=== PATIENT | male | born 1935 | race Caucasian/White ===

== ENCOUNTER 2017-05-09 13:45 | Inpatient (IN) | payer MEDICARE ==
[~2017-05-09] VITALS: Ht 177.8 cm; Wt 93.9 kg
[~2017-05-09 13:45] MED LIST: ADV100INH INH; ALLO100T PO; ATEN25TA PO; BENA25CA2 PO; CALC1CAP31 PO; CEFT500T3 PO; CLEO300C2 PO; CLON0.2T PO; COLA100C3 PO; DEMA20TA6 PO; DOXY25SU PO; DYAZ37.5 PO; FURO40TA2 PO; LIPI10TA PO; MICR10CA PO; OMNICEF PO; PRED10TA PO; TYLE325T5 PO; ZITH250T PO
[2017-05-09] MEDS ORDERED: ONDANSETRON 4 MG TAB (S0181) PO PRN (14:30)
[2017-05-09] MEDS ORDERED: ACETAMINOPHEN TAB 650MG DOSE (2X325MG) PO PRN (14:30)
[2017-05-09] MEDS ORDERED: LevoFLOXacin IV 750 MG in APPROPRIATE DILUENT 1 EA IV ONE (15:00)
[2017-05-09] MEDS ORDERED: GASTROGRAFIN SOLUTION 30ML PO ONE (15:30)
[2017-05-09] MEDS ORDERED: GASTROGRAFIN SOLUTION 30ML (Q9963) PO ONE (16:00)
[2017-05-09] MEDS ORDERED: GENTAMICIN 120 MG in D5W 50 ML IV ONE (16:00)
[2017-05-09] MEDS ORDERED: DIPH25CA PO (16:01)
[2017-05-09] MEDS ORDERED: COLA100C3 PO (16:01)
[2017-05-09 16:02] LABS: MEAN CORPUSCULAR HEMOGLOBIN 31.9 pg (27.0-33.0); MEAN CORPUSCULAR HGB CONC 33.8 g/dl (32.0-36.5); MEAN CORPUSCULAR VOLUME 94.4 fl (80.0-96.0); PLATELET COUNT, AUTOMATED 209 k/mm3 (150-450); RED CELL DISTRIBUTION WIDTH 13.2 % (11.5-14.5); WHITE BLOOD COUNT 7.8 K/mm3 (4.0-10.0)
[2017-05-09 16:06] LABS: INR 4.34
[2017-05-09 16:07] VITALS: BP 127/69
[2017-05-09] MEDS ORDERED: COUM6TAB PO (16:16)
[2017-05-09] MEDS ORDERED: VITA1CAP2 PO (16:16)
[2017-05-09] MEDS ORDERED: COUM1TAB19 PO (16:16)
[2017-05-09] MEDS ORDERED: LANT50TA PO (16:16)
[2017-05-09] MEDS ORDERED: LIQULIQ6 PO (16:16)
[2017-05-09 16:27] LABS: ALBUMIN 2.6 GM/DL (3.2-5.2); ALBUMIN/GLOBULIN RATIO 0.7 (1.00-1.93); BILIRUBIN,TOTAL 0.7 MG/DL (0.2-1.0); CALCIUM LEVEL 7.8 MG/DL (8.8-10.2); CREATININE FOR GFR 4.95 MG/DL (0.70-1.30); POTASSIUM SERUM 3.5 MEQ/L (3.5-5.1); TOTAL PROTEIN 6.3 GM/DL (6.4-8.2)
[2017-05-09] MEDS ORDERED: ISOVUE-370 76% 100ML VIAL (Q9967) As Ordered ONE (16:32)
[2017-05-09 17:00] LABS: BANDS 11 % (< 11); BASOPHILS 1 % (0-4)
[2017-05-09] MEDS ORDERED: VANCOMYCIN HCL 1,000 MG, VIAL MATE ADAPTER 1 EACH in D5W 250 ML IV ONE (17:00)
[2017-05-09] MEDS ORDERED: PREVNAR 13 VACCINE SYRINGE (CPT CODE:90670) IM SCH (17:15)
--- NOTE | 2017-05-09 18:01 | REP ---
CT ABDOMEN AND PELVIS WITH AND WITHOUT CONTRAST: TECHNIQUE: Axial noncontrast images through the abdomen followed by contrast-enhanced images through the abdomen and pelvis using 100 mL Isovue 370 intravenous contrast material, with coronal and sagittal reformations. Visualized lung bases demonstrate no infiltrate. The liver demonstrates a couple of tiny subcentimeter cysts superiorly on the right. Spleen, adrenals and pancreas are unremarkable. Multiple enumerable cysts are seen throughout both kidneys compatible with polycystic kidneys. No definite solid renal mass is seen. Extensive bilateral renal artery calcifications are present and there are moderate atherosclerotic calcifications of the abdominal aorta, without aneurysm. No adenopathy is seen. There is no free air. There is moderate scattered free fluid throughout the abdomen and pelvis. There is a peritoneal dialysis catheter entering the lower abdomen to the right of midline with the distal end coiled in the upper left pelvis. No definite bowel wall thickening is seen. No focal abscess collection is seen. No pelvic mass is seen. Urinary bladder is seen and a collapsed urinary bladder, which contains some air. There are degenerative changes of the spine. There is a small hiatal hernia. There is sigmoid diverticulosis. IMPRESSION: Moderate free fluid in the abdomen and pelvis with peritoneal dialysis catheter in place. No abscess is seen. Diffuse distension of the colon without small bowel dilatation. Polycystic kidneys. Small hiatal hernia. Signed by Rob Walden MD 05/09/2017 08:07 P
[2017-05-09] MEDS: LANTHANUM CARBONATE 500 MG CHEW TABLET PO SCH (18:23)
--- NOTE | 2017-05-09 18:29 | REP ---
CHEST, TWO VIEWS: Two views of the chest are performed and compared to prior studies, the most recent of which is 12/07/2014. There is no evidence of acute infiltrate or pulmonary edema. The heart is upper limits of normal in size. There is calcification of the thoracic aorta. The mediastinal silhouette is unchanged. There are mild degenerative changes of the spine. IMPRESSION: No acute pulmonary disease. Signed by Rob Walden MD 05/09/2017 08:07 P
[2017-05-09] MEDS: ADVAIR DISKUS 100/50 INH PWD INH SCH (19:53)
[2017-05-09 19:55] LABS: RBC PERITONEAL DIALYSATE < 10 (<10mm3 cells/uL); TNC PERITONEAL DIALYSATE 6063 cells/uL (0-20)
[2017-05-09 20:01] LABS: BF DIFF IF INDICATED? YES (NO)
[2017-05-09] MEDS: SENOKOT S TAB PO SCH (20:39)
[2017-05-09] MEDS: ATORVASTATIN 10 MG TAB PO SCH (20:39)
[2017-05-09] MEDS: VITAMIN D 1,000 INTERNATIONAL UNITS TABLET PO SCH (20:39)
[2017-05-09] MEDS: POTASSIUM CHLORIDE 10 MEQ SR TABLET PO SCH (20:40)
[2017-05-09 20:50] LABS: CC BF DIFF EXAM UNSPUN
[2017-05-09] MEDS ORDERED: VANCOMYCIN 1000 MG/20 ML VIAL (J3370) IP ONE (22:00)
[2017-05-09 23:59] VITALS: BP 112/65
[2017-05-10] VITALS (7 sets, daily range): BP systolic 116–135; BP diastolic 62–82; PULSE 80–88
--- NOTE | 2017-05-10 00:57 | HPE ---
DATE OF ADMISSION: 05/09/2017 REASON FOR ADMISSION: High-grade fever and generalized weakness with sepsis. HISTORY OF PRESENT ILLNESS: Mr. Leigh is an 81-year-old gentleman with known history of end-stage renal disease secondary to polycystic kidneys, history of obstructive uropathy, hypertension, atrial fibrillation, dyslipidemia, asthma, and peritoneal dialysis. He presented to my office today with not feeling well and fever. He had a temperature of about 103 degrees Fahrenheit and was very weak and lethargic. He is being directly admitted to progressive care unit due to sepsis. The patient has known history of urinary retention and he self-catheterizes himself twice a day at home. I am concerned about possibility of urinary sepsis versus peritonitis related to peritoneal dialysis. He denies any respiratory symptoms. He does have nausea and vomiting for last couple of days. Apparently, he has not been feeling well for 4-5 days at home, but did not call our office. PAST MEDICAL AND SURGICAL HISTORY: Significant for: 1. History of polycystic kidney disease. 2. End-stage renal disease currently on peritoneal dialysis. 3. Hypertension. 4. Chronic atrial fibrillation. 5. Dyslipidemia. 6. History of asthma. 7. History of BPH, status post transurethral resection of prostate (TURP). 8. History of urinary retention requiring self-catheterization. 9. History of gout. MEDICATIONS: His home medications include: - allopurinol 100 mg daily - Lipitor 10 mg daily - calcitriol 0.25 mcg three times a week - Advair Diskus 100/50 twice a day - Coumadin 3 mg daily - Nephro-Lynda one daily - Tylenol as needed ALLERGIES: The patient has no known drug allergies. PERSONAL AND SOCIAL HISTORY: The patient lives with his significant other. He does not smoke or drink. There is no history of drug use. Family history is significant for polycystic kidneys. REVIEW OF SYSTEMS: The patient has been feeling poorly for the last 4-5 days. He did have fever today, but denies any fever prior to today. He has nausea and not feeling well for a few days. He also reports vomiting today. There is no history of cough or hemoptysis. He denies any nosebleed or sore throat. Cardiovascular system is significant for chronic atrial fibrillation. He also has chronic leg edema, but denies any dyspnea or chest pain. Respiratory system is significant for asthma. There is no history of hemoptysis or pleuritic type of chest pain. Gastrointestinal (GI) system is significant for nausea and vomiting. There is no rectal bleeding or black colored stool. He denies any abdominal pain. Genitourinary () system is significant for polycystic kidneys and history of urinary retention requiring self-catheterization at home. Musculoskeletal system is significant for chronic leg edema. There is no history of any significant arthritis. Endocrine system is negative for diabetes or thyroid problems. Hematological system is significant for anemia of chronic kidney disease and chronic anticoagulation. Neurological system is negative for seizures or stroke. Skin is negative for rash or ulcers. PHYSICAL EXAMINATION: Temperature 103 degrees Fahrenheit, heart rate 98 per minute and respiratory rate 24 per minute in my office. Blood pressure about 120/70 mmHg and oxygen saturation 94% on room air. Head is atraumatic. Pupils equal and reactive to light and sclerae are anicteric. Ears, nose and throat are unremarkable. There is no oral thrush or ulcers. Neck is supple and without any thyroid enlargement or abnormal lymph nodes. Neck veins are mildly distended. Heart sounds are irregular in rhythm and without pericardial friction rub. Lungs sound clear to auscultation. Abdomen is soft, distended with peritoneal dialysis solution. There is no significant tenderness and bowel sounds are hypoactive. There is no costovertebral angle (CVA) tenderness. Peritoneal dialysis catheter is intact. Extremities have no cyanosis or clubbing. Chronic leg edema is about 2+. He has a fistula in his left arm. Neurologically, he is awake, alert and oriented times three. PROBLEMS: 1. High-grade fever with sepsis. Possible sources are a urinary tract infection leading to sepsis and peritonitis. I am also concerned about possibility of infection in his polycystic kidneys. We will also get a chest x-ray to rule out any possibility of pneumonia. He does not seem to have any respiratory symptoms. CT scan of abdomen and pelvis will be done with and without intravenous (IV) contrast to rule out any possibility of diverticulitis, colitis or pyelonephritis. We will get urine and blood cultures in addition to peritoneal dialysis cell count and culture and sensitivity. The patient will be started on broad-spectrum antibiotics including vancomycin 1 gram intravenously, gentamicin 120 mg one dose intravenously and Levaquin 750 mg one dose intravenously pending cultures. A complete blood count (CBC) with differential will be obtained and urinalysis will also be obtained. Depending upon culture results and urinalysis and peritoneal dialysis cell count, further antibiotics will be ordered. 2. End-stage renal disease. The patient has been on peritoneal dialysis which will be continued while he is in hospital. We will perform five exchanges per day with 2-liter bags. In view of leg edema, we will use 2.5% solution for all exchanges. With first exchange, we will obtain cell count and Gram stain and culture. Depending upon the findings of peritoneal solution, we will consider to give him intraperitoneal antibiotics later on. 3. Chronic atrial fibrillation. The patient has been on Coumadin 3 mg daily. Will check his prothrombin time/international normalized ratio (PT/INR) and adjust the dose of Coumadin as needed. 4. Asthma. We will continue with his chronic nebulizer therapy including Advair and use albuterol nebulizer as needed. 5. Hyperlipidemia. The patient will continue with Lipitor 10 mg daily. I have discussed with the patient and his significant other about his condition and plan of care. He is likely to stay in the hospital for at least two midnights due to complicated medical problems and sepsis. I have answered all their questions.
[2017-05-10 06:06] LABS: CALCIUM LEVEL 7.9 MG/DL (8.8-10.2); CREATININE FOR GFR 4.89 MG/DL (0.70-1.30); GLOMERULAR FILTRATION RATE 12.2 (>35); PHOSPHORUS LEVEL 3.7 MG/DL (2.5-4.9); POTASSIUM SERUM 3.5 MEQ/L (3.5-5.1)
[2017-05-10 06:39] LABS: INR 5.92
[2017-05-10] MEDS ORDERED: POTASSIUM CHLORIDE 10 MEQ SR TABLET PO ONE (07:45)
[2017-05-10] MEDS ORDERED: PHYTONADIONE 5 MG TAB PO ONE (07:45)
[2017-05-10] MEDS: ADVAIR DISKUS 100/50 INH PWD INH SCH ×2 (08:05→20:45)
[2017-05-10] MEDS: SENOKOT S TAB PO SCH ×2 (08:27→21:00)
[2017-05-10] MEDS: LANTHANUM CARBONATE 500 MG CHEW TABLET PO SCH ×3 (08:28→17:46)
[2017-05-10] MEDS: SLF 3 ML SYR IV SCH ×2 (14:00→22:07)
[2017-05-10] MEDS ORDERED: SLF 3 ML SYR IV PRN (14:15)
--- NOTE | 2017-05-10 19:06 | IPN ---
DATE: Mr. Leigh is seen this morning on his bedside. He was admitted yesterday with high-grade fever, weakness and sepsis. His blood cultures have already been reported positive for gram-negative rods. His peritoneal dialysis solution gram stain was also positive for gram-negative rods. His urinalysis showed turbid appearance with too numerous to count white blood cells (WBCs). A urine culture is still pending. In the meantime, the patient is feeling better today and fever has improved. He was given tympanic antibiotic therapy with vancomycin, gentamicin and Levaquin. Temperature 98.3 degrees Fahrenheit, heart rate 85 per minute and respiratory rate 18 per minute. Blood pressure 116/69 mmHg and oxygen saturation 97% on room air. His head is atraumatic. Neck is supple and without JVD or thyroid enlargement. Oral mucosa is moist and healthy. Ears, nose and throat are unremarkable. Pupils equal and reactive to light and sclera is anicteric. Heart sounds are regular and lungs clear to auscultation. Abdomen, soft, distended with peritoneal dialysis solution and nontender. Dialysis catheter is intact. Extremities have no cyanosis or clubbing. Skin has no rash or ulcers. Neurologically he is awake, alert and oriented times three. Sodium is 133 and potassium 3.5. BUN 64 and creatinine 4.89. Calcium 7.9 and phosphorus 3.7. Albumin 2.0. Urinalysis showed too numerous to count WBCs and 3+ bacteria. Peritoneal dialysis solution showed 6063 and total nucleated cells and less than 10 red blood cells. Blood culture is positive for gram-negative rods. PROBLEMS: 1. Sepsis. The patient has gram-negative bacteremia and a possible peritonitis and urinary tract infection (UTI). Final cultures are still pending. Yesterday he was given vancomycin intraperitoneally and intravenously. We will not give him further vancomycin at this point. The patient will be given gentamicin 80 mg intraperitoneally tonight and will also be given Levaquin 500 mg intravenously pending final culture results. We will continue with intraperitoneal gentamicin 40 mg daily for next few days. We will redose Levaquin or switch his antibiotic as indicated by culture and sensitivity results. 2. End-stage renal disease. The patient remains on peritoneal dialysis and will continue with five exchanges per day. 3. UTI with history of neurogenic bladder. The patient remains on twice a day catheterization. 4. Hyponatremia. This is mild and stable. No intervention indicated at this point. 5. Hypokalemia due to poor oral intake. The patient will be given one dose of 40 mEq potassium chloride and electrolytes will be checked again tomorrow morning.
--- NOTE | 2017-05-10 19:26 | IPN ---
DATE: 05/10/2017 The patient has a history of atrial fibrillation and was on Coumadin as an outpatient. His Coumadin has been on hold since admission due to elevated international normalized ratio (INR). Today his INR was reported at 5.92. He has not received Coumadin since day before yesterday. He will be given vitamin K 5 mg one dose by mouth today. His PT and INR will be checked again tomorrow morning. There is no active bleeding and no other intervention is indicated at this point. Protein calorie malnutrition. I have discussed with the patient and advised to continue high-protein intake. He did bring his LiquaCel from home, and he is drinking that. In addition, he will be given a high-protein diet here. PEDRO LUIS
[2017-05-10] MEDS ORDERED: GENTAMICIN SULF INJ 80MG/2ML VIAL (J1580) IP ONE (22:00)
[2017-05-10] MEDS: POTASSIUM CHLORIDE 10 MEQ SR TABLET PO SCH (22:04)
[2017-05-10] MEDS: VITAMIN D 1,000 INTERNATIONAL UNITS TABLET PO SCH (22:05)
[2017-05-10] MEDS: ATORVASTATIN 10 MG TAB PO SCH (22:05)
[2017-05-11 04:45] VITALS: BP 117/73
[2017-05-11 05:35] LABS: MEAN CORPUSCULAR HEMOGLOBIN 32.5 pg (27.0-33.0); MEAN CORPUSCULAR HGB CONC 33.9 g/dl (32.0-36.5); MEAN CORPUSCULAR VOLUME 95.8 fl (80.0-96.0); RED CELL DISTRIBUTION WIDTH 13.2 % (11.5-14.5); WHITE BLOOD COUNT 8.1 K/mm3 (4.0-10.0)
[2017-05-11 05:44] LABS: ALBUMIN 1.9 GM/DL (3.2-5.2); CALCIUM LEVEL 7.5 MG/DL (8.8-10.2); CREATININE FOR GFR 4.43 MG/DL (0.70-1.30); GLOMERULAR FILTRATION RATE 13.6 (>35); PHOSPHORUS LEVEL 2.7 MG/DL (2.5-4.9); POTASSIUM SERUM 3.3 MEQ/L (3.5-5.1)
[2017-05-11] MEDS: SLF 3 ML SYR IV SCH ×3 (06:08→22:01)
[2017-05-11] MEDS: ADVAIR DISKUS 100/50 INH PWD INH SCH ×2 (07:29→20:28)
[2017-05-11 08:00] VITALS: BP 109/69
[2017-05-11] MEDS: SENOKOT S TAB PO SCH ×2 (08:16→21:00)
[2017-05-11] MEDS: LANTHANUM CARBONATE 500 MG CHEW TABLET PO SCH ×3 (08:17→17:30)
[2017-05-11] MEDS ORDERED: LevoFLOXacin IV 500 MG in APPROPRIATE DILUENT 1 EA IV SCH (09:00)
[2017-05-11] MEDS ORDERED: POTASSIUM CHLORIDE 10% LIQ 20 MEQ/15 ML UDC PO ONE (11:00)
[2017-05-11 12:00] VITALS: BP 112/64
--- NOTE | 2017-05-11 12:34 | REP ---
Right lower extremity deep vein duplex ultrasound: The deep veins demonstrate normal compression, normal Doppler color flow and normal Doppler waveforms with respiration augmentation at multiple levels from the popliteal vein to the common femoral vein. 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 Impression: There is no deep vein thrombus in the right lower extremity. Signed by Rob Montesinos MD 05/11/2017 12:26 P
--- NOTE | 2017-05-11 14:34 | IPN ---
DATE: 05/11/2017 SUBJECTIVE: Patient was seen and examined at the bedside today in the morning. He reports that he feels much better. He is afebrile and hemodynamically stable at this time. Patient is tolerating the peritoneal dialysis, and he is getting intravenous (IV) and intraperitoneal antibiotics for bacteremia and sepsis. REVIEW OF SYSTEMS: Patient denies any fevers, chills, rigors, headaches, nausea, vomiting, chest pain, shortness of breath, or pain in abdomen. He reports that his appetite is low. Patient also reports right leg swelling. Rest of the review of systems is negative. OBJECTIVE Vital signs: Temperature is 98.8, degrees Fahrenheit, blood pressure is 109/69, pulse is 83, respiratory rate of 18, saturating 96% on room air. Intake and output: Urine output recorded is 550 mL yesterday, 250 mL so far today. Patient is 390 mL positive so far, according to intake and output. Weight in the bed scale is 93.7 kg. PHYSICAL EXAMINATION: GENERAL: Patient is awake, alert, oriented times three, lying in bed in No apparent distress. HEAD AND NECK: Extraocular muscles intact. Pupils equally round and reactive to light. Mucous membranes are moist. Neck is supple. There is no jugular venous distention (JVD). CARDIOVASCULAR: S1, S2, regular rate. No murmur, rub, or gallop. RESPIRATORY: Chest is clear to auscultation bilaterally. Bilateral equal air entry. No rales or rhonchi. ABDOMEN: Abdomen is soft. Mildly distended, because continuous ambulatory peritoneal dialysis (CAPD) is going on. He has a left lower quadrant PD catheter with no tenderness or drainage from the exit site. No organomegaly. EXTREMITIES: No clubbing or cyanosis. Patient has 2+ pitting edema of the right lower extremity and trace edema of the left lower extremity. CENTRAL NERVOUS SYSTEM: No focal neurological deficit. Power is 5/5 in all extremities. PSYCHIATRIC: Normal mood and affect. LABORATORY REVIEW: CBC showed a WBC 8.1, hemoglobin 11.7, platelets at 192. INR is 2. BMP showed sodium 136, potassium 3.3, chloride 99, bicarbonate 26, BUN 69, creatinine is 4.4, calcium 7.5, phosphorus 2.7. Albumin is 1.9. Microbiology: Peritoneal fluid culture is growing Escherichia (E) coli. Blood culture is growing gram-negative rods. Urine culture is also growing E. coli, and this is sensitive to gentamicin and Levaquin that patient is already on. CURRENT INPATIENT MEDICATIONS: Patient's medications were all reviewed by me. I have changed the IV antibiotic frequency to Levaquin 500 mg IV every 48 hours because of renal failure, and I have ordered another dose of gentamicin 40 mg intraperitoneal to be given tonight. There is no other change in the medications today as compared with yesterday. ASSESSMENT: Mr. Leigh is an 81-year-old male with past medical history of end-stage renal disease, on peritoneal dialysis, admitted at this time because of sepsis secondary to Escherichia (E) coli urinary tract infection (UTI), E. coli bacteremia, and E. coli secondary bacterial peritonitis. PLAN: 1. Sepsis secondary to E. colic UTI,E Coli bacteremia and E Coli peritonitis. Patient is currently on IV Levaquin. I have changed the dose to 500 mg IV every 48 hours because of renal failure. Patient got gentamicin intraperitoneal 80 mg yesterday. I will give him another dose of 40 mg intraperitoneal tonight. Patient is otherwise afebrile and hemodynamically stable at this time. 2. End-stage renal disease, on peritoneal dialysis. Continue current dose of 2.5% of dialysate 2 liters times five exchanges daily. 3. Right-sided leg edema. Continue the 2.5% dialysate exchanged to help with more ultrafiltration. I have also ordered a right leg Doppler to do deep vein thrombosis (DVT) in the right extremity. 4. UTI with E. coli and neurogenic bladder. Patient was doing straight catheterizations at home. He currently has an indwelling Whaley catheter continued at this time. 5. Hypokalemia. I have ordered potassium chloride 20 mEq by mouth daily, and in addition he will get an additional dose of potassium chloride 40 mEq by mouth times one dose. 6. Hyponatremia. It improved with ultrafiltration and peritoneal dialysis. Sodium is improved to 136 now. 7. Atrial fibrillation. Heart rate is controlled at this time. He was given a dose of vitamin K because of supratherapeutic INR. INR is 2 today. I am going to restart the patient on low dose of the Coumadin. MTDD
[2017-05-11 16:00] VITALS: BP 118/71
[2017-05-11] MEDS: WARFARIN SOD 3 MG TAB PO SCH (16:29)
[2017-05-11 20:00] VITALS: BP 114/70
[2017-05-11] MEDS: ATORVASTATIN 10 MG TAB PO SCH (21:11)
[2017-05-11] MEDS: VITAMIN D 1,000 INTERNATIONAL UNITS TABLET PO SCH (21:11)
[2017-05-11] MEDS: POTASSIUM CHLORIDE 10 MEQ SR TABLET PO SCH (21:11)
[2017-05-11] MEDS ORDERED: GENTAMICIN SULF INJ 80MG/2ML VIAL (J1580) IP ONE (22:00)
[2017-05-11 23:53] VITALS: BP 131/71
[2017-05-12 06:00] VITALS: BP 121/62
[2017-05-12] MEDS: SLF 3 ML SYR IV SCH ×3 (06:00→22:00)
[2017-05-12 06:27] LABS: BASO % 0.1 % (0.0-1.0); EOS # 0.1 K/mm3 (0.0-0.50); EOS % 1.3 % (0.0-3.0); LARGE UNSTAINED CELL # 0.2 K/mm3 (0.0-0.4); LARGE UNSTAINED CELL % 2.3 % (0.0-4.0); LYMPH # 0.6 K/mm3 (1.5-4.5); LYMPH % 6.6 % (24.0-44.0); MEAN CORPUSCULAR HEMOGLOBIN 32.6 pg (27.0-33.0); MEAN CORPUSCULAR HGB CONC 34.5 g/dl (32.0-36.5); MEAN CORPUSCULAR VOLUME 94.4 fl (80.0-96.0); MONO # 0.4 K/mm3 (0.0-0.8); MONO % 6.6 % (0.0-5.0); NEUTROPHILS # 5.3 K/mm3 (1.8-7.7); PLATELET COUNT, AUTOMATED 223 k/mm3 (150-450); RED CELL DISTRIBUTION WIDTH 13.1 % (11.5-14.5); WHITE BLOOD COUNT 6.3 K/mm3 (4.0-10.0)
[2017-05-12 06:31] LABS: INR 1.69
[2017-05-12 06:44] LABS: ALBUMIN 1.9 GM/DL (3.2-5.2); CALCIUM LEVEL 7.8 MG/DL (8.8-10.2); CREATININE FOR GFR 4.3 MG/DL (0.70-1.30); GLOMERULAR FILTRATION RATE 14.1 (>35); PHOSPHORUS LEVEL 2.5 MG/DL (2.5-4.9); POTASSIUM SERUM 3.6 MEQ/L (3.5-5.1)
[2017-05-12] MEDS: ADVAIR DISKUS 100/50 INH PWD INH SCH ×2 (07:25→21:55)
[2017-05-12] MEDS: SENOKOT S TAB PO SCH ×3 (08:26→22:12)
[2017-05-12] MEDS: LANTHANUM CARBONATE 500 MG CHEW TABLET PO SCH ×3 (08:28→17:48)
[2017-05-12] MEDS ORDERED: POTASSIUM CHLORIDE 10 MEQ SR TABLET PO ONE (11:00)
[2017-05-12 11:54] LABS: BF DIFF IF INDICATED? YES (NO); PERITONEAL DIALYSATE FL COLOR PALE YELLOW (COLORLESS); RBC PERITONEAL DIALYSATE < 10 (<10mm3 cells/uL); TNC PERITONEAL DIALYSATE 1906 cells/uL (0-20)
[2017-05-12 12:08] LABS: CC BF DIFF EXAM CYTOCENTRIFUGE
[2017-05-12] MEDS: FUROSEMIDE 40 MG/4 ML VIAL (J1940) IV SCH (12:57)
[2017-05-12 14:00] VITALS: BP 105/61
--- NOTE | 2017-05-12 14:07 | IPN ---
DATE: 05/12/2017 SUBJECTIVE: Patient was seen and examined at the bedside today in the morning. He was getting his PD exchange when I saw him. The patient reports that clinically he is getting better. His appetite is improving. He is afebrile and hemodynamically stable at this time. Last 24 hour events are noted. The patient was found to have E. Coli in the blood as well. The patient also got Doppler of the right leg done yesterday which was negative for deep vein thrombosis (DVT). REVIEW OF SYSTEMS: The patient denies any fevers, chills, rigors, headaches, nausea, vomiting, chest pain, shortness of breath, or pain in abdomen. He reports that his appetite is getting better and he reports that the right leg swelling is slightly better than yesterday. The rest of the review of systems is negative. OBJECTIVE Vital Signs: Temperature is 96.4 degrees Fahrenheit, blood pressure is 121/62, pulse is 94, respiratory rate of 17, saturating 98% on room air. Intake and Output: Urine output recorded as 575 mL yesterday and 450 mL so far today since overnight. Bed scale weight is not available today. PHYSICAL EXAMINATION: GENERAL: Patient is awake, alert, oriented times three, lying in bed in no apparent distress. HEAD AND NECK EXAM: Extraocular muscles intact. Pupils equally round and reactive to light. Mucous membranes are moist. Neck is supple. There is no jugular venous distention (JVD). CARDIOVASCULAR: S1, S2, regular rate. No murmur, rub, or gallop. RESPIRATORY: Chest is clear to auscultation bilaterally. Bilateral equal air entry. No rales or rhonchi. ABDOMEN: Abdomen is soft. Mildly distended because of peritoneal exchange. Otherwise no tenderness, no organomegaly. He has left lower quadrant peritoneal dialysis catheter. EXTREMITIES: No clubbing or cyanosis. Patient has 2+ pitting edema of the right lower extremity and trace edema of the left lower extremity. CENTRAL NERVOUS SYSTEM: No focal neurological deficit. Power is 5/5 in all extremities. PSYCHIATRIC: Normal mood and affect. LABORATORY REVIEW: CBC showed a WBC 6.3, hemoglobin 11.8, platelets are 223. INR is 1.69 today. Peritoneal fluid cell count was 1,906 and 91% were neutrophils. BMP showed sodium 136, potassium 3.6, chloride 99, bicarbonate 28, BUN 64, creatinine is 4.3, calcium 7.8, phosphorus 2.5. Albumin is 1.9. Microbiology: Peritoneal fluid is positive for Escherichia (E) coli. Blood culture is positive for E. Coli. Urine culture is positive for E. Coli. CURRENT MEDICATIONS: Patient's medications were all reviewed by me. He is currently on Levaquin 500 mg IV every 48 hours. I have started the patient on Lasix 40 mg IV daily because of edema. The patient will get another dose of gentamicin 40 mg intraperitoneally tonight. I gave the patient another dose of potassium chloride 20 mEq one dose today morning. The patient is on warfarin 3 mg by mouth daily. There is no other change in the medications today as compared with yesterday. ASSESSMENT: Mr. Leigh is an 81-year-old male with past medical history of end-stage renal disease on peritoneal dialysis admitted at this time because of sepsis secondary to Escherichia (E) coli urinary tract infection (UTI), E. coli bacteremia and E. coli secondary bacterial peritonitis. PLAN: 1. Sepsis secondary to E. coli UTI, E. Coli bacteremia and E. Coli peritonitis. Patient is currently hemodynamically stable. He is afebrile. He is currently on Levaquin 500 mg IV every 48 hours. He got one dose yesterday, next dose will be tomorrow. The patient will get intraperitoneal gentamicin tonight. 2. End-stage renal disease on peritoneal dialysis. Patient continues to tolerate the peritoneal dialysis. Continue five exchanges of 2 liters each, all 2.5%, because of slight volume overload. 3. Right-sided leg edema. Patient got a Doppler of the right leg done yesterday which was negative for deep vein thrombosis (DVT). I have started the patient on Lasix 40 mg IV daily because the patient still has some residual kidney function that will help improve edema as well. Continue the 2.5% dialysate with the exchange volumes. in the right extremity. 4. UTI with E. Coli and neurogenic bladder. Patient continues to be on Whaley catheter. When he goes home, he will have to resume straight catheterizations. 5. Hypokalemia. The patient continues to be on potassium chloride 20 mEq by mouth daily. I gave the patient additional dose of 20 mEq of potassium chloride today morning. Potassium is stable at 3.6. 6. Atrial fibrillation. Heart rate is well controlled at this time. Continue warfarin 3 mg by mouth daily. INR is subtherapeutic at this time. However, I would continue the current dose because patient needs vitamin K because of supratherapeutic INR on admission. 7. Protein calorie malnutrition. Continue current dose of LiquaCel 30 mL by mouth twice a day and continue the protein shakes. The patient had the protein supplements at home and he has brought them with him. Continue to encourage oral intake. 8. Discharge planning. The patient should be able to go home probably within the next one to two days. He would need to follow up as outpatient with the dialysis center and he would need at least two weeks of antibiotics on discharge.
[2017-05-12] MEDS: WARFARIN SOD 3 MG TAB PO SCH (17:48)
[2017-05-12 22:00] VITALS: BP 113/67
[2017-05-12] MEDS ORDERED: HEPARIN SOD (PORCINE) 5000 UNITS/ML VIAL PD ONE (22:00)
[2017-05-12] MEDS ORDERED: GENTAMICIN SULF INJ 80MG/2ML VIAL (J1580) IP ONE (22:00)
[2017-05-12] MEDS: POTASSIUM CHLORIDE 10 MEQ SR TABLET PO SCH (22:12)
[2017-05-12] MEDS: ATORVASTATIN 10 MG TAB PO SCH (22:12)
[2017-05-12] MEDS: VITAMIN D 1,000 INTERNATIONAL UNITS TABLET PO SCH (22:12)
[2017-05-13] MEDS: SLF 3 ML SYR IV SCH (05:16)
[2017-05-13 06:00] VITALS: BP 124/77
[2017-05-13 06:07] LABS: BASO % 0.3 % (0.0-1.0); EOS # 0.2 K/mm3 (0.0-0.50); EOS % 2.4 % (0.0-3.0); LARGE UNSTAINED CELL # 0.2 K/mm3 (0.0-0.4); LARGE UNSTAINED CELL % 2.6 % (0.0-4.0); LYMPH # 0.7 K/mm3 (1.5-4.5); LYMPH % 8.8 % (24.0-44.0); MEAN CORPUSCULAR HEMOGLOBIN 32.2 pg (27.0-33.0); MEAN CORPUSCULAR HGB CONC 33.8 g/dl (32.0-36.5); MEAN CORPUSCULAR VOLUME 95.2 fl (80.0-96.0); MONO # 0.5 K/mm3 (0.0-0.8); MONO % 7.2 % (0.0-5.0); NEUTROPHILS # 5.2 K/mm3 (1.8-7.7); NEUTROPHILS % 78.8 % (36.0-66.0); PLATELET COUNT, AUTOMATED 258 k/mm3 (150-450); WHITE BLOOD COUNT 6.5 K/mm3 (4.0-10.0)
[2017-05-13 06:12] LABS: INR 1.9
[2017-05-13 06:41] LABS: ALBUMIN 1.8 GM/DL (3.2-5.2); CALCIUM LEVEL 8.1 MG/DL (8.8-10.2); CREATININE FOR GFR 4.2 MG/DL (0.70-1.30); GLOMERULAR FILTRATION RATE 14.5 (>35); PHOSPHORUS LEVEL 2.1 MG/DL (2.5-4.9); POTASSIUM SERUM 3.6 MEQ/L (3.5-5.1)
[2017-05-13 07:09] LABS: RBC PERITONEAL DIALYSATE < 10 (<10mm3 cells/uL); TNC PERITONEAL DIALYSATE 1036 cells/uL (0-20)
[2017-05-13 07:11] LABS: BF DIFF IF INDICATED? YES (NO); PERITONEAL DIALYSATE FL COLOR COLORLESS (COLORLESS)
[2017-05-13 07:57] LABS: CC BF DIFF EXAM CYTOCENTRIFUGE
[2017-05-13] MEDS: ADVAIR DISKUS 100/50 INH PWD INH SCH (08:02)
[2017-05-13] MEDS: FUROSEMIDE 40 MG/4 ML VIAL (J1940) IV SCH (08:52)
[2017-05-13] MEDS: SENOKOT S TAB PO SCH (08:53)
[2017-05-13] MEDS: LANTHANUM CARBONATE 500 MG CHEW TABLET PO SCH (08:53)
[2017-05-13] MEDS ORDERED: LevoFLOXacin IV 500 MG in APPROPRIATE DILUENT 1 EA IV SCH (09:00)
[2017-05-13] MEDS ORDERED: COUM1TAB19 PO (11:24)
[2017-05-13] MEDS ORDERED: FURO40VL PO ×2 (11:24→11:35)
[2017-05-13] MEDS ORDERED: GENT40VL IP (11:24)
[2017-05-13] MEDS ORDERED: LEVA500T PO (11:24)
[2017-05-13 19:01] LABS: GENTAMICIN LEVEL RANDOM 2.8 MCG/ML
--- NOTE | 2017-05-13 23:40 | DSES ---
DATE OF ADMISSION: 05/09/2017 DATE OF DISCHARGE: 05/13/2017 ADMITTING DIAGNOSIS: High grade fever with sepsis secondary to urinary tract infection (UTI) and peritonitis. DISCHARGE DIAGNOSES: 1. Sepsis secondary to Escherichia (E) coli bacteremia. 2. Escherichia (E) coli secondary bacterial peritonitis. 3. Escherichia (E) coli urinary tract infection. OTHER DIAGNOSES: 1. End-stage renal disease, dependent on peritoneal dialysis. 2. Chronic atrial fibrillation. 3. Supratherapeutic INR. 4. Right-sided leg edema and fluid overload. 5. Protein calorie malnutrition. PROCEDURES PERFORMED DURING THIS ADMISSION: Patient got continuous ambulatory peritoneal dialysis (CAPD) during this hospital stay. HISTORY OF PRESENT ILLNESS: Mr. Leigh is an 81-year-old male with past medical history of end-stage renal disease on peritoneal dialysis, history of polycystic kidney disease, hypertension, chronic atrial fibrillation, history of urinary retention requiring daily self-catheterization. He was seen in the nephrology office on 05/09/2017 with fever of 103 degrees Fahrenheit. He was very weak and lethargic. He was directly admitted to the hospital. His initial sepsis broke up, showed that his urine was full of pus. His peritoneal fluid had more than 6000 nucleated cells. Patient was admitted. Broad-spectrum antibiotics were started and chavez cultured were sent. HOSPITAL COURSE: Patient was admitted on 05/09/2017. After sending the chavez cultures, patient was started on intravenous (IV) Levaquin and intraperitoneal gentamicin. His urine culture, blood culture and peritoneal cultures all grew Escherichia (E) coli, which was sensitive to Levaquin and gentamicin. For bacteremia, patient was given IV Levaquin 500 mg IV every 48 hours. For urinary tract infection, patient got Whaley catheterization. IV Levaquin covered the urinary tract infection (UTI) as well. His urine became clear after a few days. For secondary bacterial peritonitis, in addition to IV Levaquin, patient was given intraperitoneal gentamicin as well. First dose was 80 mg. Subsequent doses were 40 mg intraperitoneally every day. Peritoneal fluid white cell count was trended and it came down from 6000 to 1000 on 05/13/2017. Patient also had supratherapeutic INR on admission, with INR of 5.9. He was given vitamin K. His Coumadin dose was changed to 3 mg by mouth daily. For his end-stage renal disease and peritoneal dialysis, patient continued CAPD, 2 liter exchanges of 2.5%. Because of volume overload, he did five exchanges every day. For right-sided leg edema, in addition to the 2.5% exchanges, I gave the patient Lasix 40 mg IV daily, because he still makes a good amount of urine, and then I switched him to Lasix 40 mg oral daily on discharge as well. Patient also had hypokalemia during this admission. He was given additional potassium in addition to the potassium 20 mEq daily that he receives at home. Patient had protein calorie malnutrition, because he was very weak and tired and he was unable to eat any food. We continued his home dose of LiquaCel and protein shakes. His albumin on discharge was 1.8. Patient was encouraged to continue the high protein diet and protein shakes. On the morning of 05/13/2017, patient was afebrile, hemodynamically stable. He denied any active complaints. PHYSICAL EXAMINATION: GENERAL: Patient is awake, alert, oriented times three, laying in bed. No apparent distress. HEAD AND NECK EXAMINATION: Extraocular muscles intact. Pupils equally round and reactive to light. Mucous membranes are moist. Neck is supple. There is no jugular venous distention (JVD). CARDIOVASCULAR: S1, S2. Regular rate. No murmurs, rubs or gallops. RESPIRATORY: Clear to auscultation bilaterally. Bilateral equal air entry. No rales or rhonchi. ABDOMEN: Soft. Mildly distended because of polycystic kidneys and peritoneal dialysis. There was no tenderness. No organomegaly. EXTREMITIES: No clubbing or cyanosis. Patient has 2+ pitting edema of the right lower extremity. Left extremity has only trace edema. CENTRAL NERVOUS SYSTEM: No focal neurological deficits. Power is 5/5 in all extremities. LABORATORY REVIEW: CBC showed a WBC 6.5, hemoglobin 11.9, platelets 258. BMP showed sodium 136, potassium 3.6, chloride 100, bicarbonate 28, BUN 65, creatinine 4.2, calcium 8.1, phosphorus 2.1. Albumin 1.8. CONDITION ON DISCHARGE: Stable and improving. DISPOSITION: Patient was discharged home. DISCHARGE MEDICATIONS: - Lasix 40 mg by mouth daily - gentamicin 40 mg intraperitoneally daily for a total of 10 days - Levaquin 500 mg by mouth every 48 hours for a total of 10 days - warfarin 3 mg by mouth daily - Lipitor 10 mg at bedtime - Calcitriol 0.25 mcg by mouth Saturday, Saturday, Saturday - vitamin D 1000 units by mouth daily - Colace 100 mg by mouth twice a day as needed for constipation - lanthanum 500 mg by mouth three times a day with meals - LiquaCel 30 mL by mouth Saturday, Saturday and Saturday - potassium chloride 20 mEq by mouth daily - Advair 100/50 one puff twice a day DISCHARGE INSTRUCTIONS: 1. Activity: As tolerated. 2. Diet: Renal diet. 3. Other instructions: Whaley catheter will be removed today. Patient will need to self-catheterize himself daily with straight on technique. Patient was asked to wear gloves and wash hands before and after self-catheterization and before touching his peritoneal dialysis catheter. 4. Patient was also asked to get in touch with nephrology clinic in case he spikes a fever. FOLLOWUP: Patient is supposed to stop at the dialysis center after discharge before going home about instructions how to give intraperitoneal gentamicin every day and patient has follow up with Dr. Soto in the clinic on 05/17/2017. Instructions were given to the patient and he is already aware of his follow up. I spent more than 45 minutes in arranging the discharge of this patient. PEDRO LUIS
== END 2017-05-13 12:30 | disposition home or self-care (01) | DRG 871 ==
LOC: M ICU 14:52 → M PCU 22:49 → M MSPAV 05-11 23:52
PROVIDERS: ADMIT Internal Medicine Nephrology; ATTEND Internal Medicine Nephrology
DX: A41.9 Sepsis, unspecified organism (principal); N18.6 End stage renal disease; K65.9 Peritonitis, unspecified; N39.0 Urinary tract infection, site not specified; E46 Unspecified protein-calorie malnutrition; B96.20 Unspecified Escherichia coli [E. coli] as the cause of diseases classified elsewhere; E87.6 Hypokalemia; J45.909 Unspecified asthma, uncomplicated; M10.9 Gout, unspecified; N31.9 Neuromuscular dysfunction of bladder, unspecified; I48.91 Unspecified atrial fibrillation; E78.5 Hyperlipidemia, unspecified; Z99.2 Dependence on renal dialysis; Z79.01 Long term (current) use of anticoagulants; Z79.899 Other long term (current) drug therapy; Z84.1 Family history of disorders of kidney and ureter

== ENCOUNTER 2017-11-09 16:08 | Observation (INO) | payer MEDICARE ==
[~2017-11-09] VITALS: Ht 177.8 cm; Wt 93.2 kg
[~2017-11-09 16:08] MED LIST changes: -COLA100C3 PO; +COLA100C5 PO; +COUM1TAB19 PO; +COUM6TAB PO; +DIPH25CA PO; +FURO40VL PO; +GENT40VL IP; +LANT50TA PO; +LEVA1TAB2 PO; +LIQULIQ6 PO; +VITA1CAP2 PO
[2017-11-09 17:44] LABS: BASO % 0.5 % (0.0-1.0); EOS # 0.5 10^3/uL (0.0-0.50); EOS % 6.7 % (0.0-3.0); IMMATURE GRANULOCYTE % 0.9 % (0-0); LYMPH # 0.6 10^3/uL (1.5-4.5); MEAN CORPUSCULAR HEMOGLOBIN 31.9 pg (27.0-33.0); MEAN CORPUSCULAR HGB CONC 33.9 g/dl (32.0-36.5); MEAN CORPUSCULAR VOLUME 94.1 fl (80.0-96.0); MONO # 0.8 10^3/uL (0.0-0.8); MONO % 10.9 % (0.0-5.0); NEUTROPHILS # 5.7 10^3/uL (1.8-7.7); PLATELET COUNT, AUTOMATED 229 10^3/uL (150-450); RED CELL DISTRIBUTION WIDTH 13.5 % (11.5-14.5); WHITE BLOOD COUNT 7.7 10^3/uL (4.0-10.0)
[2017-11-09 17:57] LABS: CALCIUM LEVEL 8.8 MG/DL (8.8-10.2); CREATININE FOR GFR 5.24 MG/DL (0.70-1.30); FREE T4 1.21 NG/DL (0.76-1.46); GLOMERULAR FILTRATION RATE 11.2 (>35); MAGNESIUM LEVEL 2.1 MG/DL (1.8-2.4); POTASSIUM SERUM 2.9 MEQ/L (3.5-5.1)
[2017-11-09] MEDS ORDERED: ONDANSETRON 4MG/2ML VIAL (J2405) IV ONE (18:00)
[2017-11-09] MEDS ORDERED: NS 500 ML IV ONE (18:00)
[2017-11-09 18:07] LABS: INR 2.25
[2017-11-09] MEDS ORDERED: KCL 10MEQ IN 100ML SWI (KRUN) 10 MEQ in APPROPRIATE DILUENT 1 EA IV ONE ×2 (18:15)
--- NOTE | 2017-11-09 18:30 | REPUSA ---
CLINICAL HISTORY: Syncope. TECHNIQUE: Multiple axial CT images were obtained through the brain without IV contrast material. COMMENTS: There is normal configuration of sella turcica. There are no intra or extra-axial collections. There is no mass effect or midline shift. There is no evidence of hematoma formation. No hydrocephalus is p resent. The ventricles are symmetrical. No abnormal calcifications are present. There is diffuse age-appropriate cerebellar and cerebral atrophy with proportionally dilated ventricl es and cortical sulci. There are bilateral periventricular and subcortical white matter hypolucencies compatible with mild c hronic microvascular disease. Otherwise, no significant focal abnormalities are seen either in the posterior fossa or supratentoria l compartment. IMPRESSION: 1. Age-appropriate cerebellar and cerebral atrophy. 2. Mild chronic microvascular disease. 3. No evidence of acute intracranial pathology. Thank you for your kind referral of this patient.
[2017-11-09] MEDS ORDERED: WARF-58 PO ×2 (18:42)
[2017-11-09] MEDS ORDERED: FURO40TA2 PO (18:42)
[2017-11-09] MEDS ORDERED: POTA1TAB14 PO (18:42)
[2017-11-09] MEDS ORDERED: POTASSIUM CHLORIDE 10 MEQ SR TABLET PO ONE (18:45)
[2017-11-09] MEDS ORDERED: ONDANSETRON 4MG/2ML VIAL (J2405) IV PRN (19:45)
[2017-11-09] MEDS ORDERED: DOCUSATE SODIUM 100 MG CAP PO PRN (19:45)
[2017-11-09] MEDS ORDERED: ACETAMINOPHEN TAB 650MG DOSE (2X325MG) PO PRN (19:45)
--- NOTE | 2017-11-09 20:29 | HPE ---
DATE OF ADMISSION: 11/09/2017 HISTORY OF PRESENT ILLNESS: The patient is an 81-year-old male with past medical history significant for end-stage renal disease secondary to polycystic kidney on peritoneal dialysis, hypertension, atrial fibrillation, dyslipidemia, asthma, who was brought to the [facility] by ambulance after a syncope episode. The patient around 3:00-3:30 p.m., the patient was in the restroom. The patient had a syncopal episode lasting for less than a minute. After he regained consciousness, the patient felt very nauseated and vomited twice. Denies losing any bowel or bladder control. Denies any tongue biting. The syncopal episode was witnessed by the family member who was also in the restroom at the time. There is no involuntary extremity shaking. The patient denies any fever, chills, abdominal pain, chest pain or shortness of breath. Some significant history includes prior to the event, the patient took two Vicodin on an empty stomach for his carpal tunnel pain. At the baseline, the patient does not use any narcotics. The patient got a prescription a long time ago. Today he felt the carpal tunnel pain was bothering him; therefore, he decided to take two Vicodin. PAST MEDICAL HISTORY: 1. End-stage renal disease on peritoneal dialysis. 2. Polycystic kidney disease. 3. Hypertension. 4. Atrial fibrillation. 5. Hyperlipidemia. 6. Asthma. 7. Benign prostatic hypertrophy (BPH), status post transurethral resection of the prostate (TURP). 8. History of urinary retention requiring self catheterization. 9. Gout. PAST SURGICAL HISTORY: TURP. SOCIAL HISTORY: The patient quit smoking 50 years ago. Drinks beer 2-3 bottles a day. No recreational drug use. HOME MEDICATIONS: - atorvastatin 10 mg by mouth at bedtime - vitamin D3 1000 units by mouth at bedtime - Colace 100 mg by mouth twice a day as needed - Lasix 40 mg by mouth twice a day - potassium 20 mEq by mouth daily - Advair Diskus one puff inhalation twice a day - warfarin 3 mg by mouth five times a week - warfarin 4.5 mg by mouth two times a week - calcitriol 0.25 mcg by mouth three times a week ALLERGIES: No known drug allergies. REVIEW OF SYSTEMS: GENERAL: No fever, no chills. The patient had a syncopal episode today lasting less than a minute. HEENT: No vision change, no auditory change. CARDIOVASCULAR: No chest pain or palpitations. RESPIRATORY: No shortness of breath, no cough. GASTROINTESTINAL (GI): Positive nausea and vomiting. No abdominal pain. No diarrhea. MUSCULOSKELETAL: Today complains of carpal tunnel pain with no acute joint pain or muscle pain. No numbness or tingling. OBJECTIVE: VITAL SIGNS: Temperature is 95.8, pulse is 63, respiratory rate is 18, blood pressure is 113/60 supine, sitting is 111/67, standing is 83/57. Pulse oximetry 99% on room air. GENERAL: No sign of acute distress. Alert and oriented times three. HEENT: Normocephalic, atraumatic. Extraocular motor grossly intact. CARDIOVASCULAR: Irregularly irregular. Positive S1, S2. Rate in the satisfactory range. LUNGS: Clear to auscultation bilaterally. ABDOMEN: Mildly distended, decreased bowel sounds but no tenderness to palpation. EXTREMITIES: No edema, no cyanosis. There is skin darkening of the extremities. LABORATORY DATA: WBC 7.7, hemoglobin 13, hematocrit 38.3, platelet count 229. Sodium is 133, potassium 2.9, chloride 96, carbon dioxide 26, BUN 69, creatinine 5.24, GFR 11.2, fasting glucose 134, calcium 8.8, magnesium 2.1. Free T4 is 1.21. PT is 25.7, INR is 2.25, PTT is 46.3. IMAGING: CT of the head without contrast shows age appropriate cerebellar and cerebral atrophy. Mild chronic microvascular disease. No evidence of acute intracranial pathology. ASSESSMENT AND PLAN: 1. Syncopal episode. Patient is admitted to the progressive care unit (PCU) under observation status. The patient will have monitoring tech on cardiac telemetry. The patient took two Vicodin for is pain prior to the syncopal episode. He has not used any narcotics at the baseline. Suspect this patient's current syncopal episode may be due to the medication use. 2. Orthostatic hypotension. The patient is receiving fluid in the emergency room. We will put the diuretic on hold at this moment. 3. End-stage renal disease on peritoneal dialysis. Nephrology has been contacted. We appreciate Dr. López's assistance with patient's peritoneal dialysis settings. The patient has end-stage renal disease secondary to polycystic kidney disease. 4. Polycystic kidney disease. 5. Hypokalemia. The patient presented with a potassium of 2.9. One potassium (K) round is being ordered, and patient also has additional potassium 40 mEq ordered. Continue to follow potassium levels. 6. Hypertension. Blood pressure is in the satisfactory range. 7. Atrial fibrillation in the satisfactory range, and the patient is on warfarin with therapeutic international normalized ratio (INR). 8. Dyslipidemia on atorvastatin. 9. History of asthma. No exacerbation. 10. Benign prostatic hypertrophy status post transurethral resection of the prostate (TURP). 11. History of urinary tract infection secondary to bacterial peritonitis and urinary tract infection (UTI). Events occurred in May of 2017. Will follow with repeat cultures. 12. History of gout. 13. Deep venous thrombosis (DVT) prophylaxis. Patient on warfarin with therapeutic INR.
[2017-11-09 20:45] VITALS: BP 139/71
[2017-11-09] MEDS ORDERED: FUROSEMIDE 40 MG TAB PO SCH (21:00)
[2017-11-09] MEDS: ATORVASTATIN 10 MG TAB PO SCH (21:32)
[2017-11-09] MEDS: VITAMIN D 1,000 INTERNATIONAL UNITS TABLET PO SCH (21:33)
[2017-11-09] MEDS: WARFARIN SOD 3 MG TAB PO SCH (21:33)
[2017-11-09] MEDS ORDERED: HEPARIN SOD (PORCINE) 5000 UNITS/ML VIAL SC SCH (22:00)
[2017-11-09 23:42] VITALS: BP 110/61
[2017-11-10] MEDS: ADVAIR HFA 45/21MCG INHALER INH SCH ×3 (00:29→19:45)
[2017-11-10 03:45] VITALS: BP 127/68
[2017-11-10 05:53] LABS: MEAN CORPUSCULAR HEMOGLOBIN 32.4 pg (27.0-33.0); MEAN CORPUSCULAR HGB CONC 34.7 g/dl (32.0-36.5); MEAN CORPUSCULAR VOLUME 93.5 fl (80.0-96.0); PLATELET COUNT, AUTOMATED 217 10^3/uL (150-450); RED CELL DISTRIBUTION WIDTH 13.7 % (11.5-14.5); WHITE BLOOD COUNT 6.7 10^3/uL (4.0-10.0)
[2017-11-10 06:10] LABS: INR 2.5
[2017-11-10 06:11] LABS: ALBUMIN 2.6 GM/DL (3.2-5.2); CALCIUM LEVEL 8.3 MG/DL (8.8-10.2); CREATININE FOR GFR 5.18 MG/DL (0.70-1.30); GLOMERULAR FILTRATION RATE 11.4 (>35); MAGNESIUM LEVEL 2.3 MG/DL (1.8-2.4); PHOSPHORUS LEVEL 4.7 MG/DL (2.5-4.9); POTASSIUM SERUM 3.4 MEQ/L (3.5-5.1)
[2017-11-10 08:00] VITALS: BP 118/70
--- NOTE | 2017-11-10 08:03 | ECGEPIP ---
Stationary ECG Study [facility] - ED Test Date: 2017-11-09 Pat Name: ANTONINA YEBOAH Department: Room: - Gender: M Online Content Coordinator: patrick : 1935 Requested By: Royal Macias Order Number: [id number] Reading MD: Royal Jovel Measurements Intervals Stanley Rate: 59 P: LA: 0 QRS: -37 QRSD: 96 T: 10 QT: 447 QTc: 445 Interpretive Statements ATRIAL FIBRILLATION WITH SLOW VENTRICULAR RESPONSE AND PVCs LEFT AXIS DEVIATION VOLTAGE CRITERIA FOR LVH POSSIBLE ANTERIOR MYOCARDIAL INFARCTION, PROBABLY OLD NO PRIORS FOR COMPARISON Electronically Signed On 11-10-2017 8:03:31 EST by Royal Jovel
--- NOTE | 2017-11-10 08:36 | REP ---
REASON: Syncopal episode. COMPARISON: Multiple, the latest 05/09/2017. AP and lateral views were obtained. The technique utilized in obtaining the radiograph has magnified the cardiac silhouette and accentuated the interstitial markings. There is mild cardiomegaly. The lung bean are unchanged from the prior exam showing mild fibrotic changes. No acute patchy parenchymal opacities or pleural effusions have developed. There is no change in the osseous structures. IMPRESSION: Stable appearing chronic changes. Signed by Benjamin Medina DO 11/10/2017 08:56 A
[2017-11-10] MEDS: POTASSIUM CHLORIDE 10 MEQ SR TABLET PO SCH (09:13)
--- NOTE | 2017-11-10 09:59 | IPNPDOC ---
Text Note Date of Service The patient was seen on 11/10/17. NOTE Subjective: Patient is an 81 year old male with a PMHx of A. fib, HTN, DLP, Asthma , ESRD on PD, PCKD, BPH s/p TURP, Urinary retention w/ Self catheterization, Gout who presented to the ER after he collapsed at a restaurant. He lost consciousness for < 1 min. No seizure like activity. Awoke with nausea and vomiting. He noted he had taken 2 Vicodin tablets for his carpal tunnel pain. He had the tablets from another surgery. Patient was seen and examined at the bedside. He currently has no complaints. Is feeling well. Denies chest pain, shortness of breath, palpitations or nausea / vomiting. Objective: Vitals (See below) General: Lying in bed, no acute distress, comfortable, AAOx3 HEENT: NC, AT CVS: RRR, +S1S2 Lungs: Fair air entry b/l, -w/r/r Abdomen: Soft, ND, NT, + PD catheter Extremities: - Edema, - Calf tenderness Assessment and plan: Syncope - likely 2/2 medication induced orthostatic hypotension - Presented to ER after he collapsed in a restaurant after he had taken 2 Vicodin tablets - Physical non-revealing - No leukocytosis, No lactic acidosis - Blood cultures and Peritoneal cultures 11/09: pending - ECHO pending - c/w Telemetry monitoring for 48 hours; r/o infection - c/w IV fluid hydration; Lasix on hold - Will order physical therapy ESRD on PD - likely 2/2 PCKD - Managed by Dr. López Hypokalemia - improving Atrial fibrillation - Not on any rate control - INR of 2.50 - on full anticoagulation with Warfarin DLP - c/w Atorvastatin Asthma - no evidence of exacerbation - Will start Xopinex PRN BPH - s/p TURP Gout DVT prophylaxis - On full anticoagulation with Warfarin VS,Fishbone, I+O VS, Fishbone, I+O Laboratory Tests 11/09/17 17:21 Red Blood Count 4.07 L, Mean Corpuscular Volume 94.1, Mean Corpuscular Hemoglobin 31.9, Mean Corpuscular Hemoglobin Concent 33.9, Red Cell Distribution Width 13.5, Neutrophils (%) (Auto) 73.0 H, Lymphocytes (%) (Auto) 8.0 L, Monocytes (%) (Auto) 10.9 H, Eosinophils (%) (Auto) 6.7 H, Basophils (%) (Auto) 0.5, Neutrophils # (Auto) 5.7, Lymphocytes # (Auto) 0.6 L, Monocytes # ( Auto) 0.8, Eosinophils # (Auto) 0.5, Basophils # (Auto) 0.0, Calcium Level 8.8 11/10/17 04:54 Red Blood Count 3.70 L, Mean Corpuscular Volume 93.5, Mean Corpuscular Hemoglobin 32.4, Mean Corpuscular Hemoglobin Concent 34.7, Red Cell Distribution Width 13.7, Anion Gap 12 Vital Signs Date Time Temp Pulse Resp B/P (MAP) Pulse Ox O2 Delivery O2 Flow Rate FiO2 11/10/17 08:00 97.7 83 18 118/70 (86) 97 Room Air I&O- Last 24 Hours up to 6 AM 11/11/17 06:00 Intake Total 2000 ml Output Total 2250 ml Balance -250 ml FARHAT SHAHID MD Nov 10, 2017 09:59
[2017-11-10] MEDS ORDERED: LEVALBUTEROL HFA 45MCG/ACT 15 GM INHALER INH PRN (10:00)
[2017-11-10 10:57] LABS: RBC BODY FLUID < 2 10^3/uL (<2)
[2017-11-10 10:58] LABS: BF DIFF IF INDICATED? NO (NO); WBC BODY FLUID 1 /uL (0-10)
[2017-11-10 10:59] LABS: PERITONEAL DIALYSATE FL COLOR COLORLESS (COLORLESS)
[2017-11-10 12:00] VITALS: BP 115/66
[2017-11-10] MEDS ORDERED: LevoFLOXacin 250 MG TABLET PO ONE (14:00)
[2017-11-10 16:00] VITALS: BP 120/66
[2017-11-10] MEDS: WARFARIN SOD 3 MG TAB PO SCH (18:08)
[2017-11-10 20:18] VITALS: BP 101/57
[2017-11-10] MEDS: VITAMIN D 1,000 INTERNATIONAL UNITS TABLET PO SCH (20:24)
[2017-11-10] MEDS: ATORVASTATIN 10 MG TAB PO SCH (20:24)
--- NOTE | 2017-11-10 20:27 | CR ---
DATE OF CONSULTATION: 11/10/2017 REQUESTING PHYSICIAN: Dr. Beverley Marquez. CONSULTING PHYSICIAN: Dr. López. REASON FOR CONSULTATION: Management of end-stage renal disease and peritoneal dialysis. CHIEF COMPLAINT: The patient presented to the emergency room yesterday after an episode of syncope and vomiting. HISTORY OF PRESENT ILLNESS: Tato Leigh is an 81-year-old male with past medical history of end-stage renal disease on peritoneal dialysis secondary to polycystic kidney disease, history of hypertension, and urinary retention requiring daily catheterization, multiple other comorbidities as mentioned below. He presented to the hospital yesterday after an episode of syncope. The patient reports that he took two tablets of Vicodin before he had the syncope episode, and before the syncope, he felt like a cold sensation was going through his upper arms and his head, he felt down, and syncope was followed by two episodes of vomiting. When patient presented to the emergency room, he was found to have orthostatic hypotension. The patient was given intravenous (IV) fluid hydration. He also had hypokalemia with a potassium of 2.9. The patient was given IV and oral potassium. He was admitted for further management and observation. Nephrology service was called for further help in the management of end-stage renal disease, peritoneal dialysis, and electrolyte abnormality. The patient was discussed with the on-call emergency room (ER) physician and admitting hospitalist last night. The patient was seen by me today morning. He was sitting in the sofa. He reported that he was feeling much better. He denies any fever, chills or rigors. He denies any cough, shortness of breath, dysuria, or any discoloration of the peritoneal fluid. PAST MEDICAL HISTORY: The patient has a history of end-stage renal disease on peritoneal dialysis, polycystic kidney disease, hypertension, atrial fibrillation, hyperlipidemia, asthma, benign prostatic hypertrophy (BPH) status post transurethral resection of the prostate (TURP), history of chronic urinary retention requiring self catheterization almost twice a day, history of gout, and patient recently had urinary tract infection and bacterial peritonitis in May 2017. PAST SURGICAL HISTORY: Status post TURP, status post placement of peritoneal dialysis catheter. ALLERGIES: No known drug allergies. FAMILY HISTORY: No significant family history of end-stage renal disease requiring hemodialysis. SOCIAL HISTORY: The patient is an ex smoker. He quit more than 50 years ago. He drinks 2-3 beers a day. He denies any recreational drug use. REVIEW OF SYSTEMS: CONSTITUTIONAL: He denies any fever, chills, rigors. He does report an episode of syncope yesterday. EYES: He denies any blurry vision or double vision. ENT: He denies any dysphagia, odynophagia or ear discharge. CARDIOVASCULAR: He denies any chest pain or palpitations. He does report chronic lower extremity edema and he takes Lasix in addition to peritoneal dialysis. RESPIRATORY: He denies any shortness of breath or cough. GENITOURINARY: The patient reports chronic urinary retention requiring a Whaley catheterization. GASTROINTESTINAL (GI): He denies any pain abdomen or constipation, but he does report two episodes of vomiting yesterday after syncope. MUSCULOSKELETAL: He denies any joint aches and pains. ENDOCRINE: The patient has a history of secondary hyperparathyroidism. HEMATOLOGIC/ONCOLOGIC: He denies any easy bleeding or bruising. All other review of systems is negative. PHYSICAL EXAMINATION: GENERAL: The patient is awake, alert, and oriented times three. He was sitting in the sofa today morning. VITAL SIGNS: Temperature is 97.6 degrees Fahrenheit, blood pressure 115/66, pulse 72, respiratory rate 16, saturating 99% on room air. Weight in the bed scale is 90.2 kg. HEAD/NECK: Extraocular muscles intact. Pupils equal, round, and reactive to light. Mucous membranes are moist. Neck is supple. There is no jugular venous distention (JVD). CARDIOVASCULAR: S1, S2. Irregular heart rate. There is 1+ edema of the right leg , trace edema of the left leg. RESPIRATORY: Chest is clear to auscultation bilaterally. Bilateral equal air entry. No rales or rhonchi. ABDOMEN: Soft. Positive bowel sounds. Nontender. The patient has a peritoneal dialysis catheter with no drainage on the exit site. MUSCULOSKELETAL: No clubbing or cyanosis. The patient has edema of the right lower extremity. CENTRAL NERVOUS SYSTEM (BRICK CHIMNEY BUILDER): No focal neurological deficit. Power is 5/5 in all extremities. PSYCHIATRIC: Normal mood and affect. LABORATORY DATA: CBC showed a WBC of 6.7, hemoglobin 12, platelets 277. INR is 2.5. Urinalysis done today showed it was turbid with 3+ leukocyte esterase, too numerous to count WBC, 3+ bacteria. Peritoneal fluid cell count was one. It was clear. BMP today morning showed sodium 135, potassium 3.4, chloride 97, bicarbonate 26, BUN 63, creatinine 5.1, calcium 8.3, phosphorus 4.7, magnesium 2.3, albumin is 2.6. Troponin on admission yesterday was 0.03. MICROBIOLOGY: Blood cultures and urine cultures are pending. Gram's stain of the peritoneal fluid is negative for any organisms and cells. IMAGING: CT scan of the head was done yesterday which showed age-appropriate changes. No acute intracranial pathology. Chest x-ray done yesterday showed stable-appearing chronic changes. CURRENT INPATIENT MEDICATIONS: The patient's medications were all reviewed by me. He was given IV normal saline bolus yesterday. He is on: - Lipitor 10 mg at bedtime - Colace 100 mg twice a day - Lasix is on hold - Xopenex as needed - Zofran as needed - potassium chloride 20 mEq by mouth daily - Advair twice a day - vitamin D 1000 units at bedtime - warfarin 3 mg by mouth daily ASSESSMENT: An 81-year-old male with past medical history of end-stage renal disease on peritoneal dialysis, history of polycystic kidney disease, atrial fibrillation, hypertension, admitted this time because of syncope. PLAN: 1. Syncope: Is most likely secondary to a combination of high-dose Vicodin use, electrolyte abnormality including hypokalemia and hyponatremia. Infection also needs to be ruled out. The patient's urinalysis (UA) is dirty, most likely is chronically colonized, but he recently had urinary tract infection (UTI) and peritonitis six months ago. I am going to empirically cover him with Levaquin until the cultures come back. His symptoms are better now. His Lasix is on hold and I have also decreased his ultrafiltration with peritoneal dialysis. 2. Orthostatic hypotension: The patient had hypotension on arrival. He was given IV fluid hydration. Diuretics have been held. Lactate on admission was negative, and his blood pressure is within the acceptable range. 3. End-stage renal disease on peritoneal dialysis: The patient at home uses a combination of 1.5% and 2.5% peritoneal dialysate. Because of orthostatic hypotension and syncope, I am dialyzing this patient with 1.5% only. 4. Hypokalemia: The patient was severely hypokalemic on arrival with a potassium of 2.9, and he admitted that he has not been taking his potassium supplement because of bad taste. He was given IV and oral potassium and it was emphasized again to him that he needs to take his potassium every day because he is losing potassium in the peritoneal dialysate. Potassium level is improved to 3.4 now. 5. Hyponatremia: Hyponatremia is mild. It was 133 yesterday. Sodium is improved to 135 now. Continue to monitor for now. 6. Atrial fibrillation: The patient's heart rate is controlled. International normalized ratio (INR) is therapeutic. Continue current dose of Coumadin. 7. Chronic urinary retention: The patient has to self catheterize twice a day. He had a urinary tract infection (UTI) six months ago. Urinalysis (UA) is dirty. He is empirically being covered with Levaquin. Urine culture is pending. Thank you for involving us in the care of this patient. We shall be happy to follow the patient along with you tomorrow morning. PEDRO LUIS
[2017-11-10 23:59] VITALS: BP 116/56
[2017-11-11 04:06] LABS: MEAN CORPUSCULAR HGB CONC 34.3 g/dl (32.0-36.5); MEAN CORPUSCULAR VOLUME 93.2 fl (80.0-96.0); PLATELET COUNT, AUTOMATED 201 10^3/uL (150-450); RED CELL DISTRIBUTION WIDTH 13.7 % (11.5-14.5); WHITE BLOOD COUNT 5.8 10^3/uL (4.0-10.0)
[2017-11-11 04:19] LABS: INR 2.88
[2017-11-11 04:22] LABS: ALBUMIN 2.3 GM/DL (3.2-5.2); CALCIUM LEVEL 8.1 MG/DL (8.8-10.2); CREATININE FOR GFR 4.92 MG/DL (0.70-1.30); GLOMERULAR FILTRATION RATE 12.1 (>35); MAGNESIUM LEVEL 2.3 MG/DL (1.8-2.4); PHOSPHORUS LEVEL 3.8 MG/DL (2.5-4.9); POTASSIUM SERUM 3.5 MEQ/L (3.5-5.1)
[2017-11-11 04:45] VITALS: BP 112/58
[2017-11-11 08:00] VITALS: BP 96/56
[2017-11-11] MEDS: ADVAIR HFA 45/21MCG INHALER INH SCH (08:24)
[2017-11-11] MEDS: POTASSIUM CHLORIDE 10 MEQ SR TABLET PO SCH (09:47)
[2017-11-11] MEDS ORDERED: LEVA1TAB PO (10:03)
[2017-11-11] MEDS ORDERED: LevoFLOXacin 250 MG TABLET PO ONE (11:00)
[2017-11-11] MEDS ORDERED: LASI40TA PO (11:17)
--- NOTE | 2017-11-11 14:06 | IPN ---
DATE OF SERVICE: 11/11/2017 SUBJECTIVE: Patient was seen and examined at the bedside today morning. Patient reports that he is feeling better. He is hemodynamically stable. He denies anymore dizziness. He actually walked with physical therapy yesterday. He had no complaints. REVIEW OF SYSTEMS: Patient denies any fevers, chills, rigors, headache, chest pain, shortness of breath, pain in abdomen, constipation, or diarrhea. Rest of review of system is negative. OBJECTIVE: VITAL SIGNS: Temperature is 97.5 degrees Fahrenheit. Blood pressure is 96./56. Pulse is 75, respiratory rate of 17, saturating 97% on room air. INTAKE AND OUTPUT: Patient has been in slightly positive fluid balance for the last 2 days. His weight is up to 93.2 kg. PHYSICAL EXAMINATION: GENERAL: Patient is awake, alert, oriented times, laying in bed, no apparent distress. HEAD AND NECK EXAM: Extraocular muscles intact. Pupils equally round and reactive to light. Mucous membranes are moist. Neck is supple. There is no jugular venous distention (JVD). CARDIOVASCULAR: S1, S2. Regular heart rate. There is a1+ edema on the right leg, trace edema on the left leg. RESPIRATORY: Chest is clear to auscultation bilaterally. Bilateral equal air entry. No rales or rhonchi. ABDOMEN: Is soft, positive bowel sounds, nontender. Peritoneal dialysis catheter in the abdomen with no tenderness at the exit site. MUSCULOSKELETAL: No clubbing or cyanosis. Pulses are 2+. CENTRAL NERVOUS SYSTEM (KEYBOARDING CLERK): No focal neurological deficit. Power is 5/5 in all extremities. PSYCHIATRIC: Normal mood and affect. LABORATORY REVIEW: CBC showed WBC 5.8, hemoglobin 11.8, platelets of 201. BMP showed sodium 135, potassium 3.5, chloride 97, bicarbonate 28, BUN 64, creatinine is 4.9, calcium 8.1, phosphorus 3.8, magnesium 2.3, albumin is 2.3. MICROBIOLOGY: Blood cultures are negative so far. Urine cultures are pending. CURRENT INPATIENT MEDICATIONS: Patient's medications were all reviewed by me. There is no change in the medications today as compared with yesterday. ASSESSMENT: 81-year-old male with past medical history of end-stage renal disease on peritoneal dialysis with history of polycystic kidney disease, atrial fibrillation, hypertension, admitted this time because of syncope. PLAN: 1. Syncope. It was most likely secondary to combination of dehydration, use of Vicodin and hypokalemia. SBP has been ruled out. Patient is stable now. Orthostatic hypotension has improved. 2. End-stage renal disease on peritoneal dialysis. Patient should resume home regimen of a mixture of 1.25 and 2.5% peritoneal dialysis, and patient should start Lasix 40 mg by mouth once a day on discharge from the hospital. 3. Hypokalemia. Potassium level has been improved. Patient was advised to continue taking potassium. 4. Chronic urinary retention. Patient's urinalysis (UA) was dirty. He was given Levaquin 250 mg by mouth for 3 days. Culture is pending. Patient denies any active complaints at this time. DISPOSITION: It is okay to discharge the patient from nephrology standpoint. He would followup with nephrology for peritoneal dialysis (PD) management at the end of this month. [facility]
--- NOTE | 2017-11-11 14:38 | DSES ---
DATE OF ADMISSION: 11/09/2017 DATE OF DISCHARGE: 11/11/2017 ATTENDING PHYSICIAN: Armando Ramos MD PRIMARY CARE PHYSICIAN: Adam Salas MD REFERRING PHYSICIAN: None. CONSULTING PHYSICIAN: Keena Soto MD CONDITION ON DISCHARGE: Stable. FINAL DIAGNOSIS: Syncope secondary to medications, possibly orthostatic hypotension and dehydration. PROCEDURES: None. HISTORY OF PRESENT ILLNESS: Patient is an 81-year-old male with a past medical history of atrial fibrillation (AFib), hypertension, dyslipidemia, asthma, end-stage renal disease, on peritoneal dialysis, polycystic kidney, BPH, status post TURP, urinary retention with self-catheterization, and gout who presented to the emergency room (ER). He collapsed at a restaurant. He had loss consciousness for about less than 1 minute. No seizure-like activity was noted. Awoke with nausea and vomiting. He noted he had taken two Vicodin tablets for his carpal tunnel pain. He had tablets from another surgery. HOSPITAL COURSE: 1. Syncope likely secondary to medications induced orthostatic hypertension and possibly a component of dehydration, possibly electrolytes imbalance, presented to ER after he had collapsed in a restaurant after he had taken two Vicodin tablets earlier that day. Physical is nonrevealing. No leukocytosis. No lactic acidosis. Blood cultures and peritoneal cultures have remained negative. Patient was continued telemetry monitoring for 48 hours. Infection was evaluated for. Patient's urine sample was consistent with possible infection and nephrology had started the patient on Levaquin for 3 days. He has completed 2 days while in the hospital and will be completing 1 additional day outside the hospital. He has been put on intravenous (IV) fluid hydration and his Lasix had been put on hold. He has been cleared by physical therapy. 2. End-stage renal disease on peritoneal dialysis. Likely this is secondary to polycystic kidney disease. Managed by Dr. López. 3. Hypokalemia has been improving and has resolved. 4. Atrial fibrillation. Not on any rate control. International normalized ratio (INR) of 2.50. He is currently on full anticoagulation with warfarin. 5. Dyslipidemia. Continue with atorvastatin. 6. Asthma. No evidence of exacerbation. Continue with Xopenex. 7. Benign prostatic hypertrophy status post status post transurethral resection of the prostate. 8. Gout. 9. Deep venous thrombosis (DVT) prophylaxis. He is on full anticoagulation with warfarin. DISCHARGE MEDICATIONS: Patient will be discharged on the following medication list: - furosemide 40 mg by mouth daily - Levaquin 250 mg by mouth daily Stopped medication include: - furosemide 40 twice a day Continued medication include: - atorvastatin 10 mg by mouth nightly - calcitriol 0.25 mcg by mouth three times a week - vitamin D3 1000 units by mouth nightly - docusate sodium 100 mg by mouth twice a day as needed, constipation - LiquaCel 1 liquid 30 mL by mouth three times a week - potassium chloride 20 mEq by mouth daily - Advair Diskus 100/50 one puff inhaled twice a day - warfarin to be taken as directed DISCHARGE INSTRUCTIONS: Patient has been advised to followup with his primary care provider, Dr. Adam Salas as well as nephrology, Dr. López within the next 7 days. He has been advised to remain compliant with treatment, followup and medications, and return to the emergency room if he experiences any problems. TIME SPENT ON DISCHARGE: Greater than 35 minutes. [facility]
[2017-11-11] MEDS ORDERED: LevoFLOXacin 250 MG TABLET PO SCH (18:00)
== END 2017-11-11 11:16 | disposition home or self-care (01) ==
LOC: M ED 16:08 → EDBD 16:08 → M ED INP 19:33 → M PCU 20:39
PROVIDERS: ADMIT Internal Medicine; ATTEND Internal Medicine
DX: R55 Syncope and collapse (principal); I12.0 Hypertensive chronic kidney disease with stage 5 chronic kidney disease or end stage renal disease; N18.6 End stage renal disease; E87.6 Hypokalemia; Q61.3 Polycystic kidney, unspecified; I48.91 Unspecified atrial fibrillation; E78.5 Hyperlipidemia, unspecified; J45.909 Unspecified asthma, uncomplicated; N40.0 Benign prostatic hyperplasia without lower urinary tract symptoms; R33.8 Other retention of urine; M10.9 Gout, unspecified; Z99.2 Dependence on renal dialysis; Z87.891 Personal history of nicotine dependence; Z79.01 Long term (current) use of anticoagulants; Z79.899 Other long term (current) drug therapy
CPT/HCPCS: 36415; 70450; 71020; 80048; 80069; 81001; 82550; 82553; 83605; 83735; 84439; 84443; 84484; 85025; 85027; 85610; 85730; 87040; 87070; 87088; 87186; 87205; 89050; 93005; 93041; 94640; 94760; 96374; 97161; 99285; G0378; G8978; G8979; G8980; J2405

== ENCOUNTER → 2018-06-26 | Outpatient (REF) | payer MEDICARE ==
[2018-06-26 16:33] LABS: BACTERIA, URINE AUTO 1+ (NEGATIVE); BILIRUBIN, URINE AUTO NEGATIVE (NEGATIVE); BLOOD, URINE BLOOD 1+ (NEGATIVE); COLOR, URINE YELLOW (YELLOW); GLUCOSE, URINE (UA) AUTO NEGATIVE (NEGATIVE); KETONE, URINE AUTO NEGATIVE (NEGATIVE); LEUKOCYTE ESTERASE, URINE AUTO 3+ (NEGATIVE); NITRITE, URINE AUTO NEGATIVE (NEGATIVE); PROTEIN, URINE AUTO NEGATIVE (NEGATIVE); RBC, URINE AUTO 4 /HPF (0-3); SPECIFIC GRAVITY URINE AUTO 1.009 (1.002-1.035); SQUAMOUS EPITHELIAL CELL UR AU 0 /HPF (0-6); UROBILINOGEN, URINE AUTO 0.2 mg/dL (0.0-2.0); WBC, URINE AUTO 17 /HPF (0-3)
[2018-06-27 10:44] LABS: APPEARANCE, URINE HAZY (CLEAR)
== END ==
LOC: M LAB REF 15:46
DX: N18.6 End stage renal disease (principal); R33.9 Retention of urine, unspecified; R30.0 Dysuria
CPT/HCPCS: 81001

== ENCOUNTER → 2018-11-11 | Outpatient (REF) | payer MEDICARE ==
[2018-11-11 15:46] LABS: APPEARANCE, URINE TURBID (CLEAR); BACTERIA, URINE AUTO 3+ (NEGATIVE); BILIRUBIN, URINE AUTO NEGATIVE (NEGATIVE); BLOOD, URINE BLOOD 1+ (NEGATIVE); COLOR, URINE YELLOW (YELLOW); GLUCOSE, URINE (UA) AUTO NEGATIVE (NEGATIVE); KETONE, URINE AUTO NEGATIVE (NEGATIVE); LEUKOCYTE ESTERASE, URINE AUTO 3+ (NEGATIVE); NITRITE, URINE AUTO NEGATIVE (NEGATIVE); PROTEIN, URINE AUTO 2+ mg/dL (NEGATIVE); RBC, URINE AUTO 13 /HPF (0-3); SPECIFIC GRAVITY URINE AUTO 1.011 (1.002-1.035); SQUAMOUS EPITHELIAL CELL UR AU 0 /HPF (0-6); UROBILINOGEN, URINE AUTO 0.2 mg/dL (0.0-2.0); WBC, URINE AUTO TNTC /HPF (0-3)
[2018-11-11 15:49] LABS: BF DIFF IF INDICATED? NO (NO); RBC BODY FLUID < 2 10^3/uL (<2); WBC BODY FLUID 1 /uL (0-10)
[2018-11-12 10:11] LABS: APPEARANCE, BODY FLUID CLEAR
== END ==
LOC: M LAB REF 14:30
DX: R53.1 Weakness (principal)
CPT/HCPCS: 89050

== ENCOUNTER → 2018-11-14 | Outpatient (CLI) | payer MEDICARE ==
[~2018-11-14] MED LIST changes: +GASTROGRAFIN SOLUTION 30ML (Q9963) As Ordered ONE; +ISOVUE-370 76% 100ML VIAL (Q9967) As Ordered ONE; +LASI40TA PO; +LEVA250T13 PO; +POTA1TAB14 PO; +WARF-58 PO
--- NOTE | 2018-11-14 16:52 | REP ---
CT abdomen and pelvis without and with IV contrast: With oral contrast. History: Weakness. End-stage renal disease. Right lower quadrant abdominal swelling, mass, lump. Palpable nontender mass right lower quadrant. Comparison CT study is from May 09, 2017. CT contrast dose: 100 mL of intravenous Isovue [address] findings: Digital preliminary hide sorter radiograph demonstrates marked gaseous distension of the sigmoid colon and moderate gaseous distension of the transverse colon and right colon in the upper abdomen. There is formed stool in the rectum and descending colon. The lung bases are clear on axial CT images. There is a small quantity of pneumoperitoneum visible anterior to the liver in the upper abdomen. The peritoneal dialysis catheter is noted in the left lower quadrant. No other evidence of free intraperitoneal air is seen. There is no significant ascites visible. A small amount of ascites is seen in the central pelvis. Multicystic kidneys are seen consistent with end-stage renal disease and secondary multiple cysts. There were one or two cysts in the liver. No focal liver mass lesion is seen. Spleen and pancreas are unremarkable. No gallbladder abnormality is seen. The rectosigmoid colon is dilated and gas-filled but there is no evidence to suggest torsion or volvulus. No visible mesenteric whorl sign. No abdominal wall defect is seen. No abdominal mass lesion is observed. Urinary bladder is unremarkable. Impression: Peritoneal dialysis catheter in the left lower quadrant. Small quantity of free air in the upper abdomen. Tiny amount of ascites. There is moderate to marked gaseous distension of the sigmoid colon, moderate distension of the transverse colon and right colon. No obstructive lesion is seen. No mass lesion or abscess seen. Electronically Signed by Alan Garcia MD 11/14/2018 05:00 P
== END ==
LOC: M RAD 13:00
PROVIDERS: ATTEND Internal Medicine Nephrology
DX: N18.6 End stage renal disease (principal); R53.1 Weakness
CPT/HCPCS: 74178; Q9963; Q9967

== ENCOUNTER → 2019-01-29 | Outpatient (REF) | payer MEDICARE ==
[~2019-01-29] MED LIST changes: +FOSR500C2 PO; -GASTROGRAFIN SOLUTION 30ML (Q9963) As Ordered ONE; -ISOVUE-370 76% 100ML VIAL (Q9967) As Ordered ONE; -LANT50TA PO; -LASI40TA PO; +LASI40TA9 PO
== END ==
LOC: M LAB REF 09:09
PROVIDERS: ATTEND Surgery
DX: C44.329 Squamous cell carcinoma of skin of other parts of face (principal)

== ENCOUNTER 2019-08-17 11:05 | Inpatient (IN) | payer MEDICARE ==
[~2019-08-17] VITALS: Ht 177.8 cm; Wt 82.8 kg
[2019-08-17] VITALS (9 sets, daily range): BP systolic 104–138; BP diastolic 53–76
[~2019-08-17 11:05] MED LIST changes: -DIPH25CA PO; +DIPH25CA32 PO; +PRED-351 PO; -PRED10TA PO; +VITA-183 PO; -VITA1CAP2 PO
[2019-08-17] MEDS ORDERED: MIDO5TA PO (11:24)
[2019-08-17] MEDS ORDERED: ELIQ2.5T PO (11:24)
[2019-08-17] MEDS ORDERED: OMEP-218 PO (11:24)
[2019-08-17] MEDS ORDERED: LASI40TA9 PO (11:24)
[2019-08-17] MEDS ORDERED: FERR325T18 PO (11:24)
[2019-08-17] MEDS ORDERED: RENATAB5 PO (11:24)
[2019-08-17 11:43] LABS: BASO % 0.5 % (0.0-1.0); EOS # 0.7 10^3/uL (0.0-0.5); EOS % 7.6 % (0.0-3.0); HEMATOCRIT 26.7 % (42.0-52.0); HEMOGLOBIN 9.1 g/dl (13.5-17.5); LYMPH # 0.6 10^3/uL (1.5-5.0); LYMPH % 7.1 % (24.0-44.0); MEAN CORPUSCULAR HEMOGLOBIN 33.8 pg (27.0-33.0); MEAN CORPUSCULAR HGB CONC 34.1 g/dl (32.0-36.5); MEAN CORPUSCULAR VOLUME 99.3 fl (80.0-96.0); MONO # 0.7 10^3/uL (0.0-0.8); MONO % 8.1 % (0.0-5.0); NEUTROPHILS # 6.6 10^3/uL (1.5-8.5); NEUTROPHILS % 75.2 % (36.0-66.0); PLATELET COUNT, AUTOMATED 173 10^3/uL (150-450); RED BLOOD COUNT 2.69 10^6/uL (4.30-6.10); WHITE BLOOD COUNT 8.7 10^3/uL (4.0-10.0)
[2019-08-17] MEDS ORDERED: ONDANSETRON 4MG/2ML VIAL (J2405) IV ONE ×2 (11:45→12:15)
[2019-08-17] MEDS ORDERED: OCTREOTIDE ACETATE 100 MCG/ML VIAL (J2354) IV ONE (11:45)
[2019-08-17] MEDS ORDERED: PANTOPRAZOLE SODIUM 40 MG in D5W 50 ML IV SCH (11:45)
[2019-08-17] MEDS ORDERED: PANTOPRAZOLE 40MG INJ (PROTONIX) (C9113) IV ONE (12:00)
[2019-08-17 12:08] LABS: INR 1.35; PROTHROMBIN TIME 16.4 SECONDS (11.8-14.0)
[2019-08-17 12:09] LABS: PARTIAL THROMBOPLASTIN TIME 36.7 SECONDS (25.0-38.4)
[2019-08-17 12:15] LABS: ALBUMIN 2.2 GM/DL (3.2-5.2); BILIRUBIN,DIRECT 0.2 MG/DL (0.0-0.2); BILIRUBIN,TOTAL 0.5 MG/DL (0.2-1.0); CALCIUM LEVEL 7.9 MG/DL (8.8-10.2); CREATININE FOR GFR 5.72 MG/DL (0.70-1.30); GLOMERULAR FILTRATION RATE 10.1 (>35); TOTAL PROTEIN 4.8 GM/DL (6.4-8.2)
[2019-08-17] MEDS ORDERED: NS 1,000 ML IV ONE (12:30)
[2019-08-17] MEDS ORDERED: POTA20TA6 PO ×2 (12:58→13:01)
--- NOTE | 2019-08-17 13:13 | REP ---
Portable chest, single AP view with the patient semi upright, 12:41 p.m.: Comparison is 11/09/2017. The lung bean are clear. The cardiac size is enlarged, however there has magnification from portable positioning. This is unchanged. The sachi, mediastinum, skeletal structures are unremarkable. Impression: No acute cardiopulmonary findings. Cardiomegaly versus artifact from portable positioning. Electronically Signed by Rob Montesinos MD 08/17/2019 01:04 P
[2019-08-17] MEDS ORDERED: LIDOCAINE 2% INJ 100 MG/5 ML SDV (FOR ANES.) As Ordered ONE (18:01)
[2019-08-17] MEDS ORDERED: PROPOFOL 200 MG/20 ML VIAL As Ordered ONE (18:01)
[2019-08-17] MEDS ORDERED: ROCURONIUM BROMIDE 50 MG/5 ML VIAL As Ordered ONE (18:10)
[2019-08-17] MEDS ORDERED: fentaNYL 100 MCG/2 ML INJECTION (J3010) As Ordered ONE (18:54)
[2019-08-17] MEDS ORDERED: SUGAMMADEX SODIUM 500 MG/5 ML VIAL (BRIDION) As Ordered ONE (19:02)
[2019-08-17] MEDS ORDERED: ePHEDrine SULFATE 25 MG/5 ML(5MG/ML) SYRINGE As Ordered ONE (19:08)
[2019-08-17] MEDS ORDERED: PHENYLephrine HCL 500 MCG/5 ML (100MCG/ML) SYRINGE (J2370) As Ordered ONE (19:08)
[2019-08-17] MEDS ORDERED: ONDANSETRON 4MG/2ML VIAL (J2405) IV PRN (19:45)
[2019-08-17] MEDS ORDERED: LR 1,000 ML IV SCH (19:45)
[2019-08-17] MEDS: D5W/0.9% SODIUM CHLORIDE 1,000 ML IV SCH (20:05)
[2019-08-18] VITALS (9 sets, daily range): BP systolic 101–128; BP diastolic 53–72
[2019-08-18] MEDS ORDERED: DOCUSATE SODIUM 100 MG CAP PO PRN
--- NOTE | 2019-08-18 00:50 | HPEPDOC ---
General Date of Admission Aug 17, 2019 at 14:05 Date of Service: Aug 18, 2019 Primary Care Physician: Von Perez Attending Physician: SREE CULVER MD Chief Complaint The patient is a 83-year-old male admitted with a reason for visit of Gastrointestinal Bleeding. Source: Patient, Family Exam Limitations: No limitations Timing/Duration: 4-6 hours Associated Symptoms: Vomiting History of Present Illness 83 yo man with history of ESRD 2/2 polycystic kidney disease on PD, Afib recently switched from coumadin to eliquis who presents to the ED for an episode of orly unprovoked hematemesis of 500cc of orly blood at home. Mr. Leigh's family witnessed the event and called EMS that brought him into the ED where he was immediately given protonix 80 IV, octreotide 50, zofran 8 IV and was initially hemodynamically stable. While in the ED he had another witnessed episode of hematemesis of ~500cc of blood after which he became acute hypotensive and was given 1 NS with recovery of his blood pressure. In the meantime, GI was consulted and plans were made to scope him once the suite was available. Initial work up was notable for anemia: Hgb 9.1 (last recorded was 12), HCt 26.7, WBC 8.7, platelets 173, Na 134, K 4, Cr 5.72, unremarkable LFTs, lipase 217, INR 1.35, PTT 36.7 and he had a chest xray without opacities, congestion or masses. He was taken for emergent endoscopy after which he arrived in the ICU hemodynamically stable, alert, awake and the surveillance director gave instruction that he could take PO. On pertinent ROS he otherwise denies a recent hacking cough, history of excess alcohol, a history of ulcers or liver disease. Home Medications Scheduled Amino AC/Protein Hydr/Whey Pro (Liquacel Liquid Protein) 1 Liq Liq, 30 ML PO 3XW, (Reported) MON, WED, FRI Apixaban (Eliquis) 2.5 Mg Tablet, 2.5 MG PO BID, (Reported) Atorvastatin Calcium (Lipitor) 10 Mg Tab, 10 MG PO QHS, (Reported) Calcitriol (Calcitriol) 0.25 Mcg Cap, 0.25 MCG PO 3XW, (Reported) MON, WED, FRI Cholecalciferol (Vitamin D3) (Vitamin D3) 1,000 Unit Cap, 1,000 UNIT PO QHS, (Reported) Ferrous Sulfate (Ferrous Sulfate) 325 Mg Tablet, 325 MG PO DAILY, (Reported) Folic Acid/Vit B Complex and C (Ibeth-Lynda Tablet) 0.8 Mg Tablet, 1 TAB PO DAILY, (Reported) Furosemide (Lasix) 40 Mg Tablet, 40 MG PO BID, (Reported) Midodrine HCl (Midodrine HCl) 5 Mg Tablet, 5 MG PO TID, (Reported) Omeprazole (Omeprazole) 20 Mg Capsule.dr, 20 MG PO DAILY, (Reported) Potassium Chloride (Potassium Chloride) 20 Meq Tab.er.prt, 20 MEQ PO DAILY, (Reported) , , SAT, SAT Potassium Chloride (Potassium Chloride) 20 Meq Tab.er.prt, 40 MEQ PO DAILY, (Reported) SAT, SAT, SAT Salmeterol/Fluticasone (Advair 100-50 Diskus) 28 Puff/Inhaler Aerp, 1 PUFF INH BID, (Reported) Scheduled PRN Docusate Sodium (Colace) 100 Mg Cap, 100 MG PO BID PRN for CONSTIPATION, (Reported) Allergies Coded Allergies: No Known Allergies (Verified , 06/07/03) Past Medical History Medical History 1. End-stage renal disease on peritoneal dialysis. 2. Polycystic kidney disease. 3. Hypertension. 4. Atrial fibrillation. 5. Hyperlipidemia. 6. Asthma. 7. Benign prostatic hypertrophy (BPH), status post transurethral resection of the prostate (TURP). 8. History of urinary retention requiring self catheterization. 9. Gout. Surgical History TURP Family History Significant Family History: No pertinent family hx Social History * Smoker: former Smoker Alcohol: occationally Drugs: denies Recent Travel/Sick Contacts: Denies: Recent travel, Recent sick contacts Psychosocial History: No pertinent psych hx A-FIB/CHADSVASC A-FIB History Current/History of A-Fib/PAF?: Yes Current PO Anticoag Therapy: Yes Age/Risk Factor Scoring CHADSVASC: CHADSVASC Response (Comments) Value Age Risk Factor Age 65-74 years old 1 Gender Risk Factor Male 0 Hx of CHF No 0 Hx of HTN Yes 1 Hx of Stroke/TIA/or VTE No 0 Hx of Diabetes No 0 Hx of Vascular Disease No 0 Total 2 Treatment Treatment ordered: NONE Reason Anticoagulant not given: Current bleeding Review of Systems Constitutional: Reports: Lethargy; Denies: Chills, Fever, Night Sweats Eyes: Denies: Pain, Vision change ENT: Denies: Head Aches, Ear Pain, Dysphagia Skin: Denies: Rash, Lesions, Breakdown Pulmonary: Denies: Dyspnea, Cough Cardiovascular: Denies: Chest Pain, Palpitations, Orthopnea, Paroxysmal Noc. Dyspnea, Lt Headedness Gastrointestinal: Reports: Nausea, Vomiting, Other Symptoms (hematemesis) Genitourinary: Reports: Retention; Denies: Dysuria, Frequency, Incontinence, Hematuria, Other Symptoms Hematologic: Denies: Bruising, Bleeding Excessively, Petecchia, Purpura, Enlarged Lymph Nodes, Other Hematologic Endocrine: Denies: Polydipsia, Polyphagia, Polyuria, Heat Intolerance, Cold Intolerance, Other Endocrine Sx Musculoskeletal: Denies: Neck Pain, Back Pain, Shoulder Pain, Arm Pain, Hand Pain, Leg Pain, Foot Pain, Joint Pain, Muscle Pain, Spasms, Other Symptoms Neurological: Denies: Weakness, Numbness, Incoordination, Change in speech, Confusion, Seizures, Other Symptoms Physical Examination General Exam: Positive: Alert, Cooperative, No Acute Distress, Mild Distress, Other; Negative: Moderate Distress, Severe Distress Eye Exam: Positive: PERRLA, Conjunctiva & lids normal, EOMI; Negative: Sclera icteric, Ptosis, Other Eye Symptoms ENT Exam: Positive: Atraumatic, Mucous membr. moist/pink, Pharynx Normal, Tongue Midline, Pharyngeal Edema, Nares Patent, Tympanic Membranes Normal, Ext Auditory Canal Nml, Pinna Normal, Other ENT Neck Exam: Positive: Supple, JVD, thyromegaly, +2 carotid pulse wo bruit, Other; Negative: Lymphadenopathy Chest Exam: Positive: Clear to auscultation, Normal air movement, Rales, Rhonchi, Wheezing, Other; Negative: Diminished Heart Exam: Positive: Rate Normal, Regular Rhythm, Normal S1, Normal S2, Other; Negative: Tachycardic, Bradycardic, Irregular Rhythm, Gallops, Murmurs, Rubs Abdomen Exam: Positive: Normal bowel sounds, Soft, Other; Negative: BS Hyperactive, BS Hypoactive, Tenderness, Hepatospenomegaly, Mass, Hernia Extremity Exam: Positive: Normal pulses; Negative: Clubbing, Cyanosis, Edema, Tenderness, Swelling, Other Skin Exam: Positive: Nl turgor and temperature; Negative: Rash, Breakdown, Lesion, Pruritus, Other skin issue Neuro Exam: Positive: Normal Gait, Normal Speech, Strength at 5/5 X4 ext, Emily l Tone, Sensation Intact, Cranial Nerves 3-12 NL, Reflexes 2+, Other Psych Exam: Positive: Mental status NL, Mood NL, Memory Intact, Oriented x 3, Other; Negative: Anxiety Vital Signs Vital Signs Date Time Temp Pulse Resp B/P (MAP) Pulse Ox O2 Delivery O2 Flow Rate FiO2 08/17/19 22:30 71 112/56 (74) 100 08/17/19 19:45 97.8 18 3 08/17/19 18:15 Room Air Laboratory Data Labs 24H Laboratory Tests 2 08/17/19 11:29: Immature Granulocyte % (Auto) 1.5, White Blood Count 8.7, Red Blood Count 2.69L, Hemoglobin 9.1L, Hematocrit 26.7L, Mean Corpuscular Volume 99.3H, Mean Corpuscular Hemoglobin 33.8H, Mean Corpuscular Hemoglobin Concent 34.1, Red Cell Distribution Width 13.3, Platelet Count 173, Neutrophils (%) (Auto) 75.2H, Lymphocytes (%) (Auto) 7.1L, Monocytes (%) (Auto) 8.1H, Eosinophils (%) (Auto) 7.6H, Basophils (%) (Auto) 0.5, Neutrophils # (Auto) 6.6, Lymphocytes # (Auto) 0.6L, Monocytes # (Auto) 0.7, Eosinophils # (Auto) 0.7H, Basophils # (Auto) 0.0, Nucleated Red Blood Cells % (auto) 0.0, Prothrombin Time 16.4H, Prothromb Time International Ratio 1.35, Activated Partial Thromboplast Time 36.7, Anion Gap 13, Glomerular Filtration Rate 10.1L, Calcium Level 7.9L, Aspartate Amino Transf (AST/SGOT) 10, Alanine Aminotransferase (ALT/SGPT) 19, Alkaline Phosphatase 51, Total Bilirubin 0.5, Direct Bilirubin 0.2, Total Protein 4.8L, Albumin 2.2L, Albumin/Globulin Ratio 0.85L, Lipase 217 CBC/BMP Laboratory Tests 08/17/19 11:29 Red Blood Count 2.69 L, Mean Corpuscular Volume 99.3 H, Mean Corpuscular Hemoglobin 33.8 H, Mean Corpuscular Hemoglobin Concent 34.1, Red Cell Distribution Width 13.3, Neutrophils (%) (Auto) 75.2 H, Lymphocytes (%) (Auto) 7.1 L, Monocytes (%) (Auto) 8.1 H, Eosinophils (%) (Auto) 7.6 H, Basophils (%) (Auto) 0.5, Neutrophils # (Auto) 6.6, Lymphocytes # (Auto) 0.6 L, Monocytes # (Auto) 0.7, Eosinophils # (Auto) 0.7 H, Basophils # (Auto) 0.0 Assessment/Plan 83 yo man with history of ESRD 2/2 polycystic kidney disease on PD, GERD and Afib recently switched from coumadin to eliquis who presents to the ED for an episode of orly unprovoked hematemesis now s/p EGD. Plan: UGIB: still to find out the findings of the EGD -Switch protonix from gtt to 40 BID -carafate daily -CBC -BMP -continue holding eliquis -GI consulted, appreciate recs ESRD on PD - secondary to polycystic kidney disease - Managed by nephrology -monitor lytes daily and replete PRN Atrial fibrillation - Not on rate control - No anticoagulation given the recent bleed HLD - c/w home Atorvastatin Asthma - no evidence of exacerbation - monitor BPH - s/p TURP Diet: Full liquid DVT prophylaxis: stopped eliquis in the setting of a bleed. Dispo: anticipate that he will be de-escalated to the PCU or med surg if he remains stable overnight. Plan / VTE VTE Prophylaxis Ordered?: No VTE Exclusion Mechanical Proph: Other (ongoing bleeding) VTE Exclusion Pharmacological: Other (ongoing hematemesis) Plan / Urinary Catheter Urinary Catheter: Straight Cath Reason for insertion/continuin: Other-document below Plan Disposition ICU for tonight, and if stable, can de-escalate to PCU Diet: Advance Activity: Advance SREE CULVER MD Aug 18, 2019 00:37
--- NOTE | 2019-08-18 04:44 | ECGEPIP ---
[facility] - ED Test Date: 2019-08-17 Pat Name: ANTONINA YEBOAH Department: Room: - Gender: Male [employer] Paraprofessional: : 1935 Requested By: Royal Macias Order Number: [id number] Reading MD: Royal Jovel Measurements Intervals [place] Rate: 66 P: DE: 0 QRS: -45 QRSD: 120 T: 43 QT: 440 QTc: 462 Interpretive Statements ATRIAL FIBRILLATION LEFT AXIS DEVIATION MODERATE INTRAVENTRICULAR CONDUCTION DELAY POOR R WAVE PROGRESSION SIMILAR TO 11/09/17 Electronically Signed on 08-18-2019 4:43:51 EDT by Royal Jovel
[2019-08-18 04:55] LABS: HEMATOCRIT 28.3 % (42.0-52.0); HEMOGLOBIN 9.7 g/dl (13.5-17.5); MEAN CORPUSCULAR HEMOGLOBIN 31.9 pg (27.0-33.0); MEAN CORPUSCULAR HGB CONC 34.3 g/dl (32.0-36.5); MEAN CORPUSCULAR VOLUME 93.1 fl (80.0-96.0); PLATELET COUNT, AUTOMATED 146 10^3/uL (150-450); RED BLOOD COUNT 3.04 10^6/uL (4.30-6.10); WHITE BLOOD COUNT 8.7 10^3/uL (4.0-10.0)
[2019-08-18 05:13] LABS: CALCIUM LEVEL 7.2 MG/DL (8.8-10.2); CREATININE FOR GFR 5.66 MG/DL (0.70-1.30); GLOMERULAR FILTRATION RATE 10.2 (>35); MAGNESIUM LEVEL 1.8 MG/DL (1.8-2.4); POTASSIUM SERUM 3.5 MEQ/L (3.5-5.1)
[2019-08-18] MEDS: SUCRALFATE 1 GM TAB PO SCH (06:02)
[2019-08-18] MEDS: D5W/0.9% SODIUM CHLORIDE 1,000 ML IV SCH (06:03)
[2019-08-18] MEDS: PANTOPRAZOLE 40MG INJ (PROTONIX) (C9113) IV SCH ×2 (08:20→20:50)
[2019-08-18] MEDS: MIDODRINE 5 MG TAB PO SCH ×3 (08:20→16:30)
[2019-08-18] MEDS ORDERED: FERROUS SULFATE 325MG TAB PO SCH (09:00)
[2019-08-18] MEDS ORDERED: FUROSEMIDE 40 MG TAB PO SCH (09:00)
[2019-08-18] MEDS ORDERED: POTASSIUM CHLORIDE 10 MEQ SR TABLET PO SCH (09:00)
[2019-08-18] MEDS: ADVAIR HFA 45/21MCG INHALER INH SCH ×2 (10:42→21:09)
--- NOTE | 2019-08-18 12:08 | CR ---
DATE OF CONSULTATION: 08/18/2019 REQUESTING PHYSICIAN: Dr. Paz CONSULTING PHYSICIAN: Dr. López REASON FOR CONSULTATION: Management of end-stage renal disease on peritoneal dialysis. CHIEF COMPLAINT: The patient presented to the hospital with nausea and hematemesis. HISTORY OF PRESENT ILLNESS: Mr. Tato Leigh is an 83-year-old male with a past medical history of end-stage renal disease on peritoneal dialysis secondary to polycystic kidney disease, history of atrial fibrillation anticoagulated with Eliquis, multiple other comorbidities, as mentioned below. He reports that he suddenly woke up in the morning with nausea and hematemesis. He saw orly blood in the vomitus. His called , and he was brought to the emergency room. In the ER, he had there weakness, hematemesis as well. The patient was admitted under the hospitalist service. He was sent to intensive care unit (ICU). Transfusion protocol was started and urgent gastrointestinal consult was requested. The patient was found to have bleeding ulcer. As reported by the patient's , he got clips placed in the esophagus. The patient is a peritoneal dialysis patient. Nephrology service consult was requested for management of end-stage renal disease and arrangement of peritoneal dialysis. I saw and evaluated the patient today morning in the ICU. He reports that his IV fluids have been stopped. He started drinking liquids. He denies any more hematemesis now and he is otherwise hemodynamically stable and he is tolerating the peritoneal dialysis. PAST MEDICAL HISTORY: Past medical history of end-stage renal disease on peritoneal dialysis, history of polycystic kidney disease, hypertension, atrial fibrillation anticoagulated with Eliquis, hyperlipidemia, asthma, benign prostatic hypertrophy (BPH), status post transurethral resection of prostate (TURP), chronic urinary retention requiring self-catheterization, chronic gout secondary to chronic kidney disease, secondary hyperparathyroidism, hyperlipidemia, chronic hypotension, lower extremity edema. PAST SURGICAL HISTORY: Status post left forearm AV fistula placement, status post transurethral resection of prostate, status post PD catheter placement. ALLERGIES: NO KNOWN DRUG ALLERGIES. FAMILY HISTORY: The patient has significant family history of polycystic kidney disease. SOCIAL HISTORY: He denies any smoking, illicit drug abuse or alcohol abuse. He lives at home with his . REVIEW OF SYSTEMS: CONSTITUTIONAL: He denies any fevers or chills. Eyes: He denies any blurry vision, double vision. ENT: Denies any dysphagia, odynophagia. Cardiovascular: Denies any chest pain, palpitations. Reports improving lower extremity edema. Respiratory: Denies any shortness of breath. Gastrointestinal: He reports recent upper GI bleed but he is feeling better now. Genitourinary: Denies any dysuria or hematuria. He has chronic urinary retention and requires self-catheterization. Musculoskeletal: He denies any muscle aches and pains. Hematology/Oncology: He denies any other easy bleeding or bruising apart from recent upper GI bleed. Central nervous system (BLASTING ENTRY SPECIALIST): He denies any strokes or seizures. All other review of systems is negative. PHYSICAL EXAMINATION: General: The patient is awake, alert, oriented times three, laying in bed, no apparent distress. Vital signs: Temperature is 97 degrees Fahrenheit, blood pressure 105/58, pulse is 72, respiratory of 20, saturating 100% on room air. Head and neck exam: Extraocular muscles intact. Pupils equally round and reactive to light. Mucous membranes are moist. Neck is supple. There is no jugular venous distention (JVD). Cardiovascular: S1, S2. Regular rate. 1+ edema of the bilateral lower extremities. Respiratory: Chest is clear to auscultation bilaterally. Bilateral equal air entry. No rales or rhonchi. Abdomen: Soft, positive bowel sounds. Left lower quadrant peritoneal dialysis catheter exit site is clean. Abdomen is nontender. Genitourinary: Bladder is not palpable. Musculoskeletal: No clubbing or cyanosis. Pulses are 2+. Central nervous system (BLASTING ENTRY SPECIALIST): No focal deficit. Power is 5/5 in all extremities. AV access: The patient has a left forearm AV fistula with positive thrill and bruit. LABORATORY REVIEW: CBC showed WBC of 8.7, hemoglobin 9.7, platelets of 146, INR is 1.35. BMP showed sodium 136, potassium 3.5, chloride 102, bicarbonate 22, BUN 114, creatinine is 5.6, calcium 7.2, magnesium is 1.8. IMAGING STUDIES: A chest x-ray was done yesterday, which showed no acute cardiopulmonary findings. CURRENT INPATIENT MEDICATIONS: The patient's medications were all reviewed by me and that includes IV fluids at 100 mL an hour. I have stopped the IV fluid since he has started tolerating the liquid diet. He is on: - Lipitor 10 mg q.h.s. - Colace 100 mg p.o. twice a day as needed for constipation He was on iron tablet and furosemide, which I have stopped for now since he just had upper GI bleed. - midodrine 5 mg p.o. three times a day - octreotide injection was given - Zofran as needed - Protonix 40 mg IV twice a day He was on potassium tablets, which I am stopping for now - Advair two puffs twice a day - Carafate 1 gram p.o. daily - vitamin D 1000 units p.o. q.h.s. ASSESSMENT: 83-year-old male with history of end-stage renal disease on peritoneal dialysis, atrial fibrillation anticoagulated with Eliquis, recently admitted with upper gastrointestinal bleed. PLAN: 1. End-stage renal disease on peritoneal dialysis. I have ordered manual exchanges, five manual exchanges to be done, each volume will be 2 liters, all 2.5%. High BUN level is likely secondary to large amount of blood in the gut, BUN is slowly improve with peritoneal dialysis. 2. Atrial fibrillation. The patient was anticoagulated with Eliquis, which has been stopped because of upper GI bleed. He cannot tolerate beta blockers because of chronic hypotension. Heart rate is optimal. 3. Upper GI bleed. The patient is status post esophagogastroduodenoscopy (EGD) and, as reported by , esophagus was clipped, there was a bleeding ulcer. Official report is still pending. He continues to be on IV Protonix and oral Carafate once a day. I have stopped the oral potassium, which can be an irritant as well. 4. Chronic lower extremity edema. The patient was on Lasix and potassium tablets. I have stopped the Lasix for now since he is just recovering from upper GI bleed. 5. Chronic hypotension. Continue current dose of midodrine 2 mg p.o. three times a day. 6. Secondary hyperparathyroidism. Patient can be restarted on calcitriol 0.25 mcg Saturday, Saturday, Saturday. Thank you for involving me in the care of this patient. I shall be happy to follow the patient along with you tomorrow morning.
--- NOTE | 2019-08-18 13:42 | IPN ---
DATE OF SERVICE: 08/18/2019 SUBJECTIVE: The patient denies any hematemesis, abdominal pain, nausea or vomiting. Tolerating his liquid diet this morning status post clipping yesterday. Operative note is unavailable at this time. No fever or chills. No complaints of palpitations, lightheadedness, dizziness or shortness of breath. OBJECTIVE PHYSICAL EXAMINATION: Vitals: Temperature 97, pulse 72, respiratory rate 20, blood pressure 105/58, 100% on room air. Generally, the patient is awake, alert, oriented times three, answering questions appropriately. No use of respiratory accessory muscles. Anicteric sclerae. No jaundice, no pallor. No cyanosis. The patient is not using any respiratory accessory muscles. No jugular venous distention. Lungs are diminished, but clear to auscultation. No wheezing, rales or rhonchi. Heart: S1 and S2. Irregularly irregular. Abdomen: Soft. Obese. Nontender. There is a peritoneal dialysis catheter noted with some erythema. No rebound or guarding. Extremities: No cyanosis or clubbing. Left arm fistula without any erythema, redness or tenderness. HOSPITAL MEDICATIONS: Lipitor, vitamin D, Protonix, midodrine, Advair, Carafate, Colace. ASSESSMENT AND PLAN: This is an 83-year-old male with history of atrial fibrillation, previously on Coumadin and currently on Eliquis prior to admission, end stage renal disease due to polycystic kidney disease on peritoneal dialysis, who lives at home with his and presented to the emergency room with acute onset of bright red blood, hematemesis of about 500 mL, with hypotension. The patient was admitted on 08/17/2019 and transfused 2 units of leukocyte reduced RBCs. Eliquis was held status post EGD by Dr. Perez and hemostatic clips placed. The patient was advanced on his diet to clear liquids with no acute complaints at this time. Acute Issues: 1. Acute upper GI bleed status post clip placement, savings teller, Dr. Perez. Currently on Protonix 40 IV twice a day and Carafate. Defer management and diet to Dr. Perez, savings teller insurance loss control surveyor. 2. End stage renal disease secondary to polycystic kidney disease. On peritoneal dialysis managed by Dr. López, oil well drilling manager. 3. Dyslipidemia. On chronic Lipitor. 4. Vitamin D deficiency. On vitamin D. 5. Atrial fibrillation. Holding Eliquis due to acute blood loss anemia and GI bleed. Currently rate controlled on no medications with rate of 65 to 72. 6. Deep vein thrombosis (DVT) prophylaxis with compression stockings. 7. Liquid diet. 8. Disposition. Transfer to medical-surgical. ADDENDUM: According to Dr. Perez the EGD showed a large esophageal necrotic ulcer, unsure whether this is malignancy, but was not biopsied due to fresh clot. He is recommending now to resume the patient's Eliquis for about 3 weeks and repeat EGD at that time and potentially biopsy it then. He is also recommending Carafate 1 gram liquid daily at least as well as Protonix 40 mg by mouth twice a day. He will be kept on a liquid diet for now and advance to self diet after 24 hours. Patient does complain of some dysphagia at baseline, and we would prefer not to disturb the existing clot by advancing the diet too quickly and we will have to discuss with nephrology if patient's Carafate will be an issue since he is a dialysis patient. [facility]
[2019-08-18] MEDS ORDERED: ATORVASTATIN 10 MG TAB PO SCH (21:00)
[2019-08-18] MEDS ORDERED: VITAMIN D 1,000 INTERNATIONAL UNITS TABLET PO SCH (21:00)
--- NOTE | 2019-08-19 00:46 | ROOR ---
Patient Name: Tato Leigh Procedure Date: 08/17/2019 6:11 PM Date of : 1935 Age: 83 Gender: Male Note Status: Finalized Procedure: Upper GI endoscopy + Hemoclips Indications: Hematemesis, Active gastrointestinal bleeding Providers: Von Perez MD Referring MD: 1. No Referring Physician 1. No Referring Physician, Admin. Requesting Provider: Medicines: General Anesthesia Complications: No immediate complications. Procedure: Pre-Anesthesia Assessment: - The heart rate, respiratory rate, oxygen saturations, blood pressure, adequacy of pulmonary ventilation, and response to care were monitored throughout the procedure. The upper GI endoscopy was accomplished without difficulty. The patient tolerated the procedure well. Findings: The Z-line was regular and was found 38 cm from the incisors. One cratered esophageal ulcer with no bleeding and stigmata of recent bleeding was found 30 cm from the incisors. For hemostasis, four hemostatic clips were successfully placed (MR conditional). There was no bleeding at the end of the procedure. A medium-sized hiatal hernia was present. No other significant abnormalities were identified in a careful examination of the stomach. The exam of the duodenum was otherwise normal. Impression: - Z-line regular, 38 cm from the incisors. - Non-bleeding esophageal ulcer. Clips (MR conditional) were placed. - Medium-sized hiatal hernia. - No specimens collected. Recommendation: - Patient has a contact number available for emergencies. The signs and symptoms of potential delayed complications were discussed with the patient. Return to normal activities tomorrow. Written discharge instructions were provided to the patient. - Return patient to ICU for ongoing care. - Continue present medications. - The findings and recommendations were discussed with the patient and their family. - The findings and recommendations were discussed with the referring physician. Von Perez MD Von Perez MD 08/19/2019 12:45:51 AM Electronically signed by Von Perez MD Number of Addenda: 0 Note Initiated On: 08/17/2019 6:11 PM Estimated Blood Loss: Estimated blood loss: none.
[2019-08-19] MEDS: SUCRALFATE 1 GM TAB PO SCH (05:36)
[2019-08-19 06:00] VITALS: BP 101/59
[2019-08-19 06:54] LABS: HEMATOCRIT 26.8 % (42.0-52.0); HEMOGLOBIN 9.3 g/dl (13.5-17.5); MEAN CORPUSCULAR HEMOGLOBIN 32.4 pg (27.0-33.0); MEAN CORPUSCULAR HGB CONC 34.7 g/dl (32.0-36.5); MEAN CORPUSCULAR VOLUME 93.4 fl (80.0-96.0); PLATELET COUNT, AUTOMATED 152 10^3/uL (150-450); RED BLOOD COUNT 2.87 10^6/uL (4.30-6.10); WHITE BLOOD COUNT 9.1 10^3/uL (4.0-10.0)
[2019-08-19 07:21] LABS: CALCIUM LEVEL 7.7 MG/DL (8.8-10.2); CREATININE FOR GFR 5.61 MG/DL (0.70-1.30); GLOMERULAR FILTRATION RATE 10.3 (>35); POTASSIUM SERUM 3.4 MEQ/L (3.5-5.1)
[2019-08-19] MEDS: ADVAIR HFA 45/21MCG INHALER INH SCH (07:38)
[2019-08-19] MEDS: MIDODRINE 5 MG TAB PO SCH ×2 (08:25→12:10)
[2019-08-19] MEDS: PANTOPRAZOLE 40MG INJ (PROTONIX) (C9113) IV SCH (08:25)
[2019-08-19] MEDS ORDERED: SUCR1TA PO (08:43)
[2019-08-19] MEDS ORDERED: PANT40TA3 PO (08:43)
[2019-08-19] MEDS ORDERED: FUROSEMIDE 40 MG TAB PO SCH (09:00)
[2019-08-19] MEDS ORDERED: POTASSIUM CHLORIDE 10 MEQ SR TABLET PO SCH (09:00)
[2019-08-19] MEDS ORDERED: PANTOPRAZOLE 40MG TAB (PROTONIX) PO SCH ×2 (09:00→21:00)
--- NOTE | 2019-08-19 09:12 | IPN ---
DATE: 08/19/2019 SUBJECTIVE: The patient denies any recurrent gastrointestinal bleed, hematemesis, melena, coffee ground emesis, black-tarry stools. Denies dyspnea, chest pain, pressure, tightness, lightheadedness. Tolerating his liquid diet. OBJECTIVE/PHYSICAL EXAMINATION: Vitals: Temperature 97, pulse 71, respiratory rate 16, blood pressure 111/59, 100% on room air. GENERAL: The patient is awake, alert and oriented times three. Answering questions appropriately. No use of respiratory accessory muscles. No icterus or jaundice. No jugular venous distention (JVD). LUNGS: Diminished with faint wheezing. HEART: S1, S2. Irregularly irregular. ABDOMEN: Soft, nontender, nondistended. EXTREMITIES: No cyanosis or clubbing. EGD findings: Nonbleeding esophageal ulcer, moderate sized hiatal hernia. No specimens collected. HOSPITAL MEDICATIONS: - atorvastatin 10 mg at night - vitamin D 1000 units at night - Protonix 40 mg IV twice a day - midodrine 5 mg three times a day - Advair HFA two puffs twice a day - Carafate 1 gram daily - Colace 100 mg twice a day as needed ASSESSMENT AND PLAN: This is an 83-year-old male with history of end stage renal disease on maintenance peritoneal dialysis due to polycystic kidney disease, atrial fibrillation, previously on Coumadin and now on Eliquis prior to admission, held due to blood loss anemia with hematemesis and bright red blood per rectum of about 500 mL with hypotension and hypovolemia. The patient was transfused 2 units of leukocyte reduced RBCs. Eliquis was held for EGD, which showed hiatal hernia, esophageal ulcer with hemostatic clips. The patient's diet has been advanced to clears and soft diet this morning. Recommendations are to hold the Eliquis for 3 weeks for repeat EGD to rule out malignancy. Acute Issues: 1. Acute blood loss anemia secondary to upper GI bleed with esophageal ulcer on EGD, status post EGD on 08/18/2019. 2. Esophageal ulcer, status post hemostatic clips, concerning for malignancy. Per Dr. Perez, hold of on anticoagulation for 3 weeks. Repeat EGD with biopsy in 3 weeks' time. Continue with Carafate 1 gram daily due to renal failure, Protonix 40 mg twice a day. Advance soft diet. 3. Chronic dysphagia. Per Dr. Chris, repeat EGD in 3 weeks' time. Tolerating liquid diet and advance to soft diet. 4. End stage renal disease secondary to polycystic kidney disease. On peritoneal dialysis managed by Dr. López, medical and scientific illustrator. 5. Atrial fibrillation. Continue to hold Eliquis for 3 weeks for repeat EGD, question malignancy on esophageal oropharynx, repeat scope in 3 weeks' time. Rate controlled on no medications. DISPOSITION: May discharge if passes home safety evaluation and tolerates soft diet without bleeding. MTDD
[2019-08-19] MEDS ORDERED: POTASSIUM CHLORIDE 10% LIQ 20 MEQ/15 ML UDC PO ONE (09:15)
[2019-08-19] MEDS ORDERED: POTASSIUM CHLORIDE 10 MEQ SR TABLET PO ONE (11:00)
[2019-08-19 14:00] VITALS: BP 113/55
--- NOTE | 2019-08-19 15:34 | DSES ---
DATE OF ADMISSION: 08/17/2019 DATE OF DISCHARGE: QUILLER TENDER: Dr. Von Perez. MEDICAL ASSEMBLY: Dr. López. PRIMARY DISCHARGE DIAGNOSES: 1. Ulcerated esophageal ulcer concerning for malignancy. 2. Acute blood loss anemia secondary to acute upper gastrointestinal (GI) bleed secondary to bleeding, esophageal ulcer status post hemostatic clips. 3. Chronic dysphagia. 4. End-stage renal disease secondary to polycystic kidney disease managed by peritoneal dialysis. 5. Atrial fibrillation off anticoagulation due to recent acute blood loss anemia requiring blood transfusion, two units. 6. Medium size hiatal hernia. DISCHARGE MEDICATIONS: - Protonix 40 mg twice a day - Carafate 1 gram daily - LiquaCel 30 mL by mouth three times a week - Lipitor 10 mg nightly - calcitriol 0.25 mcg three times weekly - vitamin D 3000 units nightly - Colace 100 mg twice a day as needed - ferrous sulfate 325 mg daily - folic acid one tablet daily - Lasix 40 mg twice a day - midodrine 5 mg three times a day - potassium 200 mEq Saturday, , Saturday, Saturday - potassium 40 mEq Saturday, Saturday, Saturday - Advair discus one puff twice a day Patient's Eliquis and omeprazole have been discontinued due to possible malignant esophageal lesion. Patient is to be off Eliquis for 3 weeks. Repeat esophagogastroduodenoscopy in [address] Perez's recommendations. HOSPITAL COURSE: This is an 83-year-old male who presented to the emergency room with acute onset of hematemesis 500 mL at home. Patient had a recurrent episode while in the emergency room. Patient's blood pressure was compromised dropping into 80/47 responding to 1 liter of IV fluid hydration. Sergeant Missile Crewman was consulted for dialysis needs and Dr. Perez, dairy processing supervisor, was consulted. Patient underwent EGD on 08/17/2019 where patient was found to have a non-bleeding esophageal ulcer. Clips were placed. Medium-sized hiatal hernia was also noted. Per Dr. Perez, patient is to have a soft diet. He was initially on Protonix intravenously, which was changed to oral Protonix. Soft diet to prevent re-bleeding and to have a repeat EGD in 3 months time. Patient was asked not to resume his anticoagulation until that time. Patient had no recurrent episode of bleeding. Blood pressure was well maintained at 101-128 with midodrine. He was continued on his peritoneal dialysis managed by Dr. López. He passed a [facility] hospital safety evaluation and safe for discharge home. LABS ON DISCHARGE: White count 9.1, hemoglobin 9.3, hematocrit 26.8. Admission hemoglobin was 9.1. Sodium 135, potassium 3.4, chloride 101, bicarbonate 23, BUN 106, creatinine 5.61, glucose of 111. EGD by Dr. Perez shows moderate size hiatal hernia, non-bleeding esophageal ulcers. No bleeding at the end of the procedure. One crater esophageal ulcer recent bleeding was found 30 cm from the incisors. Four hemostasis four hemostatic clips were successfully placed. Time spent on discharge 30 minutes. [facility]
--- NOTE | 2019-08-19 17:49 | IPN ---
DATE: 08/19/2019 SUBJECTIVE: The patient was seen and examined the bedside today morning. He is afebrile, hemodynamically stable. He denies any problems with the peritoneal dialysis. He was downgraded from the intensive care unit (ICU). His hemoglobin level is staying stable, and patient reports that he might be getting discharged today. OBJECTIVE: Vital signs: Temperature is 97 degrees Fahrenheit, blood pressure 101/59, pulse is 71, respiratory of 16, saturating 100% on room air. Intake and output: There is no urine output recorded. Ultrafiltration with peritoneal dialysis is 950 mL since overnight. Weight in the bed scale is not available. PHYSICAL EXAMINATION: GENERAL: The patient is awake, alert, oriented times three , lying in bed in no apparent distress. HEAD AND NECK: Extraocular muscles intact. Pupils equally round and reactive to light. Mucous membranes are moist. Neck is supple. There is no jugular venous distention (JVD). CARDIOVASCULAR: S1, S2, regular rate. Edema 1+ of the bilateral lower extremities. RESPIRATORY: Chest is clear to auscultation bilaterally. Bilateral equal air entry. No rales or rhonchi. ABDOMEN: Soft. Positive bowel sounds. Left lower quadrant peritoneal dialysis catheter, clean exit site. MUSCULOSKELETAL: No clubbing or cyanosis. Pulses are 2+. CENTRAL NERVOUS SYSTEM: No focal deficit. Power is 5/5 in all extremities. LABORATORY REVIEW: CBC showed WBC 9.1, hemoglobin 9.3, platelets of 152. BMP showed sodium 135, potassium 3.4, chloride 101, bicarbonate 23, BUN 106, creatinine is 5.6, calcium of 7.7. CURRENT INPATIENT MEDICATIONS: The patient's medications were all reviewed by me. His intravenous (IV) Protonix has been changed to 40 mg by mouth twice a day. The patient was given potassium chloride 40 mEq one dose today morning, and he has been started on potassium chloride 30 mEq by mouth daily. No other change in the medications today as compared with yesterday. ASSESSMENT AND PLAN: 1. End-stage renal disease, on peritoneal dialysis. The patient is tolerating the manual exchanges. Continue current regimen while he is here. Once he is discharge he can go back to his home cycler regimen with a midday exchange. The patient still has a high BUN level, which is slowly improving; however if the BUN stays high and he does not pass the Kt/V test with peritoneal dialysis, he might need to switch to hemodialysis. He already has a working left forearm arteriovenous (AV) fistula. 2. Hypokalemia. It is secondary to peritoneal dialysis. He was already given potassium chloride 40 mEq by mouth times one dose. 3. Acute upper gastrointestinal (GI) bleed. The patient got the emergent endoscopy done on 08/17/2019 for hemostatic clips that were placed in the esophagus. Hemoglobin is stable. No more evidence of bleeding. 4. Chronic lower extremity edema. I have resumed home dose of Lasix 40 mg by mouth twice a day along with potassium 30 mEq by mouth daily. 5. Chronic hypotension. Continue current dose of midodrine 5 mg by mouth three times a day. DISPOSITION: The patient is optimized from nephrology standpoint to be discharged home. He will be followed up as outpatient.
[2019-08-20] MEDS ORDERED: POTASSIUM CHLORIDE 10 MEQ SR TABLET PO SCH (09:00)
--- NOTE | 2019-08-20 10:37 | CR ---
DATE OF CONSULTATION: 08/17/2019 This is a 83-year white male who was admitted to [facility] for new onset of hematemesis. The patient has multiple medical problems including end-stage renal disease secondary to polycystic kidney disease. He is on peritoneal dialysis at home. He also has associated hypertension and atrial fibrillation and has been started on Eliquis for this. He has dyslipidemia, asthma and gout. MEDICATIONS AT HOME: - atorvastatin - vitamin D - Colace - Lasix - Eliquis since October. PAST SURGICAL HISTORY: Positive for transurethral resection of the prostate (TURP). SOCIAL HISTORY: Cigarettes 50 years ago. Alcohol is three beers a week REVIEW OF SYSTEMS: Noncontributory. PHYSICAL EXAMINATION: General: Well-developed, well-nourished white male appears older than his stated age. Chest is clear to auscultation. Cardiovascular exam showed an irregular rhythm. No murmurs or gallops. Normal physiological split S1, S2. Abdomen: Soft, globose, positive peritoneal dialysis catheter appreciated. Extremities: No cyanosis, clubbing, edema. Hebert's negative. Laboratory studies on admission showed a white count of 8700, hemoglobin and hematocrit 9.1 and 26.7, platelets were 173,000. Liver functions were normal. Albumin 2.2. The patient's chest x-ray showed cardiomegaly. ANALYSIS: Gastrointestinal (GI) bleeding precipitated by the Eliquis. At the present time we have no etiology as to the patient's hematemesis. He has had at least one episode at home and one in the emergency room (ER) apparently amounting to approximately 5 mL. He also has been complaining of occasional dysphagia. The patient is here now to urgent upper endoscopy with any therapeutic treatments needed to control the bleeding. At the present time, my main thinking is possible Rema-Oconnor tear versus peptic ulcer disease. I doubt this is varices due to the patient's only socially drinking. PLAN: Plan will be set the patient up for an upper endoscopy with therapeutic procedures that will be performed as needed.
== END 2019-08-19 15:30 | disposition home or self-care (01) | DRG 380 ==
LOC: M ED 11:05 → EDBD 11:05 → M ED INP 14:05 → M ICU 19:52 → M MSPAV 08-18 17:12
PROVIDERS: ADMIT Internal Medicine; ATTEND General Practice
PROC: 0W3P8ZZ Control Bleeding in Gastrointestinal Tract, Via Natural or Artificial Opening Endoscopic (ICD-10-PCS; principal; 2019-08-17 17:00)
DX: K22.11 Ulcer of esophagus with bleeding (principal); N18.6 End stage renal disease; D62 Acute posthemorrhagic anemia; Q61.3 Polycystic kidney, unspecified; I12.0 Hypertensive chronic kidney disease with stage 5 chronic kidney disease or end stage renal disease; I48.91 Unspecified atrial fibrillation; K44.9 Diaphragmatic hernia without obstruction or gangrene; Z79.899 Other long term (current) drug therapy; E78.5 Hyperlipidemia, unspecified; M10.9 Gout, unspecified; J45.909 Unspecified asthma, uncomplicated

== ENCOUNTER 2019-09-07 10:40 | Day surgery (SDC) | payer MEDICARE ==
[~2019-09-07] VITALS: Ht 177.8 cm; Wt 89.4 kg
[~2019-09-07 10:40] MED LIST changes: +ELIQ2.5T PO; +FERR325T18 PO; +MIDO5TA PO; +NS 1,000 ML IV ONE; +OMEP-218 PO; +PANT40TA3 PO; +POTA20TA6 PO; +RENATAB5 PO; +SUCR1TA PO
[2019-09-07] MEDS ORDERED: LIDOCAINE 2% INJ 100 MG/5 ML SDV (FOR ANES.) As Ordered ONE (12:08)
[2019-09-07] MEDS ORDERED: PROPOFOL 200 MG/20 ML VIAL As Ordered ONE (12:08)
--- NOTE | 2019-09-07 13:00 | ROOR ---
Patient Name: Tato Leigh Procedure Date: 09/07/2019 12:36 PM Date of : 1935 Age: 83 Room: [facility] Gender: Male Note Status: Finalized Procedure: Upper Endoscopy + Biopsies Indications: Recent gastrointestinal bleeding Providers: Von Perez MD Referring MD: Keena Soto MD Requesting Provider: Medicines: Monitored Anesthesia Care Complications: No immediate complications. Procedure: Pre-Anesthesia Assessment: - The heart rate, respiratory rate, oxygen saturations, blood pressure, adequacy of pulmonary ventilation, and response to care were monitored throughout the procedure. The Endoscope was introduced through the mouth, and advanced to the second part of duodenum. The upper GI endoscopy was accomplished without difficulty. The patient tolerated the procedure well. Findings: The Z-line was irregular and was found 20 cm from the incisors. Multiple biopsies were obtained with cold forceps for evaluation to rule out Cabrera's Esophagus randomly in the entire esophagus. One cratered esophageal ulcer with no bleeding and no stigmata of recent bleeding was found 30 cm from the incisors. An endoclip was found in the lower third of the esophagus. No other significant abnormalities were identified in a careful examination of the stomach. The exam of the duodenum was otherwise normal. Impression: - Z-line irregular, 20 cm from the incisors. - Non-bleeding esophageal ulcer. - An endoclip was found in the esophagus. - Multiple biopsies were obtained in the entire esophagus. - The examination was otherwise normal. Recommendation: - Patient has a contact number available for emergencies. The signs and symptoms of potential delayed complications were discussed with the patient. Return to normal activities tomorrow. Written discharge instructions were provided to the patient. - Resume previous diet. - Discharge patient to home. - Follow an antireflux regimen. - Continue present medications. - Await pathology results. - Telephone GI clinic for pathology results in 1 week. - The findings and recommendations were discussed with the patient's family. Von Perez MD Von Perez MD 09/07/2019 12:59:26 PM Electronically signed by Von Perez MD Number of Addenda: 0 Note Initiated On: 09/07/2019 12:36 PM Estimated Blood Loss: Estimated blood loss: none.
[2019-09-07 13:20] VITALS: BP 103/63
== END 2019-09-07 13:30 | disposition home or self-care (01) ==
LOC: M OPP 10:40
PROVIDERS: ATTEND Internal Medicine Gastroenterology
DX: K92.2 Gastrointestinal hemorrhage, unspecified (principal); K22.8 Other specified diseases of esophagus; K22.10 Ulcer of esophagus without bleeding; I48.91 Unspecified atrial fibrillation; I12.9 Hypertensive chronic kidney disease with stage 1 through stage 4 chronic kidney disease, or unspecified chronic kidney disease; E78.5 Hyperlipidemia, unspecified; K21.9 Gastro-esophageal reflux disease without esophagitis; D50.9 Iron deficiency anemia, unspecified; N40.1 Benign prostatic hyperplasia with lower urinary tract symptoms; J45.909 Unspecified asthma, uncomplicated; J44.9 Chronic obstructive pulmonary disease, unspecified; N18.9 Chronic kidney disease, unspecified; Z99.2 Dependence on renal dialysis; Z79.899 Other long term (current) drug therapy; Z87.891 Personal history of nicotine dependence

== ENCOUNTER 2019-12-09 10:17 | Day surgery (SDC) | payer MEDICARE ==
[~2019-12-09] VITALS: Ht 180.3 cm; Wt 89.8 kg
[~2019-12-09 10:17] MED LIST changes: +VITA100066 PO
--- NOTE | 2019-12-09 11:45 | ROOR ---
Patient Name: aTto Leigh Procedure Date: 12/09/2019 11:29 AM Date of : 1935 Age: 84 Room: [facility] Gender: Male Note Status: Finalized Procedure: Upper Endoscopy + Biopsies Indications: Follow-up of Cabrera's esophagus, Cabrera's low grade dysplasia, Follow-up of esophageal ulcer Providers: Von Perez MD Referring MD: EWELINA REZA MD Requesting Provider: Medicines: Monitored Anesthesia Care Complications: No immediate complications. Procedure: Pre-Anesthesia Assessment: - The heart rate, respiratory rate, oxygen saturations, blood pressure, adequacy of pulmonary ventilation, and response to care were monitored throughout the procedure. The Endoscope was introduced through the mouth, and advanced to the second part of duodenum. The upper GI endoscopy was accomplished without difficulty. The patient tolerated the procedure well. Findings: The Z-line was irregular and was found 20 cm from the incisors. Multiple biopsies were obtained with cold forceps for evaluation to rule out Cabrera's Esophagus randomly in the entire esophagus. There is no endoscopic evidence of ulcerations in the lower third of the esophagus. Ulcer is healed. May restart anticoagulation if felt it is needed. A large hiatal hernia was present. No other significant abnormalities were identified in a careful examination of the stomach. The exam of the duodenum was otherwise normal. Impression: - Z-line irregular, 20 cm from the incisors. - Large hiatal hernia. - Multiple biopsies were obtained in the entire esophagus. - The examination was otherwise normal. Recommendation: - Patient has a contact number available for emergencies. The signs and symptoms of potential delayed complications were discussed with the patient. Return to normal activities tomorrow. Written discharge instructions were provided to the patient. - Resume previous diet. - Discharge patient to home. - Follow an antireflux regimen. - Continue present medications. - Await pathology results. - Telephone GI clinic for pathology results in 1 week. - Return to referring physician. - The findings and recommendations were discussed with the patient's family. Von Perez MD Von Perez MD 12/09/2019 11:44:58 AM Electronically signed by Von Perez MD Number of Addenda: 0 Note Initiated On: 12/09/2019 11:29 AM Estimated Blood Loss: Estimated blood loss: none.
[2019-12-09 12:15] VITALS: BP 98/55
== END 2019-12-09 12:23 | disposition home or self-care (01) ==
LOC: M OPP 10:17
PROVIDERS: ATTEND Internal Medicine Gastroenterology
DX: K22.8 Other specified diseases of esophagus (principal); K44.9 Diaphragmatic hernia without obstruction or gangrene; K22.710 Barrett's esophagus with low grade dysplasia; K21.9 Gastro-esophageal reflux disease without esophagitis; Z79.899 Other long term (current) drug therapy; Z87.891 Personal history of nicotine dependence; Z09 Encounter for follow-up examination after completed treatment for conditions other than malignant neoplasm

== ENCOUNTER 2020-01-07 11:58 | Day surgery (SDC) | payer MEDICARE ==
[~2020-01-07] VITALS: Ht 180.3 cm; Wt 89.5 kg
[~2020-01-07 11:58] MED LIST changes: +BACT800T5 PO; +D5W/0.2% SODIUM CHLORIDE 1,000 ML IV ONE; +LIDOCAINE 2% INJ 100 MG/5 ML SDV (FOR ANES.) As Ordered ONE; +MIDAZOLAM INJ 2 MG/2 ML VIAL (J2250) As Ordered ONE; -NS 1,000 ML IV ONE; +ONDANSETRON 4MG/2ML VIAL (J2405) As Ordered ONE; +ROCURONIUM BROMIDE 50 MG/5 ML VIAL As Ordered ONE; +SUGAMMADEX SODIUM 500 MG/5 ML VIAL (BRIDION) As Ordered ONE; +VITA100054 PO; +ceFAZolin SOD 2 GM in IV 1 EA IV ONE; +dexameTHASONE 4 MG/ML 1ML VIAL (J1100) As Ordered ONE; +fentaNYL 100 MCG/2 ML INJECTION (J3010) As Ordered ONE; +propofoL 200 MG/20 ML VIAL As Ordered ONE
[2020-01-07] MEDS ORDERED: ALBUTEROL SULFATE 2.5 MG/0.5 ML INH NEB SOLN INH ONE (13:00)
[2020-01-07] MEDS ORDERED: ALBUTEROL SULFATE 2.5 MG/0.5 ML INH NEB SOLN As Ordered ONE (13:06)
[2020-01-07] MEDS ORDERED: LIDOCAINE 1% SDV INJ 30 ML VIAL As Ordered ONE (14:36)
[2020-01-07] MEDS ORDERED: ePHEDrine SULFATE 25 MG/5 ML(5MG/ML) SYRINGE As Ordered ONE (15:41)
[2020-01-07] MEDS ORDERED: PHENYLephrine HCL 500 MCG/5 ML (100MCG/ML) SYRINGE (J2370) As Ordered ONE (15:42)
[2020-01-07 16:40] VITALS: BP 99/57
--- NOTE | 2020-01-08 12:39 | RO ---
DATE OF PROCEDURE: 01/07/2020 PREOPERATIVE DIAGNOSIS: Infected continuous ambulatory peritoneal dialysis catheter site. POSTOPERATIVE DIAGNOSIS: Infected continuous ambulatory peritoneal dialysis catheter site. PROCEDURE PERFORMED: Explantation of continuous ambulatory peritoneal dialysis catheter with debridement of site infection. SURGEON: Dr. David Vail ANESTHESIA: Monitored anesthesia care and local anesthesia 1% Xylocaine was utilized. INDICATIONS FOR THE PROCEDURE: The patient has had a peritoneal dialysis catheter in place for approximately three to three and a half years. This has been working well, but recently he developed a reddened area of swelling over the area of the catheter insertion and it was felt that he had an infection of the insertion site. He is now for removal of this catheter. OPERATIVE PROCEDURE: The patient was brought to the operating room and placed on the table in a supine position. He received sedation from anesthesia. The patient's abdomen was prepped and draped in a sterile fashion. Inspection revealed the catheter exiting the left midabdomen. The more superficial pledget had previously extruded and this was outside the skin entry site by about a centimeter or two. There was a raised slightly reddened area with some peeling of the overlying skin about 3 cm in diameter overlying the scar from his prior catheter insertion. Local anesthesia was achieved with 1% Xylocaine. A longitudinal incision approximately 3-4 cm in length was made through this area of fluctuance. On opening the skin, there was some chronic inflammatory tissue identified. There appeared to be a broad area of dense scar tissue with some chronic appearing granulation type tissue surrounding the catheter and involving the external portion of the remaining pledget. Portions of the scar tissue overlying skin and all of the inflammatory debris were debrided. Prior to this debridement, culturettes were obtained for aerobic and anaerobic culture. The catheter was identified and from surrounding scar. The catheter was cut and the external portion was removed. Dissection then followed along the catheter and the pledget freeing this from the surrounding scar tissue down to the peritoneum, which was finally cut and the catheter was removed. The peritoneum and the fascia were then closed with several interrupted simple sutures of #2-0 Vicryl. The subcutaneous epithelialized tract which had formed around the catheter was then excised with the exit site that was slightly further lateral from the insertion incision. Hemostasis was ensured with the cautery. I elected not to close the wounds given the potential for infection. A small wick of saline gauze was inserted into the catheter tract and the wound where the infection had been was packed with saline moistened gauze. These were covered with dry sterile gauze. The patient tolerated the procedure well without apparent complication. He was awakened in the operating room and moved to the recovery room in stable condition. PEDRO LUIS
== END 2020-01-07 16:55 | disposition home or self-care (01) ==
LOC: M SDC 11:58
PROVIDERS: ATTEND Surgery
DX: T85.71XA Infection and inflammatory reaction due to peritoneal dialysis catheter, initial encounter (principal); Y74.2 Prosthetic and other implants, materials and accessory general hospital and personal-use devices associated with adverse incidents; N17.9 Acute kidney failure, unspecified; Z99.2 Dependence on renal dialysis; I10 Essential (primary) hypertension; E78.00 Pure hypercholesterolemia, unspecified; I48.91 Unspecified atrial fibrillation; M19.90 Unspecified osteoarthritis, unspecified site; J45.909 Unspecified asthma, uncomplicated; R32 Unspecified urinary incontinence; Z87.891 Personal history of nicotine dependence; Z79.899 Other long term (current) drug therapy; Z79.2 Long term (current) use of antibiotics
CPT/HCPCS: 36415; 49422; 84132; 87070; 87075; 87077; 87186; 88304; J0690; J1100; J2250; J2370; J2405; J3010

== ENCOUNTER 2020-02-05 05:57 | Day surgery (SDC) | payer MEDICARE ==
[~2020-02-05] VITALS: Ht 180.3 cm; Wt 88.9 kg
[~2020-02-05 05:57] MED LIST changes: -D5W/0.2% SODIUM CHLORIDE 1,000 ML IV ONE; -LIDOCAINE 2% INJ 100 MG/5 ML SDV (FOR ANES.) As Ordered ONE; -MIDAZOLAM INJ 2 MG/2 ML VIAL (J2250) As Ordered ONE; -ONDANSETRON 4MG/2ML VIAL (J2405) As Ordered ONE; -ROCURONIUM BROMIDE 50 MG/5 ML VIAL As Ordered ONE; -SUGAMMADEX SODIUM 500 MG/5 ML VIAL (BRIDION) As Ordered ONE; +VITAD1000T PO; -ceFAZolin SOD 2 GM in IV 1 EA IV ONE; -dexameTHASONE 4 MG/ML 1ML VIAL (J1100) As Ordered ONE; -fentaNYL 100 MCG/2 ML INJECTION (J3010) As Ordered ONE; -propofoL 200 MG/20 ML VIAL As Ordered ONE
[2020-02-05] MEDS ORDERED: NS 1,000 ML IV ONE (07:00)
[2020-02-05] MEDS ORDERED: VANCOMYCIN HCL 1,000 MG, VIAL MATE ADAPTER 1 EACH in D5W 250 ML IV ONE (07:00)
[2020-02-05] MEDS ORDERED: HEPARIN SOD (PORCINE) 5000 UNITS/ML VIAL (J1644 PER 1000UNITS) As Ordered ONE (07:12)
[2020-02-05] MEDS ORDERED: LIDOCAINE 1% SDV INJ 30 ML VIAL As Ordered ONE (07:12)
[2020-02-05] MEDS ORDERED: fentaNYL 100 MCG/2 ML INJECTION (J3010) As Ordered ONE (08:27)
[2020-02-05] MEDS ORDERED: ePHEDrine SULFATE 25 MG/5 ML(5MG/ML) SYRINGE As Ordered ONE (08:27)
[2020-02-05] MEDS ORDERED: LIDOCAINE 2% INJ 100 MG/5 ML SDV (FOR ANES.) As Ordered ONE (08:27)
[2020-02-05] MEDS ORDERED: MIDAZOLAM INJ 2 MG/2 ML VIAL (J2250) As Ordered ONE (08:27)
[2020-02-05] MEDS ORDERED: ONDANSETRON 4MG/2ML VIAL (J2405) As Ordered ONE (08:27)
[2020-02-05] MEDS ORDERED: propofoL 200 MG/20 ML VIAL As Ordered ONE (08:27)
[2020-02-05] MEDS ORDERED: NS 1,000 ML IV SCH (09:00)
[2020-02-05] MEDS ORDERED: fentaNYL 100 MCG/2 ML INJECTION (J3010) IV PRN (09:00)
[2020-02-05] MEDS ORDERED: ONDANSETRON 4MG/2ML VIAL (J2405) IV PRN (09:00)
[2020-02-05] MEDS ORDERED: oxyCODONE 5MG TAB PO PRN (09:00)
[2020-02-05 09:40] VITALS: BP 108/52
--- NOTE | 2020-02-09 09:36 | RO ---
DATE OF PROCEDURE: 02/05/2020 PREOPERATIVE DIAGNOSIS: End-stage renal disease. POSTOPERATIVE DIAGNOSIS: End stage renal disease. PROCEDURE PERFORMED: Implantation of continuous ambulatory peritoneal dialysis catheter. SURGEON: Dr. Vail DIETARY SERVICES MANAGER: ANESTHESIA: Local of 1% Xylocaine with monitored anesthesia care INDICATIONS FOR PROCEDURE: The patient is a 84-year-old man who has been on peritoneal dialysis for several years. His CAPD catheter was recently removed for a site infection. His wound has now healed and he is for replacement of a new CAPD catheter. OPERATIVE PROCEDURE The patient was brought to the operating room and placed supine on the operating table. The patient's abdomen was prepped and draped in a sterile fashion. He received sedation from anesthesia. Examination revealed that the wounds from his recent catheter removal were all completely healed. I elected to move slightly higher up the abdomen from his prior insertion site and a longitudinal paramedian incision was outlined with a skin marker just above the level of the umbilicus in the left upper quadrant. The incision was made after infiltrating the area with 1% lidocaine. This incision was approximately 3-4 cm in length. This was deepened through the subcutaneous fat to the fascia of the rectus sheath, which was opened longitudinally. The muscle fibers were spread and the posterior sheath was grasped and elevated. A small incision was made in the posterior sheath. A pursestring suture of 2-0 Vicryl was placed. The patient was tilted to a slight Trendelenburg position. The inferior edge of the peritoneal opening was elevated and the peak 62-cm double pledgeted silicone peritoneal dialysis catheter was placed over a long stylet and inserted through the opening into the abdomen and directed inferiorly along the posterior aspect of the abdominal wall. After advancing the catheter 15-20 cm, the catheter was slipped off the stylet. The inner pledget was placed just outside the peritoneal opening and the pursestring suture was tied down and then tied around the catheter to prevent withdrawal. Care was taken not to crimp the catheter. The anterior rectus sheath was then closed with a running suture of 0 Vicryl. The catheter was tunneled through the subcutaneous tissues to exit through a small puncture wound inferiorly and slightly lateral to the insertion site. The hub was attached to the catheter. The catheter was connected to some tubing and with the patient now in a slight reverse Trendelenburg position, approximately a liter of normal saline was infused through the catheter. While the catheter was being tested, the subcutaneous tissues were closed with chromic and the skin edges were approximated with a running subcuticular 4-0 Vicryl and Steri-Strips. After the liter of saline was infused, the catheter was allowed to drain by gravity siphon an approximately 700 mL of fluid returned. There was a very faint pinkish cast to the fluid. The catheter was then filled with 1 mL of 5000 units/mL heparin and 1.4 mL of sterile saline. A small clamp was applied to the catheter and the catheter was then plugged. The site was dressed with a chlorhexidine gluconate OpSite and some gauze pads were placed inferior to this in case there was any drainage around the catheter from beneath the OpSite. The patient tolerated the procedure well without apparent complication. He was awakened in the operating room and transported to advanced recovery in stable condition.
== END 2020-02-05 09:50 | disposition home or self-care (01) ==
LOC: M SDC 05:57
PROVIDERS: ATTEND Surgery
DX: N18.6 End stage renal disease (principal); Z99.2 Dependence on renal dialysis; N13.9 Obstructive and reflux uropathy, unspecified; I95.9 Hypotension, unspecified; E78.00 Pure hypercholesterolemia, unspecified; I13.11 Hypertensive heart and chronic kidney disease without heart failure, with stage 5 chronic kidney disease, or end stage renal disease; D64.9 Anemia, unspecified; E21.3 Hyperparathyroidism, unspecified; R60.0 Localized edema; K92.9 Disease of digestive system, unspecified; J45.909 Unspecified asthma, uncomplicated; R32 Unspecified urinary incontinence; Z79.899 Other long term (current) drug therapy; Z79.51 Long term (current) use of inhaled steroids
CPT/HCPCS: 36415; 49421; 84132; J1644; J2250; J2405; J3010; J3370

== ENCOUNTER → 2020-07-05 | Outpatient (REF) | payer MEDICARE ==
[~2020-07-05] MED LIST changes: -COUM6TAB PO; +COUM6TAB10 PO; +D31000TA2 PO; +PANT40TA29 PO; -PANT40TA3 PO; -VITAD1000T PO
[2020-08-01 13:55] LABS: BACTERIA, URINE AUTO 3+ (NEGATIVE); BILIRUBIN, URINE AUTO NEGATIVE (NEGATIVE); BLOOD, URINE BLOOD 1+ (NEGATIVE); COLOR, URINE YELLOW (YELLOW); GLUCOSE, URINE (UA) AUTO NEGATIVE (NEGATIVE); KETONE, URINE AUTO NEGATIVE (NEGATIVE); LEUKOCYTE ESTERASE, URINE AUTO 2+ (NEGATIVE); MUCUS, URINE SMALL (NEGATIVE); NITRITE, URINE AUTO NEGATIVE (NEGATIVE); PROTEIN, URINE AUTO 2+ mg/dL (NEGATIVE); RBC, URINE AUTO 5 /HPF (0-3); SPECIFIC GRAVITY URINE AUTO 1.011 (1.002-1.035); SQUAMOUS EPITHELIAL CELL UR AU 0 /HPF (0-6); UROBILINOGEN, URINE AUTO 0.2 mg/dL (0.0-2.0); WBC, URINE AUTO TNTC /HPF (0-3)
[2020-08-02 07:35] LABS: APPEARANCE, URINE TURBID (CLEAR)
== END ==
LOC: M LAB REF 14:40
PROVIDERS: ATTEND Internal Medicine Nephrology
DX: N39.0 Urinary tract infection, site not specified (principal)

== ENCOUNTER 2021-01-05 14:04 | Inpatient (IN) | payer MEDICARE ==
[~2021-01-05] VITALS: Ht 180.3 cm; Wt 90.6 kg
[2021-01-05 14:52] LABS: BASO # 0.1 10^3/uL (0.0-0.2); BASO % 0.7 % (0.0-1.0); EOS # 0.5 10^3/uL (0.0-0.5); EOS % 5.2 % (0.0-3.0); HEMATOCRIT 37.7 % (42.0-52.0); HEMOGLOBIN 12.2 g/dl (13.5-17.5); LYMPH # 0.6 10^3/uL (1.5-5.0); LYMPH % 6.4 % (24.0-44.0); MEAN CORPUSCULAR HEMOGLOBIN 32.6 pg (27.0-33.0); MEAN CORPUSCULAR HGB CONC 32.4 g/dl (32.0-36.5); MEAN CORPUSCULAR VOLUME 100.8 fl (80.0-96.0); MONO # 0.8 10^3/uL (0.0-0.8); MONO % 9.4 % (0.0-5.0); NEUTROPHILS # 6.6 10^3/uL (1.5-8.5); NEUTROPHILS % 76.6 % (36.0-66.0); PLATELET COUNT, AUTOMATED 185 10^3/uL (150-450); RED BLOOD COUNT 3.74 10^6/uL (4.30-6.10); WHITE BLOOD COUNT 8.6 10^3/uL (4.0-10.0)
--- NOTE | 2021-01-05 15:03 | REP ---
INDICATION: cough. COMPARISON: Comparison chest x-ray August 17, 2019.. TECHNIQUE: Portable upright AP chest x-ray. Single-view. FINDINGS: Monitoring electrodes are seen. The lungs are well inflated and clear. No infiltrate is seen. Pleural angles are sharp. Heart size is borderline unchanged. The aorta is calcific and tortuous. Pulmonary vasculature is not increased. There is some vascular calcification in the axillary arteries bilaterally. IMPRESSION: No active cardiopulmonary disease. <Electronically signed by Tee Garcia > 01/05/21 1500
[2021-01-05 15:26] LABS: ALBUMIN 2.9 GM/DL (3.2-5.2); BILIRUBIN,DIRECT 0.1 MG/DL (0.0-0.2); BILIRUBIN,TOTAL 0.5 MG/DL (0.2-1.0); CK-MB VALUE MASS 2.5 NG/ML (<3.6); MAGNESIUM LEVEL 1.7 MG/DL (1.8-2.4); MB/CK RELATIVE INDEX 4.63 (< OR =4); PHOSPHORUS LEVEL 5.8 MG/DL (2.5-4.9); THYROID STIMULATING HORMONE 3.34 uIU/ML (0.358-3.740); TOTAL PROTEIN 6.3 GM/DL (6.4-8.2); TROPONIN I 0.04 NG/ML (< 0.10)
[2021-01-05 16:19] LABS: RSV AMPLIFICATION NEGATIVE (NEGATIVE)
[2021-01-05] MEDS ORDERED: POTA20TA6 PO (16:43)
[2021-01-05] MEDS ORDERED: FLUD0.1T PO (16:43)
[2021-01-05] MEDS ORDERED: PANT-23 PO (16:43)
[2021-01-05] MEDS ORDERED: DOCUSATE SODIUM 100MG CAPSULE PO PRN (17:00)
--- OUTSIDE RECORDS SUMMARY | 2021-01-05 17:19 | CCD ---
Author Author [facility] Organization [facility] Address Unknown Phone Unavailable Care Team Providers Care Textile Clothing And Footwear Mechanic Name Role Phone Fons, M Renae LOSS PREVENTION RESEARCH ENGINEER Unavailable Unavailable Fons, M Renae LOSS PREVENTION RESEARCH ENGINEER Unavailable Unavailable Fons, M Renae LOSS PREVENTION RESEARCH ENGINEER Unavailable Unavailable Fons, M Renae LOSS PREVENTION RESEARCH ENGINEER Unavailable Unavailable Fons, M Renae LOSS PREVENTION RESEARCH ENGINEER Unavailable Unavailable Fons, M Renae LOSS PREVENTION RESEARCH ENGINEER Unavailable Unavailable Fons, M Renae LOSS PREVENTION RESEARCH ENGINEER Unavailable Unavailable Fons, M Renae LOSS PREVENTION RESEARCH ENGINEER Unavailable Unavailable Fons, M Renae LOSS PREVENTION RESEARCH ENGINEER Unavailable Unavailable Fons, M Renae LOSS PREVENTION RESEARCH ENGINEER Unavailable Unavailable Fons, M Renae LOSS PREVENTION RESEARCH ENGINEER Unavailable Unavailable Fons, M Renae LOSS PREVENTION RESEARCH ENGINEER Unavailable Unavailable Fons, M Renae LOSS PREVENTION RESEARCH ENGINEER Unavailable Unavailable Fons, M Renae LOSS PREVENTION RESEARCH ENGINEER Unavailable Unavailable Fons, M Renae LOSS PREVENTION RESEARCH ENGINEER Unavailable Unavailable Fons, M Renae LOSS PREVENTION RESEARCH ENGINEER Unavailable Unavailable Fons, M Renae LOSS PREVENTION RESEARCH ENGINEER Unavailable Unavailable Fons, M Renae LOSS PREVENTION RESEARCH ENGINEER Unavailable Unavailable Fons, M Renae LOSS PREVENTION RESEARCH ENGINEER Unavailable Unavailable Fons, M Renae LOSS PREVENTION RESEARCH ENGINEER Unavailable Unavailable Fons, M Renae LOSS PREVENTION RESEARCH ENGINEER Unavailable Unavailable Fons, M Renae LOSS PREVENTION RESEARCH ENGINEER Unavailable Unavailable Fons, M Renae LOSS PREVENTION RESEARCH ENGINEER Unavailable Unavailable Fons, M Renae LOSS PREVENTION RESEARCH ENGINEER Unavailable Unavailable Fons, M Renae LOSS PREVENTION RESEARCH ENGINEER Unavailable Unavailable Fons, M Renae LOSS PREVENTION RESEARCH ENGINEER Unavailable Unavailable Fons, M Renae LOSS PREVENTION RESEARCH ENGINEER Unavailable Unavailable Fons, M Renae LOSS PREVENTION RESEARCH ENGINEER Unavailable Unavailable Fons, M Renae LOSS PREVENTION RESEARCH ENGINEER Unavailable Unavailable Fons, M Renae LOSS PREVENTION RESEARCH ENGINEER Unavailable Unavailable Fons, M Renae LOSS PREVENTION RESEARCH ENGINEER Unavailable Unavailable Fons, M Renae LOSS PREVENTION RESEARCH ENGINEER Unavailable Unavailable Fons, M Renae LOSS PREVENTION RESEARCH ENGINEER Unavailable Unavailable Fons, M Renae LOSS PREVENTION RESEARCH ENGINEER Unavailable Unavailable Fons, M Renae LOSS PREVENTION RESEARCH ENGINEER Unavailable Unavailable Fons, M Renae LOSS PREVENTION RESEARCH ENGINEER Unavailable Unavailable Fons, M Renae LOSS PREVENTION RESEARCH ENGINEER Unavailable Unavailable Fons, M Renae LOSS PREVENTION RESEARCH ENGINEER Unavailable Unavailable Fons, M Renae LOSS PREVENTION RESEARCH ENGINEER Unavailable Unavailable Fons, M Renae LOSS PREVENTION RESEARCH ENGINEER Unavailable Unavailable Fons, M Renae LOSS PREVENTION RESEARCH ENGINEER Unavailable Unavailable Fons, M Renae LOSS PREVENTION RESEARCH ENGINEER Unavailable Unavailable Fons, M Renae LOSS PREVENTION RESEARCH ENGINEER Unavailable Unavailable Fons, M Renae LOSS PREVENTION RESEARCH ENGINEER Unavailable Unavailable Fons, M Renae LOSS PREVENTION RESEARCH ENGINEER Unavailable Unavailable Fons, M Renae LOSS PREVENTION RESEARCH ENGINEER Unavailable Unavailable Fons, M Renae LOSS PREVENTION RESEARCH ENGINEER Unavailable Unavailable Fons, M Renae LOSS PREVENTION RESEARCH ENGINEER Unavailable Unavailable Fons, M Renae LOSS PREVENTION RESEARCH ENGINEER Unavailable Unavailable Fons, M Renae LOSS PREVENTION RESEARCH ENGINEER Unavailable Unavailable Fons, M Renae LOSS PREVENTION RESEARCH ENGINEER Unavailable Unavailable Fons, M Renae LOSS PREVENTION RESEARCH ENGINEER Unavailable Unavailable Fons, M Renae LOSS PREVENTION RESEARCH ENGINEER Unavailable Unavailable Fons, M Renae LOSS PREVENTION RESEARCH ENGINEER Unavailable Unavailable Melissa Perez MD Unavailable Unavailable Melissa Perez MD Unavailable Unavailable Melissa Perez MD Unavailable Unavailable Melissa Perez MD Unavailable Unavailable Melissa Perez MD Unavailable Unavailable Melissa Perez MD Unavailable Unavailable Melissa Perez MD Unavailable Unavailable Melissa Perez MD Unavailable Unavailable Melissa Perez MD Unavailable Unavailable Melissa Perez MD Unavailable Unavailable Melissa Perez MD Unavailable Unavailable Melissa Perez MD Unavailable Unavailable Melissa Perez MD Unavailable Unavailable Melissa Perez MD Unavailable Unavailable Melissa Perez MD Unavailable Unavailable Melissa Perez MD Unavailable Unavailable Melissa Perez MD Unavailable Unavailable Melissa Perez MD Unavailable Unavailable Melissa Perez MD Unavailable Unavailable Melissa Perez MD Unavailable Unavailable Melissa Perez MD Unavailable Unavailable Melissa Perez MD Unavailable Unavailable Melissa Perez MD Unavailable Unavailable Melissa Perez MD Unavailable Unavailable Melissa Perez MD Unavailable Unavailable Melissa Perez MD Unavailable Unavailable Melissa Perez MD Unavailable Unavailable Melissa Perez MD Unavailable Unavailable Melissa Perez MD Unavailable Unavailable Melissa Perez MD Unavailable Unavailable Melissa Perez MD Unavailable Unavailable Melissa Perez MD Unavailable Unavailable Melissa Perez MD Unavailable Unavailable Melissa Perez MD Unavailable Unavailable Chris, S Marybeth MD Unavailable Unavailable Chris, S Marybeth MD Unavailable Unavailable Chris, S Marybeth MD Unavailable Unavailable Chris, S Marybeth MD Unavailable Unavailable Chris, S Marybeth MD Unavailable Unavailable Chris, S Marybeth MD Unavailable Unavailable Chris, S Marybeth MD Unavailable Unavailable Chris, S Marybeth MD Unavailable Unavailable Chris, S Marybeth MD Unavailable Unavailable Chris, S Marybeth MD Unavailable Unavailable Chris, S Marybeth MD Unavailable Unavailable Chris, S Marybeth MD Unavailable Unavailable Chris, S Marybeth MD Unavailable Unavailable Chris, S Marybeth MD Unavailable Unavailable Chris, S Marybeth MD Unavailable Unavailable Re-disclosure Warning The records that you are about to access may contain information from federally-assisted alcohol or drug abuse programs. If such information is present, then the following federally mandated warning applies: This information has been disclosed to you from records protected by federal confidentiality rules (42 CFR part 2). The federal rules prohibit you from making any further disclosure of this information unless further disclosure is expressly permitted by the written consent of the person to whom it pertains or as otherwise permitted by 42 CFR part 2. A general authorization for the release of medical or other information is NOT sufficient for this purpose. The Federal rules restrict any use of the information to criminally investigate or prosecute any alcohol or drug abuse patient.The records that you are about to access may contain highly sensitive health information, the redisclosure of which is protected by Article 27-F of the [facility] Public Health law. If you continue you may have access to information: Regarding HIV / AIDS; Provided by facilities licensed or operated by the [facility] Office of Mental Health; or Provided by the [facility] Office for People With Developmental Disabilities. If such information is present, then the following [facility] mandated warning applies: This information has been disclosed to you from confidential records which are protected by state law. State law prohibits you from making any further disclosure of this information without the specific written consent of the person to whom it pertains, or as otherwise permitted by law. Any unauthorized further disclosure in violation of state law may result in a fine or mcc sentence or both. A general authorization for the release of medical or other information is NOT sufficient authorization for further disc losure. Family History Family Member Name Family Member Gender Family Member Status Date o f Status Description Data Source(s) Unknown Male Problem [facility] ([facility] Unknown Unknown Problem [facility] ([facility] Unknown Male Problem [facility] ([facility]) Unknown Female Problem [facility] ([facility] [facility] [place]) Encounters Encounter Providers Location Date Indications Data Source(s ) Outpatient Attender: Renae Siddiqui LOSS PREVENTION RESEARCH ENGINEER [email or web address] 12:00:00 AM EST - 10/14/2020 01:46:07 PM EST [facility] Outpatient Admitter: Marybeth Perez MDReferrer: Marybeth taylor MD 12/14/2019 12:00:00 AM EST Moeller's esophagus with dysplasia, unspecified [facility] Moeller's esophagus with dysplasia, unsp ecified Medications Medication Brand Name Start Date Product Form Dose Route Admi nistrative Instructions Pharmacy Instructions Status Indications Reaction Description Data Source(s) pantoprazole 40 MG Delayed Release Oral Tablet PANTOPRAZOLE SODIUM 10/18/2020 12:00:00 AM EST tablet,delayed release (DR/EC) 30 T BHAVYA ONE TABLET BY MOUTH EVERY DAY TAKE ONE TABLET BY MOUTH EVERY DAY SOLD: 11/18/2020 [facility] pantoprazole 40 MG Delayed Release Oral Tablet PANTOPRAZOLE SODIUM 10/18/2020 12:00:00 AM EST tablet,delayed release (DR/EC) 30 T BHAVYA ONE TABLET BY MOUTH EVERY DAY TAKE ONE TABLET BY MOUTH EVERY DAY SOLD: 10/20/2020 [facility] pantoprazole 40 MG Delayed Release Oral Tablet PANTOPRAZOLE SODIUM 10/18/2020 12:00:00 AM EST tablet,delayed release (DR/EC) 30 T BHAVYA ONE TABLET BY MOUTH EVERY DAY TAKE ONE TABLET BY MOUTH EVERY DAY SOLD: 12/12/2020 [facility] 0.1 mg 10/11/2020 12:00:00 AM EST tablet 30 TAKE ONE TABLET BY MOUTH EVERY DAY TAKE ONE TABLET BY MOUTH EVERY DAY SOLD: 10/13/2020 [facility] 0.1 mg 10/11/2020 12:00:00 AM EST tablet 30 TAKE ONE TABLET BY MOUTH EVERY DAY TAKE ONE TABLET BY MOUTH EVERY DAY SOLD: 12/12/2020 [facility] Cephalexin 500 MG Oral Capsule CEPHALEXIN 10/11/2020 12:00:00 AM EST capsule 14 TAKE ONE CAPSULE BY MOUTH TWICE A DAY FOR 7 DAYS TAKE ONE CAPSULE BY MOUTH TWICE A DAY FOR 7 DAYS SOLD: 10/13/2020 [facility] 2 % 10/06/2020 12:00:00 AM EST ointment 22 APPLY TO DIALYSIS CATH SITE DAILY DIRECTED APPLY TO DIALYSIS CATH SITE DAILY DIRECTED SOLD: 10/06/2020 [facility] Cephalexin 500 MG Oral Capsule CEPHALEXIN 10/06/2020 12:00:00 AM EST capsule 14 TAKE ONE CAPSULE BY MOUTH TWICE A DAY FOR 7 DAYS TAKE ONE CAPSULE BY MOUTH TWICE A DAY FOR 7 DAYS SOLD: 10/06/2020 [facility] 25 mcg (1,000 unit) 08/11/2020 12:00:00 AM EDT tablet 90 TAKE ONE TABLET BY MOUTH EVERY DAY TAKE ONE TABLET BY MOUTH EVERY DAY SOLD: 08/12/2020 [facility] 25 mcg (1,000 unit) 08/11/2020 12:00:00 AM EDT tablet 90 TAKE ONE TABLET BY MOUTH EVERY DAY TAKE ONE TABLET BY MOUTH EVERY DAY SOLD: 11/18/2020 [facility] 250 mg 07/11/2020 12:00:00 AM EDT tablet 7 TAKE ONE TABLET BY MOUTH EVERY DAY FOR 7 DAYS TAKE ONE TABLET BY MOUTH EVERY DAY FOR 7 DAYS SOLD: 07/11/2020 [facility] 400-80 mg 07/05/2020 12:00:00 AM EDT tablet 30 TAKE ONE TABLET BY MOUTH TWICE A DAY TAKE ONE TABLET BY MOUTH TWICE A DAY SOLD: 07/05/2020 [facility] 90 mcg/actuation 07/05/2020 12:00:00 AM EDT HFA aerosol inha ler 17 INHALE TWO PUFFS BY MOUTH EVERY 6 HOURS NEEDED FOR DYSPNEA INHALE TWO PUFFS BY MOUTH EVERY 6 HOURS NEEDED FOR DYSPNEA SOLD: 07/05/2020 [facility] 100-50 mcg/dose 05/07/2020 12:00:00 AM EDT blister with madison ce 60 INHALE ONE PUFF BY MOUTH TWICE A DAY INHALE ONE PUFF BY MOUTH TWICE A DAY SOLD: 08/05/2020 [facility] 100-50 mcg/dose 05/07/2020 12:00:00 AM EDT blister with madison ce 60 INHALE ONE PUFF BY MOUTH TWICE A DAY INHALE ONE PUFF BY MOUTH TWICE A DAY SOLD: 09/05/2020 [facility] 100-50 mcg/dose 05/07/2020 12:00:00 AM EDT blister with madison ce 180 INHALE ONE PUFF BY MOUTH TWICE A DAY INHALE ONE PUFF BY MOUTH TWICE A DAY SOLD: 05/07/2020 [facility] 100-50 mcg/dose 05/07/2020 12:00:00 AM EDT blister with madison ce 60 INHALE ONE PUFF BY MOUTH TWICE A DAY INHALE ONE PUFF BY MOUTH TWICE A DAY SOLD: 12/10/2020 [facility] 100-50 mcg/dose 05/07/2020 12:00:00 AM EDT blister with madison ce 60 INHALE ONE PUFF BY MOUTH TWICE A DAY INHALE ONE PUFF BY MOUTH TWICE A DAY SOLD: 10/03/2020 [facility] 100-50 mcg/dose 05/07/2020 12:00:00 AM EDT blister with madison ce 60 INHALE ONE PUFF BY MOUTH TWICE A DAY INHALE ONE PUFF BY MOUTH TWICE A DAY SOLD: 11/07/2020 [facility] 40 mg 03/22/2020 12:00:00 AM EDT tablet,delayed release (DR/EC) 30 TAKE ONE TABLET BY MOUTH EVERY DAY TAKE ONE TABLET BY MOUTH EVERY DAY SOLD: 04/21/2020 [facility] 40 mg 03/22/2020 12:00:00 AM EDT tablet,delayed release (DR/EC) 30 TAKE ONE TABLET BY MOUTH EVERY DAY TAKE ONE TABLET BY MOUTH EVERY DAY SOLD: 06/21/2020 [facility] 40 mg 03/22/2020 12:00:00 AM EDT tablet,delayed release (DR/EC) 30 TAKE ONE TABLET BY MOUTH EVERY DAY TAKE ONE TABLET BY MOUTH EVERY DAY SOLD: 03/23/2020 [facility] 40 mg 03/22/2020 12:00:00 AM EDT tablet,delayed release (DR/EC) 30 TAKE ONE TABLET BY MOUTH EVERY DAY TAKE ONE TABLET BY MOUTH EVERY DAY SOLD: 07/21/2020 [facility] pantoprazole 40 MG Delayed Release Oral Tablet PANTOPRAZOLE SODIUM 03/22/2020 12:00:00 AM EDT tablet,delayed release (DR/EC) 30 T BHAVYA ONE TABLET BY MOUTH EVERY DAY TAKE ONE TABLET BY MOUTH EVERY DAY SOLD: 09/20/2020 [facility] pantoprazole 40 MG Delayed Release Oral Tablet PANTOPRAZOLE SODIUM 03/22/2020 12:00:00 AM EDT tablet,delayed release (DR/EC) 30 T BHAVYA ONE TABLET BY MOUTH EVERY DAY TAKE ONE TABLET BY MOUTH EVERY DAY SOLD: 08/22/2020 [facility] 40 mg 03/22/2020 12:00:00 AM EDT tablet,delayed release (DR/EC) 30 TAKE ONE TABLET BY MOUTH EVERY DAY TAKE ONE TABLET BY MOUTH EVERY DAY SOLD: 05/20/2020 [facility] 5 mg 03/21/2020 12:00:00 AM EDT tablet 106 TAKE 1 TABLET BY MOUTH THREE TIMES A DAY [TAKE 1 TABLET EXTRA ONLY WHEN INSTRUCTED BY MD.] TAKE 1 TABLET BY MOUTH THREE TIMES A DAY [TAKE 1 TABLET EXTRA ONLY WHEN INSTRUCTED BY MD.] SOLD: 08/08/2020 [facility] 5 mg 03/21/2020 12:00:00 AM EDT tablet 22 TAKE 1 TABLET BY MOUTH THREE TIMES A DAY [TAKE 1 TABLET EXTRA ONLY WHEN INSTRUCTED BY MD.] TAKE 1 TABLET BY MOUTH THREE TIMES A DAY [TAKE 1 TABLET EXTRA ONLY WHEN INSTRUCTED BY MD.] SOLD: 03/21/2020 [facility] 5 mg 03/21/2020 12:00:00 AM EDT tablet 106 TAKE 1 TABLET BY MOUTH THREE TIMES A DAY [TAKE 1 TABLET EXTRA ONLY WHEN INSTRUCTED BY MD.] TAKE 1 TABLET BY MOUTH THREE TIMES A DAY [TAKE 1 TABLET EXTRA ONLY WHEN INSTRUCTED BY MD.] SOLD: 05/20/2020 [facility] 5 mg 03/21/2020 12:00:00 AM EDT tablet 106 TAKE 1 TABLET BY MOUTH THREE TIMES A DAY [TAKE 1 TABLET EXTRA ONLY WHEN INSTRUCTED BY MD.] TAKE 1 TABLET BY MOUTH THREE TIMES A DAY [TAKE 1 TABLET EXTRA ONLY WHEN INSTRUCTED BY MD.] SOLD: 06/29/2020 [facility] 5 mg 03/21/2020 12:00:00 AM EDT tablet 84 TAKE 1 TABLET BY MOUTH THREE TIMES A DAY [TAKE 1 TABLET EXTRA ONLY WHEN INSTRUCTED BY MD.] TAKE 1 TABLET BY MOUTH THREE TIMES A DAY [TAKE 1 TABLET EXTRA ONLY WHEN INSTRUCTED BY MD.] SOLD: 03/22/2020 [facility] 100-50 mcg/dose 12/30/2019 12:00:00 AM EST blister with madison ce 60 INHALE ONE PUFF BY MOUTH TWICE A DAY INHALE ONE PUFF BY MOUTH TWICE A DAY SOLD: 01/30/2020 [facility] 400-80 mg 12/30/2019 12:00:00 AM EST tablet 20 TAKE ONE TABLET BY MOUTH TWICE A DAY TAKE ONE TABLET BY MOUTH TWICE A DAY SOLD: 12/30/2019 [facility] 100-50 mcg/dose 12/30/2019 12:00:00 AM EST blister with madison ce 60 INHALE ONE PUFF BY MOUTH TWICE A DAY INHALE ONE PUFF BY MOUTH TWICE A DAY SOLD: 04/05/2020 [facility] 100-50 mcg/dose 12/30/2019 12:00:00 AM EST blister with madison ce 60 INHALE ONE PUFF BY MOUTH TWICE A DAY INHALE ONE PUFF BY MOUTH TWICE A DAY SOLD: 03/05/2020 [facility] 100-50 mcg/dose 12/30/2019 12:00:00 AM EST blister with madison ce 60 INHALE ONE PUFF BY MOUTH TWICE A DAY INHALE ONE PUFF BY MOUTH TWICE A DAY SOLD: 12/30/2019 [facility] 5 mg 12/10/2019 12:00:00 AM EST tablet 90 TAKE ONE TABLET BY MOUTH THREE TIMES A DAY TAKE ONE TABLET BY MOUTH THREE TIMES A DAY SOLD: 12/11/2019 [facility] 5 mg 12/10/2019 12:00:00 AM EST tablet 90 TAKE ONE TABLET BY MOUTH THREE TIMES A DAY TAKE ONE TABLET BY MOUTH THREE TIMES A DAY SOLD: 01/17/2020 [facility] 5 mg 12/10/2019 12:00:00 AM EST tablet 90 TAKE ONE TABLET BY MOUTH THREE TIMES A DAY TAKE ONE TABLET BY MOUTH THREE TIMES A DAY SOLD: 02/20/2020 [facility] 100-50 mcg/dose 11/27/2019 12:00:00 AM EST blister with madison ce 60 INHALE 1 PUFF BY MOUTH TWO TIMES A DAY INHALE 1 PUFF BY MOUTH TWO TIMES A DAY SOLD: 11/28/2019 [facility] 25 mcg (1,000 unit) 10/27/2019 12:00:00 AM EST tablet 90 TAKE ONE TABLET BY MOUTH EVERY DAY TAKE ONE TABLET BY MOUTH EVERY DAY SOLD: 05/07/2020 [facility] 25 mcg (1,000 unit) 10/27/2019 12:00:00 AM EST tablet 90 TAKE ONE TABLET BY MOUTH EVERY DAY TAKE ONE TABLET BY MOUTH EVERY DAY SOLD: 01/30/2020 [facility] 40 mg 10/26/2019 12:00:00 AM EST tablet,delayed release (DR/EC) 60 TAKE 1 TABLET BY MOUTH BEFORE MEALS (BREAKFAST AND DINNER) TAKE 1 TABLET BY MOUTH BEFORE MEALS (BREAKFAST AND DINNER) SOLD: 02/20/2020 [facility] 40 mg 10/26/2019 12:00:00 AM EST tablet,delayed release (DR/EC) 60 TAKE 1 TABLET BY MOUTH BEFORE MEALS (BREAKFAST AND DINNER) TAKE 1 TABLET BY MOUTH BEFORE MEALS (BREAKFAST AND DINNER) SOLD: 12/21/2019 [facility] 40 mg 10/26/2019 12:00:00 AM EST tablet,delayed release (DR/EC) 60 TAKE 1 TABLET BY MOUTH BEFORE MEALS (BREAKFAST AND DINNER) TAKE 1 TABLET BY MOUTH BEFORE MEALS (BREAKFAST AND DINNER) SOLD: 01/18/2020 [facility] 325 mg (65 mg iron) 04/15/2019 12:00:00 AM EDT tablet 60 TAKE ONE TABLET BY MOUTH DAILY TAKE ONE TABLET BY MOUTH DAILY SOLD: 12/14/2019 [facility] 325 mg (65 mg iron) 04/15/2019 12:00:00 AM EDT tablet 60 TAKE ONE TABLET BY MOUTH DAILY TAKE ONE TABLET BY MOUTH DAILY SOLD: 04/15/2020 [facility] 325 mg (65 mg iron) 04/15/2019 12:00:00 AM EDT tablet 60 TAKE ONE TABLET BY MOUTH DAILY TAKE ONE TABLET BY MOUTH DAILY SOLD: 02/13/2020 [facility] 5 mg 03/31/2019 12:00:00 AM EDT tablet 90 TAKE ONE TABLET BY MOUTH THREE TIMES A DAY TAKE ONE TABLET BY MOUTH THREE TIMES A DAY SOLD: 11/06/2019 [facility] Insurance Providers Payer name Policy type / Coverage type Policy ID Covered green party ID Covered green party's relationship to kelly Policy Kelly Plan Information MEDICARE COMPLETE [id number] SP [id number] MEDICARE COMPLETE [id number] SP [id number] [facility] MEDICARE [id number] [place] [id number] UHC UNITED MEDICARE COMPLETE G [id number] Self [id number] MEDICARE COMPLETE [id number] SP [id number] MEDICARE COMPLETE [id number] SP [id number] MEDICARE COMPLETE [id number] SP [id number] [employer] Commercial [id number] Self [id number] [facility] Commercial [id number] Self [id number] MEDICARE COMPLETE [id number] SP [id number] MVP (pr) Commercial [id number] Self [id number] Medicare Dme Supplies Medigap Part B [id number] Self [id number] [place] B [id number] Self [id number] [facility] (MCR) Commercial [id number] Self [id number] [place] Medigap Part B [id number] Self [id number] MVP (pr) Commercial [id number] Self [id number] Medicare Dme Supplies Medigap Part B [id number] Self [id number] [place] Med[place]ap Part B [id number] Self [id number] MVP (pr) Commercial [id number] Self [id number] Medicare Dme Supplies Medigap Part B [id number] Self [id number] [place] Medigap Part B [id number] Self [id number] MVP (pr) Commercial [id number] Self [id number] Medicare Dme Supplies Medigap Part B [id number] Self [id number] [place] Medigap Part B [id number] Self [id number] MVP (pr) Commercial [id number] Self [id number] BS [place] Medigap Part B [id number] Self [id number] [place] Primary [id number] Self [id number] MEDICARE [id number] SP [id number] A [facility] [employer] Commercial [id number] Self [id number] United [employer] (MCR) Commercial Self United Healthcare (MCR) Commercial Self [facility] UNITED MEDICARE COMPLETE G [id number] Self [id number] MEDICARE COMPLETE-[facility] O [id number] S [id number] MEDICARE COMPLETE [id number] SP [id number] MEDICARE COMPLETE [id number] SP [id number] [facility] MEDICARE [id number] [place] [id number] [place] P[place] 302/307 [id number] SP [id number] [place] 306/806 [id number] SP [id number] MEDICARE [id number] SP [id number] [place] 280/780 [id number] SP [id number] [place] 280/780 UNAVAILABLE UNAVAILABLE MEDICARE [id number] SP [id number] A [facility] PHY [id number] SP [id number] [facility] S [id number] P P [id number] MEDICARE P [id number] S [id number] A [place] [employer] S [id number] P [id number] Problems, Conditions, and Diagnoses Code Display Name Description Problem Type Effective Dates Data Source(s) I10 Essential (primary) hypertension Essential (primary) h ypertension Diagnosis 10/14/2020 12:52:16 PM [facility] E78.5 Hyperlipidemia, unspecified Hyperlipidemia, unspecifie d Diagnosis 10/14/2020 12:52:16 PM [facility] N18.6 End stage renal disease End stage renal disease Diagno sis 10/14/2020 12:52:16 PM [facility] I48.91 Unspecified atrial fibrillation Unspecified atri al fibrillation Diagnosis 10/14/2020 12:52:16 PM [facility] 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 Surgeries/Procedures Procedure Description Date Indications Data Source(s) UPPER NDSC BIOPSY SINGLE/MULTIPLE 12/09/2019 12:00:00 AM EST [facility] ([facility]) Results ID Date Data Source [id number] 12/14/2019 03:37:00 PM EST [facility] (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 Consultation to rule out high grade dysplasia. Diagnosis ESOPHAGUS, BELOW Z-LINE, BIOPSY ([id number], 12/09/19): MOELLER ESOPHAGUS WITH HIGH GRADE DYSPLASIA. (See Microscopic Description). Electronically Signed By Jonathan Trujillo M.D., Attending Pathologist 12/15/2019 15:25:37 Gross Description Received from [facility] in [place], [place] are 2 H and E stained slides and one paraffin block labeled [id number] with the corresponding pathology report. /jrs Microscopic Description I completely agree with you that the changes in this biopsy are those of high grade dysplasia. 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 While the atypia is mostly mild and consistent with low grade dysplasia, there is a focus with a few glands showing marked cytologic atypia, loss of nuclear polarity and numerous mitotic figures including atypical forms. There is a slightly larger focus where the atypia is less pronounced, but there is marked architectural complexity of the glands with [id number] growth. The changes are better appreciated in your original slides than our recuts. There is no evidence of invasive adenocarcinoma. Thank you for letting me see this case in consultation. This report may include one or more immunohistochemical stain results that use analyte specific reagents. All positive and negative controls have been reviewed by the attending pathologist and are satisfactory. The tests were developed and their performance characteristics determined by [facility] Pathology department. They have not been cleared or approved by the [place] Food and Drug Administration. The FDA has determined that such clearance or approval is not necessary. ID Date Data Source [id number] 12/15/2019 03:25:00 PM [facility] Surgical Pathology ReportName: MAYANK YEBOAH ZOILA GMRN: [id number] Number: [id number] Date: 12/14/2019 00:00Received Date: 12/14/2019 15:38Physician(s): MARYBETH PEREZ SHAHANDEH FSpecimen(s) ReceivedA: Material received for consultation, GDLRClinical HistoryHistory of Moeller's esophagus with low grade dysplasia. Now changessuggestive of high grade dysplasia. Consultation to rule out high gradedysplasia. DiagnosisESOPHAGUS, BELOW Z-LINE, BIOPSY ([id number], 12/09/19): MOELLER ESOPHAGUS WITHHIGH GRADE DYSPLASIA. (See Microscopic Description).Electronically Signed By Jonathan Trujillo M.D., Attending Pathologist12/15/2019 15:25:37Gross DescriptionReceived [facility] [place], [place] are 2 H and Estained slides and one paraffin block labeled [id number] with thecorresponding pathology report./jrsMicroscopic DescriptionI completely agree with you that the changes in this biopsy are those ofhigh grade dysplasia. Sections show fragments of gastric-type mucosa withextensive intestinal (goblet cell and Paneth cell) metaplasia andglandular atypia without focal lack of surface maturation. While theatypia is mostly mild and consistent with low grade dysplasia, there is afocus with a few glands showing marked cytologic atypia, loss of nuclearpolarity and numerous mitotic figures including atypical forms. There is aslightly larger focus where the atypia is less pronounced, but there ismarked architectural complexity of the glands with wtad-ib-kgcy growth. The changes are better appreciated in your original slides than ourrecuts. There is no evidence of invasive adenocarcinoma. Thank you forletting me see this case in consultation. This report may include one or more immunohistochemical stain results thatuse analyte specific reagents. All positive and negative controls havebeen reviewed by the attending pathologist and are satisfactory. The testswere developed and their performance characteristics determined by [facility] Pathology department. They have not been cleared or approved by the USFood and Drug Administration. The FDA has determined that such clearanceor approval is not necessary. Name Value Range Interpretation Code Description Data Shelia rce(s) Supporting Document(s) ID Date Data Source [id number] 12/09/2019 11:56:00 AM EST [facility] Name Value Range Interpretation Code Description Data Shelia rce(s) Supporting Document(s) Surgical pathology study (SEE NOTE) MED[facility] NT ([facility]) FINAL DIAGNOSIS Esophagus, biopsy below Z line: Intestinal metaplasia, with high-grade dysplasia. The intestinal metaplasia involves all submitted fragments. Consultation was obtained from [facility], see report [id number] from [facility]. 12/16/2019 - 0611 CLINICAL DIAGNOSIS Moeller's ulcer, low grade dysplasia 12/10/2019 - 1341 GROSS DIAGNOSIS Received in formalin labeled "biopsy below Z line" is a 0.4 x 0.4 x 0.2 cm. aggregate of 3-4 mucosal fragments. All in one. -SH 12/10/2019 - 1341 PRELIMINARY DIAGNOSIS 12/16/2019 - 0611 Signed Alice Esparza MD 12/11/2019 1037 (Prelim) Signed Alice Esparza MD 12/16/2019 0612 ID Date Data Source [id number] 12/09/2019 10:32:00 AM EST [facility] ([facility]) Name Value Range Interpretation Code Description Data Shelia rce(s) Supporting Document(s) Potassium [Moles/volume] in Serum or Plasma 3.2 meq/L 3.5-5.1 [facility] ([facility]) By: ENGCA Time: 1020 By: ENGCA Time: 1020 Procedure Vital Signs ID Date Data Source UNK Name Value Range Interpretation Code Description Data Source(s) Body weight 92.251 kg 92.251 kg [facility] ([facility]) Body mass index (BMI) [Ratio] 29.2 kg/m2 29.2 k g/m2 [facility] ([facility]) Body weight 203.38 [lb_av] 203.38 [lb_av] [facility] Body height 70 [in_i] 70 [in_i] [facility]) 5'10" Diastolic blood pressure 48 mm[Hg] 48 mm[Hg] [facility] ([facility]) Systolic blood pressure 96 mm[Hg] 96 mm[Hg] [facility]) Body weight 90.266 kg 90.266 kg [facility] ([facility]) Body mass index (BMI) [Ratio] 28.6 kg/m2 28.6 k g/m2 [facility] ([facility]) Heart rate 86 /min 86 /min [facility] ([facility]) Diastolic blood pressure 61 mm[Hg] 61 mm[Hg] [facility] ([facility]) Systolic blood pressure 105 mm[Hg] 105 mm[Hg] [facility] ([facility]) Body weight 199.00 [lb_av] 199.00 [lb_av] [facility] ([facility]) Body height 70 [in_i] 70 [in_i] [facility] ([facility]) 5'10"
[2021-01-05] MEDS ORDERED: MONTELUKAST 10 MG TAB PO ONE (17:45)
--- NOTE | 2021-01-05 18:01 | HPEPDOC ---
[facility] Medical History & Physical Date of Admission Jan 05, 2021 Date of Service: Jan 05, 2021 History and Physical CHIEF COMPLAINT: passed out while waiting for a covid vaccination at [employer] HISTORY OF PRESENT ILLNESS: 85 y/o male w PMH significant for polycystic kidney disease, ESRD on peritoneal dialysis, chronic Afib, HTN, dyslipidemia, BPH, self caths for urine retention, chronic hypotension on florinef, was in his usual state of health until today when he c/o weakness, lightheadedness, and syncopized on his chair, while waiting for covid vaccination at [employer]. He had an episode of nonprojectile nonbloody emesis. SBP was in 70mmhg's, with his usual pressure in the 90's. EMS was called, and patient had 2more episodes of witnessed syncope w/o tonic clonic activity, postictal confusion. In the ER, pt was orthostatic, glucose was 146, and EKG: afib rate controlled.He c/o sob and wheezing for a few days with nonproductive cough. denies fever, chills. He denies any brpbr,diarrhea, recurrent vomiting, hematemesis, coffee ground emesis. Hospitalist was called to admit the patient for asthma exacerbation and syncope due to orthostasis. PAST MEDICAL HISTORY: End-stage renal disease on peritoneal dialysis. Polycystic kidney disease. Hypertension. Atrial fibrillation. Hyperlipidemia. Asthma. Benign prostatic hypertrophy (BPH), status post transurethral resection of the prostate (TURP). History of urinary retention requiring self catheterization. Gout due to CKD chronic gout secondary to chronic kidney disease, secondary hyperparathyroidism chronic hypotension Ulcerated esophageal ulcer s/p hemostatic clip Acute blood loss anemia acute upper gastrointestinal (GI) bleed Chronic dysphagia. Medium size hiatal hernia. PAST SURGICAL HISTORY EGD 2019-Dr. Perez transurethral resection of prostate (TURP), PAST SURGICAL HISTORY: Status post left forearm AV fistula placement, status post transurethral resection of prostate, status post PD catheter placement. SOCIAL HISTORY: retired, denies etoh, cig, recreational drug use. 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 FAMILY HISTORY: noncontributory due to age ALLERGIES: Please see below. REVIEW OF SYSTEMS: 12point ROS negative aside from +findings on HPI HOME MEDICATIONS: Please see below. PHYSICAL EXAMINATION: VITAL SIGNS: see below General Exam:no distress answers questions appropriately HEENT:PERRLA, Conjunctiva & lids normal, EOMI; Atraumatic, Mucous membr. moist/pink, Pharynx Normal, Tongue Midline, Pharyngeal Edema, Nares Patent, Tympanic Membranes Normal, Supple, no JVD, thyromegaly, +2 carotid pulse wo bruit, no Lymphadenopathy Lungs:Clear to auscultation, Normal air movement Heart : Normal S1, Normal S2, Irregular Abdomen:+bowel sounds, Soft,nontender nondistended Extremity : no cyanosis, clubbing. 2+edema chronic venous stasis LABORATORY DATA: See below. MICROBIOLOGY: Please see below. EKG: AFIB 78 LAFB ANTEROSEPTAL IMAGING STUDIES: CXR: INDICATION: cough. COMPARISON: Comparison chest x-ray August 17, 2019.. TECHNIQUE: Portable upright AP chest x-ray. Single-view. FINDINGS: Monitoring electrodes are seen. The lungs are well inflated and clear. No infiltrate is seen. Pleural angles are sharp. Heart size is borderline unchanged. The aorta is calcific and tortuous. Pulmonary vasculature is not increased. There is some vascular calcification in the axillary arteries bilaterally. IMPRESSION: No active cardiopulmonary disease. <Electronically signed by Tee Garcia > 01/05/21 1500 ASSESSMENT/PLAN: 85 y/o male w PMH significant for polycystic kidney disease, ESRD on peritoneal dialysis, chronic Afib, HTN, dyslipidemia, BPH, self caths for urine retention, chronic hypotension on florinef, was in his usual state of health until today when he c/o weakness, lightheadedness, and syncopized on his chair, while waiting for covid vaccination at [employer]. He had an episode of nonprojectile nonbloody emesis. SBP was in 70mmhg's, with his usual pressure in the 90's. EMS was called, and patient had 2more episodes of witnessed syncope w/o tonic clonic activity, postictal confusion. In the ER, pt was orthostatic, glucose was 146, and EKG: afib rate controlled. He denies any brpbr,diarrhea, recurrent vomiting, hematemesis, coffee ground emesis. Hospitalist was called to admit the patient for syncope due to orthostasis. syncope -due to orthostasis despite taking florinef -check 2d echo -trial of low dose midodrine to be held for sbp>100mmHg -no signs of acute infection or acute GI bleed ESRD -on peritoneal dialysis managed by nephrology Anemia of chronic renal failure -history of ulcer and gi bleed -stable hemoglobin not needing rbc transfusion chronic hypotension -on florinef -trial of low dose midodrine Afib, chronic -rate controlled in ER -Tele to rule out tachycardia as cause of syncope Hyperlipidemia -chronic . Asthma exacerbation -ppi, iv solumedrol, duonebs,inhaled steroids Benign prostatic hypertrophy (BPH), status post transurethral resection of the prostate (TURP)/ History of urinary retention requiring self catheterization. -self-cath Gout due to CKD -chronic secondary hyperparathyroidism -secondary to esrd Ulcerated esophageal ulcer s/p hemostatic clip -ppi -h/o of blood loss anemia acute upper gastrointestinal (GI) bleed Chronic dysphagia. Medium size hiatal hernia. -ppi diet: renal dvt prophylaxis: compression stockings. Laboratory Data Labs 24H Laboratory Tests 2 01/05/21 14:27: POC Glucose (Misc Panel) 146H, POC Sodium (Misc Panel) 135L, POC Potassium (Misc Panel) 4.6, POC Chloride (Misc Panel) 97L, POC Total CO2 (Misc Panel) 29.0H, POC Blood Urea Nitrogen (Misc Panel 66H, POC Ionized Calcium (Misc Panel) 4.2L, POC Creatinine (Misc Panel) 10.6H, POC Hematocrit (Misc Panel) 38.0 01/05/21 14:31: Immature Granulocyte % (Auto) 1.7, Neutrophils (%) (Auto) 76.6H, Lymphocytes (%) (Auto) 6.4L, Monocytes (%) (Auto) 9.4H, Eosinophils (%) (Auto) 5.2H, Basophils (%) (Auto) 0.7, Neutrophils # (Auto) 6.6, Lymphocytes # (Auto) 0.6L, Monocytes # (Auto) 0.8, Eosinophils # (Auto) 0.5, Basophils # (Auto) 0.1, Nucleated Red Blood Cells % (auto) 0.0, Lactic Acid Level 2.0, Phosphorus Level 5.8H, Magnesium Level 1.7L, Total Bilirubin 0.5, Direct Bilirubin 0.1, Aspartate Amino Transf (AST/SGOT) 8, Alanine Aminotransferase (ALT/SGPT) 15, Alkaline Phosphatase 67, Total Creatine Kinase 54, Creatine Kinase MB 2.5, Creatine Kinase MB Relative Index 4.63H, Troponin I 0.04, Total Protein 6.3L, Albumin 2.9L, Albumin/Globulin Ratio 0.9, Thyroid Stimulating Hormone (TSH) 3.340 01/05/21 15:36: Coronavirus (COVID-19)(PCR) NEGATIVE, Influenza Type A (RT-PCR) NEGATIVE, Influenza Type B (RT-PCR) NEGATIVE, Respiratory Syncytial Virus (PCR) NEGATIVE CBC/BMP Laboratory Tests 01/05/21 14:31 Microbiology Microbiology 01/05/21 Blood Culture, Received Pending Home Medications Scheduled Atorvastatin Calcium (Lipitor) 10 Mg Tab, 10 MG PO QHS Calcitriol (Calcitriol) 0.25 Mcg Cap, 0.25 MCG PO 3XW MON, WED, FRI Cholecalciferol (Vitamin D3) (Vitamin D3) 1,000 Unit Tablet, 1,000 UNITS PO QHS Ferrous Sulfate (Ferrous Sulfate) 325 Mg Tablet, 325 MG PO DAILY Fludrocortisone Acetate (Fludrocortisone Acetate) 0.1 Mg Tablet, 0.1 MG PO DAILY Folic Acid/Vit B Complex and C (Ibeth-Lynda Tablet) 0.8 Mg Tablet, 1 TAB PO DAILY Pantoprazole Sodium (Pantoprazole Sodium) 40 Mg Tablet.dr, 40 MG PO DAILY Potassium Chloride (Potassium Chloride) 20 Meq Tab.er.prt, 20 MEQ PO Q2D ALTERNATE WITH 1/2 TAB EVERY OTHER DAY Potassium Chloride (Potassium Chloride) 20 Meq Tab.er.prt, 10 MEQ PO Q2D ALTERNATE WITH WHOLE TABLET EVERY OTHER DAY Salmeterol/Fluticasone (Advair 100-50 Diskus) 28 Puff/Inhaler Aerp, 1 PUFF INH BID Scheduled PRN Docusate Sodium (Colace) 100 Mg Cap, 100 MG PO BID PRN for CONSTIPATION Allergies Coded Allergies: No Known Allergies (Verified , 01/05/21) A-FIB/CHADSVASC A-FIB History Current/History of A-Fib/PAF?: Yes Current PO Anticoag Therapy: No Age/Risk Factor Scoring CHADSVASC: CHADSVASC Response (Comments) Value Age Risk Factor Age >/= 75 years old 2 Gender Risk Factor Male 0 Hx of CHF No 0 Hx of HTN Yes 1 Hx of Stroke/TIA/or VTE No 0 Hx of Diabetes No 0 Hx of Vascular Disease No 0 Total 3 Treatment Treatment ordered: NONE Reason Anticoagulant not given: Patient refusal ALEKSANDR DIMAS MD Jan 05, 2021 17:01
[2021-01-05 19:04] VITALS: BP 110/59
[2021-01-05] MEDS: IPRATROPIUM 0.5MG/ALBUTEROL 2.5MG INH SOL UD 3ML (DUONEB) NEB SCH (20:00)
[2021-01-05] MEDS: SALMETEROL DISKUS 50MCG INHALER (SEREVENT) INH SCH (20:00)
[2021-01-05] MEDS: methylPREDNISolone 125MG 2ML VIAL IV SCH (20:27)
[2021-01-05] MEDS ORDERED: ATORVASTATIN 10 MG TAB PO SCH (21:00)
[2021-01-05] MEDS ORDERED: VITAMIN D 1,000 INTERNATIONAL UNITS TABLET PO SCH (21:00)
--- NOTE | 2021-01-05 21:05 | ECGEPIP ---
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
[2021-01-05 22:00] VITALS: BP 107/59
[2021-01-05 23:37] LABS: SOURCE, BODY FLUID PERITONEAL DIALYSATE
[2021-01-05 23:38] LABS: APPEARANCE, BODY FLUID CLEAR (CLEAR); PERITONEAL DIALYSATE FL COLOR PALE YELLOW (COLORLESS)
[2021-01-06] MEDS: IPRATROPIUM 0.5MG/ALBUTEROL 2.5MG INH SOL UD 3ML (DUONEB) NEB SCH ×5 (00:01→15:48)
[2021-01-06] MEDS: methylPREDNISolone 125MG 2ML VIAL IV SCH (04:25)
[2021-01-06 06:00] VITALS: BP 103/57
[2021-01-06 06:10] LABS: HEMATOCRIT 34.8 % (42.0-52.0); HEMOGLOBIN 12.1 g/dl (13.5-17.5); MEAN CORPUSCULAR HGB CONC 34.8 g/dl (32.0-36.5); MEAN CORPUSCULAR VOLUME 100.6 fl (80.0-96.0); PLATELET COUNT, AUTOMATED 165 10^3/uL (150-450); RED BLOOD COUNT 3.46 10^6/uL (4.30-6.10); WHITE BLOOD COUNT 10.4 10^3/uL (4.0-10.0)
[2021-01-06 06:54] LABS: CALCIUM LEVEL 8.6 MG/DL (8.8-10.2); CREATININE FOR GFR 10.3 MG/DL (0.70-1.30); GLOMERULAR FILTRATION RATE 5.1 (>35); POTASSIUM SERUM 4.7 MEQ/L (3.5-5.1)
--- NOTE | 2021-01-06 06:56 | CR ---
NEPHROLOGY CONSULTATION DATE: 01/05/2021 REQUESTING: Dr. Anne Marie Castillo CONSULTING PHYSICIAN: Dr. Emerald López REASON FOR CONSULTATION: Management of end-stage renal disease on peritoneal dialysis. CHIEF COMPLAINT: The patient presented to the hospital with complaints of passing out while waiting for a COVID-19 vaccination. HISTORY OF PRESENT ILLNESS: Tato Leigh is an 85-year-old male with a past medical history of end-stage renal disease, on peritoneal dialysis, history of polycystic kidney disease, chronic atrial fibrillation, hypertension, history of chronic urinary retention requiring self catheterization, multiple other comorbidities as mentioned below, well known to Nephrology Service from previous hospitalizations and from outpatient peritoneal dialysis. He was waiting for his vaccination for COVID-19 at [employer]. He felt weak and dizzy over there and he sat down on the chair and he had an episode of non-bloody emesis over there. His blood pressure was checked and it was 70 mm of mercury. He reports that his usual pressures are in the 90's. EMS was called and the patient was brought to the Emergency Room. He was found to have orthostatic hypotension. EKG showed rate controlled atrial fibrillation. The patient did report shortness of breath with wheezing and nonproductive cough. He was admitted under the Hospitalist Service. Nephrology Service was called for further help in the management of end-stage renal disease. I saw and evaluated the patient at the bedside in the Emergency Room today. He was able to provide me with a history. He denies any active complaints at this time apart from shortness of breath and some wheezing. PAST MEDICAL HISTORY: The patient's past medical history is significant for: 1. Polycystic kidney disease. 2. End-stage renal disease - currently on peritoneal dialysis. 3. Hypertension. 4. Atrial fibrillation. 5. Hyperlipidemia. 6. Asthma. 7. Benign prostatic hypertrophy. 8. Chronic urinary retention requiring self catheterization. 9. Chronic gout secondary to chronic kidney disease. 10. Secondary hyperparathyroidism. 11. Chronic hypotension requiring Florinef. 12. History of GI bleed and blood loss anemia. 13. Hiatal hernia. PAST SURGICAL HISTORY: The patient's past surgical history is significant for: 1. Status post EGD in 2019. 2. Status post transurethral resection of the prostate. 3. History of peritoneal dialysis catheter placement 4. Status post left forearm AV fistula placement. ALLERGIES: No known drug allergies. FAMILY HISTORY: No significant family history at this time. There is positive history of polycystic kidney disease. SOCIAL HISTORY: The patient is retired. He denies any smoking, illicit drug abuse or alcohol abuse. REVIEW OF SYSTEMS: Constitutional: He reports feeling weak and tired. He denies any fevers. Eyes: He denies any blurry vision, double vision. ENT: He denies any dysphagia or odynophagia. Cardiovascular: He reports syncope and low blood pressures today. Respiratory: He reports shortness of breath and wheezing. GI: He reports nausea and one episode of vomiting. Genitourinary: He denies any dysuria or hematuria. Musculoskeletal: He reports chronic lower extremity edema. Skin: He denies any rashes or ulcers. Psych: He denies any depression or anxiety. Endocrine: He reports secondary hyperparathyroidism. Hematological/Oncological: He denies any easy bleeding or bruising. INDUSTRIAL RELATIONS SPECIALIST: He reports an episode of syncope today. All other review of systems is negative. PHYSICAL EXAMINATION: GENERAL APPEARANCE: The patient is awake, alert, oriented x3, laying in bed. VITAL SIGNS: Temperature is 97.8 degrees Fahrenheit, blood pressure is 110/59, pulse is 94, respiratory rate of 18, saturating 99% on room air. HEAD AND NECK: Extraocular muscles intact. Pupils are equally round and reactive to light. Mucous membranes are moist. Neck is supple. There is mildly elevated jugular venous distention. CARDIOVASCULAR: S1, S2. EXTREMITIES: 3+ edema of the bilateral lower extremities up to mid shins. RESPIRATORY: Decreased breath sounds bilaterally at the bases. Inspiratory crackles and mild expiratory wheezing all over the lungs. ABDOMEN: Soft, positive bowel sounds. Left lower quadrant peritoneal dialysis catheter with a cuff at the exit site. It is nontender. No drainage from the exit site was noted. GENITOURINARY: Bladder is non palpable. MUSCULOSKELETAL: Edema of the extremities as mentioned above. He has a left forearm AV fistula with thrill and bruit. INDUSTRIAL RELATIONS SPECIALIST: No focal deficits. Power is 5/5 in all extremities. LAB REVIEW: CBC showed a white blood cell count of 8.6, hemoglobin 12.2, platelet count 185. BMP showed sodium of 135, potassium 4.6, chloride 97, bicarbonate 29. MICROBIOLOGY: Blood cultures are pending. IMAGING: A chest x-ray was done today which showed no acute cardiopulmonary disease. CURRENT INPATIENT MEDICATIONS: The patient's medications were all reviewed by myself. He is on: 1. DuoNebs around the clock q. 4 hourly. 2. Atorvastatin 10 mg q. h.s. 3. Calcitriol 0.25 mcg p.o. Saturday, Saturday, Saturday. 4. Colace 100 mg p.o. twice daily. 5. Iron tablets 325 mg p.o. daily. 6. Florinef 0.1 mg p.o. daily. 7. Solu-Medrol 60 mg IV q. 8 hourly. 8. Midodrine 2.5 mg p.o. three times daily. 9. Montelukast 10 mg times one dose and 10 mg daily. 10. Protonix 40 mg p.o. daily. 11. Potassium Chloride 20 mEq p.o. every other day alternating with 10 mEq p.o. 12. Solu-Medrol Diskus one puff twice daily. 13. Vitamin D 1,000 units p.o. q. h.s. ASSESSMENT AND PLAN: 1. End-stage renal disease - The patient is on peritoneal dialysis. Home peritoneal regimen was noted. He will be started on five manual exchanges, all 2 liters alternating between 2.5% and 1.5%. Peritoneal fluid cell count and culture will also be sent. 2. Chronic hypotension - continue current dose of Midodrine and Florinef. I am going to order and echocardiogram as well to look at his ejection fraction. 3. Acute asthma exacerbation - continue Solu-Medrol and nebulizations. 4. Secondary hyperparathyroidism - continue Calcitriol 0.25 mcg p.o. Saturday, Saturday, Saturday. 5. Chronic lower extremity edema - The patient does not tolerate diuretics or higher dose of peritoneal dialysis regimen because of chronic low blood pressures. 6. Atrial fibrillation - heart rate is controlled. The patient does not tolerate beta blockers. He is currently not anticoagulated at this time, possibly because of history of GI bleed. Thank you for involving me in the care of this patient. I shall be happy to follow the patient along with you tomorrow morning.
[2021-01-06] MEDS: SALMETEROL DISKUS 50MCG INHALER (SEREVENT) INH SCH (07:30)
[2021-01-06] MEDS ORDERED: PANTOPRAZOLE 40MG TAB (PROTONIX) PO SCH ×2 (09:00)
[2021-01-06] MEDS ORDERED: POTASSIUM CHLORIDE 10 MEQ SR TABLET PO SCH (09:00)
[2021-01-06] MEDS ORDERED: MONTELUKAST 10 MG TAB PO SCH (09:00)
[2021-01-06] MEDS ORDERED: CALCITRIOL 0.25 MCG CAP (S0169) PO SCH (09:00)
[2021-01-06] MEDS ORDERED: FLUDROCORTISONE ACETATE 0.1 MG TAB PO SCH (09:00)
[2021-01-06] MEDS ORDERED: FERROUS SULFATE 325MG TAB PO SCH (09:00)
[2021-01-06] MEDS: MIDODRINE 2.5 MG TAB PO SCH ×3 (09:03→17:02)
[2021-01-06] MEDS ORDERED: MIDO2.5T PO (09:36)
[2021-01-06] MEDS ORDERED: PRED10TA2 PO (09:36)
[2021-01-06] MEDS ORDERED: predniSONE 20 MG TAB PO ONE (09:45)
--- NOTE | 2021-01-06 11:55 | IPNPDOC ---
Date Seen The patient was seen on 01/06/21. Progress Note SUBJECTIVE: Patient denies any lightheadedness, dizziness, chest pain, pressure tightness, palpitations this morning, shortness of breath has improved with IV Solu-Medrol, given overnight . OBJECTIVE: PHYSICAL EXAMINATION: VITAL SIGNS: see below General Exam: Answering questions appropriately. No use of respiratory accessory muscles HEENT:PERRLA, Conjunctiva & lids normal, EOMI; Atraumatic, Mucous membr. moist/pink, Pharynx Normal, Tongue Midline, Pharyngeal Edema, Nares Patent, Tympanic Membranes Normal, Supple, no JVD, thyromegaly, +2 carotid pulse wo bruit, no Lymphadenopathy Lungs: Diminished breath sounds. No rales Heart : Normal S1, Normal S2, Irregular Abdomen:+bowel sounds, Soft,nontender nondistended Extremity : no cyanosis, clubbing. 2+edema chronic venous stasis LABORATORY DATA: See below. MICROBIOLOGY: Please see below. EKG: AFIB 78 LAFB ANTEROSEPTAL IMAGING STUDIES: CXR: INDICATION: cough. COMPARISON: Comparison chest x-ray August 17, 2019.. TECHNIQUE: Portable upright AP chest x-ray. Single-view. FINDINGS: Monitoring electrodes are seen. The lungs are well inflated and clear. No infiltrate is seen. Pleural angles are sharp. Heart size is borderline unchanged. The aorta is calcific and tortuous. Pulmonary vasculature is not increased. There is some vascular calcification in the axillary arteries bilaterally. IMPRESSION: No active cardiopulmonary disease. <Electronically signed by Tee Garcia > 01/05/21 1500 ASSESSMENT/PLAN: 85 y/o male w PMH significant for polycystic kidney disease, ESRD on peritoneal dialysis, chronic Afib, HTN, dyslipidemia, BPH, self caths for urine retention, chronic hypotension on florinef, was in his usual state of health until today when he c/o weakness, lightheadedness, and syncopized on his chair, while waiting for covid vaccination at [employer]. He had an episode of nonprojectile nonbloody emesis. SBP was in 70mmhg's, with his usual pressure in the 90's. EMS was called, and patient had 2more episodes of witnessed syncope w/o tonic clonic activity, postictal confusion. In the ER, pt was orthostatic, glucose was 146, and EKG: afib rate controlled. He denies any brpbr,diarrhea, recurrent vomiting, hematemesis, coffee ground emesis. Hospitalist was called to admit the patient for syncope due to orthostasis. syncope -due to orthostasis despite taking florinef -Ordered 2d echo -Improved on trial of low dose midodrine to be held for sbp>100mmHg -no signs of acute infection or acute GI bleed ESRD -on peritoneal dialysis managed by nephrology Anemia of chronic renal failure -history of ulcer and gi bleed -stable hemoglobin not needing rbc transfusion -Not on anticoagulation for atrial fibrillation due to history of GI bleed chronic hypotension -on florinef -Patient's improved with marital pressure greater than 70 with trial of low dose midodrine Afib, chronic -rate controlled in ER -Tele to rule out tachycardia as cause of syncope -A not on oral endocrine patient with a history GI bleed Hyperlipidemia -chronic . Asthma exacerbation -ppi, -Status post iv solumedrol,01/05/21 -On oral prednisone 01/06/21 -duonebs,inhaled steroids Benign prostatic hypertrophy (BPH), status post transurethral resection of the prostate (TURP)/ History of urinary retention requiring self catheterization. -self-cath Gout due to CKD -chronic secondary hyperparathyroidism -secondary to esrd Ulcerated esophageal ulcer s/p hemostatic clip -ppi -h/o of blood loss anemia acute upper gastrointestinal (GI) bleed -On no oral AC for A. fib Chronic dysphagia. Medium size hiatal hernia. -ppi diet: renal Disposition: Await echo, P/OT eval. if normal echo, cleared by nephrology,pt/ot, may dc home today. VS, I&O, 24H, Karel Vital Signs/I&O Vital Signs Date Time Temp Pulse Resp B/P (MAP) Pulse Ox O2 Delivery O2 Flow Rate FiO2 01/06/21 06:00 98.2 88 19 103/57 (72) 99 Room Air I&O- Last 24 Hours up to 6 AM 01/06/21 06:00 Intake Total 2600 ml Output Total 1000 ml Balance 1600 ml Laboratory Data 24H LABS Laboratory Tests 2 01/05/21 14:27: POC Glucose (Misc Panel) 146H, POC Sodium (Misc Panel) 135L, POC Potassium (Misc Panel) 4.6, POC Chloride (Misc Panel) 97L, POC Total CO2 (Misc Panel) 29.0H, POC Blood Urea Nitrogen (Misc Panel 66H, POC Ionized Calcium (Misc Panel) 4.2L, POC Creatinine (Misc Panel) 10.6H, POC Hematocrit (Misc Panel) 38.0 01/05/21 14:31: Immature Granulocyte % (Auto) 1.7, Neutrophils (%) (Auto) 76.6H, Lymphocytes (%) (Auto) 6.4L, Monocytes (%) (Auto) 9.4H, Eosinophils (%) (Auto) 5.2H, Basophils (%) (Auto) 0.7, Neutrophils # (Auto) 6.6, Lymphocytes # (Auto) 0.6L, Monocytes # (Auto) 0.8, Eosinophils # (Auto) 0.5, Basophils # (Auto) 0.1, Nucleated Red Blood Cells % (auto) 0.0, Lactic Acid Level 2.0, Phosphorus Level 5.8H, Magnesium Level 1.7L, Total Bilirubin 0.5, Direct Bilirubin 0.1, Aspartate Amino Transf (AST/SGOT) 8, Alanine Aminotransferase (ALT/SGPT) 15, Alkaline Phosphatase 67, Total Creatine Kinase 54, Creatine Kinase MB 2.5, Creatine Kinase MB Relative Index 4.63H, Troponin I 0.04, Total Protein 6.3L, Albumin 2.9L, Albumin/Globulin Ratio 0.9, Thyroid Stimulating Hormone (TSH) 3.340 01/05/21 15:36: Coronavirus (COVID-19)(PCR) NEGATIVE, Influenza Type A (RT-PCR) NEGATIVE, Influenza Type B (RT-PCR) NEGATIVE, Respiratory Syncytial Virus (PCR) NEGATIVE 01/05/21 23:24: Body Fluid Source PERITONEAL DIALYSATE, Body Fluid WBC (Auto) 3, Body Fluid RBC (Auto) < 2, Peritoneal Fluid Color PALE YELLOW, Peritoneal Fluid Appearance CLEAR 01/06/21 05:29: Nucleated Red Blood Cells % (auto) 0.0, Anion Gap 16, Glomerular Filtration Rate 5.1L, Calcium Level 8.6L CBC/BMP Laboratory Tests 01/05/21 14:31 01/06/21 05:29 Microbiology Microbiology 01/05/21 Blood Culture, Received Pending 01/05/21 Blood Culture, Received Pending ALEKSANDR DIMAS MD Jan 06, 2021 11:55
[2021-01-06 14:00] VITALS: BP 87/54
[2021-01-06] MEDS ORDERED: MIDO5TA PO (17:10)
[2021-01-06] MEDS ORDERED: MIDODRINE 2.5 MG TAB PO ONE (17:15)
--- NOTE | 2021-01-06 18:10 | IPN ---
PROGRESS NOTE DATE: 01/06/2021 SUBJECTIVE: Patient was seen and examined at the bedside today morning. He is afebrile, hemodynamically stable. His blood pressure is better. He denies any dizziness at this time. He tolerated the peritoneal dialysis overnight. Peritoneal fluid cell count was normal. There was no evidence of peritonitis. He was getting ready to get physical therapy when I saw him in the morning. OBJECTIVE: Vital signs: Temperature is 98.2 degrees Fahrenheit, blood pressure 103/57, pulse is 88, respiratory rate of 19, saturating 99% on room air. Intake and output: There is no significant urine output recorded. Weight in the bed scale is 90.6 kg, which is stable since yesterday. PHYSICAL EXAMINATION: GENERAL: Patient is awake, alert, oriented times three, lying in bed in no apparent distress. HEAD AND NECK: Extraocular muscles intact. Pupils equally round and reactive to light. Mucous membranes are moist. Neck is supple. There is no jugular venous distention (JVD). CARDIOVASCULAR: S1, S2, regular rate. Chronic 2+ bilateral lower extremity edema up to mid shins. RESPIRATORY: Chest is clear to auscultation bilaterally. Bilateral equal air entry. No rales or rhonchi. ABDOMEN: Soft,. Positive bowel sounds. Left lower quadrant peritoneal dialysis (PD) catheter was noted. Cuff is at the exit site. Abdomen is soft. GENITOURINARY: Bladder is not palpable. MUSCULOSKELETAL: Edema of the bilateral lower extremities. Chronic venous stasis changes were noted. CENTRAL NERVOUS SYSTEM: No focal deficit. Power is 5/5 in all extremities. LABORATORY REVIEW: CBC showed a WBC 10.4, hemoglobin 12.1, platelets are 165. BMP showed sodium 136, potassium 4.7, chloride 97, bicarbonate 22, BUN 85, creatinine is 10.3. Microbiology: Blood cultures are negative so far. CURRENT INPATIENT MEDICATIONS: Patient's medications were all reviewed by myself. His Solu-Medrol intravenous (IV) has been stopped. Midodrine dose has been changed to 5 mg by mouth every 8 hours. He is currently on prednisone 40 mg by mouth daily. ASSESSMENT AND PLAN: 1. End-stage renal disease. Patient is tolerated the current peritoneal dialysis regimen. Once he is discharged he can go back to his home peritoneal dialysis (PD) regimen. 2. Hypotension and syncope. He continues to be on Florinef. He has also been started on midodrine. Blood pressures are better. 3. Acute exacerbation of asthma. Patient is on nebulizations and Solu-Medrol. His breathing and wheezing are significantly better. He has been switched to prednisone now. 4. Chronic lower extremity edema. Patient does not tolerate diuretics, and he adjusts his PD regimen according to his estimated dry weight. 5. Atrial fibrillation. Heart rate is controlled. He is not on anticoagulation because of history of gastrointestinal (GI) bleed. 6. Disposition. If patient's echocardiogram result comes back within the acceptable range, and if he is cleared by physical therapy, he should be able to be discharged home.
--- NOTE | 2021-01-06 18:40 | DS.PDOC ---
Discharge Summary General Date of Admission Jan 05, 2021 at 16:43 Date of Discharge 01/06/21 Discharge Summary DISCHARGE DIAGNOSES: SYNCOPE DUE TO HYPOTENSION CHRONIC HYPOTENSION ORTHOSTASIS ASTHMA EXACERBATION ESRD ON PERITONEAL DIALYSIS CHRONIC ANEMIA H/O GI BLEED CHRONIC ATRIAL FIBRILLATION MILD AORTIC REGURGITATION, MILD MITRAL REGURGITATION, MILD TRICUSPID REGURGITATION TRACE TO SMALL PERICARDIAL EFFUSION Hyperlipidemia Benign prostatic hypertrophy (BPH), status post transurethral resection of the prostate (TURP)/ History of urinary retention requiring self catheterization. GOUT DUE TO CKD secondary hyperparathyroidism Ulcerated esophageal ulcer s/p hemostatic clip Chronic dysphagia. Medium size hiatal hernia. DISCHARGE MEDICATIONS: SEE BELOW ALLERGIES: SEE BELOW DISCHARGE INSTRUCTIONS: PCP AND NEPHROLOGY FU [facility]: NEPHROLOGY-DR [facility] COURSE: 85 y/o male w PMH significant for polycystic kidney disease, ESRD on peritoneal dialysis, chronic Afib, HTN, dyslipidemia, BPH, self caths for urine retention, chronic hypotension on florinef, was in his usual state of health until today when he c/o weakness, lightheadedness, and syncopized on his chair, while waiting for covid vaccination at [employer]. He had an episode of nonprojectile nonbloody emesis. SBP was in 70mmhg's, with his usual pressure in the 90's. EMS was called, and patient had 2more episodes of witnessed syncope w/o tonic clonic activity, postictal confusion. In the ER, pt was orthostatic, glucose was 146, and EKG: afib rate controlled. He denies any brpbr,diarrhea, recurrent vomiting, hematemesis, coffee ground emesis. Hospitalist was called to admit the patient for syncope due to orthostasis. syncope -due to orthostasis despite taking florinef -NORMAL 2d echo -Improved on trial of low dose midodrine to be held for sbp>100mmHg -no signs of acute infection or acute GI bleed ESRD -on peritoneal dialysis managed by nephrology Anemia of chronic renal failure -history of ulcer and gi bleed -stable hemoglobin not needing rbc transfusion -Not on anticoagulation for atrial fibrillation due to history of GI bleed chronic hypotension -on florinef -Patient's improved with marital pressure greater than 70 with trial of low dose midodrine Afib, chronic -rate controlled in ER -Tele AFIB RATE CONTROLLED -NOT ON ORAL ANTICOAGULATION DUE TO history GI bleed Hyperlipidemia -chronic . Asthma exacerbation -ppi, -Status post iv solumedrol,01/05/21 -On oral prednisone 01/06/21 -duonebs,inhaled steroids Benign prostatic hypertrophy (BPH), status post transurethral resection of the prostate (TURP)/ History of urinary retention requiring self catheterization. -self-cath Gout due to CKD -chronic secondary hyperparathyroidism -secondary to esrd Ulcerated esophageal ulcer s/p hemostatic clip -ppi -h/o of blood loss anemia acute upper gastrointestinal (GI) bleed -On no oral AC for A. fib Chronic dysphagia. Medium size hiatal hernia. -ppi diet: renal DISCHARGE PHYSICAL EXAMINATION: VITAL SIGNS: see below General Exam: Answering questions appropriately. No use of respiratory accessory muscles HEENT:PERRLA, Conjunctiva & lids normal, EOMI; Atraumatic, Mucous membr. moist/pink, Pharynx Normal, Tongue Midline, Pharyngeal Edema, Nares Patent, Tympanic Membranes Normal, Supple, no JVD, thyromegaly, +2 carotid pulse wo bruit, no Lymphadenopathy Lungs: Diminished breath sounds. No rales Heart : Normal S1, Normal S2, Irregular Abdomen:+bowel sounds, Soft,nontender nondistended Extremity : no cyanosis, clubbing. 2+edema chronic venous stasis DISCHARGE LABORATORY DATA: See below. MICROBIOLOGY: Please see below. EKG: AFIB 78 LAFB ANTEROSEPTAL IMAGING STUDIES: CXR: INDICATION: cough. COMPARISON: Comparison chest x-ray August 17, 2019.. TECHNIQUE: Portable upright AP chest x-ray. Single-view. FINDINGS: Monitoring electrodes are seen. The lungs are well inflated and clear. No infiltrate is seen. Pleural angles are sharp. Heart size is borderline unchanged. The aorta is calcific and tortuous. Pulmonary vasculature is not increased. There is some vascular calcification in the axillary arteries bilaterally. IMPRESSION: No active cardiopulmonary disease. <Electronically signed by Tee Garcia > 01/05/[address] JOHNSON NORMAL LVEF MILD AR, MR, TR TRACE TO SMALL PERICARDIAL EFFUSION AFIB TIME SPENT ON DISCHARGE: 30 MIN Vital Signs/I&Os Vital Signs Date Time Temp Pulse Resp B/P (MAP) Pulse Ox O2 Delivery O2 Flow Rate FiO2 01/06/21 14:00 98.4 68 18 87/54 (65) 99 Room Air I&O- Last 24 Hours up to 6 AM 01/06/21 06:00 Intake Total 2600 ml Output Total 1000 ml Balance 1600 ml Laboratory Data Labs 24H Laboratory Tests 2 01/05/21 23:24: Body Fluid Source PERITONEAL DIALYSATE, Body Fluid WBC (Auto) 3, Body Fluid RBC (Auto) < 2, Peritoneal Fluid Color PALE YELLOW, Peritoneal Fluid Appearance CLEAR 01/06/21 05:29: Nucleated Red Blood Cells % (auto) 0.0, Anion Gap 16, Glomerular Filtration Rate 5.1L, Calcium Level 8.6L CBC/BMP Laboratory Tests 01/06/21 05:29 Microbiology Microbiology 01/05/21 Blood Culture - Preliminary, Resulted No growth after 24 hours . All specim... 01/05/21 Blood Culture - Preliminary, Resulted No growth after 24 hours . All specim... Discharge Medications Scheduled Atorvastatin Calcium (Lipitor) 10 Mg Tab, 10 MG PO QHS, (Reported) Calcitriol (Calcitriol) 0.25 Mcg Cap, 0.25 MCG PO 3XW, (Reported) SAT, SAT, SAT Cholecalciferol (Vitamin D3) (Vitamin D3) 1,000 Unit Tablet, 1,000 UNITS PO QHS, (Reported) Ferrous Sulfate (Ferrous Sulfate) 325 Mg Tablet, 325 MG PO DAILY, (Reported) Fludrocortisone Acetate (Fludrocortisone Acetate) 0.1 Mg Tablet, 0.1 MG PO DAILY, (Reported) Folic Acid/Vit B Complex and C (Ibeth-Lynda Tablet) 0.8 Mg Tablet, 1 TAB PO DAILY, (Reported) Midodrine HCl (Midodrine HCl) 5 Mg Tablet, 5 MG PO TID Pantoprazole Sodium (Pantoprazole Sodium) 40 Mg Tablet.dr, 40 MG PO DAILY, (Reported) Potassium Chloride (Potassium Chloride) 20 Meq Tab.er.prt, 20 MEQ PO Q2D, (Reported) ALTERNATE WITH 1/2 TAB EVERY OTHER DAY Potassium Chloride (Potassium Chloride) 20 Meq Tab.er.prt, 10 MEQ PO Q2D, (Reported) ALTERNATE WITH WHOLE TABLET EVERY OTHER DAY Prednisone (Prednisone) 10 Mg Tablet, 10 MG PO TAPER Take 4 tabs daily x 3 days, then 3 tabs daily x 3 days, then 2 tabs daily x 3 days, then 1 tab daily x 3 days and stop Salmeterol/Fluticasone (Advair 100-50 Diskus) 28 Puff/Inhaler Aerp, 1 PUFF INH BID, (Reported) Scheduled PRN Docusate Sodium (Colace) 100 Mg Cap, 100 MG PO BID PRN for CONSTIPATION, (Reported) Allergies Coded Allergies: No Known Allergies (Verified , 01/05/21) ALEKSANDR DIMAS MD Jan 06, 2021 18:40
[2021-01-07] MEDS ORDERED: MIDODRINE 5 MG TAB PO SCH (08:00)
[2021-01-07] MEDS ORDERED: POTASSIUM CHLORIDE 10 MEQ SR TABLET PO SCH (09:00)
[2021-01-07] MEDS ORDERED: predniSONE 20 MG TAB PO SCH (09:00)
[2021-01-07] MEDS ORDERED: MIDO5TA PO (13:41)
[2021-01-07] MEDS ORDERED: MONT5TAB2 PO (13:41)
--- NOTE | 2021-01-09 11:11 | ECHO ---
DATE OF PROCEDURE: 01/06/2021 Age: 85 Gender: Male PATIENT LOCATION: Room 4234. REFERRING PHYSICIAN: Anne Marie Castillo MD REASON FOR STUDY: Syncope. 2D MEASUREMENTS: IVS 1.1 cm LV 5.2 cm LVPW 1.1 cm LA 4.1 cm Aorta 3.8 cm DOPPLER MEASUREMENT Peak velocity across the aortic valve 1.9 m/s Peak velocity across the LVOT 0.5 m/s Peak gradient across the aortic valve 15 mmHg Mean gradient across the aortic valve 9 mmHg Mitral E 0.88 Maximum tricuspid valve velocity 2.6 m/s 2D COMMENTS: 1. Technically limited study due to poor acoustic window. 2. The left ventricle size is normal, as well as the left ventricle wall thickness, and the left ventricular systolic function. The estimated left ventricular systolic ejection fraction is 55% to 60%. 3. Mildly enlarged left atrium. The right atrium appeared to be normal in size in the apical views. The right ventricle also appeared to be normal in size in limited views. The atrial septum appeared to be normal without evidence of defect or shunt. 4. Mildly dilated aortic root at 3.8 cm. 5. Trace to small pericardial effusion noted, no evidence of cardiac tamponade. 6. Mildly calcified aortic valve with minimally restricted leaflet motion. Mildly calcified mitral annulus with normal anterior mitral valve leaflet motion. Normal tricuspid valve. The pulmonic valve and proximal pulmonary artery branches were not well visualized. 7. The inferior vena cava was not visualized. Doppler detects mild aortic regurgitation, mild mitral regurgitation, and mild tricuspid regurgitation. The calculated pulmonary artery systolic pressure varied between 30 to 40 mmHg. Assessment of the left ventricular diastolic function was limited in view of the underlying atrial fibrillation. IMPRESSION: 1. Normal global left ventricular systolic function. Assessment of the left ventricular diastolic function was limited. 2. Aortic valve sclerosis with mild aortic regurgitation and trivial aortic stenosis. 3. Mitral annular calcification with mild mitral regurgitation and a mildly enlarged left atrium. 4. Mild tricuspid regurgitation with mild pulmonary hypertension. 5. A mildly dilated aortic root was noted at 3.8 cm. 6. Trace to small pericardial effusion, no evidence of cardiac tamponade. [facility] [place] [facility]
== END 2021-01-06 18:36 | disposition home or self-care (01) | DRG 312 ==
LOC: M ED 14:04 → M ED INP 16:43 → ENRESERV 18:12 → CANRESERV 18:12 → ENRESERV 18:31 → M MSPAV 18:56
PROVIDERS: ADMIT General Practice; ATTEND General Practice
PROC: 3E1M39Z Irrigation of Peritoneal Cavity using Dialysate, Percutaneous Approach (ICD-10-PCS; principal; 2021-01-05)
DX: I95.1 Orthostatic hypotension (principal); N18.6 End stage renal disease; I48.20 Chronic atrial fibrillation, unspecified; N25.81 Secondary hyperparathyroidism of renal origin; Q61.3 Polycystic kidney, unspecified; I12.0 Hypertensive chronic kidney disease with stage 5 chronic kidney disease or end stage renal disease; J45.901 Unspecified asthma with (acute) exacerbation; I95.89 Other hypotension; D63.1 Anemia in chronic kidney disease; E78.5 Hyperlipidemia, unspecified; N40.1 Benign prostatic hyperplasia with lower urinary tract symptoms; R33.9 Retention of urine, unspecified; M10.30 Gout due to renal impairment, unspecified site; R13.10 Dysphagia, unspecified; K44.9 Diaphragmatic hernia without obstruction or gangrene; Z20.822 Contact with and (suspected) exposure to COVID-19; Z99.2 Dependence on renal dialysis; Z79.899 Other long term (current) drug therapy

== ENCOUNTER 2021-01-07 12:03 | Inpatient (IN) | payer MEDICARE ==
[~2021-01-07] VITALS: Ht 180.3 cm; Wt 93.3 kg
[~2021-01-07 12:03] MED LIST changes: +FLUD0.1T PO; +MIDO2.5T PO; +PANT-23 PO; +PRED10TA2 PO
[2021-01-07] MEDS ORDERED: NS 1,000 ML IV ONE (12:30)
[2021-01-07] MEDS ORDERED: NS 500 ML IV ONE (12:30)
[2021-01-07 12:43] LABS: BASO % 0.1 % (0.0-1.0); HEMOGLOBIN 11.7 g/dl (13.5-17.5); LYMPH # 0.4 10^3/uL (1.5-5.0); LYMPH % 2.2 % (24.0-44.0); MEAN CORPUSCULAR HEMOGLOBIN 32.8 pg (27.0-33.0); MEAN CORPUSCULAR HGB CONC 33.4 g/dl (32.0-36.5); MONO # 1.3 10^3/uL (0.0-0.8); MONO % 7.3 % (0.0-5.0); NEUTROPHILS # 15.9 10^3/uL (1.5-8.5); PLATELET COUNT, AUTOMATED 187 10^3/uL (150-450); RED BLOOD COUNT 3.57 10^6/uL (4.30-6.10)
--- NOTE | 2021-01-07 12:48 | ECGEPIP ---
[facility] - ED Test Date: 2021-01-07 Pat Name: ANTONINA YEBOAH Department: Room: - Gender: Male Inspector [employer]: Daniel CUMMINGS : 1935 Requested By: Jas Weller Order Number: [id number] Reading MD: Jas Weller Measurements Intervals [place] Rate: 84 P: NC: 0 QRS: -50 QRSD: 105 T: 40 QT: 374 QTc: 445 Interpretive Statements ATRIAL FIBRILLATION LEFT ANTERIOR FASCICULAR BLOCK POSSIBLE ANTERIOR MYOCARDIAL INFARCTION, OF INDETERMINATE AGE LAD NONSPECIFIC ST T WAVE CHANGES CW 01/05/[address] T WAVE CHANGES Electronically Signed on 01-07-2021 12:48:17 EST by Jas Weller
--- NOTE | 2021-01-07 12:49 | REP ---
INDICATION: gi bleed. COMPARISON: 01/05/2021. TECHNIQUE: SINGLE PORTABLE AP VIEW OF THE CHEST WAS PERFORMED. FINDINGS: There is no acute infiltrate. The heart is not significantly enlarged. There is calcification of the thoracic aorta. The mediastinal silhouette is unchanged. IMPRESSION: NO ACUTE PULMONARY DISEASE. <Electronically signed by Rob Walden > 01/07/21 [id number]
[2021-01-07 12:54] LABS: WHITE BLOOD COUNT 18.1 10^3/uL (4.0-10.0)
[2021-01-07 13:18] LABS: ALBUMIN 2.9 GM/DL (3.2-5.2); BILIRUBIN,DIRECT 0.2 MG/DL (0.0-0.2); BILIRUBIN,TOTAL 0.4 MG/DL (0.2-1.0); CALCIUM LEVEL 8.9 MG/DL (8.8-10.2); CK-MB VALUE MASS 2.6 NG/ML (<3.6); CREATININE FOR GFR 11.4 MG/DL (0.70-1.30); GLOMERULAR FILTRATION RATE 4.5 (>35); MB/CK RELATIVE INDEX 2.39 (< OR =4); POTASSIUM SERUM 5.2 MEQ/L (3.5-5.1); TOTAL PROTEIN 6.4 GM/DL (6.4-8.2); TROPONIN I 0.1 NG/ML (< 0.10)
[2021-01-07] MEDS ORDERED: MONT10TA10 PO (13:41)
[2021-01-07] MEDS ORDERED: MIDO5TA PO (13:41)
[2021-01-07 13:47] LABS: RSV AMPLIFICATION NEGATIVE (NEGATIVE)
--- NOTE | 2021-01-07 14:39 | REP ---
INDICATION: elev wbc COMPARISON: 11/14/2018. TECHNIQUE: CT Scan of the abdomen and pelvis was performed without intravenous contrast. Sagittal and coronal reconstruction images performed. FINDINGS: Lung bases: There are mild bibasilar fibro atelectatic changes with a few scattered tiny calcified granulomas. There is a small hiatal hernia. Liver: There is 9 mm cyst in the posterior right lobe of the liver. Gallbladder: Unremarkable. Spleen: Grossly unremarkable.. Adrenals: Normal. Pancreas: Grossly unremarkable.. 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 There is severe cortical atrophy bilaterally. Scattered vascular calcifications are seen throughout the right renal hilum as well as the left renal hilum. There is a cluster of coarse calcifications in the lower pole of the left kidney. There is no hydroureteronephrosis. Small and large bowel: Scattered diverticula are seen throughout the colon. I see no evidence of bowel wall thickening or inflammation. There is a large amount of air and fecal material in the rectosigmoid colon without evidence of volvulus. There is no free air. Free fluid: There is mild to moderate scattered free fluid in the abdomen and pelvis. There is a peritoneal dialysis catheter entering the left mid abdomen with the distal end in the left pelvis. Abdominal aorta: No aneurysm. Adenopathy: None. Appendix: Not inflamed. Osseous structures: There are degenerative changes of the spine without compression deformity. Pelvis: No mass. No bladder calculus seen. Bladder is not well distended and not well evaluated. IMPRESSION: Large amount of air and fecal material in the rectosigmoid colon without evidence of volvulus. No bowel wall thickening or inflammation. No free air. Mild to moderate scattered free fluid throughout the abdomen and pelvis. Peritoneal dialysis catheter enters the left mid abdomen with the distal end in the left pelvis. <Electronically signed by Rob Walden > 01/07/21 [id number]
[2021-01-07] MEDS ORDERED: DOCUSATE SODIUM 100MG CAPSULE PO PRN (16:15)
[2021-01-07] MEDS ORDERED: IPRATROPIUM 0.5MG/ALBUTEROL 2.5MG INH SOL UD 3ML (DUONEB) NEB PRN (16:30)
[2021-01-07 16:46] LABS: HEMATOCRIT 36.2 % (42.0-52.0); HEMOGLOBIN 11.9 g/dl (13.5-17.5); MEAN CORPUSCULAR HEMOGLOBIN 32.7 pg (27.0-33.0); MEAN CORPUSCULAR HGB CONC 32.9 g/dl (32.0-36.5); MEAN CORPUSCULAR VOLUME 99.5 fl (80.0-96.0); PLATELET COUNT, AUTOMATED 153 10^3/uL (150-450); RED BLOOD COUNT 3.64 10^6/uL (4.30-6.10); WHITE BLOOD COUNT 16.9 10^3/uL (4.0-10.0)
--- NOTE | 2021-01-07 16:52 | HPE ---
HISTORY AND PHYSICAL DATE OF ADMISSION: 01/07/2021 CHIEF COMPLAINT: Coffee-ground emesis. HISTORY: Tato is an 85-year-old with a history of end-stage renal disease, on peritoneal dialysis, recently hospitalized 01/05/2021 after syncopal episode while waiting for COVID vaccination at the pharmacy. He was discharged yesterday. Today he started to have coffee-ground emesis. He was brought to the emergency room. He is being admitted for further treatment and observation. He has a white count of 18,000. He denies abdominal pain, chest pain, or shortness of breath. He has heme-positive stool in the emergency room. As noted above, he was just discharged yesterday. MEDICAL HISTORY: Shows a history of upper gastrointestinal (GI) bleeding, which has precluded him from taking anticoagulants for his chronic atrial fibrillation. He has end-stage renal disease, on peritoneal dialysis, polycystic kidney disease, hypertensive heart disease, atrial fibrillation, hyperlipidemia, asthma with a recent exacerbation, causing him to be discharged on prednisone yesterday. He has a history of BPH, status post transurethral resection of the prostate (TURP), history of acute urinary retention requiring self-catheterization, history of gout secondary to chronic kidney disease. He has secondary hyperparathyroidism from his kidney disease. He has chronic orthostatic hypotension, for which he is on oral medications. He had an esophageal ulcer in the past, requiring a hemostatic clip. He has chronic dysphagia since then and chronic hiatal hernia. PAST SURGICAL HISTORY: : 1. Esophagogastroduodenoscopy (EGD) January 2019, Dr. Perez. 2. TURP. 3. Arteriovenous (AV) fistulas placed. 4. Peritoneal dialysis (PD) catheters placed. SOCIAL HISTORY: Retired. Does not smoke or drink any alcohol. FAMILY HISTORY: Noncontributory. ALLERGIES: None known. REVIEW OF SYSTEMS: As above, otherwise negative. No fever, chills, or abdominal pain. PHYSICAL EXAMINATION: Blood pressure 87/54, pulse 68, respirations 18, 98.4 degrees. GENERAL APPEARANCE: He is alert, oriented, conversant. N distress. Pupils equal, round and reactive to light. Tympanic membranes (TMs) and oropharynx benign. NECK: No masses. LUNGS: Clear. HEART: Regular rate and rhythm. A 1/6 systolic ejection murmur. ABDOMEN: Soft, nontender. No masses. EXTREMITIES: No clubbing, cyanosis, edema. Normal strength in the arms and legs. LABORATORY DATA: White count is 18.1, hemoglobin 11.7, discharge hemoglobin 12.1, platelets 187. Sodium 135, potassium 5.2. Troponin is 0.1. COVID screen is negative. Of note is had a cell count in his peritoneal dialysis fluid January 05 that was unremarkable, only [address] of abdomen and pelvis shows a large amount of air, fecal material in the rectal sigmoid. No volvulus. No free air. Peritoneal dialysis catheter in place. Chest x-ray: No active disease. EKG unremarkable. IMPRESSION: 1. Upper gastrointestinal (GI) bleed. Patient will be admitted to progressive care unit (PCU) bed. Serial complete blood counts (CBCs) have been ordered. Intravenous (IV) fluids have been ordered, IV Protonix ordered. Case discussed with Dr. Bryant, who will see the patient in consultation. 2. End-stage renal disease from polycystic kidney disease, on peritoneal dialysis. Dr. López has been consulted from nephrology. We discussed the case. 3. Leukocytosis. Concerned about possible peritoneal infection. Put him on cefepime and vancomycin until he gets his peritoneal wash performed. If it looks unremarkable and white count comes down, we can discontinue the antibiotics. 4. Atrial fibrillation. Rate is controlled. No anticoagulation due to recurrent gastrointestinal (GI) bleeding. 5. Hypertensive heart disease. We are stopping his antihypertensive in the face of his current hypotension. 6. History of orthostasis. Continue his midodrine and Florinef. 7. Hyperlipidemia. Continue atorvastatin 10 mg daily. 8. Recent flitter of asthma. Continue bronchodilator. I will try to get him off prednisone as soon as possible. I will just put him on 10 mg a day for 3 days and hopefully be able to stop it. His lungs are clear at this time. Case discussed with Dr. Lópze from nephrology, Dr. Bryant from gastroenterology.
[2021-01-07] MEDS ORDERED: VANCOMYCIN HCL 1,000 MG, VIAL MATE ADAPTER 1 EACH in D5W 250 ML IV ONE (17:00)
[2021-01-07 18:00] VITALS: BP 93/59
[2021-01-07] MEDS ORDERED: ONDANSETRON 4MG/2ML VIAL IV PRN (18:15)
[2021-01-07 19:14] VITALS: BP 90/50
[2021-01-07] MEDS: IPRATROPIUM 0.5MG/ALBUTEROL 2.5MG INH SOL UD 3ML (DUONEB) NEB SCH (20:00)
[2021-01-07] MEDS: PANTOPRAZOLE 40MG VIAL (C9113 PER 1) IV SCH (20:07)
[2021-01-07] MEDS: ATORVASTATIN 10 MG TAB PO SCH (20:08)
[2021-01-07] MEDS: CEFEPIME HCL 1 GM in D5W MINI-BAG PLUS 50 ML IV SCH (20:08)
[2021-01-07] MEDS: VITAMIN D 1,000 INTERNATIONAL UNITS TABLET PO SCH (20:08)
[2021-01-07] MEDS: ADVAIR HFA 45/21MCG INHALER INH SCH (20:45)
[2021-01-07 22:14] LABS: HEMATOCRIT 33.2 % (42.0-52.0); MEAN CORPUSCULAR HEMOGLOBIN 32.7 pg (27.0-33.0); MEAN CORPUSCULAR HGB CONC 33.1 g/dl (32.0-36.5); MEAN CORPUSCULAR VOLUME 98.8 fl (80.0-96.0); PLATELET COUNT, AUTOMATED 162 10^3/uL (150-450); RED BLOOD COUNT 3.36 10^6/uL (4.30-6.10); WHITE BLOOD COUNT 14.7 10^3/uL (4.0-10.0)
[2021-01-07 23:28] LABS: APPEARANCE, BODY FLUID CLEAR (CLEAR); PERITONEAL DIALYSATE FL COLOR PALE YELLOW (COLORLESS); SOURCE, BODY FLUID PERITONEAL DIALYSATE
[2021-01-08] VITALS (15 sets, daily range): BP systolic 70–96; BP diastolic 38–54
[2021-01-08] MEDS: IPRATROPIUM 0.5MG/ALBUTEROL 2.5MG INH SOL UD 3ML (DUONEB) NEB SCH ×4 (02:00→19:25)
[2021-01-08] MEDS ORDERED: NS 500 ML IV ONE ×3 (02:45→13:15)
[2021-01-08] MEDS ORDERED: MIDODRINE 5 MG TAB PO ONE (03:00)
[2021-01-08] MEDS: MIDODRINE 5 MG TAB PO SCH ×3 (03:01→14:57)
[2021-01-08 04:57] LABS: HEMATOCRIT 30.8 % (42.0-52.0); MEAN CORPUSCULAR HEMOGLOBIN 32.2 pg (27.0-33.0); MEAN CORPUSCULAR HGB CONC 32.5 g/dl (32.0-36.5); PLATELET COUNT, AUTOMATED 151 10^3/uL (150-450); RED BLOOD COUNT 3.11 10^6/uL (4.30-6.10); WHITE BLOOD COUNT 10.6 10^3/uL (4.0-10.0)
[2021-01-08 05:23] LABS: ALBUMIN 2.4 GM/DL (3.2-5.2); CALCIUM LEVEL 7.8 MG/DL (8.8-10.2); CREATININE FOR GFR 11.6 MG/DL (0.70-1.30); GLOMERULAR FILTRATION RATE 4.4 (>35); PHOSPHORUS LEVEL 7.2 MG/DL (2.5-4.9); POTASSIUM SERUM 4.8 MEQ/L (3.5-5.1)
[2021-01-08] MEDS ORDERED: FLUDROCORTISONE ACETATE 0.1 MG TAB PO ONE (07:00)
[2021-01-08] MEDS: PANTOPRAZOLE 40MG VIAL (C9113 PER 1) IV SCH ×2 (09:00→20:34)
[2021-01-08] MEDS: MONTELUKAST 10 MG TAB PO SCH (09:00)
[2021-01-08] MEDS: FERROUS SULFATE 325MG TAB PO SCH (09:00)
[2021-01-08] MEDS ORDERED: FLUDROCORTISONE ACETATE 0.1 MG TAB PO SCH (09:00)
[2021-01-08] MEDS: predniSONE 10 MG TAB PO SCH (09:00)
[2021-01-08] MEDS: ADVAIR HFA 45/21MCG INHALER INH SCH ×2 (09:17→19:23)
[2021-01-08] MEDS ORDERED: HYDROCORTISONE 100 MG/2 ML VIAL (J1720 PER 1) IV ONE (10:00)
[2021-01-08] MEDS ORDERED: VANCOMYCIN HCL 500 MG in D5W MINI-BAG PLUS 100 ML IV SCH (12:00)
[2021-01-08 12:25] LABS: HEMATOCRIT 33.3 % (42.0-52.0); HEMOGLOBIN 10.8 g/dl (13.5-17.5); MEAN CORPUSCULAR HEMOGLOBIN 32.5 pg (27.0-33.0); MEAN CORPUSCULAR HGB CONC 32.4 g/dl (32.0-36.5); MEAN CORPUSCULAR VOLUME 100.3 fl (80.0-96.0); PLATELET COUNT, AUTOMATED 149 10^3/uL (150-450); RED BLOOD COUNT 3.32 10^6/uL (4.30-6.10); WHITE BLOOD COUNT 10.9 10^3/uL (4.0-10.0)
[2021-01-08 16:10] LABS: HEMATOCRIT 32.5 % (42.0-52.0); HEMOGLOBIN 10.6 g/dl (13.5-17.5); MEAN CORPUSCULAR HEMOGLOBIN 32.5 pg (27.0-33.0); MEAN CORPUSCULAR HGB CONC 32.6 g/dl (32.0-36.5); MEAN CORPUSCULAR VOLUME 99.7 fl (80.0-96.0); PLATELET COUNT, AUTOMATED 139 10^3/uL (150-450); RED BLOOD COUNT 3.26 10^6/uL (4.30-6.10); WHITE BLOOD COUNT 10.6 10^3/uL (4.0-10.0)
[2021-01-08] MEDS: CEFEPIME HCL 1 GM in D5W MINI-BAG PLUS 50 ML IV SCH (18:27)
[2021-01-08] MEDS: ATORVASTATIN 10 MG TAB PO SCH (20:34)
[2021-01-08] MEDS: VITAMIN D 1,000 INTERNATIONAL UNITS TABLET PO SCH (20:34)
[2021-01-08 22:06] LABS: HEMATOCRIT 31.3 % (42.0-52.0); HEMOGLOBIN 10.2 g/dl (13.5-17.5); MEAN CORPUSCULAR HEMOGLOBIN 32.2 pg (27.0-33.0); MEAN CORPUSCULAR HGB CONC 32.6 g/dl (32.0-36.5); MEAN CORPUSCULAR VOLUME 98.7 fl (80.0-96.0); PLATELET COUNT, AUTOMATED 135 10^3/uL (150-450); RED BLOOD COUNT 3.17 10^6/uL (4.30-6.10); WHITE BLOOD COUNT 9.2 10^3/uL (4.0-10.0)
[2021-01-09] VITALS (12 sets, daily range): BP systolic 80–102; BP diastolic 48–70
[2021-01-09] MEDS: IPRATROPIUM 0.5MG/ALBUTEROL 2.5MG INH SOL UD 3ML (DUONEB) NEB SCH ×4 (02:00→20:00)
[2021-01-09 04:26] LABS: HEMATOCRIT 28.9 % (42.0-52.0); HEMOGLOBIN 9.6 g/dl (13.5-17.5); MEAN CORPUSCULAR HEMOGLOBIN 32.9 pg (27.0-33.0); MEAN CORPUSCULAR HGB CONC 33.2 g/dl (32.0-36.5); PLATELET COUNT, AUTOMATED 125 10^3/uL (150-450); RED BLOOD COUNT 2.92 10^6/uL (4.30-6.10); WHITE BLOOD COUNT 8.1 10^3/uL (4.0-10.0)
[2021-01-09 05:13] LABS: ALBUMIN 2.2 GM/DL (3.2-5.2); CALCIUM LEVEL 7.6 MG/DL (8.8-10.2); CREATININE FOR GFR 10.9 MG/DL (0.70-1.30); GLOMERULAR FILTRATION RATE 4.8 (>35); PHOSPHORUS LEVEL 6.7 MG/DL (2.5-4.9); POTASSIUM SERUM 4.1 MEQ/L (3.5-5.1)
[2021-01-09] MEDS: MIDODRINE 5 MG TAB PO SCH ×3 (05:24→17:25)
--- NOTE | 2021-01-09 07:16 | CR ---
CONSULTATION DATE: 01/08/2021 REQUESTING PHYSICIAN: Taran Mcguire M.D. CONSULTING PHYSICIAN: Emerald López M.D. REASON FOR CONSULTATION: Management of end-stage renal disease and peritoneal dialysis. CHIEF COMPLAINT: The patient presented to the hospital yesterday with persistent nausea and coffee ground emesis with dizziness. HISTORY OF PRESENT ILLNESS: Tato Leigh is an 85 year-old male with past medical history of end-stage renal disease on peritoneal dialysis. He was just admitted to the hospital on January 05, 2021 with syncope while waiting for vaccination. Extensive workup including pneumonia, echocardiogram, peritonitis was negative at that time. He was discharged home on January 06. However when he went home he started having coffee ground emesis. He was dizzy. His symptoms did not improve and he was brought back to the emergency room by ambulance. On arrival, he was found to have leukocytosis with a white cell count of more than 18,000. He had heme positive stools in the emergency room. He was admitted under the hospitalist service. Nephrology service had called for further management of this patient and arrangement of peritoneal dialysis. I had already ordered his peritoneal dialysis regimen. When I saw the patient in the morning, he was eating his breakfast. He denies any more episodes of nausea, vomiting. He has been started on IV proton pump inhibitors. He was also found to have very dirty UA and he self-catheterizes twice a day for chronic urinary retention. He has empirically started on antibiotics for possible UTI as well. PAST MEDICAL HISTORY: 1. End-stage renal disease on peritoneal dialysis. 2. Atrial fibrillation not on anticoagulation because of GI bleed in the past. 3. History of polycystic kidney disease. 4. Chronic hypotension requiring Florinef and midodrine. 5. Hyperlipidemia. 6. Asthma and COPD exacerbation recently, treated with steroids. 7. Chronic urinary retention requiring self-catheterization. 8. Chronic gout. 9. Secondary hyperparathyroidism. PAST SURGICAL HISTORY: 1. Status post EGD in the past. 2. Status post TURP. 3. AV fistula in the past. 4. Status post PD catheter placement. ALLERGIES: No known drug allergies. FAMILY HISTORY: Positive history of polycystic kidney disease. REVIEW OF SYSTEMS: Constitutional: He denies any fevers and chills. He does report dizziness. Eyes: He denies any blurry vision, double vision. ENT: He denies any dysphagia, odynophagia. Cardiovascular: He reports orthostatic hypotension. Respiratory: He reports recent asthma exacerbation. GI: He reports coffee ground emesis. Genitourinary: He reports chronic urinary retention requiring self-catheterization. Musculoskeletal: He reports lower extremity edema. Skin: He denies any rashes or ulcers. Psych: He denies any depression, anxiety. Hematological/Oncological: He reports hematemesis as mentioned above. FRUIT PICKER: He denies any strokes or seizures. All other review of systems is negative. PHYSICAL EXAMINATION: GENERAL: The patient is awake, alert, oriented x3, lying in bed. VITAL SIGNS: Temperature is 99.1 degrees Fahrenheit, blood pressure is 90/48, pulse is 69, respiratory rate of 20, saturating 95% on room air. HEAD AND NECK: Extraocular muscles are intact. Pupils are equally round and reactive to light. Mucous membranes are moist. Neck is supple. There is no JVD. CARDIOVASCULAR: S1, S2, irregular rate. EXTREMITIES: 2+ edema of the bilateral lower extremities. RESPIRATORY: Chest is clear to auscultation bilaterally. Bilateral equal air entry. No rales or rhonchi. ABDOMEN: Soft, positive bowel sounds. He has left lower quadrant PD catheter. GENITOURINARY: Bladder is not palpable. MUSCULOSKELETAL: 2+ edema of the extremities. FRUIT PICKER: No focal deficits. 5/5 strength in all extremities. LABORATORY DATA: CBC showed a WBC of 18.1 on arrival with a hemoglobin of 11.7 and a platelet count of 187. Currently his white cell count is 10.6. Hemoglobin is 10.6 and platelets are 139. Urinalysis done on arrival showed it was turbid with 3+ protein, 2+ leukocyte esterase, too numerous to count WBCs, 2+ bacteria. Peritoneal fluid: Cell count is 7 only. BNP showed sodium 136, potassium 4.8, chloride bicarb 30, BUN 110. Creatinine is 11.6. Calcium is 7.8. Initially lactic acid was high. Repeat one was 1.7. Microbiology: Blood cultures are negative. Urine cultures are pending. IMAGING: A CT scan of the abdomen and pelvis was done which showed a large amount of air and fecal material in the rectosigmoid colon without evidence of volvulus. CURRENT INPATIENT MEDICATIONS: The patient's medications were all reviewed by myself. 1. He was given cefepime IV. 2. He has been given IV normal saline boluses for a total of 1.5 liters. 3. He is on vancomycin 500 mg IV q.24. 4. He continues to be on Florinef daily. 5. He was given a dose of hydrocortisone at 50 mg IV x1 dose. 6. He continues to be on midodrine 5 mg p.o. three times a day. 7. Prednisone has been tapered down to 10 mg p.o. daily. ASSESSMENT AND PLAN: 1. End-stage renal disease. The patient's PDD regimen was changed to 5 manual exchanges, all two liters, all 1.5% only because of hypotension. 2. Coffee ground emesis. It is possible the patient might have had upper GI bleed. He has history of GI bleed in the past as well. He was recently given steroids for asthma exacerbation. Steroids have been tapered down. He is currently on IV Protonix. Serial CBC is being checked. Hemoglobin level is optimal. If hemoglobin drops further, he might need EGD. 3. Hypotension. It is secondary to vomiting and possible episode of GI bleed as well. He was given 1.5 liter of fluid boluses. He is Florinef and midodrine. Stress dose hydrocortisone dose was also given. A.m. cortisol is pending. Blood pressures are stable at low 90s. 4. Recent asthma exacerbation. The patient is again on IV antibiotics that cover any respiratory infection and UTI and prednisone has been tapered down. Asthma symptoms are getting better. 5. Possible urinary tract infection. The patient has chronic urinary retention. He requires self-catheterization. Urine is very cloudy and dirty. White cell count is improving with use of cefepime and vancomycin. Thank you for involving me in the care of this patient. I shall be happy to follow the patient along with you tomorrow morning.
[2021-01-09] MEDS: FERROUS SULFATE 325MG TAB PO SCH (08:18)
[2021-01-09] MEDS: MONTELUKAST 10 MG TAB PO SCH (08:18)
[2021-01-09] MEDS: predniSONE 10 MG TAB PO SCH (08:18)
[2021-01-09] MEDS: FLUDROCORTISONE ACETATE 0.1 MG TAB PO SCH (08:19)
[2021-01-09] MEDS: PANTOPRAZOLE 40MG VIAL (C9113 PER 1) IV SCH ×2 (08:19→20:39)
[2021-01-09] MEDS: ADVAIR HFA 45/21MCG INHALER INH SCH ×2 (08:34→20:49)
[2021-01-09] MEDS ORDERED: AMPICILLIN SOD 500 MG in D5W 50 ML IV SCH (09:00)
[2021-01-09 09:14] LABS: SOURCE, BODY FLUID PERITONEAL DIALYSATE
[2021-01-09 09:15] LABS: APPEARANCE, BODY FLUID CLEAR (CLEAR); PERITONEAL DIALYSATE FL COLOR COLORLESS (COLORLESS)
--- NOTE | 2021-01-09 09:58 | IPN ---
PROGRESS NOTE DATE: 01/09/2021 SUBJECTIVE: Tato is seen in the PCU. He ended up growing enterococcus faecalis from his urine culture. He feels better than yesterday. Strength is improving. His blood pressure remains problematic. He dropped his pressure periodically down into the 80s and has received saline infusions from Nephrology. I did give him one dose of hydrocortisone yesterday as well. The patient was discharged from the hospital the day before admission after asthma exacerbation. He was on prednisone on discharge. He was admitted with coffee-ground emesis, has EGD scheduled for today. PHYSICAL EXAMINATION: VITAL SIGNS: Blood pressure 92/52, pulse is 60, respiratory rate is 18, 98 degrees. GENERAL APPEARANCE: Alert, conversant, in no distress whatsoever. He says he feels well. LUNGS: Clear. HEART: Regular rate and rhythm. ABDOMEN: Soft, nontender. Trace peripheral edema. LABORATORY DATA: White count is down to 18.1, hemoglobin is 9.6, platelets are 125,000. Sodium is 134, potassium is 4.1. Creatinine is 10.9. Urine culture grew out enterococcus faecalis. IMPRESSION: 1. Coffee-ground emesis, suspected upper GI bleed. 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 Dr. Bryant is concerned he might have esophageal cancer. EGD is scheduled for this afternoon. 2. Enterococcus faecalis urinary infection. Will change his antibiotic regimen to Ampicillin initially intravenously and then he could change to oral antibiotic upon discharge. 3. Hypotension. He is chronically hypotensive, has problems with orthostasis and is on Midodrine and Florinef for this. IV fluids per Nephrology. 4. Endstage renal disease from polycystic kidney disease, on peritoneal dialysis. This is being managed by the correction warden. 5. Atrial fibrillation, rate is controlled, no anticoagulation due to recurrent GI bleeding. 6. Recent episode of asthma, continue bronchodilator therapy. Trying to get him off his prednisone as soon as possible. If he is proved to have an ulcer on EGD I would just stop steroids.
[2021-01-09 10:00] LABS: HEMATOCRIT 30.1 % (42.0-52.0); HEMOGLOBIN 9.9 g/dl (13.5-17.5); MEAN CORPUSCULAR HEMOGLOBIN 32.8 pg (27.0-33.0); MEAN CORPUSCULAR HGB CONC 32.9 g/dl (32.0-36.5); MEAN CORPUSCULAR VOLUME 99.7 fl (80.0-96.0); PLATELET COUNT, AUTOMATED 135 10^3/uL (150-450); RED BLOOD COUNT 3.02 10^6/uL (4.30-6.10); WHITE BLOOD COUNT 8.1 10^3/uL (4.0-10.0)
[2021-01-09] MEDS ORDERED: SLF 3 ML SYR IV PRN (10:00)
[2021-01-09 10:48] LABS: CORTISOL AM 14.4 UG/DL (4.3-22.4)
--- NOTE | 2021-01-09 11:15 | IPN ---
PROGRESS NOTE DATE: 01/08/2021 SUBJECTIVE: Tato is seen in the PCU. He has been having hypotension. There has been no further coffee-ground emesis. He is on Cefepime and Vancomycin for possible urinary tract infection, too many white cells to count and 1 to 2+ bacteria in his urine. His white count has come down. He is not febrile. Blood pressure remains problematic. He has a history of hypotension and is on Florinef and Midodrine at home. He also has been on steroids recently from a recent admission and there could be some element of adrenal suppression as well. Dr. Bryant and I discussed the case and he is concerned the patient may have esophageal cancer. Apparently, had high-grade dysplasia on a previous esophageal biopsy a few years ago and has not had follow-up biopsy performed. PHYSICAL EXAMINATION: VITAL SIGNS: Blood pressure 78/42, pulse 74, respiratory rate 20, 96% O2 saturation. GENERAL APPEARANCE: He is alert and conversant. He looked better than his blood pressure. He looks chronically ill. LUNGS: Decreased breath sounds, clear. HEART: Regular rate and rhythm. ABDOMEN: Soft, nontender. Peritoneal dialysis catheter is present. EXTREMITIES: No peripheral edema. LABORATORY DATA: Sodium is 136, potassium is 4.8, glucose is 89. Cell count on his peritoneal dialysis yesterday only showed 7 white cells, white count is down to 10.6, hemoglobin is 10, platelets 151,000. IMPRESSION: 1. Sepsis from presumed urinary tract infection. He is on Cefepime and Vancomycin because of the recent hospitalization. Once urine culture is back, we will more precisely tailor his antibiotics. It does not look like this is a peritoneal infection. 2. Hypotension. Fluid management per Nephrology. I gave him a single dose of IV Hydrocortisone this morning. He has problems with chronic hypotension. He seems to be perfusing adequately and he is asymptomatic. 3. Upper GI bleed. Dr. Bryant and I discussed the case. He is planning EGD, he is concerned about esophageal cancer. 4. Endstage renal disease, he gets peritoneal dialysis. Nephrology has been consulted. I discussed the case with Dr. Lópze yesterday. 5. Atrial fibrillation, rate is controlled, not anticoagulated due to recurrent GI bleeding. 6. Hyperlipidemia, continue current dose of atorvastatin. 7. Recent episode of asthma with hospitalization. Continue bronchodilator. He was on steroids. I am giving him a dose of Hydrocortisone, he might be adrenally suppressed.
[2021-01-09] MEDS: AMPICILLIN SOD 1 GM in D5W MINI-BAG PLUS 50 ML IV SCH ×2 (11:18→22:40)
[2021-01-09] MEDS: SLF 3 ML SYR IV SCH ×2 (14:10→22:01)
[2021-01-09] MEDS ORDERED: propofoL 200 MG/20 ML VIAL As Ordered ONE ×3 (15:49→16:31)
[2021-01-09] MEDS ORDERED: LIDOCAINE 2% 100MG/5ML SDV (FOR ANES.) As Ordered ONE ×2 (15:49→16:06)
[2021-01-09] MEDS ORDERED: ePHEDrine SULFATE 25 MG/5 ML(5MG/ML) SYRINGE As Ordered ONE (16:28)
--- NOTE | 2021-01-09 16:53 | ROOR ---
Patient Name: Tato Leigh Procedure Date: 01/09/2021 3:49 PM Date of : 1935 Age: 85 Room: [facility] Gender: Male Note Status: Finalized Procedure: Upper GI endoscopy Indications: Coffee-ground emesis Providers: Yonatan BRYANT MD Referring MD: 2. Inpatient 2. Inpatient, Von Perez MD Requesting Provider: Medicines: Monitored Anesthesia Care Complications: No immediate complications. Procedure: Pre-Anesthesia Assessment: - The heart rate, respiratory rate, oxygen saturations, blood pressure, adequacy of pulmonary ventilation, and response to care were monitored throughout the procedure. The Endoscope was introduced through the mouth, and advanced to the second part of duodenum. The upper GI endoscopy was accomplished without difficulty. The patient tolerated the procedure well. Findings: One superficial esophageal ulcer with no bleeding was found in the middle third of the esophagus. The lesion was 6 mm in largest dimension. Circumferential salmon-colored mucosa was present from 26 to 35 cm. A shallow ulceration was present at 30 cm. The maximum longitudinal extent of these esophageal mucosal changes was 9 cm in length. Biopsies were taken with a cold forceps for histology. A medium-sized hiatal hernia was present. The entire examined stomach was normal. The examined duodenum was normal. Impression: - A small Non-bleeding shallow esophageal ulcer at 30 cm. Biopsied. 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 Biopsied x 4 bottles x 6-8 specimens each. - Medium-sized hiatal hernia. - Otherwise normal stomach. - Normal examined duodenum. Recommendation: - Use a proton pump inhibitor PO daily indefinitely. - Return to primary GI./Dr Reynaldo Perez office at the next available appointment. Procedure Code(s): --- Professional --- 48562, Esophagogastroduodenoscopy, flexible, transoral; with biopsy, single or multiple Diagnosis Code(s): --- Professional --- K22.10, Ulcer of esophagus without bleeding K22.8, Other specified diseases of esophagus K44.9, Diaphragmatic hernia without obstruction or gangrene K92.0, Hematemesis CPT copyright 2019 [employer]. All rights reserved. The codes documented in this report are preliminary and upon can worker review may be revised to meet current compliance requirements. Yonatan Bryant MD Yonatan BRYANT MD 01/09/2021 4:53:01 PM Electronically signed by Yonatan BRYANT MD Number of Addenda: 0 Note Initiated On: 01/09/2021 3:49 PM Estimated Blood Loss: Estimated blood loss: none.
[2021-01-09] MEDS: VITAMIN D 1,000 INTERNATIONAL UNITS TABLET PO SCH (20:39)
[2021-01-09] MEDS: ATORVASTATIN 10 MG TAB PO SCH (20:39)
[2021-01-10] VITALS (8 sets, daily range): BP systolic 88–111; BP diastolic 5–60
[2021-01-10] MEDS ORDERED: NS 500 ML IV ONE (01:15)
[2021-01-10] MEDS: IPRATROPIUM 0.5MG/ALBUTEROL 2.5MG INH SOL UD 3ML (DUONEB) NEB SCH ×2 (02:00→08:00)
[2021-01-10 06:00] LABS: ALBUMIN 2.4 GM/DL (3.2-5.2); CALCIUM LEVEL 7.4 MG/DL (8.8-10.2); CREATININE FOR GFR 9.92 MG/DL (0.70-1.30); GLOMERULAR FILTRATION RATE 5.3 (>35); PHOSPHORUS LEVEL 6.4 MG/DL (2.5-4.9); POTASSIUM SERUM 3.8 MEQ/L (3.5-5.1)
[2021-01-10] MEDS: SLF 3 ML SYR IV SCH ×2 (06:36→14:05)
[2021-01-10] MEDS: MIDODRINE 5 MG TAB PO SCH ×2 (06:47→11:41)
[2021-01-10 07:23] LABS: APPEARANCE, BODY FLUID CLEAR (CLEAR); PERITONEAL DIALYSATE FL COLOR COLORLESS (COLORLESS); SOURCE, BODY FLUID PERITONEAL DIALYSATE
[2021-01-10] MEDS: MONTELUKAST 10 MG TAB PO SCH (08:10)
[2021-01-10] MEDS: predniSONE 10 MG TAB PO SCH (08:10)
[2021-01-10] MEDS: FLUDROCORTISONE ACETATE 0.1 MG TAB PO SCH (08:10)
[2021-01-10] MEDS: PANTOPRAZOLE 40MG VIAL (C9113 PER 1) IV SCH (08:10)
[2021-01-10] MEDS: FERROUS SULFATE 325MG TAB PO SCH (08:10)
--- NOTE | 2021-01-10 08:59 | IPN ---
PROGRESS NOTE DATE: 01/09/2021 SUBJECTIVE: The patient is seen and examined this morning at the bedside. He is NPO pending endoscopy later this afternoon. The patient remains chronically hypotensive, however he tells me that he has been ambulatory walking to the bathroom and denies any lightheadedness or dizziness, and also denies any shortness of breath. His peritoneal dialysis exchanges have been uneventful and his peritoneal cell count is unremarkable. PHYSICAL EXAMINATION: VITAL SIGNS: Temperature 96.7, pulse is 86, respiratory rate 18, blood pressure systolic mostly in the 80s and 90s over diastolics 40s and 50s, saturating 99% on room air. INPUT AND OUTPUT: Review of I and O's yesterday shows positive 1.1 liter. Weight on the bed scale today is 93.1 kg. GENERAL APPEARANCE: Patient is seen sitting in bed awake, alert, oriented elderly male in no apparent distress. He is in good spirits. HEENT: Extraocular muscles are intact. Tongue is moist. NECK: Supple. Jugular veins are mildly elevated. HEART: Heart sounds are regular rate and rhythm. There is 1+ peripheral edema. LUNGS: Symmetric breath sounds bilaterally. No crackle or rale. ABDOMEN: Soft and nontender. There is a peritoneal dialysis catheter with intact exit site in the left lower quadrant. EXTREMITIES: There is 1 to 2+ edema of the legs. NEUROLOGIC: He is oriented x3. No focal deficit. LABORATORY DATA: Today's laboratory studies show white count 8.1, hemoglobin 9.9, platelets 135,000, sodium 134, potassium 4.1, BUN 96. Albumin 2.2. Microbiology urine culture grew enterococcus faecalis. Blood cultures are no growth for 48 hours x2 sets. Stool occult blood returned back negative. CT of the abdomen and pelvis on January 07 shows air and fecal material in the rectosigmoid colon. No evidence of bowel wall thickening nor inflammation. No free air. INPATIENT MEDICATIONS: Reviewed by myself, albumin 25% 25 grams q. 8 hourly x4 doses as ordered. I note his Cefepime and Vancomycin were discontinued and he is now on ampicillin 1 gram IV b.i.d. He continues on Florinef 0.1 mg p.o. daily and Midodrine 5 mg p.o. three times a day. His remainder of medications are unchanged as compared to yesterday. PROBLEMS: 1. Endstage renal disease on peritoneal dialysis. At home, the patient uses 1.5% along with 2.5% fluid, however at this time we will continue with 1.5% only because of ongoing soft blood pressures. I have started him on albumin infusion q. 8 hourly in the hopes that the oncotic pressure and blood pressure will improve. He is in mild fluid overload. 2. Coffee-ground emesis. The patient is NPO pending endoscopy later today. He is on IV Protonix. His hemoglobin is stable and at known baseline. 3. Chronic hypotension. He did receive initial fluid bolus when he was admitted, now he continues on Florinef and Midodrine. His a.m. cortisol level returned back acceptable at 14. I will wait and see how he responds to the albumin infusions. His Midodrine dose can be increased as needed. However, the patient remains asymptomatic and tells me that he has been up and ambulating and denies any dizziness or lightheadedness. He continues as well on his usual Florinef. 4. UTI, primary service is managing his antibiotics. He is self-catheterization dependent. His white count has improved from 18,000 down to 8,000.
[2021-01-10] MEDS ORDERED: ENOXAPARIN 30MG/0.3ML SYRINGE (J1650 PER 10MG) SC SCH (09:00)
[2021-01-10] MEDS: ADVAIR HFA 45/21MCG INHALER INH SCH (09:34)
[2021-01-10] MEDS ORDERED: PANT-23 PO (10:48)
--- NOTE | 2021-01-10 11:00 | DS.PDOC ---
Discharge Summary General Date of Admission Jan 07, 2021 at 16:04 Date of Discharge 01/10/2021 Discharge Summary PROCEDURES PERFORMED DURING STAY: [None]. ADMITTING DIAGNOSES: 1. Upper GI bleed DISCHARGE DIAGNOSES: 1. Sepsis secondary to urinary tract infection 2. Hypotension 3. Upper GI bleed s/p EGD revealing a shallow esophageal ulcer and Cabrera's esophagus COMPLICATIONS/CHIEF COMPLAINT: Ugib(Upper Gastrointestinal Bleed). HISTORY OF PRESENT ILLNESS: From admitting attendings H&P:Tato is an 85-year-old with a history of end-stage renal disease, on peritoneal dialysis, recently hospitalized 01/05/2021 after syncopal episode while waiting for COVID vaccination at the pharmacy. He was discharged yesterday. Today he started to have coffee-ground emesis. He was brought to the emergency room. He is being admitted for further treatment and observation. He has a white count of 18,000. He denies abdominal pain, chest pain, or shortness of breath. He has heme-positive stool in the emergency room. HOSPITAL COURSE: During this hospitalization patient had a suspected upper GI bleed and underwent a EGD which revealed a shallow nonbleeding ulcer which had been probably slowly bleeding over time as well as Cabrera's esophagus. GI specialist recommended the patient be on Protonix for life. He will also follow up with GI in the clinic upon discharge at the soonest available appointment. He was also diagnosed with having sepsis secondary to urinary tract infection and was started on cefepime and vancomycin and after sensitivities for urine culture returned patient was transitioned to by mouth antibiotics he'll be treated with levofloxacin 750 mg for complicated UTI to complete a total 5 day course of antibiotics. Patient has a history of chronic hypotension and was being followed by nephrology. The morning cortisol level was done and was adequate. Patient's hypotension is asymptomatic. Patient's atrial fibrillation is not anticoagulated due to recurrent GI bleed. Patient doing well at time of discharge asymptomatic walking around his room with good strength. Denies any dizziness or weakness denies any bleeding. DISCHARGE MEDICATIONS: Please see below. ALLERGIES: Please see below. PHYSICAL EXAMINATION ON DISCHARGE: VITAL SIGNS: Please see below. Constitutional: Awake and alert, in no apparent distress. Older appearing chronically ill gentleman. ENT: Sclera are clear Respiratory: Lungs decreased breath sounds bilaterally. No respiratory distress. No use of accessory muscles. Breathing on room air Cardiovascular: S1 and S2 are normal Gastrointestinal: Abdomen is soft, non distended, non tender, BS present. Peritoneal dialysis catheter present. Musculoskeletal: No peripheral edema Neurologic: No focal neurological deficit. Mental Status: A&O x3, normal affect LABORATORY DATA: Please see below. IMAGING: See chart PROGNOSIS: Fair ACTIVITY: [As tolerated]. DIET: No salt diet DISPOSITION: Home DISCHARGE INSTRUCTIONS: Please follow up with your primary care physician within 1 week from discharge. If you do not have one, please follow up with us to schedule an appointment. Please keep all of your follow up appointments. Please call central to book your appointments with hospital specialists. Please take all your medications as prescribed. Please call/come to Clinic or go to the Emergency Department if - Temp >101, intractable Nausea/Vomiting, Diarrhea, Mouth sores, Headaches, Altered mental status, Seizures, sudden onset of swelling, bleeding, shortness of breath or chest pain. ITEMS TO FOLLOWUP ON ON OUTPATIENT: Follow up with your PCP within 5 days discharge. Follow-up with nephrology. Follow-up with gastroenterology. DISCHARGE CONDITION: [Stable]. TIME SPENT ON DISCHARGE: 45 minutes. Vital Signs/I&Os Vital Signs Date Time Temp Pulse Resp B/P (MAP) Pulse Ox O2 Delivery O2 Flow Rate FiO2 01/10/21 08:01 98.4 62 20 107/53 (71) 97 Room Air I&O- Last 24 Hours up to 6 AM 01/10/21 06:00 Intake Total 84362.0 ml Output Total 48124 ml Balance 1880.0 ml Laboratory Data Labs 24H Laboratory Tests 2 01/10/21 05:11: Anion Gap 13, Glomerular Filtration Rate 5.3L, Calcium Level 7.4L, Phosphorus L evel 6.4H, Albumin 2.4L 01/10/21 06:51: Body Fluid Source PERITONEAL DIALYSATE, Body Fluid WBC (Auto) 1, Body Fluid RBC (Auto) < 2, Peritoneal Fluid Color COLORLESS, Peritoneal Fluid Appearance CLEAR CBC/BMP Laboratory Tests 01/10/21 05:11 Microbiology Microbiology 01/08/21 Stool Occult Blood (JONAS) - Final, Complete 01/07/21 Urine Culture - Final, Complete Enterococcus Faecalis 01/07/21 Blood Culture - Preliminary, Resulted No Growth after 48 hours. All Specime... 01/07/21 Blood Culture - Preliminary, Resulted No Growth after 48 hours. All Specime... Discharge Medications Scheduled Atorvastatin Calcium (Lipitor) 10 Mg Tab, 10 MG PO QHS, (Reported) Calcitriol (Calcitriol) 0.25 Mcg Cap, 0.25 MCG PO 3XW, (Reported) MON, SAT, SAT Cholecalciferol (Vitamin D3) (Vitamin D3) 1,000 Unit Tablet, 1,000 UNITS PO QHS, (Reported) Ferrous Sulfate (Ferrous Sulfate) 325 Mg Tablet, 325 MG PO DAILY, (Reported) Fludrocortisone Acetate (Fludrocortisone Acetate) 0.1 Mg Tablet, 0.1 MG PO DAILY, (Reported) Folic Acid/Vit B Complex and C (Ibeth-Lynda Tablet) 0.8 Mg Tablet, 1 TAB PO DAILY, (Reported) Midodrine HCl (Midodrine HCl) 5 Mg Tablet, 5 MG PO TID, (Reported) GIVEN 2.5MG AT HOSPITAL Montelukast Sodium (Montelukast Sodium) 10 Mg Tablet, 10 MG PO DAILY, (Reported) Pantoprazole Sodium (Pantoprazole Sodium) 40 Mg Tablet.dr, 40 MG PO DAILY Potassium Chloride (Potassium Chloride) 20 Meq Tab.er.prt, 20 MEQ PO Q2D, (Reported) ALTERNATE WITH 1/2 TAB EVERY OTHER DAY Potassium Chloride (Potassium Chloride) 20 Meq Tab.er.prt, 10 MEQ PO Q2D, (Reported) ALTERNATE WITH WHOLE TABLET EVERY OTHER DAY Prednisone (Prednisone) 10 Mg Tablet, 10 MG PO TAPER Take 4 tabs daily x 3 days, then 3 tabs daily x 3 days, then 2 tabs daily x 3 days, then 1 tab daily x 3 days and stop Salmeterol/Fluticasone (Advair 100-50 Diskus) 28 Puff/Inhaler Aerp, 1 PUFF INH BID, (Reported) Scheduled PRN Docusate Sodium (Colace) 100 Mg Cap, 100 MG PO BID PRN for CONSTIPATION, (Reported) Allergies Coded Allergies: No Known Allergies (Verified , 01/05/21) ZAID BLACKWOOD MD Jan 10, 2021 11:00
[2021-01-10] MEDS ORDERED: LEVO250T12 PO (11:02)
[2021-01-10] MEDS: AMPICILLIN SOD 1 GM in D5W MINI-BAG PLUS 50 ML IV SCH (11:42)
--- NOTE | 2021-01-11 09:27 | IPN ---
PROGRESS NOTE DATE: 01/10/2021 SUBJECTIVE: Tato is seen and examined this morning at the bedside. He denies any complaints. His PD exchanges have been uneventful. He had his upper endoscopy which showed a shallow esophageal ulcer and Cabrera's esophagus. He is discharge pending. PHYSICAL EXAMINATION: VITAL SIGNS: Temperature 98.6, pulse 75, respiratory rate 20, blood pressure 111/53, saturating 98% on room air. GENERAL APPEARANCE: Patient is seen awake, alert and oriented, in no apparent distress. HEENT: Extraocular muscles are intact. Tongue is moist. Neck is supple. HEART: Regular, S1 and S2. There is chronic peripheral edema which is unchanged from his usual edema. LUNGS: symmetric air entry with no crackles or rales. Comfortable on room air. ABDOMEN: Soft. There is peritoneal dialysis fluid in situ. EXTREMITIES: There is chronic leg edema which is unchanged for him. There is a fistula on the left arm which is patent with thrill and bruit. NEUROLOGIC: He is oriented x3, at baseline mentation. PSYCHIATRIC: Appropriate mood and affect. LABORATORY DATA: Laboratory studies today shows a white count of 8.1, hemoglobin 9.9, platelets of 135, sodium 135, potassium 3.8. Phosphorous 6.4. His stool occult blood returned back negative. INPATIENT MEDICATIONS: His inpatient medications are unchanged as compared to yesterday. PROBLEMS: 1. Endstage renal disease on peritoneal dialysis. The patient can return back to his usual home peritoneal dialysis prescription. His peritoneal cell count was negative for any infection and his electrolytes and volume status are both acceptable. 2. Coffee-ground emesis. The patient is status post upper endoscopy with one superficial ulcer found with no bleeding and known Cabrera's esophagus. He is going to continue on PPI therapy and follow-up with Gastroenterology. His hemoglobin remains stable. 3. Anemia of chronic renal failure, will continue to be monitored through the Peritoneal Dialysis Clinic and he receives erythropoietin stimulating agent as indicated. 4. Chronic hypotension, it is stable. He continues on his home Midodrine and Florinef and he is asymptomatic. 5. Disposition: Patient is stable for discharge from a Nephrology point of view.
== END 2021-01-10 15:46 | disposition home or self-care (01) | DRG 871 ==
LOC: M ED 12:03 → EDBD 12:03 → M ED INP 16:04 → M PCU 18:00
PROVIDERS: ADMIT Family Medicine; ATTEND Family Medicine
PROC: 3E1M39Z Irrigation of Peritoneal Cavity using Dialysate, Percutaneous Approach (ICD-10-PCS; 2021-01-07)
PROC: 0DB28ZX Excision of Middle Esophagus, Via Natural or Artificial Opening Endoscopic, Diagnostic (ICD-10-PCS; principal; 2021-01-09 15:00)
DX: A41.9 Sepsis, unspecified organism (principal); N18.6 End stage renal disease; I48.20 Chronic atrial fibrillation, unspecified; I13.11 Hypertensive heart and chronic kidney disease without heart failure, with stage 5 chronic kidney disease, or end stage renal disease; Q61.3 Polycystic kidney, unspecified; N25.81 Secondary hyperparathyroidism of renal origin; N39.0 Urinary tract infection, site not specified; K92.0 Hematemesis; K22.711 Barrett's esophagus with high grade dysplasia; E78.5 Hyperlipidemia, unspecified; B95.2 Enterococcus as the cause of diseases classified elsewhere; J45.909 Unspecified asthma, uncomplicated; M10.30 Gout due to renal impairment, unspecified site; I95.89 Other hypotension; K44.9 Diaphragmatic hernia without obstruction or gangrene; R13.10 Dysphagia, unspecified; Z99.2 Dependence on renal dialysis; Z79.899 Other long term (current) drug therapy

== ENCOUNTER 2021-02-01 14:26 | Inpatient (IN) | payer MEDICARE ==
[~2021-02-01] VITALS: Ht 180.3 cm; Wt 95.5 kg
[~2021-02-01 14:26] MED LIST changes: +LEVO250T12 PO; +MONT10TA10 PO
[2021-02-01 15:17] LABS: BASO % 0.6 % (0.0-1.0); EOS # 0.4 10^3/uL (0.0-0.5); EOS % 6.7 % (0.0-3.0); HEMATOCRIT 36.2 % (42.0-52.0); HEMOGLOBIN 11.7 g/dl (13.5-17.5); LYMPH # 0.7 10^3/uL (1.5-5.0); LYMPH % 11.5 % (24.0-44.0); MEAN CORPUSCULAR HEMOGLOBIN 32.3 pg (27.0-33.0); MEAN CORPUSCULAR HGB CONC 32.3 g/dl (32.0-36.5); MONO # 0.8 10^3/uL (0.0-0.8); MONO % 13.1 % (2.0-8.0); NEUTROPHILS # 4.3 10^3/uL (1.5-8.5); NEUTROPHILS % 66.9 % (36.0-66.0); PLATELET COUNT, AUTOMATED 158 10^3/uL (150-450); RED BLOOD COUNT 3.62 10^6/uL (4.30-6.10); WHITE BLOOD COUNT 6.4 10^3/uL (4.0-10.0)
--- NOTE | 2021-02-01 15:17 | REP ---
INDICATION: CHEST PAIN COMPARISON: 01/07/2021 TECHNIQUE: Portable AP view of the chest FINDINGS: The mediastinum and cardiac silhouette are stable and within normal limits for portable technique. The lung bean suggest chronic changes and subtle left basilar atelectasis cannot be excluded. No focal consolidation. No obvious effusion. No pneumothorax. Skeletal structures intact. IMPRESSION: Chronic stable changes. Cannot exclude very subtle left basilar atelectasis. <Electronically signed by Grzegorz Pastor > 02/01/21 [id number]
[2021-02-01 15:26] LABS: INR 0.98; PROTHROMBIN TIME 13.2 SECONDS (12.5-14.3)
[2021-02-01 15:27] LABS: PARTIAL THROMBOPLASTIN TIME 30.7 SECONDS (24.2-38.5)
[2021-02-01 15:59] LABS: BILIRUBIN,DIRECT 0.2 MG/DL (0.0-0.2); BILIRUBIN,TOTAL 0.4 MG/DL (0.2-1.0); CALCIUM LEVEL 8.1 MG/DL (8.8-10.2); CREATININE FOR GFR 8.76 MG/DL (0.70-1.30); GLOMERULAR FILTRATION RATE 6.1 (>35); MB/CK RELATIVE INDEX 4.35 (< OR =4); POTASSIUM SERUM 3.8 MEQ/L (3.5-5.1); THYROID STIMULATING HORMONE 2.99 uIU/ML (0.358-3.740); TOTAL PROTEIN 6.1 GM/DL (6.4-8.2); TROPONIN I 0.06 NG/ML (< 0.10)
[2021-02-01] MEDS ORDERED: MIDODRINE 5 MG TAB PO SCH (16:00)
[2021-02-01] MEDS ORDERED: PANT-23 PO (16:46)
[2021-02-01] MEDS ORDERED: TORS20TA2 PO (16:46)
[2021-02-01 17:00] LABS: RSV AMPLIFICATION NEGATIVE (NEGATIVE)
--- NOTE | 2021-02-01 17:13 | HPEPDOC ---
[facility] Medical History & Physical Date of Admission Feb 01, 2021 Date of Service: Feb 01, 2021 History and Physical Chief complaint: Presented to the emergency room after reporting weakness History of present illness: Patient is an 85-year-old male who presented to the emergency room with reported weakness. Patient had noted that he was in the bathroom on the toilet and when he was ready to leave. He had gone up, however, experienced weakness and lightheadedness that prompted him to sit back down. His significant other, helped him into another seated position. Patient denied any chest pain or palpitations. Did report some nausea without vomiting. Patient denied any loss of consciousness, falls or traumas. He has not experience any shortness of breath or cough. No constipation, diarrhea, or abdominal discomfort. Patient reports that he seldom makes urine. Denies any fevers or chills. Reports that this morning he did have a good breakfast. Reports that usually he does not use any assistive devices for ambulation Past Medical History: Hypotension ESRD on PD Polycystic kidney disease A fib (not on anticoagulation) DLP Asthma Gout AV fistula placement BPH s/p TURP Gastric ulcer / Hiatal hernia Past Surgical History: TURP EGD 01/2020 Peritoneal dialysis catheter (2017) AV fistula placement Allergies: See below Medications: See below Family History: - No history of malignancies Social History: - Denies the use of alcohol or illicit drugs; patient quit smoking 50 years ago - Denies recent travel or sick contacts - Lives with significant other; Mayda - Occupation; patient used to work at a [employer] Review of Systems: 10 point review of systems complete, all negative otherwise stated in HPI Physical exam: - Vitals: BP [103/59], HR [72], RR [18], Sat [99%RA], Temp [96.4F] - General: Lying in bed, No acute distress, Speaking in full sentences, AAOx3 - HEENT: NC, AT, PERRLA - CVS: RRR, +S1S2 - Lungs: Fair air entry bilaterally, No appreciable wheezing / rales / rhonchi - Abdomen: Soft, Non-distended, Non-tender, +PD catheter - Extremities: RLE > LLE, 2+ pitting edema bilaterally, No calf tenderness - Neuro: No focal motor or sensory deficit - Skin: No visible rashes Labs: See below Imaging: CXR 02/01: Chronic stable changes. Cannot exclude very subtle left basilar atelectasis. EKG: See below Assessment and Plan: Weakness - likely 2/2 orthostatic hypotension - Presented to the emergency room with weakness and lightheadedness while trying to get up from a seated position - Patient has been experiencing chronic hypotension - Patient has recently been taken off of fludrocortisone and started on Torsemide to help with his lower extremity edema - Will hold diuretic therapy at this time - Will continue with Midodrine and restart fludrocortisone ESRD on PD - Patient receives daily peritoneal dialysis in the evening - Will consult nephrology; case discussed Polycystic kidney disease A fib - EKG reviewed, revealing atrial fibrillation rhythm and similar to prior is on record - Currently not on any rate or rhythm control medications - Not on anticoagulation DLP - c/w Atorvastatin Asthma - c/w Inhaled therapy as ordered Gout - Currently not on medications AV fistula placement - In anticipation of HD in the future BPH s/p TURP Gastric ulcer / Hiatal hernia - s/p EGD 01/09/2021: Small non-bleeding shallow esophageal ulcer, Barrets esophagus - c/w Protonix DVT prophylaxis - Will start Heparin Vital Signs Vital Signs Date Time Temp Pulse Resp B/P (MAP) Pulse Ox O2 Delivery O2 Flow Rate FiO2 02/01/21 16:15 72 103/59 (74) 02/01/21 15:26 02/01/21 14:44 96.4 18 Laboratory Data Labs 24H Laboratory Tests 2 02/01/21 14:47: Immature Granulocyte % (Auto) 1.2, Neutrophils (%) (Auto) 66.9H, Lymphocytes (%) (Auto) 11.5L, Monocytes (%) (Auto) 13.1H, Eosinophils (%) (Auto) 6.7H, Basophils (%) (Auto) 0.6, Neutrophils # (Auto) 4.3, Lymphocytes # (Auto) 0.7L, Monocytes # (Auto) 0.8, Eosinophils # (Auto) 0.4, Basophils # (Auto) 0.0, Nucleated Red Blood Cells % (auto) 0.0, Prothrombin Time 13.2, Prothromb Time International Ratio 0.98, Activated Partial Thromboplast Time 30.7, Anion Gap 9, Glomerular Filtration Rate 6.1L, Calcium Level 8.1L, Magnesium Level 2.0, Iron Level 94, Total Iron Binding Capacity 235L, Transferrin % Saturation 40.0, Total Bilirubin 0.4, Direct Bilirubin 0.2, Aspartate Amino Transf (AST/SGOT) 19, Alanine Aminotransferase (ALT/SGPT) 20, Alkaline Phosphatase 79, Total Creatine Kinase 46, Creatine Kinase MB 2.0, Creatine Kinase MB Relative Index 4.35H, Troponin I 0.06, UQ-Lfb-J-Type Natriuretic Peptide 87235G, Total Protein 6.1L, Albumin 3.0L, Albumin/Globulin Ratio 1.0, Lipase 187, Thyroid Stimulating Hormone (TSH) 2.990 02/01/21 16:15: Coronavirus (COVID-19)(PCR) NEGATIVE, Influenza Type A (RT-PCR) NEGATIVE, Influenza Type B (RT-PCR) NEGATIVE, Respiratory Syncytial Virus (PCR) NEGATIVE CBC/BMP Laboratory Tests 02/01/21 14:47 Home Medications Scheduled Atorvastatin Calcium (Lipitor) 10 Mg Tab, 10 MG PO QHS Calcitriol (Calcitriol) 0.25 Mcg Cap, 0.25 MCG PO 3XW MON, WED, SAT Cholecalciferol (Vitamin D3) (Vitamin D3) 1,000 Unit Tablet, 1,000 UNITS PO QHS Ferrous Sulfate (Ferrous Sulfate) 325 Mg Tablet, 325 MG PO DAILY Folic Acid/Vit B Complex and C (Ibeth-Lynda Tablet) 0.8 Mg Tablet, 1 TAB PO DAILY Midodrine HCl (Midodrine HCl) 5 Mg Tablet, 5 MG PO TID 0800, 1100, 1600 Pantoprazole Sodium (Pantoprazole Sodium) 40 Mg Tablet.dr, 40 MG PO DAILY Salmeterol/Fluticasone (Advair 100-50 Diskus) 28 Puff/Inhaler Aerp, 1 PUFF INH BID Scheduled PRN Torsemide (Torsemide) 20 Mg Tablet, 20 MG PO DAILY PRN for EDEMA Allergies Coded Allergies: No Known Allergies (Verified , 01/05/21) FARHAT SHAHID MD Feb 01, 2021 17:13
--- NOTE | 2021-02-01 17:16 | ECGEPIP ---
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
[2021-02-01 18:15] VITALS: BP 113/59
[2021-02-01 18:25] VITALS: BP 113/59
[2021-02-01 20:00] VITALS: BP 109/54
[2021-02-01] MEDS: ADVAIR HFA 45/21MCG INHALER INH SCH (20:30)
[2021-02-01] MEDS: DOCUSATE SODIUM 100MG CAPSULE PO SCH (20:45)
[2021-02-01] MEDS: HEPARIN SOD (PORCINE) 5000UNITS/ML 1ML VIAL/SYRINGE SC SCH (20:45)
[2021-02-01] MEDS: VITAMIN D 1,000 INTERNATIONAL UNITS TABLET PO SCH (20:45)
[2021-02-01] MEDS: ATORVASTATIN 10 MG TAB PO SCH (20:45)
[2021-02-02] VITALS: BP 92/58
[2021-02-02 04:00] VITALS: BP 102/52
[2021-02-02 04:33] LABS: BASO % 0.6 % (0.0-1.0); EOS # 0.4 10^3/uL (0.0-0.5); EOS % 6.8 % (0.0-3.0); HEMATOCRIT 33.2 % (42.0-52.0); HEMOGLOBIN 10.7 g/dl (13.5-17.5); LYMPH # 0.6 10^3/uL (1.5-5.0); LYMPH % 11.2 % (24.0-44.0); MEAN CORPUSCULAR HGB CONC 32.2 g/dl (32.0-36.5); MEAN CORPUSCULAR VOLUME 99.4 fl (80.0-96.0); MONO # 0.6 10^3/uL (0.0-0.8); MONO % 12.4 % (2.0-8.0); NEUTROPHILS # 3.5 10^3/uL (1.5-8.5); NEUTROPHILS % 67.6 % (36.0-66.0); PLATELET COUNT, AUTOMATED 132 10^3/uL (150-450); RED BLOOD COUNT 3.34 10^6/uL (4.30-6.10); WHITE BLOOD COUNT 5.2 10^3/uL (4.0-10.0)
[2021-02-02 04:55] LABS: CALCIUM LEVEL 7.8 MG/DL (8.8-10.2); CREATININE FOR GFR 9.19 MG/DL (0.70-1.30); GLOMERULAR FILTRATION RATE 5.8 (>35); MAGNESIUM LEVEL 1.9 MG/DL (1.8-2.4); POTASSIUM SERUM 3.3 MEQ/L (3.5-5.1)
[2021-02-02 07:57] VITALS: BP 98/55
[2021-02-02] MEDS: PANTOPRAZOLE 40MG TAB (PROTONIX) PO SCH (08:32)
[2021-02-02] MEDS: FERROUS SULFATE 325MG TAB PO SCH (08:32)
[2021-02-02] MEDS: HEPARIN SOD (PORCINE) 5000UNITS/ML 1ML VIAL/SYRINGE SC SCH ×2 (08:32→20:21)
[2021-02-02] MEDS: NEPHRO-VIT TAB (NEPHROCAPS) PO SCH (08:32)
[2021-02-02] MEDS: MIDODRINE 5 MG TAB PO SCH ×3 (08:33→16:15)
[2021-02-02] MEDS: DOCUSATE SODIUM 100MG CAPSULE PO SCH ×2 (08:33→20:20)
[2021-02-02] MEDS ORDERED: FLUDROCORTISONE ACETATE 0.1 MG TAB PO SCH ×2 (09:00→21:00)
[2021-02-02] MEDS: ADVAIR HFA 45/21MCG INHALER INH SCH ×2 (09:44→20:03)
--- NOTE | 2021-02-02 11:16 | IPNPDOC ---
Text Note Date of Service The patient was seen on 02/02/21. NOTE Subjective: Patient continues to have generalized weakness. During physical th erapy systolic blood pressure dropped to 60s Objective: GENERAL APPEARANCE: NAD HEENT: no scleral icterus, no JVD, EOMI CARDIOVASCULAR: Irregularly irregular LUNGS: Diminished lung sounds bilaterally ABDOMEN: soft & not tender w palpitation MUSCULOSKELETAL: +2 pitting edema bilaterally, pulses intact INTEGUMENT: no generalized pallor NEUROLOGICAL: cranial nerve function from 2-12 intact intact, follows commands, speech not dysarthric Assessment and plan Patient is an 85-year-old male with past medical history of hypertension, end-stage renal diseases on peritoneal dialysis, polycystic kidney diseases, atrial fibrillation, who presented to the emergency room with reported weakness. Patient had noted that he was in the bathroom on the toilet and when he was ready to leave. He had gone up, however, experienced weakness and lightheadedness that prompted him to sit back down. His significant other, helped him into another seated position. Patient recently started torsemide. Orthostatic hypotension/ generalized weakness/ chronic hypotension Secondary to deconditioning superimposed with peritoneal dialysis and torsemide DC torsemide Continue fludrocortisone twice a day Continue midodrine PT/OT End-stage renal diseases Nephrology team follows him A fib Heart rate under control Anticoagulation was stopped before due to history of recent GI bleed DLP c/w Atorvastatin Asthma Not in acute exacerbation - c/w Inhaled therapy as ordered Gout Not in acute exacerbation - Currently not on medications Follow-up with PCP in the outpatient settings AV fistula placement - In anticipation of HD in the future BPH s/p TURP Gastric ulcer / Hiatal hernia - s/p EGD 01/09/2021: Small non-bleeding shallow esophageal ulcer, Barrets esophagus - c/w Protonix DVT prophylaxis - Heparin VS,Fishbone, I+O VS, Fishbone, I+O Laboratory Tests 02/01/21 14:47 02/02/21 04:14 Vital Signs Date Time Temp Pulse Resp B/P (MAP) Pulse Ox O2 Delivery O2 Flow Rate FiO2 02/02/21 07:57 96.7 78 20 98/55 (69) 100 Room Air l I&O- Last 24 Hours up to 6 AM 02/02/21 06:00 Intake Total 2460 ml Output Total 2300 ml Balance 160 ml DROZHZHIN,MARIANNE DO Feb 02, 2021 11:16
[2021-02-02 12:00] VITALS: BP 101/53
[2021-02-02] MEDS ORDERED: POTASSIUM CHLORIDE 10 MEQ SR TABLET PO ONE (12:35)
[2021-02-02 16:00] VITALS: BP 106/54
[2021-02-02 20:00] VITALS: BP 101/56
[2021-02-02] MEDS: VITAMIN D 1,000 INTERNATIONAL UNITS TABLET PO SCH (20:20)
[2021-02-02] MEDS: ATORVASTATIN 10 MG TAB PO SCH (20:20)
[2021-02-03] VITALS (8 sets, daily range): BP systolic 77–113; BP diastolic 46–57
[2021-02-03 04:39] LABS: BASO % 0.3 % (0.0-1.0); EOS # 0.4 10^3/uL (0.0-0.5); EOS % 6.9 % (0.0-3.0); HEMATOCRIT 34.4 % (42.0-52.0); HEMOGLOBIN 11.5 g/dl (13.5-17.5); LYMPH # 0.4 10^3/uL (1.5-5.0); LYMPH % 7.4 % (24.0-44.0); MEAN CORPUSCULAR HEMOGLOBIN 33.3 pg (27.0-33.0); MEAN CORPUSCULAR HGB CONC 33.4 g/dl (32.0-36.5); MEAN CORPUSCULAR VOLUME 99.7 fl (80.0-96.0); MONO # 0.7 10^3/uL (0.0-0.8); MONO % 12.2 % (2.0-8.0); NEUTROPHILS # 4.3 10^3/uL (1.5-8.5); PLATELET COUNT, AUTOMATED 139 10^3/uL (150-450); RED BLOOD COUNT 3.45 10^6/uL (4.30-6.10); WHITE BLOOD COUNT 5.9 10^3/uL (4.0-10.0)
[2021-02-03 05:05] LABS: CALCIUM LEVEL 7.9 MG/DL (8.8-10.2); CREATININE FOR GFR 9.07 MG/DL (0.70-1.30); GLOMERULAR FILTRATION RATE 5.9 (>35); MAGNESIUM LEVEL 1.9 MG/DL (1.8-2.4); POTASSIUM SERUM 3.7 MEQ/L (3.5-5.1)
[2021-02-03] MEDS: ADVAIR HFA 45/21MCG INHALER INH SCH ×2 (07:28→19:52)
[2021-02-03] MEDS: FERROUS SULFATE 325MG TAB PO SCH (07:54)
[2021-02-03] MEDS: PANTOPRAZOLE 40MG TAB (PROTONIX) PO SCH (07:54)
[2021-02-03] MEDS: NEPHRO-VIT TAB (NEPHROCAPS) PO SCH (07:54)
[2021-02-03] MEDS: FLUDROCORTISONE ACETATE 0.1 MG TAB PO SCH (07:54)
[2021-02-03] MEDS: CALCITRIOL 0.25 MCG CAP (S0169) PO SCH (07:54)
[2021-02-03] MEDS: MIDODRINE 5 MG TAB PO SCH ×3 (07:54→16:49)
[2021-02-03] MEDS: DOCUSATE SODIUM 100MG CAPSULE PO SCH ×2 (07:54→21:27)
[2021-02-03] MEDS: HEPARIN SOD (PORCINE) 5000UNITS/ML 1ML VIAL/SYRINGE SC SCH ×2 (07:56→21:28)
[2021-02-03] MEDS ORDERED: SLF 3 ML SYR IV PRN (09:15)
[2021-02-03] MEDS ORDERED: FLUD0.1T PO (09:28)
[2021-02-03] MEDS: SLF 3 ML SYR IV SCH ×2 (12:10→21:28)
--- NOTE | 2021-02-03 12:11 | IPNPDOC ---
Text Note Date of Service The patient was seen on 02/03/21. NOTE Subjective: No any acute events overnight. Objective: GENERAL APPEARANCE: NAD HEENT: no scleral icterus, no JVD, EOMI CARDIOVASCULAR: Irregularly irregular LUNGS: Diminished lung sounds bilaterally ABDOMEN: soft & not tender w palpitation MUSCULOSKELETAL: +2 pitting edema bilaterally, pulses intact INTEGUMENT: no generalized pallor NEUROLOGICAL: cranial nerve function from 2-12 intact intact, follows commands, speech not dysarthric Assessment and plan Patient is an 85-year-old male with past medical history of hypertension, end-stage renal diseases on peritoneal dialysis, polycystic kidney diseases, atrial fibrillation, who presented to the emergency room with reported weakness. Patient had noted that he was in the bathroom on the toilet and when he was ready to leave. He had gone up, however, experienced weakness and lightheadedness that prompted him to sit back down. His significant other, helped him into another seated position. Patient recently started torsemide. Orthostatic hypotension/ generalized weakness/ chronic hypotension Secondary to deconditioning superimposed with peritoneal dialysis and torsemide DC torsemide Continue fludrocortisone Continue midodrine PT/OT End-stage renal diseases Nephrology team follows him A fib Heart rate under control Anticoagulation was stopped before due to history of recent GI bleed DLP c/w Atorvastatin Asthma Not in acute exacerbation - c/w Inhaled therapy as ordered Gout Not in acute exacerbation - Currently not on medications Follow-up with PCP in the outpatient settings AV fistula placement - In anticipation of HD in the future BPH s/p TURP Gastric ulcer / Hiatal hernia - s/p EGD 01/09/2021: Small non-bleeding shallow esophageal ulcer, Barrets esophagus - c/w Protonix DVT prophylaxis - Heparin VS,Fishbone, I+O VS, Fishbone, I+O Laboratory Tests 02/03/21 03:56 Vital Signs Date Time Temp Pulse Resp B/P (MAP) Pulse Ox O2 Delivery O2 Flow Rate FiO2 02/03/21 08:00 97.1 73 18 97/53 (68) 97 Room Air I&O- Last 24 Hours up to 6 AM 02/03/21 06:00 Intake Total 73283 ml Output Total 78772 ml Balance 955 ml MARIANNE WILDE DO Feb 03, 2021 12:11
--- NOTE | 2021-02-03 12:59 | CR ---
INPATIENT CONSULTATION DATE: 02/02/2021 REQUESTING PHYSICIAN: Armando Ramos MD. CONSULTING PHYSICIAN: Marianna Soto DO. REASON FOR CONSULTATION: Management of end-stage renal disease on peritoneal dialysis. HISTORY OF PRESENT ILLNESS: Mr. Tato Leigh is well known to me. He is an 85-year-old male with a past medical history of end-stage renal disease secondary to polycystic kidneys on maintenance peritoneal dialysis, chronic hypotension on midodrine 5 mg three times a day, atrial fibrillation (not on anticoagulation), dyslipidemia, BPH status post transurethral resection of prostate and other comorbid conditions mentioned below. Patient presented to the Emergency Room with complaint of weakness yesterday that occurred while he was in the bathroom on the toilet and the patient required assistance of his significant other in order to get off the toilet and he complained of a presyncopal sensation and lightheadedness, but he denied any loss of consciousness or fall. Of note during the patient's last recent admission he was treated for a UTI and he does regularly self catheterize. Additionally he was taken fludrocortisone for around 1 month to see if it would help with his chronic hypotension and it was discontinued after his last admission to [facility]. 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 Recently in the peritoneal dialysis clinic he was found to have increasing leg edema and he was started on torsemide p.r.n. which he has been taking. Patient denies any trouble with his peritoneal dialysis prescription, denies any shortness of breath. PAST MEDICAL HISTORY: 1. End-stage renal disease on peritoneal dialysis. 2. Polycystic kidney disease. 3. Chronic hypotension. 4. Atrial fibrillation. 5. Dyslipidemia. 6. Asthma. 7. Gout. 8. BPH. 9. History of gastric ulcer. 10. Hiatal hernia. 11. Secondary hyperparathyroidism of renal origin. 12. Anemia of chronic renal failure. PAST SURGICAL HISTORY: 1. Peritoneal dialysis catheter. 2. AV fistula. 3. Endoscopy. 4. Transurethral resection of prostate. ALLERGIES: No known drug allergies. HOME MEDICATIONS: Reviewed and include: 1. Atorvastatin. 2. Calcitriol. 3. Cholecalciferol. 4. Ferrous sulfate. 5. Renovate. 6. Midodrine 5 mg by mouth three times a day. 7. Protonix 40 mg by mouth daily. 8. Torsemide 20 mg by mouth daily p.r.n. increased leg edema. 9. Advair 1 puff inhaled twice a day. SOCIAL HISTORY: Lives with significant other. Denies alcohol, drugs or smoking. FAMILY HISTORY: Polycystic kidney disease. REVIEW OF SYSTEMS: Constitutional: Denies fever or chills. Eyes: Denies visual changes or tearing. ENT: Denies odynophagia or rhinorrhea. Cardiac: Reports chronic leg edema moreso on the right leg. Denies shortness of breath or chest pain. Respiratory: Denies cough or shortness of breath. Reports he has been missing his inhaler use recently. Gastrointestinal: Denies nausea, vomiting or diarrhea. Genitourinary: He has an atonic urinary bladder with retention and self catheterize twice a day. Musculoskeletal: Reports chronic leg swelling and history of gout. Hematologic: Reports anemia of chronic renal failure. Denies anticoagulant use. Neurologic: Reports no seizure or syncope. Psychiatric: Denies anxiety or depression. Remainder of review of systems is negative or as per HPI. PHYSICAL EXAMINATION: Vital signs: Temperature 97, pulse 67, respiratory rate 18, blood pressure 101/53, saturating 100% on room air. Weight on the bed scale today is 90.6 kg. General: Patient is seen awake, alert, in no apparent distress, elderly male oriented times 3, interaction, conversation. HEENT: Extraocular muscles are intact. Tongue is moist. Neck: Supple. Jugular veins are not elevated. Heart: Sounds are regular S1 and S2. There is 2+ pitting edema in the right leg that is distal to the knee and 1+ pitting edema in the left leg that is distal to the knee. Lungs: Symmetric air entry bilaterally, no crackle or rale. He is comfortable on room air. Abdomen: Soft and nontender. The PD catheter exit site is unremarkable. Neurologic: Oriented times 3, no focal deficits. Psychiatric: Appropriate mood and affect. Skin: Normal temperature and turgor. LABORATORY DATA: Hemoglobin 10.7, white count 5.2. Sodium 137, potassium 3.3, bicarbonate 30, magnesium 1.9. A.M. cortisol 19. Normal TSH. BNP 20,000. RADIOLOGY STUDIES: Chest x-ray February 01: No effusion or infiltrates. Echocardiogram January 06, 2021: Reviewed with normal left ventricular systolic function. INPATIENT MEDICATIONS: 1. Atorvastatin 10 mg by mouth at bedtime. 2. Calcitriol 0.25 mcg by mouth Saturday, Saturday, Saturday. 3. Docusate 100 mg by mouth twice a day. 4. Ferrous sulfate 325 mg by mouth daily. 5. Fludrocortisone 0.1 mg by mouth daily. 6. Heparin 5000 units subcutaneously q12h. 7. Midodrine 5 mg by mouth three times a day. 8. Protonix 40 mg by mouth daily. 9. Potassium chloride 40 mEq by mouth times 1. 10. Advair 2 puffs inhaled twice a day. 11. Renovate 1 tablet daily. 12. Vitamin D 1000 units by mouth at bedtime. PROBLEMS: 1. Chronic hypotension: Patient has been on terminal manager midodrine 5 mg three times a day. He was on fludrocortisone 0.1 mg once daily for about a month to see if it would help with his blood pressure. No significant change was seen and fludrocortisone was discontinued after the patient's last admission to [facility] in January. After that he was found to have increased leg edema when he was seen in the peritoneal dialysis office and he was subsequently started on torsemide diuretic and the patient now developed symptomatic hypotension at home getting up from the toilet. I would keep him off of torsemide at this time and we can resume fludrocortisone and continue midodrine. 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 2. End-stage renal disease: On peritoneal dialysis. Orders are written for 5 exchanges, 2 liter volume with each exchange, 2.5% Dianeal. His PD exchanges have been uneventful. His peripheral edema is fpc and chronic and I would not put him on a more aggressive PD prescription at this time. 3. Localized edema: Last echocardiogram from January, reviewed with preserved left ventricular ejection fraction. Patient is saturating 100% on room air. His edema is distal to the knee and I would not continue diuretic at this time nor make his PD prescription more aggressive. I feel any attempts to control his leg edema will result in worsening hypotension. 4. Hypokalemia: Potassium supplementation is ordered. 5. 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 Thank you for involving in the care of Mr. Edus. I will be happy to follow him along with you.
[2021-02-03] MEDS: VITAMIN D 1,000 INTERNATIONAL UNITS TABLET PO SCH (21:28)
[2021-02-03] MEDS: ATORVASTATIN 10 MG TAB PO SCH (21:28)
[2021-02-04] VITALS: BP 101/48
[2021-02-04] MEDS: SLF 3 ML SYR IV SCH ×3 (05:40→22:07)
[2021-02-04 06:00] VITALS: BP 92/46
[2021-02-04 06:23] LABS: BASO % 0.6 % (0.0-1.0); EOS # 0.5 10^3/uL (0.0-0.5); EOS % 9.9 % (0.0-3.0); HEMATOCRIT 34.4 % (42.0-52.0); HEMOGLOBIN 11.2 g/dl (13.5-17.5); LYMPH # 0.7 10^3/uL (1.5-5.0); LYMPH % 13.3 % (24.0-44.0); MEAN CORPUSCULAR HEMOGLOBIN 32.6 pg (27.0-33.0); MEAN CORPUSCULAR HGB CONC 32.6 g/dl (32.0-36.5); MONO # 0.7 10^3/uL (0.0-0.8); MONO % 13.7 % (2.0-8.0); NEUTROPHILS # 3.1 10^3/uL (1.5-8.5); NEUTROPHILS % 61.5 % (36.0-66.0); PLATELET COUNT, AUTOMATED 145 10^3/uL (150-450); RED BLOOD COUNT 3.44 10^6/uL (4.30-6.10)
[2021-02-04] MEDS: MIDODRINE 5 MG TAB PO SCH ×3 (06:30→16:20)
[2021-02-04 06:50] LABS: CALCIUM LEVEL 8.4 MG/DL (8.8-10.2); CREATININE FOR GFR 9.38 MG/DL (0.70-1.30); GLOMERULAR FILTRATION RATE 5.7 (>35); MAGNESIUM LEVEL 1.8 MG/DL (1.8-2.4); POTASSIUM SERUM 3.6 MEQ/L (3.5-5.1)
[2021-02-04] MEDS: ADVAIR HFA 45/21MCG INHALER INH SCH ×2 (07:15→20:27)
[2021-02-04] MEDS: NEPHRO-VIT TAB (NEPHROCAPS) PO SCH (09:52)
[2021-02-04] MEDS: HEPARIN SOD (PORCINE) 5000UNITS/ML 1ML VIAL/SYRINGE SC SCH ×2 (09:52→22:07)
[2021-02-04] MEDS: PANTOPRAZOLE 40MG TAB (PROTONIX) PO SCH (09:52)
[2021-02-04] MEDS: DOCUSATE SODIUM 100MG CAPSULE PO SCH ×2 (09:52→22:06)
[2021-02-04] MEDS: FERROUS SULFATE 325MG TAB PO SCH (09:52)
[2021-02-04] MEDS: FLUDROCORTISONE ACETATE 0.1 MG TAB PO SCH (09:52)
--- NOTE | 2021-02-04 11:29 | IPNPDOC ---
Text Note Date of Service The patient was seen on 02/04/21. NOTE Subjective: No any acute events overnight. Patient denied fever, chills, chest pain, nausea, vomiting, diarrhea Objective: GENERAL APPEARANCE: NAD HEENT: no scleral icterus, no JVD, EOMI CARDIOVASCULAR: Irregularly irregular LUNGS: Diminished lung sounds bilaterally ABDOMEN: soft & not tender w palpitation MUSCULOSKELETAL: +2 pitting edema bilaterally, pulses intact INTEGUMENT: no generalized pallor NEUROLOGICAL: cranial nerve function from 2-12 intact intact, follows commands, speech not dysarthric Assessment and plan Patient is an 85-year-old male with past medical history of hypertension, end-stage renal diseases on peritoneal dialysis, polycystic kidney diseases, atrial fibrillation, who presented to the emergency room with reported weakness. Patient had noted that he was in the bathroom on the toilet and when he was ready to leave. He had gone up, however, experienced weakness and lightheadedness that prompted him to sit back down. His significant other, helped him into another seated position. Patient recently started torsemide. Orthostatic hypotension/ generalized weakness/ chronic hypotension Secondary to deconditioning superimposed with peritoneal dialysis and torsemide DC torsemide Continue fludrocortisone Continue midodrine PT/OT End-stage renal diseases Nephrology team follows him A fib Heart rate under control Anticoagulation was stopped before due to history of recent GI bleed DLP c/w Atorvastatin Asthma Not in acute exacerbation - c/w Inhaled therapy as ordered Gout Not in acute exacerbation - Currently not on medications Follow-up with PCP in the outpatient settings AV fistula placement - In anticipation of HD in the future BPH s/p TURP Gastric ulcer / Hiatal hernia - s/p EGD 01/09/2021: Small non-bleeding shallow esophageal ulcer, Barrets esophagus - c/w Protonix VS,Fishbone, I+O VS, Fishbone, I+O Laboratory Tests 02/04/21 06:02 Vital Signs Date Time Temp Pulse Resp B/P (MAP) Pulse Ox O2 Delivery O2 Flow Rate FiO2 02/04/21 06:00 97.5 70 16 92/46 (61) 98 Room Air I&O- Last 24 Hours up to 6 AM 02/04/21 06:00 Intake Total 76696 ml Output Total 08649 ml Balance -610 ml MARIANNE WILDE DO Feb 04, 2021 11:29
[2021-02-04 12:17] VITALS: BP 90/48
[2021-02-04 14:00] VITALS: BP 96/44
[2021-02-04 16:21] VITALS: BP 108/46
[2021-02-04] MEDS: POTASSIUM CHLORIDE 10 MEQ SR TABLET PO SCH (17:04)
--- NOTE | 2021-02-04 18:09 | IPN ---
PROGRESS NOTE DATE: 02/04/2021 SUBJECTIVE: Mr. Leigh is seen this morning on his bedside. He is lying in his bed without any acute distress. He denies any nausea, vomiting, dyspnea or chest pain. His peritoneal dialysis has been functioning reasonably well. He was admitted with near syncope and since then he has been relatively asymptomatic with some medication adjustment. He has chronic hypotension and has been on Midodrine and now Fludrocortisone has been added. PHYSICAL EXAMINATION: VITALS: Temperature 97.5 degrees Fahrenheit, heart rate 70 per minute, respiratory rate 16 per minute, blood pressure 92/46 mmHg, which is about his baseline and oxygen saturation 98% on room air. HEENT: Head atraumatic. Neck supple and JVD not abnormally elevated. HEART: Sounds are regular with a systolic murmur grade 2/6. LUNGS: Clear to auscultation bilaterally. ABDOMEN: Distended with peritoneal dialysis fluid and peritoneal dialysis catheter is intact. Bowel sounds are normal. EXTREMITIES: Without any cyanosis or clubbing. He has chronic stasis changes with hyperpigmentation in his legs and right leg has been chronically bigger in size than the left. NEUROLOGIC: He is at his baseline mentation without a focal deficit. LABORATORY DATA: Today's labs show WBC 5.0, hemoglobin 11.2, hematocrit 34.4, platelets 145,000. Sodium 135, potassium 3.6, chloride 97, CO2 27, BUN 66, creatinine 9.38, glucose 85 and calcium 8.4. PROBLEMS: 1. End-stage renal disease: Patient remains on peritoneal dialysis, which is functioning reasonably well and will continue with current prescription. BUN and creatinine are at about baseline. 2. Hyponatremia: He has borderline hyponatremia, for which no specific intervention is needed. We will continue to monitor his electrolytes closely. 3. Hypokalemia: This has improved and potassium level is now in the normal range, though still on the low side. He has been on chronic potassium supplement and we will continue with the same. I am going to add potassium chloride 10 mEq daily. 4. Hypotension: Patient has chronic hypotension idiopathic and is now about baseline. He remains on Midodrine 10 mg t.i.d. and Fludrocortisone 0.1 mg daily. 5. Anemia: His anemia is mild and stable and does not need any specific intervention at present.
[2021-02-04 22:00] VITALS: BP 109/58
[2021-02-04] MEDS: VITAMIN D 1,000 INTERNATIONAL UNITS TABLET PO SCH (22:06)
[2021-02-04] MEDS: ATORVASTATIN 10 MG TAB PO SCH (22:06)
[2021-02-04 23:28] LABS: AMORPHOUS SEDIMENT SMALL (NEGATIVE); APPEARANCE, URINE TURBID (CLEAR); BACTERIA, URINE AUTO 2+ (NEGATIVE); BILIRUBIN, URINE AUTO NEGATIVE (NEGATIVE); BLOOD, URINE BLOOD 2+ (NEGATIVE); COLOR, URINE YELLOW (YELLOW); GLUCOSE, URINE (UA) AUTO NEGATIVE (NEGATIVE); KETONE, URINE AUTO NEGATIVE (NEGATIVE); LEUKOCYTE ESTERASE, URINE AUTO 2+ (NEGATIVE); NITRITE, URINE AUTO NEGATIVE (NEGATIVE); PROTEIN, URINE AUTO 2+ mg/dL (NEGATIVE); RBC, URINE AUTO 39 /HPF (0-3); SPECIFIC GRAVITY URINE AUTO 1.015 (1.002-1.035); SQUAMOUS EPITHELIAL CELL UR AU 46 /HPF (0-6); TRANSITIONAL EPITHELIAL AUTO 5 /HPF; UROBILINOGEN, URINE AUTO 0.2 mg/dL (0.0-2.0); WBC, URINE AUTO TNTC /HPF (0-3)
[2021-02-05] VITALS (10 sets, daily range): BP systolic 72–97; BP diastolic 40–60
[2021-02-05] MEDS: MIDODRINE 5 MG TAB PO SCH ×3 (06:00→15:54)
[2021-02-05] MEDS: FLUDROCORTISONE ACETATE 0.1 MG TAB PO SCH (06:00)
[2021-02-05] MEDS: SLF 3 ML SYR IV SCH ×3 (06:01→20:19)
[2021-02-05 06:04] LABS: BASO % 0.6 % (0.0-1.0); EOS # 0.5 10^3/uL (0.0-0.5); EOS % 10.2 % (0.0-3.0); HEMATOCRIT 31.9 % (42.0-52.0); HEMOGLOBIN 10.4 g/dl (13.5-17.5); LYMPH # 0.6 10^3/uL (1.5-5.0); LYMPH % 12.6 % (24.0-44.0); MEAN CORPUSCULAR HEMOGLOBIN 32.4 pg (27.0-33.0); MEAN CORPUSCULAR HGB CONC 32.6 g/dl (32.0-36.5); MEAN CORPUSCULAR VOLUME 99.4 fl (80.0-96.0); MONO # 0.8 10^3/uL (0.0-0.8); NEUTROPHILS % 59.2 % (36.0-66.0); PLATELET COUNT, AUTOMATED 148 10^3/uL (150-450); RED BLOOD COUNT 3.21 10^6/uL (4.30-6.10)
[2021-02-05 06:42] LABS: CALCIUM LEVEL 7.5 MG/DL (8.8-10.2); CREATININE FOR GFR 9.74 MG/DL (0.70-1.30); GLOMERULAR FILTRATION RATE 5.4 (>35); MAGNESIUM LEVEL 1.7 MG/DL (1.8-2.4); POTASSIUM SERUM 3.8 MEQ/L (3.5-5.1)
[2021-02-05] MEDS ORDERED: LevoFLOXacin IV 500 MG in IV 1 EA IV ONE (08:00)
[2021-02-05] MEDS: ADVAIR HFA 45/21MCG INHALER INH SCH ×2 (08:00→20:15)
[2021-02-05] MEDS: DOCUSATE SODIUM 100MG CAPSULE PO SCH ×2 (09:03→20:18)
[2021-02-05] MEDS: PANTOPRAZOLE 40MG TAB (PROTONIX) PO SCH (09:03)
[2021-02-05] MEDS: FERROUS SULFATE 325MG TAB PO SCH (09:03)
[2021-02-05] MEDS: POTASSIUM CHLORIDE 10 MEQ SR TABLET PO SCH (09:03)
[2021-02-05] MEDS: NEPHRO-VIT TAB (NEPHROCAPS) PO SCH (09:03)
[2021-02-05] MEDS: HEPARIN SOD (PORCINE) 5000UNITS/ML 1ML VIAL/SYRINGE SC SCH (09:04)
[2021-02-05] MEDS: MAGNESIUM GLUCONATE 500 MG TAB PO SCH ×2 (09:16→20:18)
--- NOTE | 2021-02-05 09:52 | REP ---
INDICATION: r/o DVT Right leg COMPARISON: 05/11/2017 TECHNIQUE: Walden scale and color Doppler evaluation right lower extremity using linear high frequency transducer. FINDINGS: Ultrasound examination of the right lower extremity deep venous system demonstrates nonocclusive thrombus extending from the proximal femoral vein to the popliteal vein. IMPRESSION: Nonocclusive thrombus through the femoral vein/popliteal vein. <Electronically signed by Grzegorz Pastor > 02/05/21 0949
--- NOTE | 2021-02-05 11:45 | IPNPDOC ---
Text Note Date of Service The patient was seen on 02/05/21. NOTE Subjective: Patient was hypotensive in the morning with blood pressure 80/45. Patient denied fever, chills, chest pain, nausea, vomiting, diarrhea Objective: GENERAL APPEARANCE: NAD HEENT: no scleral icterus, no JVD, EOMI CARDIOVASCULAR: Irregularly irregular LUNGS: Diminished lung sounds bilaterally ABDOMEN: soft & not tender w palpitation MUSCULOSKELETAL: +2 pitting edema bilaterally, pulses intact, right distal leg seems more swollen INTEGUMENT: no generalized pallor NEUROLOGICAL: cranial nerve function from 2-12 intact intact, follows commands, speech not dysarthric Assessment and plan Patient is an 85-year-old male with past medical history of hypert ension, end-stage renal diseases on peritoneal dialysis, polycystic kidney diseases, atrial fibrillation, who presented to the emergency room with reported weakness. Patient had noted that he was in the bathroom on the toilet and when he was ready to leave. He had gone up, however, experienced weakness and lightheadedness that prompted him to sit back down. His significant other, helped him into another seated position. Patient recently started torsemide. Orthostatic hypotension/ generalized weakness/chronic hypotension Secondary to deconditioning superimposed with peritoneal dialysis and torsemide DC torsemide Continue fludrocortisone Continue midodrine PT/OT End-stage renal diseases Nephrology team follows him A fib Heart rate under control Anticoagulation was stopped before due to history of GI bleed I started full dose of anticoagulation today Continue to monitor any signs of bleed DLP c/w Atorvastatin Asthma Not in acute exacerbation - c/w Inhaled therapy as ordered Gout Not in acute exacerbation - Currently not on medications Follow-up with PCP in the outpatient settings AV fistula placement - In anticipation of HD in the future BPH s/p TURP Gastric ulcer / Hiatal hernia - s/p EGD 01/09/2021: Small non-bleeding shallow esophageal ulcer, Barrets esophagus - c/w Protonix Right leg DVT Doppler ultrasound showed Nonocclusive thrombus through the femoral vein/popliteal vein. We will start full dose anticoagulation UTI Urine culture shows pyuria Nephrology team recommended to start levofloxacin IV VS,Fishbone, I+O VS, Fishbone, I+O Laboratory Tests 02/05/21 05:47 Vital Signs Date Time Temp Pulse Resp B/P (MAP) Pulse Ox O2 Delivery O2 Flow Rate FiO2 02/05/21 11:22 92/42 (59) 02/05/21 05:23 77 02/05/21 05:15 97.6 20 96 02/04/21 14:00 Room Air I&O- Last 24 Hours up to 6 AM 02/05/21 06:00 Intake Total 9840 ml Output Total 9570 ml Balance 270 ml MARIANNE WILDE Feb 05, 2021 11:45
--- NOTE | 2021-02-05 12:39 | IPN ---
NEPHROLOGY PROGRESS NOTE DATE: 02/05/2021 SUBJECTIVE: Mr. Leigh is seen this morning at his bedside. Nursing staff called me in the nutrition services assistant to report a blood pressure of 72/40 mm of mercury. The patient's diuretics have already been stopped. I switched his peritoneal dialysis fluid to 1.5% and would give him a dose of Midodrine and Fludrocortisone earlier this morning. The patient is feeling better and denies any nausea, vomiting, dyspnea or chest pain. In fact his urinalysis has come back with too numerous to count WBCs and 2+ bacteria but urine culture is still pending. OBJECTIVE: PHYSICAL EXAMINATION: VITAL SIGNS: Temperature is 97.6 degrees Fahrenheit, heart rate 76 per minute and respiratory rate 20 per minute. Blood pressure, now most recent one is 84/48 mm of mercury. His baseline blood pressure has been in the 90's. HEENT: Head is atraumatic. NECK: Supple and without jugular venous distention or thyroid enlargement. HEART: Regular. LUNGS: Clear to auscultation. ABDOMEN: Soft and nontender and distended with peritoneal dialysis fluid. Bowel sounds are present. Peritoneal dialysis catheter is without any signs of infection. EXTREMITIES: Without any cyanosis or clubbing. There is no peripheral edema at present. NEUROLOGICAL: He is awake, alert and without any focal deficits. LABORATORY STUDIES: Today's labs show sodium 136, potassium 3.8, BUN 64, and creatinine 9.74. Glucose 82 and calcium 7.5. WBC count is 5.0, hemoglobin 10.4 and hematocrit 31.9. Urinalysis with too numerous to count WBCs and 2+ bacteria. PROBLEMS: 1. End-stage renal disease the patient remains on peritoneal dialysis which is working very well. We will continue with five exchanges per day. 2. Hypotension most likely he is slightly dehydrated. We will change his peritoneal dialysis solution to 1.5%. He remains on Midodrine 10 mg three times daily and Fludrocortisone 0.1 mg once daily. 3. Right thigh swelling - The patient had an ultrasound done this morning which did come back positive for a non-occlusive thrombus. He will need to be anticoagulated, though he somewhat high risk. 4. UTI - The patient has chronic retention with recurrent urinary tract infections. He does self catheterize himself twice a day at home. I will treat him with Levaquin 500 mg intravenously, one dose today and then 250 mg daily for at least one week. It is likely that the UTI may be contributing to his low blood pressure.
[2021-02-05] MEDS: APIXABAN 2.5 MG TAB (ELIQUIS) PO SCH (20:18)
[2021-02-05] MEDS: ATORVASTATIN 10 MG TAB PO SCH (20:18)
[2021-02-05] MEDS: VITAMIN D 1,000 INTERNATIONAL UNITS TABLET PO SCH (20:19)
[2021-02-06 06:00] VITALS: BP 98/50
[2021-02-06 06:10] LABS: BASO % 0.7 % (0.0-1.0); EOS # 0.5 10^3/uL (0.0-0.5); EOS % 10.6 % (0.0-3.0); HEMATOCRIT 32.6 % (42.0-52.0); HEMOGLOBIN 10.8 g/dl (13.5-17.5); LYMPH # 0.6 10^3/uL (1.5-5.0); LYMPH % 12.8 % (24.0-44.0); MEAN CORPUSCULAR HEMOGLOBIN 32.9 pg (27.0-33.0); MEAN CORPUSCULAR HGB CONC 33.1 g/dl (32.0-36.5); MEAN CORPUSCULAR VOLUME 99.4 fl (80.0-96.0); MONO # 0.7 10^3/uL (0.0-0.8); MONO % 14.6 % (2.0-8.0); NEUTROPHILS # 2.6 10^3/uL (1.5-8.5); NEUTROPHILS % 59.5 % (36.0-66.0); PLATELET COUNT, AUTOMATED 152 10^3/uL (150-450); RED BLOOD COUNT 3.28 10^6/uL (4.30-6.10); WHITE BLOOD COUNT 4.4 10^3/uL (4.0-10.0)
[2021-02-06] MEDS: SLF 3 ML SYR IV SCH ×3 (06:36→20:04)
[2021-02-06 06:38] LABS: CALCIUM LEVEL 8.1 MG/DL (8.8-10.2); CREATININE FOR GFR 9.44 MG/DL (0.70-1.30); GLOMERULAR FILTRATION RATE 5.6 (>35); MAGNESIUM LEVEL 1.7 MG/DL (1.8-2.4); POTASSIUM SERUM 4.1 MEQ/L (3.5-5.1)
[2021-02-06] MEDS: ADVAIR HFA 45/21MCG INHALER INH SCH ×2 (07:42→19:38)
[2021-02-06] MEDS: CALCITRIOL 0.25 MCG CAP (S0169) PO SCH (08:25)
[2021-02-06] MEDS: APIXABAN 2.5 MG TAB (ELIQUIS) PO SCH ×2 (08:25→20:04)
[2021-02-06] MEDS: POTASSIUM CHLORIDE 10 MEQ SR TABLET PO SCH (08:25)
[2021-02-06] MEDS: NEPHRO-VIT TAB (NEPHROCAPS) PO SCH (08:25)
[2021-02-06] MEDS: FERROUS SULFATE 325MG TAB PO SCH (08:25)
[2021-02-06] MEDS: MIDODRINE 5 MG TAB PO SCH ×3 (08:26→16:36)
[2021-02-06] MEDS: MAGNESIUM GLUCONATE 500 MG TAB PO SCH ×2 (08:26→20:04)
[2021-02-06] MEDS: FLUDROCORTISONE ACETATE 0.1 MG TAB PO SCH (08:26)
[2021-02-06] MEDS: DOCUSATE SODIUM 100MG CAPSULE PO SCH ×2 (08:26→20:03)
[2021-02-06] MEDS: PANTOPRAZOLE 40MG TAB (PROTONIX) PO SCH (08:26)
[2021-02-06] MEDS: LevoFLOXacin IV 250 MG in IV 1 EA IV SCH (10:15)
--- NOTE | 2021-02-06 12:49 | IPN ---
PROGRESS NOTE DATE: 02/06/2021 SUBJECTIVE: Mr. Leigh is seen this morning on his bedside. He is feeling better today and he reports that he did get up with the help of the physical therapist. The hospitalist called me earlier and they want to transfer the patient to acute rehab. The patient does have a left forearm AV fistula, and we plan to switch him to hemodialysis temporarily, as long as he will be on acute rehab floor. In the meantime, his peritoneal dialysis has been functioning well. He was started on intravenous levofloxacin yesterday due to UTI. The patient has a known history of atonic bladder and requires intermittent self-catheterization. OBJECTIVE: VITAL SIGNS: Temperature 97.7 degrees Fahrenheit, heart rate 70 per minute, and respiratory rate 18 per minute. Blood pressure 98/50 mmHg, which is about his baseline blood pressure. His oxygen saturation is 100% on room air. HEAD: Atraumatic. NECK: Supple and without JVD or thyroid enlargement. HEART: Sounds are regular with systolic murmur grade 2/6. LUNGS: Clear to auscultation. ABDOMEN: Soft, nontender, and distended with peritoneal fluid. Peritoneal dialysis catheter is intact. EXTREMITIES: Have no cyanosis or clubbing. He has some chronic swelling on his right leg. Yesterday, he had Doppler ultrasound, which did show some nonocclusive thrombus in his right femoral vein. NEUROLOGIC: The patient is awake and at his baseline mentation without any focal deficit. LABORATORY DATA: Today's labs show WBC count 4.4, hemoglobin 10.8, and hematocrit 32.6. Sodium 133, potassium 4.1, chloride 95, CO2 of 27, BUN 66, and creatinine 9.44. Calcium is 8.1 and magnesium 1.7. PROBLEMS: 1. End-stage renal disease. The patient remains on peritoneal dialysis. We will drain his peritoneal fluid and cap off the catheter before he gets transferred to acute rehab floor. We will switch him to hemodialysis temporarily, as long as he is under acute rehab service. 2. Urinary tract infection (UTI). Patient was given one dose of levofloxacin 500 mg yesterday and I am going to start with 250 mg every 24 hours. 3. Hypotension. Patient has chronic hypotension, which got worse due to dehydration and probably from UTI. His volume status has improved. His diuretic has already been stopped and we are treating his UTI with levofloxacin. In addition, he remains on midodrine 10 mg t.i.d. and fludrocortisone 0.1 mg daily. 4. Anemia. Patient has stable anemia at present and does not need any urgent intervention. 5. Deep vein thrombosis (DVT). He has a chronic DVT history and was on Eliquis in the past. He has also developed gastrointestinal (GI) bleed with gastric and esophageal ulcers. We will have to use caution and monitor him closely while Eliquis has been resumed by the hospitalist service. 6. Urinary retention. The patient has chronic atonic bladder and has been doing self-catheterization twice a day at home. I will order for once a day self-catheterization here in the hospital. 7. Disposition: From a renal standpoint, the patient can be transferred to acute rehab floor today. His peritoneal dialysis will be terminated and drained just prior to transfer.
[2021-02-06 14:00] VITALS: BP 98/48
--- NOTE | 2021-02-06 19:09 | IPNPDOC ---
Text Note Date of Service The patient was seen on 02/06/21. NOTE Subjective: Patient stated that he feels better today. He has a good appetite. He denied fever, chills, nausea, vomiting. Objective: GENERAL APPEARANCE: NAD HEENT: no scleral icterus, no JVD, EOMI CARDIOVASCULAR: Irregularly irregular LUNGS: Diminished lung sounds bilaterally ABDOMEN: soft & not tender w palpitation MUSCULOSKELETAL: +2 pitting edema bilaterally, pulses intact, right distal leg seems more swollen INTEGUMENT: no generalized pallor NEUROLOGICAL: cranial nerve function from 2-12 intact intact, follows commands, speech not dysarthric Assessment and plan Patient is an 85-year-old male with past medical history of hypertension, end-stage renal diseases on peritoneal dialysis, polycystic kidney diseases, atrial fibrillation, who presented to the emergency room with reported weakness. Patient had noted that he was in the bathroom on the toilet and when he was ready to leave. He had gone up, however, experienced weakness and lighth eadedness that prompted him to sit back down. His significant other, helped him into another seated position. Patient recently started torsemide. Orthostatic hypotension/ generalized weakness/chronic hypotension Secondary to deconditioning superimposed with peritoneal dialysis and torsemide DC torsemide Continue fludrocortisone Continue midodrine PT/OT End-stage renal diseases Nephrology team follows him Patient will be switched to hemodialysis for ARU placement A fib Heart rate under control Continue full dose of anticoagulation. Anticoagulation was stopped before due to history of GI bleed DLP c/w Atorvastatin Asthma Not in acute exacerbation - c/w Inhaled therapy as ordered Gout Not in acute exacerbation - Currently not on medications Follow-up with PCP in the outpatient settings AV fistula placement - In anticipation of HD in the future BPH s/p TURP Gastric ulcer / Hiatal hernia - s/p EGD 01/09/2021: Small non-bleeding shallow esophageal ulcer, Barrets esophagus - c/w Protonix Right leg DVT Doppler ultrasound showed Nonocclusive thrombus through the femoral vein/popliteal vein. Continue Eliquis with adjusted dose UTI Secondary to self-catheterization UA showed pyuria Continue levofloxacin Anemia secondary to end-stage renal diseases Hemoglobin stable VS,Fishbone, I+O VS, Fishbone, I+O Laboratory Tests 02/06/21 05:28 Vital Signs Date Time Temp Pulse Resp B/P (MAP) Pulse Ox O2 Delivery O2 Flow Rate FiO2 02/06/21 14:00 98.0 61 16 98/48 (65) 100 Room Air I&O- Last 24 Hours up to 6 AM 02/06/21 06:00 Intake Total 73508 ml Output Total 61832 ml Balance 1570 ml MARIANNE WILDE DO Feb 06, 2021 19:09
[2021-02-06] MEDS: VITAMIN D 1,000 INTERNATIONAL UNITS TABLET PO SCH (20:03)
[2021-02-06] MEDS: ATORVASTATIN 10 MG TAB PO SCH (20:04)
[2021-02-06 22:00] VITALS: BP 98/48
[2021-02-07 05:54] LABS: BASO % 0.7 % (0.0-1.0); EOS # 0.5 10^3/uL (0.0-0.5); HEMATOCRIT 31.1 % (42.0-52.0); HEMOGLOBIN 10.2 g/dl (13.5-17.5); LYMPH # 0.6 10^3/uL (1.5-5.0); LYMPH % 15.3 % (24.0-44.0); MEAN CORPUSCULAR HEMOGLOBIN 32.3 pg (27.0-33.0); MEAN CORPUSCULAR HGB CONC 32.8 g/dl (32.0-36.5); MEAN CORPUSCULAR VOLUME 98.4 fl (80.0-96.0); MONO # 0.7 10^3/uL (0.0-0.8); MONO % 16.3 % (2.0-8.0); NEUTROPHILS # 2.3 10^3/uL (1.5-8.5); PLATELET COUNT, AUTOMATED 156 10^3/uL (150-450); RED BLOOD COUNT 3.16 10^6/uL (4.30-6.10); WHITE BLOOD COUNT 4.2 10^3/uL (4.0-10.0)
[2021-02-07 06:00] VITALS: BP 100/50
[2021-02-07 06:25] LABS: CALCIUM LEVEL 7.8 MG/DL (8.8-10.2); CREATININE FOR GFR 9.29 MG/DL (0.70-1.30); GLOMERULAR FILTRATION RATE 5.7 (>35); MAGNESIUM LEVEL 1.6 MG/DL (1.8-2.4); POTASSIUM SERUM 4.3 MEQ/L (3.5-5.1)
[2021-02-07] MEDS: SLF 3 ML SYR IV SCH ×3 (06:36→20:03)
[2021-02-07] MEDS: ADVAIR HFA 45/21MCG INHALER INH SCH ×2 (07:37→19:41)
[2021-02-07] MEDS ORDERED: MAG SULF 1GM/100ML (MAG RUN) 1 GM in IV 1 EA IV ONE (08:00)
[2021-02-07] MEDS: MAGNESIUM GLUCONATE 500 MG TAB PO SCH ×2 (09:46→20:02)
[2021-02-07] MEDS: DOCUSATE SODIUM 100MG CAPSULE PO SCH ×2 (09:48→20:02)
[2021-02-07] MEDS: MIDODRINE 5 MG TAB PO SCH ×3 (09:48→15:49)
[2021-02-07] MEDS: FLUDROCORTISONE ACETATE 0.1 MG TAB PO SCH (09:48)
[2021-02-07] MEDS: PANTOPRAZOLE 40MG TAB (PROTONIX) PO SCH (09:48)
[2021-02-07] MEDS: APIXABAN 2.5 MG TAB (ELIQUIS) PO SCH ×2 (09:48→20:02)
[2021-02-07] MEDS: NEPHRO-VIT TAB (NEPHROCAPS) PO SCH (09:48)
[2021-02-07] MEDS: FERROUS SULFATE 325MG TAB PO SCH (09:48)
[2021-02-07] MEDS: POTASSIUM CHLORIDE 10 MEQ SR TABLET PO SCH (09:48)
[2021-02-07] MEDS ORDERED: PILL CUTTER 1 EACH XX PRN (09:50)
[2021-02-07] MEDS: LevoFLOXacin IV 250 MG in IV 1 EA IV SCH (11:09)
[2021-02-07 11:30] VITALS: BP_SYST 102; BP_SYST 83; BP_SYST 84; BP_DIAS 50; BP_DIAS 53
[2021-02-07] MEDS ORDERED: ELIQ2.5T PO (13:20)
[2021-02-07] MEDS ORDERED: LEVO250T12 PO (13:22)
--- NOTE | 2021-02-07 13:35 | IPN ---
NEPHROLOGY PROGRESS NOTE DATE: 02/07/2021 SUBJECTIVE: Mr. Kuhn is seen this morning at his bedside. He was sitting in the chair earlier and now he came back to the bed. He feels much better and stronger. He has not walked outside in the hallway, however he has been able to walk to the bathroom with the help of a walker. He denies any nausea, vomiting, dyspnea or chest pain. He is currently being treated for a urinary tract infection and also receiving his peritoneal dialysis. The patient is eating well and denies any complaints at present. OBJECTIVE: PHYSICAL EXAMINATION: VITAL SIGNS: Temperature 97.8, degrees Fahrenheit, heart rate 76 per minute, respiratory rate 18 per minute, blood pressure 102/53 mm of mercury and oxygen saturation 95% on room air. HEENT: His head is atraumatic. NECK: Supple and without JVD or thyroid enlargement. HEART: Regular and systolic murmur grade 2/6 is unchanged. LUNGS: Clear to auscultation. ABDOMEN: Distended with peritoneal dialysis fluid and peritoneal dialysis catheter is intact. Bowel sounds are normal. EXTREMITIES: Without any cyanosis or clubbing. Left forearm AV fistula is patent but very weak blood flow. He has mild edema on the right ankle area. NEUROLOGICAL: He is awake, alert and oriented x3. LABORATORY STUDIES: Today's labs show a white blood cell count of 4.2, hemoglobin 10.2 and hematocrit 31. Sodium 133, potassium 4.3, BUN 68 and creatinine 9.29, calcium 7.8 and magnesium 1.6. PROBLEMS: 1. End-stage renal disease - The patient remains on peritoneal dialysis which is working very well and will continue with current prescription. 2. Near syncope most likely this is multifactorial as the patient was dehydrated and also had a urinary tract infection. His dehydration has improved and we are currently using only 1.5% peritoneal dialysis solution. His diuretic has already been stopped. His urinary tract infection is also being treated with intravenous Levofloxacin. 3. Urinary tract infection - The patient remains on Levofloxacin 250 mg daily and clinically he is doing much better. We are also continuing to intermittently catheterize to empty his bladder once a day. 4. Hypotension he has chronic hypotension and has been on Midodrine and Fludrocortisone which will be continued. His blood pressure is at baseline now. 5. Urinary retention - The patient has a chronic atonic bladder with urinary retention and once a day intermittent catheterization is appropriate. 6. Hypomagnesemia his magnesium level is 1.6 today and he is already receiving a dose of intravenous magnesium sulfate one gram. 7. General weakness and deconditioning - The patient is waiting for transfer to the acute rehab floor pending clearance from his insurance.
[2021-02-07 14:00] VITALS: BP 93/43
[2021-02-07] MEDS: VITAMIN D 1,000 INTERNATIONAL UNITS TABLET PO SCH (20:02)
[2021-02-07] MEDS: ATORVASTATIN 10 MG TAB PO SCH (20:02)
[2021-02-08] MEDS: SLF 3 ML SYR IV SCH ×3 (05:17→20:16)
[2021-02-08 06:00] VITALS: BP 84/40
[2021-02-08 06:20] LABS: BASO % 0.6 % (0.0-1.0); EOS # 0.5 10^3/uL (0.0-0.5); HEMATOCRIT 31.2 % (42.0-52.0); HEMOGLOBIN 10.2 g/dl (13.5-17.5); LYMPH # 0.6 10^3/uL (1.5-5.0); LYMPH % 12.3 % (24.0-44.0); MEAN CORPUSCULAR HEMOGLOBIN 32.5 pg (27.0-33.0); MEAN CORPUSCULAR HGB CONC 32.7 g/dl (32.0-36.5); MEAN CORPUSCULAR VOLUME 99.4 fl (80.0-96.0); MONO # 0.8 10^3/uL (0.0-0.8); MONO % 17.1 % (2.0-8.0); NEUTROPHILS # 2.7 10^3/uL (1.5-8.5); NEUTROPHILS % 58.1 % (36.0-66.0); PLATELET COUNT, AUTOMATED 167 10^3/uL (150-450); RED BLOOD COUNT 3.14 10^6/uL (4.30-6.10); WHITE BLOOD COUNT 4.6 10^3/uL (4.0-10.0)
[2021-02-08 06:52] LABS: CALCIUM LEVEL 8.2 MG/DL (8.8-10.2); CREATININE FOR GFR 9.19 MG/DL (0.70-1.30); GLOMERULAR FILTRATION RATE 5.8 (>35); POTASSIUM SERUM 4.4 MEQ/L (3.5-5.1)
[2021-02-08] MEDS: ADVAIR HFA 45/21MCG INHALER INH SCH ×2 (07:24→20:01)
[2021-02-08] MEDS: MAGNESIUM GLUCONATE 500 MG TAB PO SCH ×2 (08:48→20:14)
[2021-02-08] MEDS: NEPHRO-VIT TAB (NEPHROCAPS) PO SCH (08:48)
[2021-02-08] MEDS: CALCITRIOL 0.25 MCG CAP (S0169) PO SCH (08:49)
[2021-02-08] MEDS: MIDODRINE 5 MG TAB PO SCH ×3 (08:49→16:36)
[2021-02-08] MEDS: APIXABAN 2.5 MG TAB (ELIQUIS) PO SCH ×2 (08:49→20:15)
[2021-02-08] MEDS: FLUDROCORTISONE ACETATE 0.1 MG TAB PO SCH (08:49)
[2021-02-08] MEDS: FERROUS SULFATE 325MG TAB PO SCH (08:49)
[2021-02-08] MEDS: PANTOPRAZOLE 40MG TAB (PROTONIX) PO SCH (08:49)
[2021-02-08] MEDS: DOCUSATE SODIUM 100MG CAPSULE PO SCH ×2 (08:49→20:15)
[2021-02-08] MEDS: POTASSIUM CHLORIDE 10 MEQ SR TABLET PO SCH (08:50)
[2021-02-08] MEDS: LevoFLOXacin IV 250 MG in IV 1 EA IV SCH (10:15)
--- NOTE | 2021-02-08 16:42 | IPN ---
NEPHROLOGY PROGRESS NOTE DATE: 02/08/2021 SUBJECTIVE: Mr. Leigh is seen this morning on his bedside. He is sitting in the recliner chair at the time of my visit. He denies any dyspnea, chest pain, nausea or vomiting. His peritoneal dialysis is in progress. PHYSICAL EXAMINATION: Temperature 97.8 degrees Fahrenheit, heart rate 68 per minute and respiratory rate 18 per minute. Blood pressure 93/43 mmHg and oxygen saturation 94% on room air. Head: Atraumatic. Neck: Supple and without JVD or thyroid enlargement. Heart: Sounds are regular. Lungs: Clear to auscultation. Abdomen: Soft and nontender and distended with peritoneal dialysis fluid. Peritoneal catheter is intact. Extremities: Without any cyanosis or clubbing. There is minimal chronic edema on his right ankle area. Neurologically: He is awake, alert and oriented times 3. LABORATORY DATA: Today's labs show WBC count 4.6, hemoglobin 10.2 and hematocrit 31.2. Sodium 131, potassium 4.4, BUN 58, creatinine 9.19, glucose 83 and calcium 8.2. PROBLEMS/PLAN: 1. End-stage renal disease: Patient remains on peritoneal dialysis which is working well and we will continue with 5 exchanges per day. 2. Hypotension and presyncope: He was admitted with presyncope and was quite hypotensive. Since then his diuretic has been stopped. He is on midodrine 10 mg three times a day and fludrocortisone 0.1 mg daily which will be continued. His blood pressure is now at about baseline and he is relatively asymptomatic. 3. Hyponatremia: Sodium level is gradually going down probably related to no fluid restriction at this point. We are also using only 1.5% dialysis solution and not removing fluid too aggressively. We will continue to monitor his electrolytes closely. 4. Anemia: At this point his anemia is stable and does not need any urgent intervention. 5. Generalized weakness and deconditioning: I would recommend continued physical therapy and possible home physical therapy. There was a question for acute rehab; however, that is still undecided. 6. UTI: Patient is currently on intravenous levofloxacin 250 mg daily which will be continued. He also has urinary retention and gets daily straight cath.
[2021-02-08] MEDS: VITAMIN D 1,000 INTERNATIONAL UNITS TABLET PO SCH (20:14)
[2021-02-08] MEDS: ATORVASTATIN 10 MG TAB PO SCH (20:15)
[2021-02-08 21:50] VITALS: BP 88/42
[2021-02-09 06:10] VITALS: BP 90/45
[2021-02-09] MEDS: LevoFLOXacin 250 MG TABLET PO SCH (06:15)
[2021-02-09] MEDS: SLF 3 ML SYR IV SCH ×3 (06:16→20:15)
[2021-02-09 06:52] VITALS: BP 88/46
[2021-02-09] MEDS: ADVAIR HFA 45/21MCG INHALER INH SCH ×2 (07:33→19:59)
[2021-02-09 08:25] VITALS: BP 94/52
[2021-02-09 08:58] LABS: HEMATOCRIT 32.2 % (42.0-52.0); HEMOGLOBIN 10.9 g/dl (13.5-17.5); MEAN CORPUSCULAR HEMOGLOBIN 33.2 pg (27.0-33.0); MEAN CORPUSCULAR HGB CONC 33.9 g/dl (32.0-36.5); MEAN CORPUSCULAR VOLUME 98.2 fl (80.0-96.0); PLATELET COUNT, AUTOMATED 170 10^3/uL (150-450); RED BLOOD COUNT 3.28 10^6/uL (4.30-6.10); WHITE BLOOD COUNT 5.7 10^3/uL (4.0-10.0)
[2021-02-09 09:05] LABS: ABG BASE EXCESS -1.5 (-2.0-2.0); ABG HCO3 22.7 MEQ/L (22.0-26.0); ABG O2 SATURATION 97.4 % (95.0-99.0); ABG PARTIAL PRESSURE CO2 35.9 mmHg (35.0-45.0); ABG PARTIAL PRESSURE O2 95.4 mmHg (75.0-100.0); ABG STANDARD HCO3 23.3 MEQ/L (22.0-26.0); ABG TOTAL CO2 23.8 MEQ/L (23.0-31.0); ABG pH (ARTERIAL) 7.418 UNITS (7.350-7.450)
--- NOTE | 2021-02-09 09:08 | ECGEPIP ---
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
[2021-02-09 09:28] LABS: ALBUMIN 2.6 GM/DL (3.2-5.2); BILIRUBIN,TOTAL 0.4 MG/DL (0.2-1.0); CALCIUM LEVEL 8.2 MG/DL (8.8-10.2); CK-MB VALUE MASS 2.4 NG/ML (<3.6); CREATININE FOR GFR 8.72 MG/DL (0.70-1.30); GLOMERULAR FILTRATION RATE 6.2 (>35); MB/CK RELATIVE INDEX 3.43 (< OR =4); POTASSIUM SERUM 3.9 MEQ/L (3.5-5.1); TOTAL PROTEIN 5.4 GM/DL (6.4-8.2); TROPONIN I 0.06 NG/ML (< 0.10)
[2021-02-09] MEDS: MAGNESIUM GLUCONATE 500 MG TAB PO SCH ×2 (10:08→20:14)
[2021-02-09] MEDS: PANTOPRAZOLE 40MG TAB (PROTONIX) PO SCH (10:09)
[2021-02-09] MEDS: NEPHRO-VIT TAB (NEPHROCAPS) PO SCH (10:09)
[2021-02-09] MEDS: APIXABAN 2.5 MG TAB (ELIQUIS) PO SCH ×2 (10:09→20:14)
[2021-02-09] MEDS: DOCUSATE SODIUM 100MG CAPSULE PO SCH ×2 (10:10→20:14)
[2021-02-09] MEDS: FERROUS SULFATE 325MG TAB PO SCH (10:11)
[2021-02-09] MEDS: MIDODRINE 5 MG TAB PO SCH ×3 (10:11→17:07)
[2021-02-09] MEDS: POTASSIUM CHLORIDE 10 MEQ SR TABLET PO SCH (10:12)
[2021-02-09] MEDS: FLUDROCORTISONE ACETATE 0.1 MG TAB PO SCH (10:16)
[2021-02-09] MEDS ORDERED: NS 500 ML IV ONE (10:55)
[2021-02-09] MEDS: SODIUM CHLORIDE 1 GM TAB PO SCH ×3 (13:11→20:14)
[2021-02-09 13:30] VITALS: BP 96/47
--- NOTE | 2021-02-09 15:23 | IPNPDOC ---
Text Note Date of Service The patient was seen on 02/09/21. NOTE Subjective: Patient was sitting on the recliner chair in the morning when he de veloped syncope. Rapid response team was called, patient was unresponsive around 1 minute. After that patient regained consciousness, no any neurological deficits has been observed. Blood pressure was 96/60. Objective: GENERAL APPEARANCE: NAD HEENT: no scleral icterus, no JVD, EOMI CARDIOVASCULAR: Irregularly irregular LUNGS: Diminished lung sounds bilaterally ABDOMEN: soft & not tender w palpitation MUSCULOSKELETAL: +2 pitting edema bilaterally, pulses intact, right distal leg seems more swollen INTEGUMENT: no generalized pallor NEUROLOGICAL: cranial nerve function from 2-12 intact intact, follows commands, speech not dysarthric Assessment and plan Patient is an 85-year-old male with past medical history of hypertension, end-stage renal diseases on peritoneal dialysis, polycystic kidney diseases, atrial fibrillation, who presented to the emergency room with reported weakness. Patient had noted that he was in the bathroom on the toilet and when he was ready to leave. He had gone up, however, experienced weakness and lightheadedness that prompted him to sit back down. His significant other, helped him into another seated position. Patient recently started torsemide. Syncope Patient developed syncope in the morning with episode of unresponsiveness. Most likely etiology is vasovagal. EKG did not show any acute ischemic changes. Patient was not tachycardic. Low probability of PE according to Marimar's score Blood gas unremarkable Blood glucose level 104 Blood pressure was on his baseline Continue to monitor Orthostatic hypotension/ generalized weakness/chronic hypotension Secondary to deconditioning superimposed with peritoneal dialysis and torsemide DC torsemide Continue fludrocortisone Continue midodrine PT/OT End-stage renal diseases Nephrology team follows him A fib Heart rate under control Continue full dose of anticoagulation. Anticoagulation was stopped before due to history of GI bleed DLP c/w Atorvastatin Asthma Not in acute exacerbation - c/w Inhaled therapy as ordered Gout Not in acute exacerbation - Currently not on medications Follow-up with PCP in the outpatient settings AV fistula placement - In anticipation of HD in the future BPH s/p TURP Gastric ulcer / Hiatal hernia - s/p EGD 01/09/2021: Small non-bleeding shallow esophageal ulcer, Barrets esophagus - c/w Protonix Right leg DVT Doppler ultrasound showed Nonocclusive thrombus through the femoral vein/popliteal vein. 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
[2021-02-09 19:54] VITALS: BP 85/40
[2021-02-09] MEDS: ATORVASTATIN 10 MG TAB PO SCH (20:14)
[2021-02-09] MEDS: VITAMIN D 1,000 INTERNATIONAL UNITS TABLET PO SCH (20:14)
[2021-02-09 22:00] VITALS: BP 92/52
[2021-02-10 00:42] VITALS: BP 82/40
[2021-02-10] MEDS ORDERED: NS 1,000 ML IV SCH (01:05)
[2021-02-10 04:42] VITALS: BP_SYST 96
--- NOTE | 2021-02-10 05:32 | ECGEPIP ---
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 Order Number: [id number] Reading MD: Megan Hope Measurements Intervals [place] Rate: 64 P: ID: QRS: -51 QRSD: 124 T: 74 QT: 448 QTc: 462 Interpretive Statements Atrial fibrillation with premature ventricular or aberrantly conducted complexes Left anterior fascicular block Septal infarct , age undetermined COPD PATTERN ectopy new QTC SHORTER C/W 02/09/21 Electronically Signed on 02-10-2021 5:32:08 EST by Megan Hope
[2021-02-10 06:00] VITALS: BP 90/50
[2021-02-10] MEDS: SLF 3 ML SYR IV SCH ×3 (06:34→22:06)
[2021-02-10] MEDS: LevoFLOXacin 250 MG TABLET PO SCH (06:34)
[2021-02-10] MEDS: ADVAIR HFA 45/21MCG INHALER INH SCH ×2 (07:25→20:53)
--- NOTE | 2021-02-10 08:11 | IPN ---
PROGRESS NOTE DATE: 02/09/2021 SUBJECTIVE: Mr. Leigh is seen this morning on his bedside. The nursing staff reports that earlier he was sitting in the chair and became unresponsive which was witnessed. He was quickly returned to the bed and improved over a very short period of time. He did not require any chest compressions. He was given a fluid bolus of normal saline 500 ml. His blood pressure remains low in the 80s to 90s mmHg systolic. At the time of my visit, he is laying in the bed with the head elevated and feels back to his normal self. He denies any headache, dizzy feeling at present, nausea or vomiting. He has no fever or chills. His peritoneal dialysis has been functioning very well. OBJECTIVE: VITAL SIGNS: Temperature is 96.5 degrees Fahrenheit, heart rate is 60 per minute and respiratory rate is 20 per minute. Blood pressure is around 88/46 mmHg and oxygen saturation is 96%. HEENT: Head is atraumatic. NECK: Supple. JVD is not abnormally elevated. HEART: Heart sounds are regular with a systolic murmur Grade 2/6. LUNGS: Lungs are clear to auscultation bilaterally. ABDOMEN: Soft, distended with peritoneal dialysis fluid and peritoneal catheter is intact. Bowel sounds are normal. EXTREMITIES: Without any cyanosis or clubbing. His right lower leg is wrapped in an Bobby bandage and the foot is swollen. NEUROLOGIC: He is awake and at his baseline mentation without any focal deficit. LABORATORY DATA: Today's labs showed a WBC of 5.7, hemoglobin is 10.9 and hematocrit is 32.2. Platelets are 170,000. Sodium is 129, potassium is 3.9, chloride is 92, CO2 is 24, BUN 61 and creatinine 8.72. Calcium is 8.2. Lactic acid level is 2.5, total protein is 5.4 and albumin is 2.6. PROBLEMS: 1. Recurrent syncope. Patient had syncope even here in the hospital today. We have optimized his medications with the addition of Midodrine 10 mg t.i.d., Fludrocortisone 0.1 mg daily and we are also using only 1.5% peritoneal dialysis solution for this dialysis. I am going to give him another bolus of Normal Saline 500 ml and then I am going to start him on oral sodium chloride tablets 1 gram t.i.d. to see if that would prevent recurrent drop in his blood pressure. 2. Hypernatremia. His hypernatremia is also gradually worsening and oral sodium chloride tablet is likely to help. 3. Endstage renal disease. Patient remains on peritoneal dialysis with five exchanges per day. We are using only 1.5% solution due to low blood pressure and recurrent syncope. 4. Protein calorie malnutrition. His protein level is low and albumin is only 2.6 which is probably contributing to his symptoms. We will add high protein intake to his nutrition. 5. Anemia, his anemia is stable and does not need any urgent intervention. 6. DVT of right femoral vein. Patient is currently on Eliquis 2.5 mg b.i.d.
[2021-02-10 08:17] LABS: BASO % 0.6 % (0.0-1.0); EOS # 0.4 10^3/uL (0.0-0.5); EOS % 7.1 % (0.0-3.0); HEMATOCRIT 30.2 % (42.0-52.0); HEMOGLOBIN 10.1 g/dl (13.5-17.5); LYMPH # 0.5 10^3/uL (1.5-5.0); LYMPH % 10.2 % (24.0-44.0); MEAN CORPUSCULAR HEMOGLOBIN 32.7 pg (27.0-33.0); MEAN CORPUSCULAR HGB CONC 33.4 g/dl (32.0-36.5); MEAN CORPUSCULAR VOLUME 97.7 fl (80.0-96.0); MONO # 0.9 10^3/uL (0.0-0.8); MONO % 16.9 % (2.0-8.0); NEUTROPHILS # 3.2 10^3/uL (1.5-8.5); NEUTROPHILS % 62.8 % (36.0-66.0); PLATELET COUNT, AUTOMATED 172 10^3/uL (150-450); RED BLOOD COUNT 3.09 10^6/uL (4.30-6.10); WHITE BLOOD COUNT 5.1 10^3/uL (4.0-10.0)
[2021-02-10 08:41] LABS: ALBUMIN 2.5 GM/DL (3.2-5.2); BILIRUBIN,TOTAL 0.4 MG/DL (0.2-1.0); CALCIUM LEVEL 7.8 MG/DL (8.8-10.2); CREATININE FOR GFR 8.53 MG/DL (0.70-1.30); GLOMERULAR FILTRATION RATE 6.3 (>35); MAGNESIUM LEVEL 1.8 MG/DL (1.8-2.4); POTASSIUM SERUM 3.8 MEQ/L (3.5-5.1); TOTAL PROTEIN 5.1 GM/DL (6.4-8.2)
[2021-02-10] MEDS: DOCUSATE SODIUM 100MG CAPSULE PO SCH ×2 (09:12→22:06)
[2021-02-10] MEDS: FLUDROCORTISONE ACETATE 0.1 MG TAB PO SCH (09:12)
[2021-02-10] MEDS: NEPHRO-VIT TAB (NEPHROCAPS) PO SCH (09:12)
[2021-02-10] MEDS: SODIUM CHLORIDE 1 GM TAB PO SCH ×3 (09:12→22:05)
[2021-02-10] MEDS: MAGNESIUM GLUCONATE 500 MG TAB PO SCH ×2 (09:13→22:05)
[2021-02-10] MEDS: CALCITRIOL 0.25 MCG CAP (S0169) PO SCH (09:13)
[2021-02-10] MEDS: PANTOPRAZOLE 40MG TAB (PROTONIX) PO SCH (09:13)
[2021-02-10] MEDS: MIDODRINE 5 MG TAB PO SCH ×3 (09:13→16:50)
[2021-02-10] MEDS: APIXABAN 2.5 MG TAB (ELIQUIS) PO SCH ×2 (09:13→22:06)
[2021-02-10] MEDS: FERROUS SULFATE 325MG TAB PO SCH (09:13)
[2021-02-10] MEDS: POTASSIUM CHLORIDE 10 MEQ SR TABLET PO SCH (09:13)
--- NOTE | 2021-02-10 12:13 | IPNPDOC ---
Text Note Date of Service The patient was seen on 02/10/21. NOTE Subjective: Patient developed another episode of profound hypotension overnight with blood pressure 70/40. Patient received bolus of fluid. In the morning patient complains of generalized weakness. No fever, no chills Objective: GENERAL APPEARANCE: NAD HEENT: no scleral icterus, no JVD, EOMI CARDIOVASCULAR: Irregularly irregular LUNGS: Diminished lung sounds bilaterally ABDOMEN: soft & not tender w palpitation MUSCULOSKELETAL: +2 pitting edema bilaterally, pulses intact, right distal leg seems more swollen INTEGUMENT: no generalized pallor NEUROLOGICAL: cranial nerve function from 2-12 intact intact, follows commands, speech not dysarthric Assessment and plan Patient is an 85-year-old male with past medical history of hypertension, end-stage renal diseases on peritoneal dialysis, polycystic kidney diseases, atrial fibrillation, who presented to the emergency room with reported weakness. Patient had noted that he was in the bathroom on the toilet and when he was ready to leave. He had gone up, however, experienced weakness and lightheadedness that prompted him to sit back down. His significant other, helped him into another seated position. Patient recently started torsemide. Recurrent Syncope Most likely etiology is vasovagal. Nephrology team recommended to add salt tab tid Orthostatic hypotension/ generalized weakness/chronic hypotension Secondary to deconditioning superimposed with peritoneal dialysis and torsemide DC torsemide Continue fludrocortisone Continue midodrine PT/OT End-stage renal diseases Nephrology team follows him A fib Heart rate under control Continue full dose of anticoagulation. Anticoagulation was stopped before due to history of GI bleed DLP c/w Atorvastatin Asthma Not in acute exacerbation - c/w Inhaled therapy as ordered Gout Not in acute exacerbation - Currently not on medications Follow-up with PCP in the outpatient settings AV fistula placement - In anticipation of HD in the future BPH s/p TURP Gastric ulcer / Hiatal hernia - s/p EGD 01/09/2021: Small non-bleeding shallow esophageal ulcer, Barrets esophagus - c/w Protonix Right leg DVT Doppler ultrasound showed Nonocclusive thrombus through the femoral vein/popliteal vein. 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 Mobility limitation cannot be sufficiently resolved by the use of any alternative DME device due to the need for legs to be elevated VS,Fishbone, I+O VS, Fishbone, I+O Laboratory Tests 02/10/21 07:51 Vital Signs Date Time Temp Pulse Resp B/P (MAP) Pulse Ox O2 Delivery O2 Flow Rate FiO2 02/10/21 06:00 97.0 61 18 90/50 (63) 94 02/09/21 13:30 Room Air I&O- Last 24 Hours up to 6 AM 02/10/21 05:59 Intake Total 02317 ml Output Total 93428 ml Balance 550 ml MARIANNE WILDE DO Feb 10, 2021 12:13
[2021-02-10 14:00] VITALS: BP 72/38
--- NOTE | 2021-02-10 14:56 | ECHO ---
DATE OF PROCEDURE: 02/09/2021 Age: 85 Gender: Male Height: 71 inches Weight: 196 pounds Body surface area: 2.09 m2 PATIENT LOCATION: [address] [place] [address], Room 4220. REFERRING PHYSICIAN: Lauri Choudhury DO. INDICATION: Syncope. MEASUREMENTS: 2D Measurements: RV 3.9 cm LV 4.1 cm Septum 1.4 cm Posterior wall 1.4 cm Aortic Root 4.1 cm LA 4.2 cm LVEF 75% Doppler Measurements: AV 3.07 m/s LVOT 0.8 m/s Mean AV gradient 19 mmHg Dimensionless index 0.27 MV-E 140 Early mitral deceleration time 224 msec E prime medial 6.4, E prime lateral 10 Average E/E prime ratio 17/PCWP - 23 mmHg PV 0.9 m/s Pulmonary artery acceleration time 88 msec RVSP 46 mmHg IVC Could not be well visualized. We estimated his central venous pressure at 10 mmHg. COMMENTS: Underlying atrial fibrillation with controlled ventricular response. No intraventricular conduction disturbance. M-mode and two-dimensional echocardiography was performed with pulse, continuous wave, color flow, and tissue Doppler studies. Moderate concentric left ventricular hypertrophy with hyperkinetic wall motion. Mildly dilated left atrium with Doppler study suggesting an elevated mean left atrial pressure. Normal right ventricular size with mild right ventricular hypertrophy and Doppler evidence of at least moderate pulmonary hypertension. At least mildly dilated right atrium, but we could not visualize his inferior vena cava to estimate his central venous pressure. Mildly dilated aortic root and proximal ascending aorta. Moderately severe calcific aortic stenosis with mild insufficiency. Moderate mitral annular calcification with thickening of the mitral leaflets with adequate leaflet excursion with no posterior systolic buckling. Moderate mitral insufficiency. Normal appearing tricuspid valve with moderate insufficiency. We could not detect any intracardiac mass or pericardial effusion. In light of the observed LV out flow tract obstruction a follow up study would be advised in 1 year. PEDRO LUIS
[2021-02-10 19:45] VITALS: BP 86/38
--- NOTE | 2021-02-10 20:19 | IPN ---
NEPHROLOGY PROGRESS NOTE DATE: 02/10/2021 SUBJECTIVE: Mr. Leigh is seen this morning on his bedside. He is feeling about the same and denies any new complaints. Yesterday he had another episode of near syncope while here in the hospital sitting in his chair. He did not get up yet and is still in the bed. Blood pressure has been at about 80-90 mmHg systolic, which has been chronically low. His peritoneal dialysis is functioning well. PHYSICAL EXAMINATION: Temperature 97.0 degrees Fahrenheit, heart rate 60 per minute, respiratory rate 16 per minute, blood pressure 90/50 mmHg, oxygen saturation 94% on room air. HEAD: Atraumatic. NECK: Supple and jugular venous distention (JVD) is slightly elevated now. There is no oral thrush or ulcers. HEART SOUNDS: Regular and there is no pericardial friction rub. ABDOMEN: Soft and distended with peritoneal dialysis fluid. Bowel sounds are normal and there is no tenderness.. EXTREMITIES: Chronic edema on right lower extremity. Both legs are wrapped in Bobby bandage. There is no edema on the upper extremities. NEUROLOGIC: He is awake and without focal deficits. LABORATORY DATA: Today's labs show WBC 5.1, hemoglobin 10.1, hematocrit 30.2. Sodium 133, potassium 3.8, CO2 26, BUN 58, creatinine 8.53, glucose 99, calcium 7.8. Total protein 5.1, albumin 2.6. He also had an echocardiogram done recently which was read by Dr. Irwin. He is noted to have underlying atrial fibrillation, moderate concentric left ventricular hypertrophy (LVH) and mildly dilated left atrium. He has moderate pulmonary hypertension, moderately severe aortic stenosis with mild insufficiency and moderate mitral insufficiency. PROBLEMS: 1. End-stage renal disease. Patient has been on peritoneal dialysis and currently we are performing five exchanges per day with 2 liter baths. We are using on 1.5% fluid due to recurrent hypotension and syncope. 2. Syncope and recurrent hypotension. Patient has a chronic issue. His recent echocardiogram is reviewed, which did not show any worsening of his aortic stenosis. His volume status is somewhat decompensated now that we gave him a liter of normal saline yesterday and also put him on oral sodium chloride tablets. I do not feel that hypotension is related to volume depletion. He is already on midodrine three times a day and fludrocortisone 0.1 mg daily which should be continued. 3. Anemia. His anemia is stable and present and does not need any urgent intervention. He does have history of gastrointestinal (GI) bleed in the past and will need to be monitored closely, as he is now on low dose Eliquis. 4. 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 He was on anticoagulation in the past; however, it was stopped due to GI bleed. 5. Atrial fibrillation. Ventricular rate is reasonably well-controlled and he remains on low dose Eliquis. He is currently not on any beta maria teresa or calcium channel maria teresa. 6. Secondary hyperparathyroidism. Patient will continue with calcitriol and cinacalcet. 7. Hyponatremia. Mild hyponatremia is improving with oral sodium chloride tablets. 8. Protein calorie malnutrition. Related to peritoneal dialysis and decreased protein intake. I have switched him to high protein diet in order to help with his recurrent syncope and hypotension.
[2021-02-10 22:00] VITALS: BP 94/47
[2021-02-10] MEDS: VITAMIN D 1,000 INTERNATIONAL UNITS TABLET PO SCH (22:05)
[2021-02-10] MEDS: ATORVASTATIN 10 MG TAB PO SCH (22:06)
[2021-02-11] VITALS (7 sets, daily range): BP systolic 65–120; BP diastolic 44–66
[2021-02-11] MEDS: SLF 3 ML SYR IV SCH ×3 (06:13→22:06)
[2021-02-11] MEDS: ADVAIR HFA 45/21MCG INHALER INH SCH ×2 (07:28→20:00)
[2021-02-11 07:50] LABS: BASO % 0.8 % (0.0-1.0); EOS # 0.4 10^3/uL (0.0-0.5); EOS % 7.8 % (0.0-3.0); LYMPH # 0.5 10^3/uL (1.5-5.0); LYMPH % 10.1 % (24.0-44.0); MEAN CORPUSCULAR HEMOGLOBIN 33.2 pg (27.0-33.0); MEAN CORPUSCULAR HGB CONC 33.3 g/dl (32.0-36.5); MEAN CORPUSCULAR VOLUME 99.7 fl (80.0-96.0); MONO # 0.9 10^3/uL (0.0-0.8); MONO % 19.3 % (2.0-8.0); NEUTROPHILS # 2.9 10^3/uL (1.5-8.5); NEUTROPHILS % 59.3 % (36.0-66.0); PLATELET COUNT, AUTOMATED 181 10^3/uL (150-450); RED BLOOD COUNT 3.01 10^6/uL (4.30-6.10); WHITE BLOOD COUNT 4.9 10^3/uL (4.0-10.0)
[2021-02-11] MEDS: SODIUM CHLORIDE 1 GM TAB PO SCH ×3 (08:20→22:05)
[2021-02-11] MEDS: PANTOPRAZOLE 40MG TAB (PROTONIX) PO SCH (08:20)
[2021-02-11] MEDS: APIXABAN 2.5 MG TAB (ELIQUIS) PO SCH ×2 (08:20→22:05)
[2021-02-11] MEDS: NEPHRO-VIT TAB (NEPHROCAPS) PO SCH (08:20)
[2021-02-11] MEDS: MAGNESIUM GLUCONATE 500 MG TAB PO SCH ×2 (08:21→22:04)
[2021-02-11] MEDS: POTASSIUM CHLORIDE 10 MEQ SR TABLET PO SCH (08:21)
[2021-02-11] MEDS: FLUDROCORTISONE ACETATE 0.1 MG TAB PO SCH (08:21)
[2021-02-11] MEDS: MIDODRINE 5 MG TAB PO SCH ×3 (08:21→15:51)
[2021-02-11] MEDS: FERROUS SULFATE 325MG TAB PO SCH (08:21)
[2021-02-11] MEDS: DOCUSATE SODIUM 100MG CAPSULE PO SCH ×2 (08:21→22:06)
[2021-02-11 08:24] LABS: ALBUMIN 2.4 GM/DL (3.2-5.2); BILIRUBIN,TOTAL 0.5 MG/DL (0.2-1.0); CALCIUM LEVEL 7.8 MG/DL (8.8-10.2); CREATININE FOR GFR 8.75 MG/DL (0.70-1.30); GLOMERULAR FILTRATION RATE 6.2 (>35); MAGNESIUM LEVEL 1.8 MG/DL (1.8-2.4); POTASSIUM SERUM 3.7 MEQ/L (3.5-5.1); TOTAL PROTEIN 5.1 GM/DL (6.4-8.2)
--- NOTE | 2021-02-11 11:15 | IPNPDOC ---
Text Note Date of Service The patient was seen on 02/11/21. NOTE Subjective: No any acute events overnight. In the morning patient blood pressure was stable and was 112/66. Patient denied lightheadedness, chest pain, shortness of breath. Objective: GENERAL APPEARANCE: NAD HEENT: no scleral icterus, no JVD, EOMI CARDIOVASCULAR: Irregularly irregular LUNGS: Diminished lung sounds bilaterally ABDOMEN: soft & not tender w palpitation MUSCULOSKELETAL: +2 pitting edema bilaterally, pulses intact, right distal leg seems more swollen INTEGUMENT: no generalized pallor NEUROLOGICAL: cranial nerve function from 2-12 intact intact, follows commands, speech not dysarthric Assessment and plan Patient is an 85-year-old male with past medical history of hypertension, end-stage renal diseases on peritoneal dialysis, polycystic kidney diseases, atrial fibrillation, who presented to the emergency room with reported weakness. Patient had noted that he was in the bathroom on the toilet and when he was ready to leave. He had gone up, however, experienced weakness and lightheadedness that prompted him to sit back down. His significant other, helped him into another seated position. Patient recently started torsemide. Recurrent Syncope Most likely etiology is vasovagal. Nephrology team recommended to add salt tab tid Orthostatic hypotension/ generalized weakness/chronic hypotension Secondary to deconditioning superimposed with peritoneal dialysis and torsemide DC torsemide Continue fludrocortisone Continue midodrine PT/OT End-stage renal diseases Nephrology team follows him A fib Heart rate under control Continue full dose of anticoagulation. Anticoagulation was stopped before due to history of GI bleed DLP c/w Atorvastatin Asthma Not in acute exacerbation - c/w Inhaled therapy as ordered Gout Not in acute exacerbation - Currently not on medications Follow-up with PCP in the outpatient settings AV fistula placement - In anticipation of HD in the future BPH s/p TURP Gastric ulcer / Hiatal hernia - s/p EGD 01/09/2021: Small non-bleeding shallow esophageal ulcer, Barrets esophagus - c/w Protonix Right leg DVT Doppler ultrasound showed Nonocclusive thrombus through the femoral vein/popliteal vein. 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 Mobility limitation cannot be sufficiently resolved by the use of any alternative DME device due to the need for legs to be elevated VS,Fishbone, I+O VS, Fishbone, I+O Laboratory Tests 02/11/21 07:33 Vital Signs Date Time Temp Pulse Resp B/P (MAP) Pulse Ox O2 Delivery O2 Flow Rate FiO2 02/11/21 06:00 98.3 76 18 112/66 (81) 96 Room Air I&O- Last 24 Hours up to 6 AM 02/11/21 06:00 Intake Total 6720 ml Output Total 6400 ml Balance 320 ml MARIANNE WILDE DO Feb 11, 2021 11:15
--- NOTE | 2021-02-11 21:55 | IPN ---
NEPHROLOGY PROGRESS NOTE DATE: 02/11/2021 SUBJECTIVE: Patient was seen and examined at the bedside today morning. He is afebrile, hemodynamically stable. He denies any more episodes of dizziness and lightheadedness. He continues to be on peritoneal dialysis. OBJECTIVE: VITAL SIGNS: Temperature 97.9 degrees Fahrenheit, blood pressure 91/50, pulse 67, respiratory rate 18, sating 99% on room air. INTAKE AND OUTPUT: Urine output is minimal. Weight in the bed scale is not available. PHYSICAL EXAMINATION: GENERAL: Patient is awake, alert and oriented x3, lying in bed in no apparent distress. HEENT: Extraocular muscles intact. Pupils equally round and reactive to light. Mucous membranes are moist. Neck is supple. There is no JVD. RESPIRATORY: Chest is clear to auscultation bilaterally. Bilateral equal air entry. No rales or rhonchi. CARDIOVASCULAR: S1, S2, regular rate. 2+ edema of the bilateral lower extremities and legs are wrapped with compression bandages. ABDOMEN: Soft, positive bowel sounds. Left lower quadrant PD catheter is noted. MUSCULOSKELETAL: Bilateral lower extremity edema 2+ in the legs as mentioned above. He has compression dressings on the legs. 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 Power is 5/5 in all extremities. LABORATORY DATA: CBC showed WBC 4.9, hemoglobin 10, platelets 181,000. BMP showed sodium 135, potassium 3.7, chloride 98, bicarb 25, BUN 55, creatinine 8.7. Calcium 7.8, magnesium 1.8. Albumin 2.4. CURRENT INPATIENT MEDICATIONS: Patient's medications were all reviewed by myself. He continues to be on Florinef, Midodrine, and he was also started on salt tablet 1 gram three times a day. No other significant change in the medications. ASSESSMENT AND PLAN: 1. End-stage renal disease: Patient is dependent on peritoneal dialysis. Because of recurrent near syncope, he is getting all 1.5% exchanges all 2 liters. 2. Syncope and orthostatic hypotension: Patient has aortic stenosis. He is currently on sodium chloride tablets, Florinef and Midodrine, and despite that, his blood pressures are low. I highly suspect that some the symptoms are because of worsening aortic stenosis. Patient will probably need to be evaluated in [place] to see if he needs any TAVR procedure. 3. Anemia and end-stage renal disease: Hemoglobin is 10, which is stable. If hemoglobin drops further, he will be started on Aranesp. 4. Right lower extremity DVT: Patient has history of recurrent GI bleed, he has been started on low dose Eliquis 2.5 mg p.o. twice a day. 5. Secondary hyperparathyroidism: Continue current dose of Calcitriol Saturday, Saturday, Saturday. 6. Atrial fibrillation: Heart rate is controlled. Anticoagulation has been restarted because of DVT as mentioned above.
[2021-02-11] MEDS: VITAMIN D 1,000 INTERNATIONAL UNITS TABLET PO SCH (22:05)
[2021-02-11] MEDS: ATORVASTATIN 10 MG TAB PO SCH (22:05)
[2021-02-12 06:00] VITALS: BP 108/56
[2021-02-12] MEDS: SLF 3 ML SYR IV SCH ×3 (06:37→22:10)
[2021-02-12 06:48] LABS: BASO % 0.8 % (0.0-1.0); EOS # 0.4 10^3/uL (0.0-0.5); HEMATOCRIT 29.6 % (42.0-52.0); LYMPH # 0.6 10^3/uL (1.5-5.0); LYMPH % 11.5 % (24.0-44.0); MEAN CORPUSCULAR HEMOGLOBIN 33.4 pg (27.0-33.0); MEAN CORPUSCULAR HGB CONC 33.8 g/dl (32.0-36.5); MONO # 1.1 10^3/uL (0.0-0.8); NEUTROPHILS # 2.9 10^3/uL (1.5-8.5); PLATELET COUNT, AUTOMATED 191 10^3/uL (150-450); RED BLOOD COUNT 2.99 10^6/uL (4.30-6.10); WHITE BLOOD COUNT 5.1 10^3/uL (4.0-10.0)
[2021-02-12 07:23] LABS: ALBUMIN 2.4 GM/DL (3.2-5.2); BILIRUBIN,TOTAL 0.4 MG/DL (0.2-1.0); CALCIUM LEVEL 7.8 MG/DL (8.8-10.2); CREATININE FOR GFR 8.96 MG/DL (0.70-1.30); MAGNESIUM LEVEL 1.8 MG/DL (1.8-2.4); POTASSIUM SERUM 3.4 MEQ/L (3.5-5.1); TOTAL PROTEIN 4.8 GM/DL (6.4-8.2)
[2021-02-12] MEDS: ADVAIR HFA 45/21MCG INHALER INH SCH ×2 (08:07→20:12)
[2021-02-12] MEDS: FERROUS SULFATE 325MG TAB PO SCH (08:57)
[2021-02-12] MEDS: PANTOPRAZOLE 40MG TAB (PROTONIX) PO SCH (08:57)
[2021-02-12] MEDS: APIXABAN 2.5 MG TAB (ELIQUIS) PO SCH ×2 (08:57→22:06)
[2021-02-12] MEDS: NEPHRO-VIT TAB (NEPHROCAPS) PO SCH (08:57)
[2021-02-12] MEDS: FLUDROCORTISONE ACETATE 0.1 MG TAB PO SCH (08:57)
[2021-02-12] MEDS: MIDODRINE 5 MG TAB PO SCH ×3 (08:57→15:28)
[2021-02-12] MEDS: DOCUSATE SODIUM 100MG CAPSULE PO SCH ×2 (08:57→22:06)
[2021-02-12] MEDS: POTASSIUM CHLORIDE 10 MEQ SR TABLET PO SCH (08:58)
[2021-02-12] MEDS: MAGNESIUM GLUCONATE 500 MG TAB PO SCH ×2 (08:58→22:06)
[2021-02-12] MEDS: SODIUM CHLORIDE 1 GM TAB PO SCH ×3 (08:58→22:06)
[2021-02-12] MEDS ORDERED: MIRALAX *UNIT DOSE* 17GM PACKET PO PRN ×2 (09:25→14:55)
[2021-02-12] MEDS ORDERED: POTASSIUM CHLORIDE 10 MEQ SR TABLET PO ONE (10:00)
[2021-02-12 10:40] VITALS: BP_SYST 79; BP_SYST 85; BP_SYST 91; BP_SYST 93; BP_DIAS 45; BP_DIAS 47; BP_DIAS 50; BP_DIAS 67
[2021-02-12 14:00] VITALS: BP 86/45
--- NOTE | 2021-02-12 14:54 | IPNPDOC ---
Text Note Date of Service The patient was seen on 02/12/21. NOTE Subjective: In the morning patient developed syncope and short period of unr esponsiveness, blood pressure dropped to 70/40, patient regained consciousness when he was in the bed. Patient complains of constipation Objective: GENERAL APPEARANCE: NAD HEENT: no scleral icterus, no JVD, EOMI CARDIOVASCULAR: Irregularly irregular LUNGS: Diminished lung sounds bilaterally ABDOMEN: soft & not tender w palpitation MUSCULOSKELETAL: +2 pitting edema bilaterally, pulses intact, right distal leg seems more swollen INTEGUMENT: no generalized pallor NEUROLOGICAL: cranial nerve function from 2-12 intact intact, follows commands, speech not dysarthric Assessment and plan Patient is an 85-year-old male with past medical history of hypertension, end-stage renal diseases on peritoneal dialysis, polycystic kidney diseases, atrial fibrillation, who presented to the emergency room with reported weakness. Patient had noted that he was in the bathroom on the toilet and when he was ready to leave. He had gone up, however, experienced weakness and lightheadedness that prompted him to sit back down. His significant other, helped him into another seated position. Patient recently started torsemide. Recurrent Syncope Most likely etiology is vasovagal. There is also concern for aortic stenosis which can contribute to his syncope, moderate to severe according to echo report. Echo showed Mildly dilated left atrium with Doppler study suggesting an elevated mean left atrial pressure. Normal right ventricular size with mild right ventricular hypertrophy and Doppler evidence of at least moderate pulmonary hypertension. At least mildly dilated right atrium, but we could not visualize his inferior vena cava to estimate his central venous pressure. Mildly dilated aortic root and proximal ascending aorta. Moderately severe calcific aortic stenosis with mild insufficiency. Ejection fraction 75% Nephrology team recommended to add salt tab tid Appreciate/agree with car barn laborer consult Orthostatic hypotension/ generalized weakness/chronic hypotension Secondary to deconditioning superimposed with peritoneal dialysis and torsemide DC torsemide Continue fludrocortisone Continue midodrine PT/OT End-stage renal diseases Nephrology team follows him A fib Heart rate under control Continue full dose of anticoagulation. Anticoagulation was stopped before due to history of GI bleed DLP c/w Atorvastatin Asthma Not in acute exacerbation - c/w Inhaled therapy as ordered Gout Not in acute exacerbation - Currently not on medications Follow-up with PCP in the outpatient settings AV fistula placement - In anticipation of HD in the future BPH s/p TURP Gastric ulcer / Hiatal hernia - s/p EGD 01/09/2021: Small non-bleeding shallow esophageal ulcer, Barrets esophagus - c/w Protonix Right leg DVT Doppler ultrasound showed Nonocclusive thrombus through the femoral vein/popliteal vein. 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 Mobility limitation cannot be sufficiently resolved by the use of any alternative DME device due to the need for legs to be elevated Constipation MiraLAX VS,Fishbone, I+O VS, Fishbone, I+O Laboratory Tests 02/12/21 05:58 Vital Signs Date Time Temp Pulse Resp B/P (MAP) Pulse Ox O2 Delivery O2 Flow Rate FiO2 02/12/21 10:40 93/50 (64) 02/12/21 06:00 98.6 65 18 95 Room Air I&O- Last 24 Hours up to 6 AM 02/12/21 06:00 Intake Total 66142 ml Output Total 89440 ml Balance 520 ml MARIANNE WILDE DO Feb 12, 2021 14:53
[2021-02-12] MEDS: BISACODYL 5 MG TAB PO SCH (15:28)
--- NOTE | 2021-02-12 21:55 | IPN ---
PROGRESS NOTE DATE: 02/12/2021 SUBJECTIVE: Patient was seen and examined at the bedside today morning. I was told by the nursing staff that patient had another episode of syncope today morning. He is otherwise tolerating the peritoneal dialysis. OBJECTIVE: Vital signs: Temperature is 97.5 degrees Fahrenheit, blood pressure 86/45, pulse is 68, respiratory rate of 18, saturating 100% on room air. Intake and output: Urine output is not being recorded. Weight in the bed scale is not available. PHYSICAL EXAMINATION: General: Patient is awake, alert, oriented times three, laying in bed, no apparent distress. Head and neck exam: Extraocular muscles intact. Pupils equally round and reactive to light. Mucous membranes are moist. Neck is supple. There is no jugular venous distension (JVD). Cardiovascular: S1, S2, regular rate. 2+ edema of the bilateral lower extremities with compression dressings. Respiratory: Chest is clear to auscultation bilaterally. Bilateral equal air entry. No rales or rhonchi. Abdomen: Soft, positive bowel sounds, left lower quadrant peritoneal dialysis (PD) catheter is noted. Musculoskeletal: No clubbing or cyanosis. Pulses are 2+. Edema of the extremities as mentioned above. Central nervous system (DISPUTE COORDINATOR): No focal deficit. Power is 5/5 in all extremities. LABORATORY REVIEW: CBC showed WBC 5.1, hemoglobin is 10, platelets are 191. BMP showed sodium 136, potassium 3.4, chloride 99, bicarbonate 26, BUN 60, creatinine is 8.9, calcium 7.8, magnesium is 1.8, albumin is 2.4. CURRENT INPATIENT MEDICATIONS: Patient's medications were all reviewed by myself. He continues to be on midodrine, salt tablets, and Florinef. He was given a dose of potassium chloride 40 mEq in the morning. His daily potassium tablet has been changed to 20 mEq daily. ASSESSMENT AND PLAN: 1. Chronic hypotension and recurrent syncope. Continue current dose of Florinef, salt tablets, and midodrine. Patient has aortic stenosis on echocardiogram. Cardiology evaluation has been requested today. 2. End-stage renal disease. Dependent on peritoneal dialysis. Continue current regimen of five manual exchanges, all 1.5%, all 2 liters. 3. Hypokalemia. Patient was already given potassium in the morning. Daily potassium dose has been increased. 4. Anemia in end-stage renal disease. Hemoglobin level is 10. Patient is being started on once a week Aranesp. 5. Right lower extremity deep venous thrombosis (DVT). Continue current dose of Eliquis, low dose. 6. Atrial fibrillation. Heart rate is controlled. Anticoagulation is already being done by Eliquis. Full dose is not being given because of recurrent gastrointestinal (GI) bleed in the past.
--- NOTE | 2021-02-12 21:55 | CR ---
CONSULTATION DATE: 02/12/2021 REFERRING PHYSICIAN: Quintin Pearl DO and Emerald López M.D. INDICATION: Syncope, question about severity of aortic stenosis. HISTORY OF PRESENT ILLNESS: Mr. Leigh is known to me. He is a pleasant 85-year-old man who has been on dialysis since 2015 due to presumptive obstructive uropathy. He initially was placed with AV fistula but has been essentially almost since the get-go on peritoneal dialysis. He has been seen in our office just once a year at his own request because he has chronic atrial fibrillation. Most of the medical care is provided by nephrology service. He present to [facility] on February 01 after syncopal event that occurred on two separate occasions. Each time, it seemed to have been precipitated by standing up, on one occasion shortly after he had a bowel movement. He was found to be markedly orthostatic. He also had yet additional syncopal event in the hospital again after bowel movement. A lot of medications with the intention to relieve some of his orthostatic symptoms were already introduced. He was chronically on midodrine and currently the dose has been increased to 10 mg three times a day. He also takes fludrocortisone. He takes salt tablets but in spite of all these interventions, he remains quite orthostatic. His echocardiogram that was performed on February 09 and was interpreted by Dr. Irwin revealed normal LV systolic function with estimated EF around 70-75% but there was significant aortic valvular disease. The mean gradient across the across the aortic valve was 19 mmHg, peak gradient 38 and calculated aortic valve area was slightly over 1 with dimensionless index 0.27. The severity of the stenosis was interpreted as moderately severe by Dr. Irwin and I am being asked whether this is contributing to his orthostatic symptoms. At bedside, the patient reports feeling well. He does not have any complaints but admits that when he is standing, he gets rapidly dizzy and there were repeated orthostatic vital signs recorded that indicate orthostatic hypotension. He denies any chest pain and denies any shortness of breath. He denies any sensation of palpitations. He denies any recent change in his weight. There has been no diarrhea, nausea, vomiting. The weight indeed seems to have been relatively stable. The admission one was 90.3 kilograms which is similar to our office weight from October and the last documented was on the , 89 kilograms. There has not been documented weight since. PAST MEDICAL HISTORY: 1. Chronic atrial fibrillation. He was previously anticoagulated but anticoagulation was discontinued after GI bleeding in 2019. Numerous discussions were had with the patient about the risk of not being anticoagulated but it was his personal choice. 2. Hypertension. 3. Hyperlipidemia. 4. Prior history of syncopal events. 5. End-stage renal disease on dialysis since 2014. 6. Hyperparathyroidism. 7. History of BPH with obstructive uropathy. 8. History of GI bleeding due to esophageal ulcers in August,. SURGICAL HISTORY: 1. TURP. 2. AV fistula placement. 3. Peritoneal fistula placement. SOCIAL HISTORY: The patient is . There is a remote history of smoking, no history of alcohol. FAMILY HISTORY: Father of stroke. REVIEW OF SYSTEMS: From cardiac point of view, he denies any chest pain, palpitations. He does admit to orthostatic dizziness, near-syncope and syncope. No recent bleeding problems. No shortness of breath. He has chronic peripheral edema which he believes has not appreciably changed lately. PHYSICAL EXAMINATION: Vital signs: Blood pressure was documented 86/45, heart rate 68 beats per minute, irregularly irregular. He is afebrile. Saturation is mid to high 90s on room air. The last documented weight was on February 03 and it was 89 kilograms. He is alert and oriented and appropriate. I do not appreciate any distress. He provides reasonably good history. His JVP is not elevated by my exam. Lungs are clear, good air movement bilaterally. Heart exam reveals irregular rhythm. There is a fairly unimpressive murmur of aortic stenosis, no more than II/ intensity radiating towards his neck. The second heart sound seems diminished. There is a very diastolic murmur at the apex and there is more prominent holosystolic murmur heard over the lower sternum most likely representing tricuspid insufficiency. Abdomen is obese. Peritoneal catheter is in place. I can appreciate the fluid in the abdomen by physical exam. No obvious hepatosplenomegaly. Extremities have mild edema all the way to his knees bilaterally. Neurologically, he is certainly alert and oriented. His speech is intact and he moves all four extremities. I did not do any formal testing of his reflexes or muscle strength LABORATORY DATA: CBC as of today reveals hemoglobin 10, hematocrit 29.6 and platelet count 191,000. WBC count 5.1. Basic metabolic panel: Sodium 136, potassium 3.4, BUN 60, creatinine 8.96. Glucose 87, magnesium 1.8, calcium 7.8, normal bilirubin, AST, ALT. Albumin is 2.4. INR was 1.0 on admission. He has stable ECGs on file or reveal atrial fibrillation with controlled rate, left anterior fascicular hemiblock and possible septal DE and occasional PVCs. He had an echocardiogram on the that revealed LVEF of 70-75%, left ventricular hypertrophy, aortic stenosis as discussed above, moderately severe insufficiency and pulmonary artery pressure in moderate range in 40s. I reviewed the echocardiograms independently. There was no imaging of his chest performed. CURRENT MEDICATIONS: 1. Potassium chloride 20 mEq daily. 2. Dulcolax 10 mg daily. 3. One gram sodium tablet three times a day. 4. Eliquis 2.5 twice a day. 5. Magnesium 250 b.i.d. 6. Midodrine 10 mg three times a day. 7. Fludrocortisone 0.1 mg daily. 8. Iron sulfate 325 mg daily. 9. Pantoprazole 40 mg daily. 10. Various vitamins. 11. Atorvastatin 10 mg daily. 12. Advair two puffs twice a day. ASSESSMENT AND PLAN: Mr. Leigh is an elderly, 85-year-old gentleman who is plagued by severe orthostatic hypotension in spite of numerous pharmacotherapies designed to help this problem. I am being asked whether the aortic stenosis is severe enough to explain his presentation. Looking purely at the data available for the echocardiogram, it is very unlikely that the aortic stenosis is severe enough with a mean gradient only 19 mmHg in the setting of hyperdynamic LV systolic function makes severe aortic stenosis very unlikely. On the other hand, by 2D imaging, the aortic stenosis looks worse than would correspond to the gradient and by physical exam the closing sound is relatively faint. Considering this, I believe it is possible that the gradient was not accurately determined by the echocardiogram and the aortic stenosis can potentially be worse than stated. I do believe that it is not unreasonable to pursue cardiac catheterization to evaluate this problem further not only to determine aortic stenosis but also possibility of underlying coronary artery disease and also to get a good estimate of cardiac output which could help in decision making. I will have discussion with the patient on this topic tomorrow. I am somewhat reluctant to believe the patient would pursue this further. In the past, he was very reluctant to undergo any evaluations and wanted to limit the contacts with cardiology to bare minimum. But nevertheless, we will raise this discussion even though obviously I do not known what the conclusion of these tests should the patient choose to proceed will bring but I still believe that it is unlikely that the aortic stenosis plays a dominant role in his presentation. I do not have any good advice as to how to help his blood pressure in this setting. I do not know whether with peritoneal dialysis we can actually raise his weight and hopefully retention some of the fluid will help to alleviate some of his symptoms. PEDRO LUIS
[2021-02-12 22:00] VITALS: BP 108/75
[2021-02-12] MEDS: ATORVASTATIN 10 MG TAB PO SCH (22:06)
[2021-02-12] MEDS: VITAMIN D 1,000 INTERNATIONAL UNITS TABLET PO SCH (22:06)
[2021-02-13] MEDS: SLF 3 ML SYR IV SCH ×3 (05:57→21:59)
[2021-02-13 06:00] VITALS: BP 86/45
[2021-02-13] MEDS: ADVAIR HFA 45/21MCG INHALER INH SCH ×2 (07:25→20:00)
[2021-02-13 07:42] LABS: BASO % 0.7 % (0.0-1.0); EOS # 0.4 10^3/uL (0.0-0.5); EOS % 7.8 % (0.0-3.0); HEMATOCRIT 30.9 % (42.0-52.0); HEMOGLOBIN 10.3 g/dl (13.5-17.5); LYMPH # 0.5 10^3/uL (1.5-5.0); LYMPH % 9.4 % (24.0-44.0); MEAN CORPUSCULAR HEMOGLOBIN 33.3 pg (27.0-33.0); MEAN CORPUSCULAR HGB CONC 33.3 g/dl (32.0-36.5); MONO % 17.6 % (2.0-8.0); NEUTROPHILS # 3.4 10^3/uL (1.5-8.5); NEUTROPHILS % 62.1 % (36.0-66.0); PLATELET COUNT, AUTOMATED 202 10^3/uL (150-450); RED BLOOD COUNT 3.09 10^6/uL (4.30-6.10); WHITE BLOOD COUNT 5.5 10^3/uL (4.0-10.0)
[2021-02-13 08:08] LABS: ALBUMIN 2.5 GM/DL (3.2-5.2); BILIRUBIN,TOTAL 0.4 MG/DL (0.2-1.0); CALCIUM LEVEL 7.8 MG/DL (8.8-10.2); CREATININE FOR GFR 8.89 MG/DL (0.70-1.30); MAGNESIUM LEVEL 1.9 MG/DL (1.8-2.4); POTASSIUM SERUM 3.9 MEQ/L (3.5-5.1); TOTAL PROTEIN 5.3 GM/DL (6.4-8.2)
[2021-02-13] MEDS: MIDODRINE 5 MG TAB PO SCH ×3 (08:23→16:58)
[2021-02-13] MEDS: DOCUSATE SODIUM 100MG CAPSULE PO SCH ×2 (08:23→21:59)
[2021-02-13] MEDS: BISACODYL 5 MG TAB PO SCH (08:23)
[2021-02-13] MEDS: PANTOPRAZOLE 40MG TAB (PROTONIX) PO SCH (08:23)
[2021-02-13] MEDS: SODIUM CHLORIDE 1 GM TAB PO SCH ×2 (08:23→16:58)
[2021-02-13] MEDS: MAGNESIUM GLUCONATE 500 MG TAB PO SCH ×2 (08:23→21:59)
[2021-02-13] MEDS: POTASSIUM CHLORIDE 10 MEQ SR TABLET PO SCH (08:23)
[2021-02-13] MEDS: CALCITRIOL 0.25 MCG CAP (S0169) PO SCH (08:24)
[2021-02-13] MEDS: APIXABAN 2.5 MG TAB (ELIQUIS) PO SCH ×2 (08:24→21:59)
[2021-02-13] MEDS: NEPHRO-VIT TAB (NEPHROCAPS) PO SCH (08:24)
[2021-02-13] MEDS: FLUDROCORTISONE ACETATE 0.1 MG TAB PO SCH (08:24)
[2021-02-13] MEDS: FERROUS SULFATE 325MG TAB PO SCH (08:24)
--- NOTE | 2021-02-13 10:14 | IPN ---
PROGRESS NOTE DATE: 02/13/2021 I met with Mr. Leigh today again. His condition did not appreciably change since yesterday. He remains essentially asymptomatic as long as he stays in horizontal position, but gets rapidly dizzy when sitting up or standing up. The telemetry monitoring revealed ongoing atrial fibrillation with relatively frequent ventricular ectopy including brief runs of ventricular tachycardia (mostly triplets). He denies any chest pain or shortness of breath. Vital signs this morning: Blood pressure 86/45, heart rate has been in 70s and 80s, he is afebrile, saturation 97% on room air. Weight 94 kg. Alert, oriented, and appropriate. His jugular venous pulse (JVP) is not high. Lungs are clear. Heart exam reveals irregular rhythm, I do not appreciate any gallop. There is a murmur consistent with aortic stenosis best heard over the aortic valve. I still do not appreciate a distinct closing sound. Abdomen is soft, there is fluid but he is undergoing peritoneal dialysis. Extremities have mild edema, bandages are still present. LABORATORIES: CBC: Hemoglobin 10.3, hematocrit 30.9, platelet count is 202,000. Basic metabolic panel: Sodium 136, potassium 3.9, BUN 60, creatinine 8.9, and glucose 99. Liver function tests are normal, albumin is 2.5. ASSESSMENT AND PLAN: Mr. Leigh is an 85-year-old man who has been on dialysis since 2015 due to obstructive uropathy. He has intolerable orthostatic hypotension in spite of maximum treatment with fludrocortisone, salt supplementation, midodrine in maximum dose. He also has known aortic stenosis by an echocardiogram performed during this hospitalization. The mean gradient is only 19 mmHg but I believe that the alignment for the measurement was not accurate and based on 2-D imaging and by physical exam the valve potentially can have severe stenosis. The question is whether it contributes to his presentation which is far from certain. I had a discussion with the patient today. I explained to him that if we decide to pursue this further he may need to be transferred for heart catheterization and depending on findings there might be many scenarios that include ongoing medical management, transcatheter aortic valve replacement (TAVR), percutaneous coronary intervention (PCI), or in worst case scenario even open heart surgery. He wants to contemplate these options which I think is completely appropriate. He should talk to his before he makes a definite conclusion whether to transfer him or not. I will talk to interventional cardiology in [place] as well to get their opinion about this situation. No medication changes today.
[2021-02-13 14:00] VITALS: BP 107/68
--- NOTE | 2021-02-13 14:58 | IPNPDOC ---
Text Note Date of Service The patient was seen on 02/13/21. NOTE Subjective: No any acute events overnight. No syncope for past 24 hours. Objective: GENERAL APPEARANCE: NAD HEENT: no scleral icterus, no JVD, EOMI CARDIOVASCULAR: Irregularly irregular LUNGS: Diminished lung sounds bilaterally ABDOMEN: soft & not tender w palpitation MUSCULOSKELETAL: +2 pitting edema bilaterally, pulses intact, right distal leg seems more swollen INTEGUMENT: no generalized pallor NEUROLOGICAL: cranial nerve function from 2-12 intact intact, follows commands, speech not dysarthric Assessment and plan Patient is an 85-year-old male with past medical history of hypertension, end-stage renal diseases on peritoneal dialysis, polycystic kidney diseases, atrial fibrillation, who presented to the emergency room with reported weakness. Patient had noted that he was in the bathroom on the toilet and when he was ready to leave. He had gone up, however, experienced weakness and lightheadedness that prompted him to sit back down. His significant other, helped him into another seated position. Patient recently started torsemide. Recurrent Syncope Multifactorial. Vasovagal superimposed with severe aortic stenosis There is also concern for aortic stenosis which can contribute to his syncope, moderate to severe according to echo report. Echo showed Mildly dilated left atrium with Doppler study suggesting an elevated mean left atrial pressure. Normal right ventricular size with mild right ventricular hypertrophy and Doppler evidence of at least moderate pulmonary hypertension. At least mildly dilated right atrium, but we could not visualize his inferior vena cava to estimate his central venous pressure. Mildly dilated aortic root and proximal ascending aorta. Moderately severe calcific aortic stenosis with mild insufficiency. Ejection fraction 75% Nephrology team recommended to add salt tab tid Dr Mohamud recommended to transfer patient to [facility] for cardiac catheterization and possible aortic valve replacement. Patient discussed it with his . Patient agree for transfer Orthostatic hypotension/ generalized weakness/chronic hypotension Secondary to deconditioning superimposed with peritoneal dialysis and torsemide DC torsemide Continue fludrocortisone Continue midodrine PT/OT End-stage renal diseases Nephrology team follows him A fib Heart rate under control Continue full dose of anticoagulation. Anticoagulation was stopped before due to history of GI bleed DLP c/w Atorvastatin Asthma Not in acute exacerbation - c/w Inhaled therapy as ordered Gout Not in acute exacerbation - Currently not on medications Follow-up with PCP in the outpatient settings AV fistula placement - In anticipation of HD in the future BPH s/p TURP Gastric ulcer / Hiatal hernia - s/p EGD 01/09/2021: Small non-bleeding shallow esophageal ulcer, Barrets esophagus - c/w Protonix Right leg DVT Doppler ultrasound showed Nonocclusive thrombus through the femoral vein/popliteal vein. 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 Mobility limitation cannot be sufficiently resolved by the use of any alternative DME device due to the need for legs to be elevated Constipation MiraLAX VS,Fishbone, I+O VS, Fishbone, I+O Laboratory Tests 02/13/21 07:27 Vital Signs Date Time Temp Pulse Resp B/P (MAP) Pulse Ox O2 Delivery O2 Flow Rate FiO2 02/13/21 14:00 98.5 93 16 107/68 (81) 99 Room Air I&O- Last 24 Hours up to 6 AM 02/13/21 06:00 Intake Total 73122 ml Output Total 7600 ml Balance 3270 ml MARIANNE WILDE DO Feb 13, 2021 14:57
--- NOTE | 2021-02-13 21:33 | IPN ---
NEPHROLOGY PROGRESS NOTE DATE: 02/13/2021 SUBJECTIVE: The patient was seen and examined at the bedside today morning. He is afebrile. He continues to have low blood pressures. He was seen by Cardiology. Their recommendations are appreciated. Cardiology Service recommended a cardiac catheterization for further evaluation of aortic stenosis and possible cardiac ischemia. This patient is going to think about it and let Cardiology Service know by tomorrow. The patient is having some signs of volume overload now and he has some wheezing on clinical exam today. OBJECTIVE: VITAL SIGNS: Temperature is 98.5 degrees Fahrenheit, blood pressure 107/68, pulse is 93, respiratory rate of 16, saturating 99% on room air. INTAKE AND OUTPUT: This is no urine output recorded. Weight in the bed scale is 94 kg. PHYSICAL EXAMINATION: GENERAL APPEARANCE: The patient is awake, alert, oriented x3, laying in bed. HEAD AND NECK: Extraocular muscles intact. Pupils are equally round and reactive to light. Neck is supple. He has moderately elevated jugular venous distention. CARDIOVASCULAR: S1, S2, 2+ edema of the bilateral lower extremities. RESPIRATORY: Mildly decreased breath sounds at the bases with mild expiratory wheezes bilaterally in the lungs. ABDOMEN: Soft. Left lower quadrant Whaley catheter is noted. Mild wall edema is noted. MUSCULOSKELETAL: The patient has 2+ edema of the bilateral lower extremities. HEEL CEMENTER: No focal deficits. Power is 5/5 in all extremities. LAB REVIEW: CBC showed a white blood cell count of 5.5, hemoglobin 10.3, platelet count 202. BMP showed sodium 136, potassium 3.9, chloride 99, bicarbonate 24, BUN 60, creatinine is 8.8, calcium 7.8, magnesium is 1.9. CURRENT INPATIENT MEDICATIONS: The patient's medications were all reviewed by myself. He continues to be on Midodrine, Florinef, and Sodium Chloride tablets. ASSESSMENT AND PLAN: 1. Chronic hypotension and recurrent syncope - The patient was seen by Cardiology. Despite being on Florinef, salt tablets and Midodrine, his blood pressures are low. Cardiology recommended left heart catheterization and evaluation for possible TAVR procedure and transfer to [place]. This patient is going to tell Cardiology Service about his final decision by tomorrow. 2. End-stage renal disease - The patient is on peritoneal dialysis. He is getting only 1.5% exchanges. At home he does a combination of 1.5 and 2.5. I am going to add two exchanges of 2.5% to his regimen and keep three exchanges at 1.5%. 3. Anemia and end-stage renal disease - hemoglobin level is stable. Continue current dose of Aranesp. 4. Right lower extremity deep vein thrombosis - continue current dose of Eliquis. 5. Atrial fibrillation heart rate is controlled. Continue anticoagulation with Eliquis.
[2021-02-13] MEDS: ATORVASTATIN 10 MG TAB PO SCH (21:59)
[2021-02-13] MEDS: VITAMIN D 1,000 INTERNATIONAL UNITS TABLET PO SCH (21:59)
[2021-02-13 22:00] VITALS: BP 95/50
[2021-02-14] VITALS (8 sets, daily range): BP systolic 82–101; BP diastolic 43–57
[2021-02-14 06:20] LABS: BASO # 0.1 10^3/uL (0.0-0.2); BASO % 0.9 % (0.0-1.0); EOS # 0.4 10^3/uL (0.0-0.5); HEMOGLOBIN 10.1 g/dl (13.5-17.5); LYMPH # 0.6 10^3/uL (1.5-5.0); LYMPH % 10.3 % (24.0-44.0); MEAN CORPUSCULAR HEMOGLOBIN 33.6 pg (27.0-33.0); MEAN CORPUSCULAR HGB CONC 33.7 g/dl (32.0-36.5); MEAN CORPUSCULAR VOLUME 99.7 fl (80.0-96.0); MONO # 1.1 10^3/uL (0.0-0.8); MONO % 18.9 % (2.0-8.0); NEUTROPHILS # 3.3 10^3/uL (1.5-8.5); NEUTROPHILS % 59.3 % (36.0-66.0); PLATELET COUNT, AUTOMATED 201 10^3/uL (150-450); RED BLOOD COUNT 3.01 10^6/uL (4.30-6.10); WHITE BLOOD COUNT 5.6 10^3/uL (4.0-10.0)
[2021-02-14] MEDS: SLF 3 ML SYR IV SCH ×3 (06:22→21:49)
[2021-02-14 06:53] LABS: ALBUMIN 2.4 GM/DL (3.2-5.2); BILIRUBIN,TOTAL 0.5 MG/DL (0.2-1.0); CALCIUM LEVEL 8.2 MG/DL (8.8-10.2); CREATININE FOR GFR 8.68 MG/DL (0.70-1.30); GLOMERULAR FILTRATION RATE 6.2 (>35); MAGNESIUM LEVEL 1.7 MG/DL (1.8-2.4); POTASSIUM SERUM 3.7 MEQ/L (3.5-5.1); TOTAL PROTEIN 5.4 GM/DL (6.4-8.2)
[2021-02-14] MEDS: ADVAIR HFA 45/21MCG INHALER INH SCH ×2 (07:54→19:53)
[2021-02-14] MEDS: FLUDROCORTISONE ACETATE 0.1 MG TAB PO SCH (08:43)
[2021-02-14] MEDS: FERROUS SULFATE 325MG TAB PO SCH (08:43)
[2021-02-14] MEDS: BISACODYL 5 MG TAB PO SCH (08:44)
[2021-02-14] MEDS: APIXABAN 2.5 MG TAB (ELIQUIS) PO SCH ×2 (08:44→21:48)
[2021-02-14] MEDS: NEPHRO-VIT TAB (NEPHROCAPS) PO SCH (08:44)
[2021-02-14] MEDS: POTASSIUM CHLORIDE 10 MEQ SR TABLET PO SCH (08:44)
[2021-02-14] MEDS: MIDODRINE 5 MG TAB PO SCH ×3 (08:44→15:52)
[2021-02-14] MEDS: DOCUSATE SODIUM 100MG CAPSULE PO SCH ×2 (08:45→21:48)
[2021-02-14] MEDS: MAGNESIUM GLUCONATE 500 MG TAB PO SCH ×2 (08:45→21:49)
[2021-02-14] MEDS: PANTOPRAZOLE 40MG TAB (PROTONIX) PO SCH (08:45)
--- NOTE | 2021-02-14 09:50 | IPN ---
PROGRESS NOTE DATE: 02/14/2021 SUBJECTIVE: Mr. Leigh' condition continues to be about the same. He is virtually asymptomatic as long as he does not get up. Blood pressure remains fairly low. He denies any chest pain or shortness of breath. We had a discussion yesterday about potential transfer for consideration of heart catheterization in view of potentially severe aortic stenosis. I spoke with Dr. Dean at [facility] in [place] from Interventional Cardiology and his opinion a mean gradient of 19 mmHg certainly is not consistent with severe aortic stenosis which I agree with. The only possibility that the aortic stenosis is truly severe was that the measurement was not done accurately because of poor visualization. I do believe this is certainly a possibility. Consequently, we will proceed with a transesophageal echocardiogram for better visualization of the valve. If indeed it appears that the valve is severely narrowed, then a cardiac catheterization can be contemplated. OBJECTIVE: VITAL SIGNS: This morning blood pressure 90/50, heart rate in the 80s. He is afebrile. Saturation is 98% on room air. Weight 95.1 kg. GENERAL: He is alert and oriented, appropriate. NECK: JVP is not high. LUNGS: Clear. HEART: Murmur over the aortic valve, not very loud, not more than 2/6 intensity. I still not appreciate a distinct closing sound. No gallop. ABDOMEN: Soft, nontender. EXTREMITIES: Mild edema. NEUROLOGIC: He is intact. He is alert and oriented, and appropriate. LABORATORY DATA: WBC count is 5.6, hemoglobin is 10.1, hematocrit 30.0, platelet count is 201,000. Basic metabolic panel: Sodium is 133, potassium is 3.7, BUN 56, creatinine 8.7 and glucose 89. Magnesium is 1.7. Albumin is 2.4. ASSESSMENT AND PLAN: An 85-year-old man who has been dialysis for five years, now has recurrent syncopal and near syncopal events of orthostatic nature. This is in the setting of chronic atrial fibrillation with preserved LV systolic function. Because of severe orthostatic hypotension is not completely clear and the considerations are for severe aortic stenosis even though transthoracic echocardiogram is not highly suggestive of that, even though it is possible that the alignment for the measurement of gradient of aortic valve was not accurate due to technical difficulties of the study. The second option is that he has high cardiac output due to AV fistula that contributes as well. Plan is to perform a transesophageal echocardiogram as above to get a better look at the aortic valve. If indeed it appears to be severely stenotic, then will consider transferring him for cardiac catheterization. If not, then it is unlikely that fixing the valve will make a clinical difference and we will have to pursue alternative routes even though I do not see any obvious at this point.
[2021-02-14 11:17] LABS: PHOSPHORUS LEVEL 5.5 MG/DL (2.5-4.9)
[2021-02-14 11:43] LABS: PTH INTACT 292.4 PG/ML (18.5-88.0)
[2021-02-14] MEDS ORDERED: LIDOCAINE VISCOUS 2% SOLN 15ML UDC As Ordered ONE (12:07)
[2021-02-14] MEDS ORDERED: CETACAINE SPRAY 5GM As Ordered ONE (12:07)
[2021-02-14] MEDS ORDERED: PHENYLephrine 500MCG 5ML (100MCG/ML) SYRINGE As Ordered ONE (12:27)
[2021-02-14] MEDS ORDERED: LIDOCAINE 2% 100MG/5ML SDV (FOR ANES.) As Ordered ONE (12:27)
[2021-02-14] MEDS ORDERED: ePHEDrine SULFATE 25 MG/5 ML(5MG/ML) SYRINGE As Ordered ONE (12:27)
[2021-02-14] MEDS ORDERED: ONDANSETRON 4MG/2ML VIAL As Ordered ONE (12:27)
[2021-02-14] MEDS ORDERED: propofoL 200 MG/20 ML VIAL As Ordered ONE (12:27)
--- NOTE | 2021-02-14 12:52 | IPNPDOC ---
Text Note Date of Service The patient was seen on 02/14/21. NOTE Subjective: No any acute events overnight. Patient agree to have LUIS ENRIQUE in the [facility]. Objective: GENERAL APPEARANCE: NAD HEENT: no scleral icterus, no JVD, EOMI CARDIOVASCULAR: Irregularly irregular LUNGS: Diminished lung sounds bilaterally ABDOMEN: soft & not tender w palpitation MUSCULOSKELETAL: +2 pitting edema bilaterally, pulses intact, right distal leg seems more swollen INTEGUMENT: no generalized pallor NEUROLOGICAL: cranial nerve function from 2-12 intact intact, follows commands, speech not dysarthric Assessment and plan Patient is an 85-year-old male with past medical history of hypertension, end-stage renal diseases on peritoneal dialysis, polycystic kidney diseases, atrial fibrillation, who presented to the emergency room with reported weakness. Patient had noted that he was in the bathroom on the toilet and when he was ready to leave. He had gone up, however, experienced weakness and lightheadedness that prompted him to sit back down. His significant other, helped him into another seated position. Patient recently started torsemide. Recurrent Syncope Multifactorial. Vasovagal superimposed with severe aortic stenosis There is also concern for aortic stenosis which can contribute to his syncope, moderate to severe according to echo report. Echo showed Mildly dilated left atrium with Doppler study suggesting an elevated mean left atrial pressure. Normal right ventricular size with mild right ventricular hypertrophy and Doppler evidence of at least moderate pulmonary hypertension. At least mildly dilated right atrium, but we could not visualize his inferior vena cava to estimate his central venous pressure. Mildly dilated aortic root and proximal ascending aorta. Moderately severe calcific aortic stenosis with mild insufficiency. Ejection fraction 75% Nephrology team recommended to add salt tab tid Dr Mohamud discussed the case with survey research analyst from [facility], his opinion a mean gradient of 19 mmHg certainly is not consistent with severe aortic stenosis Recommended to proceed with LUIS ENRIQUE in order to receive more precise measurement Orthostatic hypotension/ generalized weakness/chronic hypotension Secondary to deconditioning superimposed with peritoneal dialysis and torsemide DC torsemide Continue fludrocortisone Continue midodrine PT/OT End-stage renal diseases Nephrology team follows him A fib Heart rate under control Continue full dose of anticoagulation. Anticoagulation was stopped before due to history of GI bleed DLP c/w Atorvastatin Asthma Not in acute exacerbation - c/w Inhaled therapy as ordered Gout Not in acute exacerbation - Currently not on medications Follow-up with PCP in the outpatient settings AV fistula placement - In anticipation of HD in the future BPH s/p TURP Gastric ulcer / Hiatal hernia - s/p EGD 01/09/2021: Small non-bleeding shallow esophageal ulcer, Barrets esophagus - c/w Protonix Right leg DVT Doppler ultrasound showed Nonocclusive thrombus through the femoral vein/popliteal vein. 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 Mobility limitation cannot be sufficiently resolved by the use of any alternative DME device due to the need for legs to be elevated Constipation MiraLAX VS,Fishbone, I+O VS, Fishbone, I+O Laboratory Tests 02/14/21 05:46 Vital Signs Date Time Temp Pulse Resp B/P (MAP) Pulse Ox O2 Delivery O2 Flow Rate FiO2 02/14/21 12:41 96.8 77 16 81/41 (54) 99 Nasal Cannula 3 I&O- Last 24 Hours up to 6 AM 02/14/21 06:00 Intake Total 21960 ml Output Total 32039 ml Balance 797 ml MARIANNE WILDE DO Feb 14, 2021 12:52
[2021-02-14] MEDS ORDERED: GLYCOPYRROLATE INJ 0.2 MG/ML 2 ML VIAL As Ordered ONE (12:55)
[2021-02-14] MEDS ORDERED: ONDANSETRON 4MG/2ML VIAL IV PRN (13:05)
[2021-02-14] MEDS: VITAMIN D 1,000 INTERNATIONAL UNITS TABLET PO SCH (21:48)
[2021-02-14] MEDS: ATORVASTATIN 10 MG TAB PO SCH (21:48)
--- NOTE | 2021-02-14 23:03 | IPN ---
PROGRESS NOTE DATE: 02/14/2021 SUBJECTIVE: The patient was seen and examined at the bedside today morning. He was getting ready to go for a transesophageal echocardiogram today. He denies any problems with the peritoneal dialysis. He continues to have hypotension. OBJECTIVE: VITAL SIGNS: Temperature 97.3 degrees Fahrenheit, blood pressure 87/58, pulse 67, respiratory rate 17, saturating 99% on room air. INTAKE/OUTPUT: This is no urine output recorded. Weight in the bed scale is 95.1 kg. PHYSICAL EXAMINATION: GENERAL: Patient is awake, alert, oriented x3, lying in bed in no apparent distress. HEAD AND NECK: Extraocular muscles intact. Pupils equally round and reactive to light. Mucous membranes are moist. Neck is supple. There is mild elevated JVD. CARDIOVASCULAR: S1, S2, regular rate. 2+ edema of the bilateral lower extremities. RESPIRATORY: Mildly decreased breath sounds at the bases with mild expiratory wheezes in the lower zones. ABDOMEN: Soft. Left lower quadrant peritoneal dialysis catheter is noted. MUSCULOSKELETAL: 2+ edema of the bilateral lower extremities. INVESTIGATIVE AGENT: No focal deficit. Power is 5/5 in all extremities. LAB REVIEW: CBC showed WBC 5.6, hemoglobin 10.1, platelets 201,000. BMP showed sodium 133, potassium 3.7, chloride 99, bicarb 26, BUN 56, creatinine 8.6. Phosphorus 5.5. Magnesium 1.7. PTH 292. CURRENT INPATIENT MEDICATIONS: Patient's medications were all reviewed by myself. No significant change in the medications today as compared with yesterday. ASSESSMENT AND PLAN: 1. End-stage renal disease: Patient is peritoneal dialysis dependent, currently he is getting three exchanges of 1.5% and two exchanges of 2.5 %. 2. Chronic hypotension and recurrent syncope: Continue Florinef and Midodrine. Salt tablet has been stopped. Patient is going for a transesophageal echocardiogram to look at the aortic valve and check the cardiac output. 3. Anemia and end-stage renal disease: Continue current dose of Aranesp. 4. Right lower extremity DVT: Continue Eliquis. 5. Atrial fibrillation: Heart rate is controlled. Anticoagulation is with Eliquis. DISPOSITION: Patient is not stable enough to be discharged home at this time because of persistent hypotension and syncope.
[2021-02-15 02:00] VITALS: BP 100/56
[2021-02-15] MEDS: SLF 3 ML SYR IV SCH ×3 (05:55→21:39)
[2021-02-15 06:00] VITALS: BP 82/44
[2021-02-15 06:20] LABS: BASO # 0.1 10^3/uL (0.0-0.2); BASO % 1.2 % (0.0-1.0); EOS # 0.4 10^3/uL (0.0-0.5); EOS % 6.2 % (0.0-3.0); HEMATOCRIT 30.2 % (42.0-52.0); LYMPH # 0.6 10^3/uL (1.5-5.0); LYMPH % 9.8 % (24.0-44.0); MEAN CORPUSCULAR HEMOGLOBIN 33.6 pg (27.0-33.0); MEAN CORPUSCULAR HGB CONC 33.1 g/dl (32.0-36.5); MEAN CORPUSCULAR VOLUME 101.3 fl (80.0-96.0); MONO # 0.9 10^3/uL (0.0-0.8); MONO % 15.5 % (2.0-8.0); NEUTROPHILS # 3.7 10^3/uL (1.5-8.5); NEUTROPHILS % 62.9 % (36.0-66.0); PLATELET COUNT, AUTOMATED 217 10^3/uL (150-450); RED BLOOD COUNT 2.98 10^6/uL (4.30-6.10); WHITE BLOOD COUNT 5.9 10^3/uL (4.0-10.0)
[2021-02-15 06:47] LABS: ALBUMIN 2.4 GM/DL (3.2-5.2); BILIRUBIN,TOTAL 0.3 MG/DL (0.2-1.0); CALCIUM LEVEL 8.2 MG/DL (8.8-10.2); CREATININE FOR GFR 8.69 MG/DL (0.70-1.30); GLOMERULAR FILTRATION RATE 6.2 (>35); MAGNESIUM LEVEL 1.8 MG/DL (1.8-2.4); POTASSIUM SERUM 4.3 MEQ/L (3.5-5.1); TOTAL PROTEIN 4.9 GM/DL (6.4-8.2)
[2021-02-15] MEDS: ADVAIR HFA 45/21MCG INHALER INH SCH ×2 (07:41→20:23)
[2021-02-15] MEDS: BISACODYL 5 MG TAB PO SCH (08:25)
[2021-02-15] MEDS: PANTOPRAZOLE 40MG TAB (PROTONIX) PO SCH (08:26)
[2021-02-15] MEDS: DOCUSATE SODIUM 100MG CAPSULE PO SCH ×2 (08:26→21:38)
[2021-02-15] MEDS: POTASSIUM CHLORIDE 10 MEQ SR TABLET PO SCH (08:26)
[2021-02-15] MEDS: MIDODRINE 5 MG TAB PO SCH ×3 (08:26→16:38)
[2021-02-15] MEDS: FERROUS SULFATE 325MG TAB PO SCH (08:26)
[2021-02-15] MEDS: CALCITRIOL 0.25 MCG CAP (S0169) PO SCH (08:26)
[2021-02-15] MEDS: APIXABAN 2.5 MG TAB (ELIQUIS) PO SCH ×2 (08:26→21:38)
[2021-02-15] MEDS: MAGNESIUM GLUCONATE 500 MG TAB PO SCH ×2 (08:29→21:38)
[2021-02-15] MEDS: FLUDROCORTISONE ACETATE 0.1 MG TAB PO SCH (08:30)
[2021-02-15] MEDS: NEPHRO-VIT TAB (NEPHROCAPS) PO SCH (08:30)
[2021-02-15 10:00] VITALS: BP 72/43
--- NOTE | 2021-02-15 10:20 | T-ECHO ---
TRANSESOPHAGEAL ECHO DATE: 02/14/2021 REFERRING PHYSICIAN: Quintin Pearl DO INDICATION: Aortic stenosis. Height: 180 cm, weight 95 kg. PROCEDURE: Transesophageal echocardiogram. ANESTHESIOLOGY: Alessandro Maloney CRNA BRIEF HISTORY: Mr. Leigh is an 85-year-old gentleman who has chronic atrial fibrillation and has been dialysis dependent for approximately five years. He presented with several syncopal and near syncopal events and was found to be markedly orthostatic and this is in spite of maximal medical therapy. He was also found to have aortic stenosis that was found to be moderately severe based on transthoracic echocardiogram and there was question whether this could be contributing to his orthostatic symptoms. Because the transaortic gradient on 2D echocardiogram was only 19 mmHg, before pursuing potential cardiac catheterization, I wanted to reevaluate the valve by planimetry by transesophageal echocardiogram. I explained the rationale to the patient. He signed appropriate consent. PROCEDURE NOTE: The patient presented to operating room in fasting condition. After appropriate timeout was taken and all monitors were applied, his posterior pharynx was anesthetized using viscous lidocaine and cetacaine spray. He was then positioned in left lateral decubital position. Bite block was placed. After anesthesiology administered sedation, a probe was into esophagus and later stomach with minor difficulty. After appropriate images were obtained, it was withdrawn. There were no immediate complications and the patient tolerated the procedure well. FINDINGS: Left ventricle has normal systolic function with estimated EF around 65%. I do not appreciate any segmental wall motion abnormalities. The aortic valve is tricuspid. It is sclerotic. There is partial fusion of noncoronary and left coronary cusp but right coronary cusp has free mobility. By two-dimensional imaging, there is certainly not severe aortic stenosis. Aortic valve area by planimetry was 1.35 cm squared which corresponds to moderate stenosis. By color Doppler imaging and there is approximately mild to moderate aortic insufficiency with central AI jet, I could not obtain proper alignment with the aortic valve flow in order the incision obtain proper gradients. Mitral valve exhibits degenerative abnormalities but there is no prolapse or obvious vegetations. By color Doppler imaging, there is approximately moderate mitral insufficiency. Left atrial appendage is large and contains thrombus. There is normal flow in both left and right-sided pulmonary veins. The atrial septum is intact based on 2D and color Doppler imaging. Tricuspid valve was relatively poorly visualized. It does not have any significant stenosis or insufficiency. The pulmonic valve appears normal. There is very prominent atherosclerosis in the aortic arch and descending aorta but no obvious ulcerations or thrombi are seen. CONCLUSIONS: 1. Preserved left ventricular systolic function. 2. Prominent aortic sclerosis with moderate stenosis. Mild to moderate aortic insufficiency. 3. Moderate mitral insufficiency. 4. Left atrial appendage thrombus. 5. Very prominent atherosclerosis of thoracic aorta. 6. Intact atrial septum. COMMENT: Aortic stenosis is certainly not severe. I do not believe that more than moderate stenosis is noted. Consequently it is very unlikely that it is contributing to patient's symptoms. Results were discussed with the patient.
--- NOTE | 2021-02-15 12:28 | IPN ---
PROGRESS NOTE DATE: 02/15/2021 SUBJECTIVE: Yesterday I performed a transesophageal echocardiogram on Mr. Leigh. The focus of the test was evaluation of the aortic stenosis. Even though I was not able to get appropriate alignment for gradient measurements, by 2-D imaging it is obvious that the aortic stenosis is not severe. His right coronary cusp has free mobility and by planimetry the aortic valve area is 1.35 cm2 or possibly even higher. He did not have any side-effects from his procedure, he tolerated it well. This morning he has no complaints. OBJECTIVE: VITAL SIGNS: Blood pressure 82/44, heart rate in the 70s. He is saturating 97.6%, saturating 95% on room air. His weight is 94.9 kg. GENERAL APPEARANCE: He is alert and oriented, appropriate, watching TV. Exam is unchanged. LUNGS: Clear. HEART: Irregular rhythm with a harsh systolic ejection murmur over the aortic valve, about 2/6 intensity. I still not clearly appreciate a closing sound. ABDOMEN: Soft, nontender. EXTREMITIES: Free of edema. NEUROLOGIC: There is generalized weakness but I do not appreciate any vital signs. LABORATORY DATA: Hemoglobin is 10, hematocrit is 30.2, platelet count is 217,000. Basic metabolic panel: Sodium 134, potassium 4.3, BUN 55, creatinine 8.7 and glucose 81. Albumin is 2.4. ASSESSMENT AND PLAN: Mr. Leigh is an 85-year-old man who has been dialysis dependent for about five years. He has chronic atrial fibrillation and moderate aortic stenosis. He presented with orthostatic symptoms with several syncopal and near syncopal events. Unfortunately, I am afraid there is very little we an do with this issue. I think it is probably related to vasomotor dysregulation related to his age and long dialysis. He is already on all of the medications that I can think of that could potentially be beneficial. I wonder whether by manipulating peritoneal solution his weight can be let go up somewhat which I think might be of benefit. He does not have any obvious congestive symptoms so I suspect that retaining a liter or two of fluids may actually help some. Otherwise, I am afraid I do not have much to contribute to his care and I am going to sign off.
[2021-02-15 14:00] VITALS: BP 98/43
--- NOTE | 2021-02-15 14:32 | IPNPDOC ---
Text Note Date of Service The patient was seen on 02/15/21. NOTE Subjective: In the morning patient was hypotensive when he was doing physical therapy with blood pressure 75/40. No fever, no chills, no palpitations. I talked to his today she requested meeting with me and Dr. López tomorrow. Objective: GENERAL APPEARANCE: NAD HEENT: no scleral icterus, no JVD, EOMI CARDIOVASCULAR: Irregularly irregular LUNGS: Diminished lung sounds bilaterally ABDOMEN: soft & not tender w palpitation MUSCULOSKELETAL: +2 pitting edema bilaterally, pulses intact, right distal leg seems more swollen INTEGUMENT: no generalized pallor NEUROLOGICAL: cranial nerve function from 2-12 intact intact, follows commands, speech not dysarthric Assessment and plan Patient is an 85-year-old male with past medical history of hypertension, end-stage renal diseases on peritoneal dialysis, polycystic kidney diseases, atrial fibrillation, who presented to the emergency room with reported weakness. Patient had noted that he was in the bathroom on the toilet and when he was ready to leave. He had gone up, however, experienced weakness and ligh theadedness that prompted him to sit back down. His significant other, helped him into another seated position. Patient recently started torsemide. Recurrent Syncope Multifactorial. Vasovagal superimposed with severe aortic stenosis There is also concern for aortic stenosis which can contribute to his syncope, moderate to severe according to echo report. Echo showed Mildly dilated left atrium with Doppler study suggesting an elevated mean left atrial pressure. Normal right ventricular size with mild right ventricular hypertrophy and Doppler evidence of at least moderate pulmonary hypertension. At least mildly dilated right atrium, but we could not visualize his inferior vena cava to estimate his central venous pressure. Mildly dilated aortic root and proximal ascending aorta. Moderately severe calcific aortic stenosis with mild insufficiency. Ejection fraction 75% Nephrology team recommended to add salt tab tid Dr Mohamud discussed the case with production boring machine operator from [facility], his opinion a mean gradient of 19 mmHg certainly is not consistent with severe aortic stenosis LUIS ENRIQUE showed His right coronary cusp has free mobility and by planimetry the aortic valve area is 1.35 cm2 or possibly even higher.. Prominent aortic sclerosis with moderate stenosis. Mild to moderate aortic insufficiency. Dr. Mohamud thinks that patient does not have indications for aortic valve replacement Orthostatic hypotension/ generalized weakness/chronic hypotension Secondary to deconditioning superimposed with peritoneal dialysis and torsemide DC torsemide Continue fludrocortisone Continue midodrine PT/OT End-stage renal diseases Nephrology team follows him A fib Heart rate under control Continue full dose of anticoagulation. Anticoagulation was stopped before due to history of GI bleed DLP c/w Atorvastatin Asthma Not in acute exacerbation - c/w Inhaled therapy as ordered Gout Not in acute exacerbation - Currently not on medications Follow-up with PCP in the outpatient settings AV fistula placement - In anticipation of HD in the future BPH s/p TURP Gastric ulcer / Hiatal hernia - s/p EGD 01/09/2021: Small non-bleeding shallow esophageal ulcer, Barrets esophagus - c/w Protonix Right leg DVT Doppler ultrasound showed Nonocclusive thrombus through the femoral vein/popliteal vein. 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 Mobility limitation cannot be sufficiently resolved by the use of any alternative DME device due to the need for legs to be elevated Constipation MiraLAX VS,Fishbone, I+O VS, Fishbone, I+O Laboratory Tests 02/15/21 05:53 Vital Signs Date Time Temp Pulse Resp B/P (MAP) Pulse Ox O2 Delivery O2 Flow Rate FiO2 02/15/21 10:00 97.2 69 21 72/43 (53) 95 Room Air 02/14/21 12:58 3 I&O- Last 24 Hours up to 6 AM 02/15/21 06:00 Intake Total 24649 ml Output Total 51440 ml Balance 30 ml MARIANNE WILDE DO Feb 15, 2021 14:32
[2021-02-15 18:00] VITALS: BP 95/43
[2021-02-15] MEDS: ATORVASTATIN 10 MG TAB PO SCH (21:38)
[2021-02-15] MEDS: VITAMIN D 1,000 INTERNATIONAL UNITS TABLET PO SCH (21:38)
--- NOTE | 2021-02-15 21:47 | IPN ---
NEPHROLOGY PROGRESS NOTE DATE: 02/15/2021 SUBJECTIVE: The patient was seen and examined at the bedside today morning. He is afebrile. He has persistent low blood pressures. He got a transesophageal echocardiogram done yesterday which showed no significant aortic stenosis requiring any intervention. He continues to be on peritoneal dialysis. OBJECTIVE: VITAL SIGNS: Temperature is 98.1 degrees Fahrenheit, blood pressure 98/43, pulse is 63, respiratory rate of 20, saturating 97% on room air. INTAKE AND OUTPUT: Urine output recorded as 20 mL. Ultrafiltration with peritoneal dialysis is 450 mL. Weight in the bed scale is 94.9 kg. PHYSICAL EXAMINATION: GENERAL APPEARANCE: The patient is awake, alert, oriented x3, laying in bed in no apparent distress. HEAD AND NECK: Extraocular muscles intact. Pupils are equally round and reactive to light. Mucous membranes are moist. Neck is supple. There is no significant jugular venous distention. CARDIOVASCULAR: S1, S2, regular rate. Grade 3/6 systolic murmur was noted. EXTREMITIES: 2+ edema of the bilateral lower extremities. RESPIRATORY: Mildly decreased breath sounds at the bases. ABDOMEN: Soft, positive bowel sounds. Left lower quadrant peritoneal dialysis catheter. MUSCULOSKELETAL: 2+ edema of the bilateral lower extremities all the way up to the knees. WHEEL TRUING MACHINE TENDER: No focal deficits. Power is 5/5 in all extremities. LAB REVIEW: CBC showed a white blood cell count of 5.9, hemoglobin is 10, platelet count 217. BMP showed sodium of 134, potassium 4.3, chloride 97, bicarbonate 30, BUN 55, creatinine is 8.6. Calcium 8.2, magnesium is 1.8, albumin is 2.4. CURRENT INPATIENT MEDICATIONS: The patient's medications were all reviewed by myself. No significant change in the medications as compared with yesterday. ASSESSMENT AND PLAN: 1. End-stage renal disease - The patient continues to be on peritoneal dialysis. His current regimen is three exchanges of 1.5% and two exchanges of 2.5%. 2. Chronic hypotension and recurrent syncope - The patient continues to be hypotensive despite being on Midodrine and Florinef. Recent transesophageal echocardiogram did not show any significant aortic stenosis severe enough for any intervention. The patient is not a candidate for hemodialysis because his blood pressures are very soft. He will need to go home with peritoneal dialysis and home care or to a retirement that would accept him with peritoneal dialysis. Discussion is going to be done with the family members tomorrow morning. 3. Anemia and end-stage renal disease - continue current dose of Aranesp. Hemoglobin level is within the optimal range. 4. Right lower extremity DVT - continue current dose of Eliquis. 5. Atrial fibrillation - heart rate is controlled and anticoagulation is being done with Eliquis. 6. Secondary hyperparathyroidism - continue current dose of Calcitriol.
[2021-02-15 22:00] VITALS: BP 96/49
[2021-02-16 02:00] VITALS: BP 89/52
[2021-02-16] MEDS: SLF 3 ML SYR IV SCH ×3 (05:56→22:38)
[2021-02-16 06:00] VITALS: BP 94/48
[2021-02-16 06:16] LABS: BASO # 0.1 10^3/uL (0.0-0.2); EOS # 0.4 10^3/uL (0.0-0.5); EOS % 6.3 % (0.0-3.0); HEMATOCRIT 28.9 % (42.0-52.0); HEMOGLOBIN 9.7 g/dl (13.5-17.5); LYMPH # 0.5 10^3/uL (1.5-5.0); MEAN CORPUSCULAR HEMOGLOBIN 33.7 pg (27.0-33.0); MEAN CORPUSCULAR HGB CONC 33.6 g/dl (32.0-36.5); MEAN CORPUSCULAR VOLUME 100.3 fl (80.0-96.0); MONO % 16.9 % (2.0-8.0); NEUTROPHILS # 3.8 10^3/uL (1.5-8.5); NEUTROPHILS % 63.3 % (36.0-66.0); PLATELET COUNT, AUTOMATED 224 10^3/uL (150-450); RED BLOOD COUNT 2.88 10^6/uL (4.30-6.10)
[2021-02-16 06:39] LABS: ALBUMIN 2.3 GM/DL (3.2-5.2); BILIRUBIN,TOTAL 0.3 MG/DL (0.2-1.0); CALCIUM LEVEL 7.9 MG/DL (8.8-10.2); CREATININE FOR GFR 8.52 MG/DL (0.70-1.30); GLOMERULAR FILTRATION RATE 6.4 (>35); POTASSIUM SERUM 4.3 MEQ/L (3.5-5.1); TOTAL PROTEIN 4.8 GM/DL (6.4-8.2)
[2021-02-16 06:40] LABS: MAGNESIUM LEVEL 1.9 MG/DL (1.8-2.4)
[2021-02-16] MEDS: ADVAIR HFA 45/21MCG INHALER INH SCH ×2 (07:52→19:53)
[2021-02-16] MEDS: POTASSIUM CHLORIDE 10 MEQ SR TABLET PO SCH (08:46)
[2021-02-16] MEDS: NEPHRO-VIT TAB (NEPHROCAPS) PO SCH (08:46)
[2021-02-16] MEDS: FLUDROCORTISONE ACETATE 0.1 MG TAB PO SCH (08:46)
[2021-02-16] MEDS: MAGNESIUM GLUCONATE 500 MG TAB PO SCH ×2 (08:46→20:37)
[2021-02-16] MEDS: BISACODYL 5 MG TAB PO SCH (08:47)
[2021-02-16] MEDS: APIXABAN 2.5 MG TAB (ELIQUIS) PO SCH ×2 (08:47→20:37)
[2021-02-16] MEDS: PANTOPRAZOLE 40MG TAB (PROTONIX) PO SCH (08:47)
[2021-02-16] MEDS: DOCUSATE SODIUM 100MG CAPSULE PO SCH ×2 (08:47→20:37)
[2021-02-16] MEDS: MIDODRINE 5 MG TAB PO SCH ×3 (08:47→16:10)
[2021-02-16] MEDS: FERROUS SULFATE 325MG TAB PO SCH (08:47)
[2021-02-16 10:00] VITALS: BP 90/34
[2021-02-16 14:00] VITALS: BP 90/38
--- NOTE | 2021-02-16 14:16 | IPNPDOC ---
Text Note Date of Service The patient was seen on 02/16/21. NOTE Subjective: In the morning patient me and Dr. López had lengthy discussion with the family about the goal of treatment. Family agreed to take patient home and provide appropriate care. The CODE STATUS was changed to DNR/DNI Objective: GENERAL APPEARANCE: NAD HEENT: no scleral icterus, no JVD, EOMI CARDIOVASCULAR: Irregularly irregular LUNGS: Diminished lung sounds bilaterally ABDOMEN: soft & not tender w palpitation MUSCULOSKELETAL: +2 pitting edema bilaterally, pulses intact, right distal leg seems more swollen INTEGUMENT: no generalized pallor NEUROLOGICAL: cranial nerve function from 2-12 intact intact, follows commands, speech not dysarthric Assessment and plan Patient is an 85-year-old male with past medical history of hypertension, end-stage renal diseases on peritoneal dialysis, polycystic kidney diseases, atrial fibrillation, who presented to the emergency room with reported weakness. Patient had noted that he was in the bathroom on the toilet and when he was ready to leave. He had gone up, however, experienced weakness and lightheadedness that prompted him to sit back down. His significant other, helped him into another seated position. Patient recently started torsemide. Recurrent Syncope Multifactorial. Vasovagal superimposed with severe aortic stenosis There is also concern for aortic stenosis which can contribute to his syncope, moderate to severe according to echo report. Echo showed Mildly dilated left atrium with Doppler study suggesting an elevated mean left atrial pressure. Normal right ventricular size with mild right ventricular hypertrophy and Doppler evidence of at least moderate pulmonary hypertension. At least mildly dilated right atrium, but we could not visualize his inferior vena cava to estimate his central venous pressure. Mildly dilated aortic root and proximal ascending aorta. Moderately severe calcific aortic stenosis with mild insufficiency. Ejection fraction 75% Nephrology team recommended to add salt tab tid Dr Mohamud discussed the case with technician semiconductor development from [facility], his opinion a mean gradient of 19 mmHg certainly is not consistent with severe aortic stenosis LUIS ENRIQUE showed His right coronary cusp has free mobility and by planimetry the aortic valve area is 1.35 cm2 or possibly even higher.. Prominent aortic sclerosis with moderate stenosis. Mild to moderate aortic insufficiency. Dr. Mohamud thinks that patient does not have indications for aortic valve replacement Orthostatic hypotension/ generalized weakness/chronic hypotension Secondary to deconditioning superimposed with peritoneal dialysis and torsemide DC torsemide Continue fludrocortisone Continue midodrine PT/OT End-stage renal diseases Nephrology team follows him A fib Heart rate under control Continue full dose of anticoagulation. Anticoagulation was stopped before due to history of GI bleed DLP c/w Atorvastatin Asthma Not in acute exacerbation - c/w Inhaled therapy as ordered Gout Not in acute exacerbation - Currently not on medications Follow-up with PCP in the outpatient settings AV fistula placement - In anticipation of HD in the future BPH s/p TURP Gastric ulcer / Hiatal hernia - s/p EGD 01/09/2021: Small non-bleeding shallow esophageal ulcer, Barrets esophagus - c/w Protonix Right leg DVT Doppler ultrasound showed Nonocclusive thrombus through the femoral vein/popliteal vein. 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 Mobility limitation cannot be sufficiently resolved by the use of any alternative DME device due to the need for legs to be elevated Patient will be discharged home, he will need 24 hours care. Patient will need hospital bed due to frequent positioning that cannot be done in a regular bed, patient will need feet of bed evaluated more than 30% angle due to orthostatic hypotension at all times. Patient will require frequent changes in body position VS,Vice, I+O VS, Fishbone, I+O Laboratory Tests 02/16/21 05:35 Vital Signs Date Time Temp Pulse Resp B/P (MAP) Pulse Ox O2 Delivery O2 Flow Rate FiO2 02/16/21 10:00 98.2 67 18 90/34 (52) 97 Room Air 02/14/21 12:58 3 l I&O- Last 24 Hours up to 6 AM 02/16/21 05:59 Intake Total 19978 ml Output Total 00614 ml Balance 390 ml MARIANNE WILDE DO Feb 16, 2021 14:16
[2021-02-16] MEDS: VITAMIN D 1,000 INTERNATIONAL UNITS TABLET PO SCH (20:37)
[2021-02-16] MEDS: ATORVASTATIN 10 MG TAB PO SCH (20:37)
[2021-02-16 22:00] VITALS: BP 94/50
--- NOTE | 2021-02-16 22:11 | IPN ---
NEPHROLOGY PROGRESS NOTE DATE: 02/16/2021 SUBJECTIVE: The patient was seen and examined at the bedside today morning. The patient's family members including his significant other and his daughter were also present at the bedside. Hospitalist Dr. Quintin Pearl was also in the room and the patient's goals of care were discussed. We explained to the family that the patient is unable to get out of bed because of persistent low blood pressures. Transesophageal electrocardiogram did not show any significant aortic stenosis that would need any surgical intervention, and the patient would likely need to be transferred to a retirement with inpatient peritoneal dialysis or he would need to go home with Visiting Nurse services. OBJECTIVE: VITAL SIGNS: Temperature is 97.1 degrees Fahrenheit, blood pressure is 90/38, pulse is 69, respiratory rate of 13, saturating 99% on room air. INTAKE AND OUTPUT: Urine output recorded as 20 mL yesterday. Weight in the bed scale is 96 kg. PHYSICAL EXAMINATION: GENERAL APPEARANCE: The patient is awake, alert, oriented x3, laying in bed. HEAD AND NECK: Extraocular muscles intact. Pupils are equally round and reactive to light. Neck is supple. There is mildly elevated jugular venous distention. CARDIOVASCULAR: S1, S2, regular rate. EXTREMITIES: 2+ edema of the bilateral lower extremities. RESPIRATORY: Mildly decreased breath sounds at the bases. Mild inspiratory crackles at the bases. ABDOMEN: Soft, positive bowel sounds. Left lower quadrant Whaley catheter is noted. MUSCULOSKELETAL: Edema of the bilateral lower extremities noted. AUTOMATIC SEAMER: No focal deficits. Power is 5/5 in bilateral upper extremities. LAB REVIEW: CBC showed a white blood cell count of 6, hemoglobin 9.7, platelet count 224. BMP showed sodium of 135, potassium 4.3, chloride 98, bicarbonate 26, BUN 56, creatinine is 8.5, calcium is 7.9, magnesium is 1.9, albumin is 2.3. CURRENT INPATIENT MEDICATIONS: The patient's medications were all reviewed by myself. No significant change in the medications today as compared with yesterday. ASSESSMENT: 1. End-stage renal disease - The patient is dependent on peritoneal dialysis. Continue current regimen which is a mix of 1.5% and 2.5%. He is not a candidate for hemodialysis because of very low blood pressures. 2. Chronic hypotension and recurrent syncope Physical Therapy was also present in the room and they recommended to keep the patient in the bed and avoid walking around because every time they tried to do any physical therapy with him, he had syncope. Continue current dose of Midodrine and Florinef. 3. Anemia and end-stage renal disease - continue current dose of Aranesp. 4. Atrial fibrillation - heart rate is controlled. Anticoagulation is being done with Eliquis. 5. Secondary hyperparathyroidism - continue Calcitriol. 6. Disposition we had an extensive goals of care discussion with the family members, and we recommended that the patient should be made DNR/DNI given his frequent persistent hypertension and syncopes and end-stage renal disease and bedridden status. The patient will need to go to a retirement with inpatient peritoneal dialysis or home with Visiting Nurse services. Overall the patient has a poor penitentiary prognosis. Family also wanted to know if ligation of AV fistula would help improve his blood pressure. The patient's fistula will be tied with a tourniquet and blood pressure will be checked to see if that makes any difference in his symptoms. No urgent surgical intervention is needed at this time. Transesophageal echocardiogram did not show any evidence of high output cardiac failure.
[2021-02-17] MEDS: SLF 3 ML SYR IV SCH ×3 (05:45→21:38)
[2021-02-17 06:00] VITALS: BP 108/83
[2021-02-17 06:21] LABS: BASO # 0.1 10^3/uL (0.0-0.2); BASO % 0.6 % (0.0-1.0); EOS # 0.4 10^3/uL (0.0-0.5); EOS % 4.5 % (0.0-3.0); HEMATOCRIT 30.5 % (42.0-52.0); HEMOGLOBIN 10.3 g/dl (13.5-17.5); LYMPH # 0.6 10^3/uL (1.5-5.0); LYMPH % 6.9 % (24.0-44.0); MEAN CORPUSCULAR HEMOGLOBIN 33.8 pg (27.0-33.0); MEAN CORPUSCULAR HGB CONC 33.8 g/dl (32.0-36.5); MONO # 1.2 10^3/uL (0.0-0.8); MONO % 14.4 % (2.0-8.0); NEUTROPHILS # 5.7 10^3/uL (1.5-8.5); NEUTROPHILS % 71.7 % (36.0-66.0); PLATELET COUNT, AUTOMATED 222 10^3/uL (150-450); RED BLOOD COUNT 3.05 10^6/uL (4.30-6.10)
[2021-02-17 06:44] LABS: ALBUMIN 2.3 GM/DL (3.2-5.2); BILIRUBIN,TOTAL 0.4 MG/DL (0.2-1.0); CREATININE FOR GFR 8.44 MG/DL (0.70-1.30); GLOMERULAR FILTRATION RATE 6.4 (>35); MAGNESIUM LEVEL 1.9 MG/DL (1.8-2.4); POTASSIUM SERUM 3.7 MEQ/L (3.5-5.1); TOTAL PROTEIN 5.4 GM/DL (6.4-8.2)
[2021-02-17] MEDS: ADVAIR HFA 45/21MCG INHALER INH SCH ×2 (07:42→19:35)
[2021-02-17] MEDS: BISACODYL 5 MG TAB PO SCH (08:51)
[2021-02-17] MEDS: NEPHRO-VIT TAB (NEPHROCAPS) PO SCH (08:51)
[2021-02-17] MEDS: CALCITRIOL 0.25 MCG CAP (S0169) PO SCH (08:51)
[2021-02-17] MEDS: APIXABAN 2.5 MG TAB (ELIQUIS) PO SCH ×2 (08:51→21:37)
[2021-02-17] MEDS: FLUDROCORTISONE ACETATE 0.1 MG TAB PO SCH (08:52)
[2021-02-17] MEDS: MAGNESIUM GLUCONATE 500 MG TAB PO SCH ×2 (08:52→21:37)
[2021-02-17] MEDS: FERROUS SULFATE 325MG TAB PO SCH (08:52)
[2021-02-17] MEDS: MIDODRINE 5 MG TAB PO SCH ×3 (08:52→15:05)
[2021-02-17] MEDS: DOCUSATE SODIUM 100MG CAPSULE PO SCH ×2 (08:52→21:37)
[2021-02-17] MEDS: PANTOPRAZOLE 40MG TAB (PROTONIX) PO SCH (08:52)
[2021-02-17] MEDS: POTASSIUM CHLORIDE 10 MEQ SR TABLET PO SCH (08:52)
[2021-02-17 11:30] VITALS: BP_SYST 71; BP_SYST 81; BP_SYST 84; BP_DIAS 41; BP_DIAS 47; BP_DIAS 49
[2021-02-17 14:00] VITALS: BP 92/40
[2021-02-17] MEDS: VITAMIN D 1,000 INTERNATIONAL UNITS TABLET PO SCH (21:36)
[2021-02-17] MEDS: ATORVASTATIN 10 MG TAB PO SCH (21:37)
[2021-02-17 22:00] VITALS: BP 92/40
[2021-02-18] MEDS: SLF 3 ML SYR IV SCH ×3 (05:14→21:49)
[2021-02-18 06:00] VITALS: BP 87/45
[2021-02-18] MEDS: ADVAIR HFA 45/21MCG INHALER INH SCH ×2 (07:48→19:56)
[2021-02-18] MEDS: DOCUSATE SODIUM 100MG CAPSULE PO SCH ×2 (08:56→19:44)
[2021-02-18] MEDS: APIXABAN 2.5 MG TAB (ELIQUIS) PO SCH ×2 (08:56→19:44)
[2021-02-18] MEDS: BISACODYL 5 MG TAB PO SCH (08:56)
[2021-02-18] MEDS: MIDODRINE 5 MG TAB PO SCH ×3 (08:56→16:17)
[2021-02-18] MEDS: FLUDROCORTISONE ACETATE 0.1 MG TAB PO SCH (08:56)
[2021-02-18] MEDS: PANTOPRAZOLE 40MG TAB (PROTONIX) PO SCH (08:56)
[2021-02-18] MEDS: NEPHRO-VIT TAB (NEPHROCAPS) PO SCH (08:57)
[2021-02-18] MEDS: MAGNESIUM GLUCONATE 500 MG TAB PO SCH ×2 (08:57→19:44)
[2021-02-18] MEDS: FERROUS SULFATE 325MG TAB PO SCH (08:57)
[2021-02-18] MEDS: POTASSIUM CHLORIDE 10 MEQ SR TABLET PO SCH (08:57)
--- NOTE | 2021-02-18 10:05 | IPN ---
NEPHROLOGY PROGRESS NOTE DATE: 02/17/2021 SUBJECTIVE: The patient was seen and examined at the bedside today morning. He is afebrile. His blood pressures are still low. The last 24 hour events were noted. Patient was initially made DNR, but later on he made himself full code again. Possible ligation of AV fistula was discussed by myself with cardiology and vascular surgery, and their recommendation was to put a dressing on the fistula and see if that makes any difference in his blood pressures. Both the services are not very convinced that ligation of fistula would help improve his blood pressures. OBJECTIVE: VITAL SIGNS: Temperature 97.8 degrees Fahrenheit, blood pressure 92/40, pulse 62, respiratory rate 17, saturating 98% on room air. Patient's AV fistula had 4x4 and then dry compression bandage applied by myself and after that his laying blood pressure was 81/47 and sitting blood pressure with legs dangling off the bed was 74/47. INTAKE/OUTPUT: This is no significant urine output recorded. Weight in the bed scale is 93.9 kg. PHYSICAL EXAMINATION: GENERAL: Patient is awake, alert, oriented x3, lying in bed in no apparent distress. HEAD AND NECK: Extraocular muscles intact. Pupils equally round and reactive to light. Mucous membranes are moist. Neck is supple. Mildly elevated JVD. CARDIOVASCULAR: S1, S2, regular rate. 2+ edema of the bilateral lower extremities. RESPIRATORY: Mild expiratory wheezing was noted. ABDOMEN: Soft. Left lower quadrant PD catheter was noted. Abdominal wall edema was noted. MUSCULOSKELETAL: 2+ edema of the bilateral lower extremity was noted. WELL SERVICE PUMP EQUIPMENT OPERATOR: No focal deficit. Power is 5/5 in all extremities. LAB REVIEW: CBC showed WBC 8, hemoglobin 10.3, platelets 222,000. BMP showed sodium 134, potassium 3.7, chloride 98, bicarb 27, BUN 53, creatinine 8.4. Calcium 8. Magnesium 1.9. Albumin 2.3. CURRENT INPATIENT MEDICATIONS: Patient's medications were all reviewed by myself. He continues to be on Midodrine and Florinef. No other significant change in the medications. ASSESSMENT AND PLAN: 1. End-stage renal disease: Patient is peritoneal dialysis dependent. He is currently getting three exchanges of 1.5% and two exchanges of 2.5%. 2. Recurrent hypotension and syncope: Continue Midodrine and Florinef. Patient's AV fistula was bandaged with a dry dressing and after that, there was no significant difference in the orthostatic pressures. Patient still becomes hypotensive on sitting up. 3. Anemia and end-stage renal disease: Continue Aranesp. Hemoglobin level is within the acceptable range. 4. Atrial fibrillation: Continue anticoagulation with Eliquis. DISPOSITION: Patient is pending placement. His significant other has requested transfer to home with home assistance.
[2021-02-18] MEDS: ATORVASTATIN 10 MG TAB PO SCH (19:44)
[2021-02-18] MEDS: VITAMIN D 1,000 INTERNATIONAL UNITS TABLET PO SCH (19:44)
[2021-02-18 22:00] VITALS: BP 94/50
--- NOTE | 2021-02-18 22:06 | IPN ---
NEPHROLOGY PROGRESS NOTE DATE: 02/18/2021 SUBJECTIVE: The patient was seen and examined at the bedside today morning. His Midodrine dose was increased yesterday. His blood pressures are still soft. He denies any problems with the peritoneal dialysis. OBJECTIVE: VITAL SIGNS: Temperature 97.9 degrees Fahrenheit, blood pressure 87/45, pulse 70, respiratory rate 18, saturating 100% on room air. INTAKE/OUTPUT: Urine output recorded as 50 cc. Weight in the bed scale is 94.3 kg. PHYSICAL EXAMINATION: GENERAL: Patient is awake, alert, oriented x3, lying in bed in no apparent distress. HEAD AND NECK: Extraocular muscles intact. Pupils equally round and reactive to light. Mucous membranes are moist. Neck is supple. Mildly elevated JVD. CARDIOVASCULAR: S1, S2, regular rate. 2+ edema of the bilateral lower extremities. RESPIRATORY: Mild decreased breath sounds at the bases, otherwise no active rales or rhonchi. ABDOMEN: Soft. Positive bowel sounds. Mild abdominal wall edema. Left lower quadrant PD catheter. MUSCULOSKELETAL: 2+ edema of the bilateral lower extremity. He has compression bandage at the bilateral lower extremities. AWNING CRAFTSMAN: No focal deficit. Power is 5/5 in all extremities. LAB REVIEW: CBC from yesterday with hemoglobin 10.3. BMP also from yesterday with potassium 3.7 and creatinine 8.4. CURRENT INPATIENT MEDICATIONS: Patient's medications were all reviewed by myself. His Midodrine dose is 15 mg p.o. three times a day now. ASSESSMENT AND PLAN: 1. End-stage renal disease: Patient is peritoneal dialysis dependent. Continue current regimen of three exchanges of 1.5% and two exchanges of 2.5%. 2. Chronic persistent hypotension and recurrent syncope: Midodrine dose is 15 mg p.o. three times a day now. Continue Florinef 0.1 mg p.o. daily. 3. Anemia and end-stage renal disease: Continue Aranesp if hemoglobin is acceptable. 4. Atrial fibrillation: Heart rate is controlled. Continue Eliquis. 5. Secondary hyperparathyroidism: Continue current dose of Calcitriol three times a week.
[2021-02-19] MEDS: SLF 3 ML SYR IV SCH ×3 (05:02→21:45)
[2021-02-19 06:00] VITALS: BP 82/56
[2021-02-19 08:00] VITALS: BP 84/40
[2021-02-19] MEDS: MIDODRINE 5 MG TAB PO SCH ×3 (08:01→16:44)
[2021-02-19] MEDS: FERROUS SULFATE 325MG TAB PO SCH (08:01)
[2021-02-19] MEDS: DOCUSATE SODIUM 100MG CAPSULE PO SCH ×2 (08:01→21:45)
[2021-02-19] MEDS: POTASSIUM CHLORIDE 10 MEQ SR TABLET PO SCH (08:01)
[2021-02-19] MEDS: FLUDROCORTISONE ACETATE 0.1 MG TAB PO SCH (08:02)
[2021-02-19] MEDS: PANTOPRAZOLE 40MG TAB (PROTONIX) PO SCH (08:02)
[2021-02-19] MEDS: NEPHRO-VIT TAB (NEPHROCAPS) PO SCH (08:02)
[2021-02-19] MEDS: MAGNESIUM GLUCONATE 500 MG TAB PO SCH ×2 (08:02→21:45)
[2021-02-19] MEDS: BISACODYL 5 MG TAB PO SCH (08:03)
[2021-02-19] MEDS: APIXABAN 2.5 MG TAB (ELIQUIS) PO SCH ×2 (08:04→21:45)
[2021-02-19] MEDS: ADVAIR HFA 45/21MCG INHALER INH SCH ×2 (08:19→19:55)
[2021-02-19 13:30] VITALS: BP 92/52
[2021-02-19 16:43] VITALS: BP 102/48
--- NOTE | 2021-02-19 18:04 | IPN ---
NEPHROLOGY PROGRESS NOTE DATE: 02/19/2021 SUBJECTIVE: Patient was seen and examined at the bedside today morning. He still has soft blood pressures. He denies any complaints with peritoneal dialysis. Nursing staff told the patient clinically he has wheezing now, because he is slightly getting volume overloaded. He has been gaining weight over the last three days. OBJECTIVE: VITAL SIGNS: Temperature 97.6 degrees Fahrenheit, blood pressure 84/40, pulse 69, respiratory rate 19, saturating 97% on room air. INTAKE AND OUTPUT: Urine output is not recorded. Weight in the bed scale is 95.5 kg, which is almost 1 kg above his weight yesterday. PHYSICAL EXAMINATION: GENERAL: Patient is awake, alert, oriented times three, laying in bed in no apparent distress. HEAD AND NECK EXAM: Extraocular muscles intact. Pupils equally round and reactive to light. Mucous membranes are moist. Neck is supple. Mildly elevated jugular venous distention (JVD) was noted. CARDIOVASCULAR: S1, S2. Irregular heart rate. There is 2+ edema of the bilateral lower extremities. RESPIRATORY: Mildly decreased breath sounds at the bases. Mild expiratory wheezing bilaterally in the lower lung zones. ABDOMEN: Soft. Positive bowel sounds. Abdominal wall edema was noted. Left lower quadrante peritoneal dialysis (PD) catheter. MUSCULOSKELETAL: Edema 2+ of the bilateral lower extremities. He has compression bandages of the legs. CENTRAL NERVOUS SYSTEM (EXPANDED FUNCTION DENTAL ASSISTANT): No focal deficits. Power is 5/5 in all extremities. LABORATORY REVIEW: CBC is from two days ago. BMP is also from two days ago. There are no new labs available. CURRENT INPATIENT MEDICATIONS: Patient's medications are all reviewed by myself. No significant change in the medications today. ASSESSMENT AND PLAN: 1. End-stage renal disease. Patient's peritoneal dialysis (PD) regimen is being changed. He would get three exchanged of 2.5% and two exchanges of 1.5% because of signs of volume overload and wheezing now. 2. Chronic persistent hypotension and syncope. Patient continues to be on Florinef and midodrine. Midodrine dose was increased yesterday and, as mentioned above, because of wheezing and size of overload, his PD regimen is being changed. 3. Anemia of end-stage renal disease. Continue current dose of Aranesp. 4. Atrial fibrillation. Anticoagulation is with Eliquis. Heart rate is controlled.
[2021-02-19] MEDS: VITAMIN D 1,000 INTERNATIONAL UNITS TABLET PO SCH (21:45)
[2021-02-19] MEDS: ATORVASTATIN 10 MG TAB PO SCH (21:45)
[2021-02-20 06:00] VITALS: BP 72/48
[2021-02-20] MEDS: SLF 3 ML SYR IV SCH (06:02)
[2021-02-20] MEDS: ADVAIR HFA 45/21MCG INHALER INH SCH (07:25)
[2021-02-20] MEDS: MIDODRINE 5 MG TAB PO SCH ×2 (08:23→11:46)
[2021-02-20] MEDS: CALCITRIOL 0.25 MCG CAP (S0169) PO SCH (08:23)
[2021-02-20] MEDS: FERROUS SULFATE 325MG TAB PO SCH (08:23)
[2021-02-20] MEDS: BISACODYL 5 MG TAB PO SCH (08:24)
[2021-02-20] MEDS: APIXABAN 2.5 MG TAB (ELIQUIS) PO SCH (08:24)
[2021-02-20] MEDS: NEPHRO-VIT TAB (NEPHROCAPS) PO SCH (08:24)
[2021-02-20] MEDS: PANTOPRAZOLE 40MG TAB (PROTONIX) PO SCH (08:24)
[2021-02-20] MEDS: DOCUSATE SODIUM 100MG CAPSULE PO SCH (08:24)
[2021-02-20] MEDS: POTASSIUM CHLORIDE 10 MEQ SR TABLET PO SCH (08:25)
[2021-02-20] MEDS: FLUDROCORTISONE ACETATE 0.1 MG TAB PO SCH (08:25)
[2021-02-20] MEDS: MAGNESIUM GLUCONATE 500 MG TAB PO SCH (08:26)
--- NOTE | 2021-02-20 12:08 | IPN ---
PROGRESS NOTE DATE: 02/20/2021 SUBJECTIVE: The patient is seen and examined this morning at the bedside. His manual exchanges have been uneventful. He denies any complaints. He is discharge pending this afternoon with follow-up in the peritoneal dialysis clinic. I discussed his home peritoneal dialysis prescription with him. OBJECTIVE: VITAL SIGNS: Temperature 98.0, pulse 61, respiratory rate 18, blood pressure systolic 72 to 102/diastolics 40s to 50s, saturating 96 per on room air. GENERAL APPEARANCE: Patient is seen awake, alert and oriented, comfortable in bed, elderly male in no apparent distress. HEENT: Extraocular muscles are intact. Pupils are round and reactive to light. Mucous membranes are moist. NECK: Supple. Jugular veins are only minimally elevated. HEART: Heart sounds are S1 and S2, irregularly irregular. There is 2+ edema of the lower extremities which is chronic and unchanged. LUNGS: There is expiratory wheezing diffusely but there is no crackle or rale. ABDOMEN: Soft. There are bowel sounds. There is left lower quadrant PD catheter with intact exit site. EXTREMITIES: Fistula in the left upper extremity and chronic edema in the legs with compression bandages present. NEUROLOGIC: No focal deficit. He is oriented x3. SKIN: Warm and dry. LABORATORY DATA: There are no new labs today. The most recent CBC and BMP from February 17 is reviewed. INPATIENT MEDICATIONS: Reviewed by myself. No changes noted as compared to yesterday. PROBLEMS: 1. Endstage renal disease on peritoneal dialysis. Patient continues on a gentle peritoneal dialysis prescription. In the hospital he is receiving five manual exchanges daily of 2.5% and 1.5% Dianeal. At home, he return back to his usual cycler prescription. Consideration can be given to ligation of his left arm fistula as an outpatient although I am not sure that will help with his chronic hypotension. 2. Chronic persistent hypotension. It has been a long-term problem for the patient. He continues on Midodrine. The dose was increased on this hospitalization to 15 mg three times a day. He is also on chronic fludrocortisone. He had a transesophageal echocardiogram on this admission. His aortic stenosis was felt to be moderate. He can follow-up with Vascular Surgery as an outpatient to see if ligating the fistula may help with blood pressure.
--- NOTE | 2021-02-20 12:27 | DSES ---
DISCHARGE SUMMARY DATE OF ADMISSION: 02/02/2021 DATE OF DISCHARGE: 02/20/2021 PRINCIPAL DIAGNOSES: 1. Syncopal episode secondary to hypotension. 2. Autonomic dysregulation. SECONDARY DIAGNOSES: 1. End-stage renal disease on peritoneal dialysis. 2. Atrial fibrillation. 3. Profound deconditioning. HISTORY: The patient is an 85-year-old with end-stage renal disease on peritoneal dialysis, has recurrent syncope, was admitted for this. I did not see this during his hospitalization. He was an SNF level of care but he is being discharged home during the day of my coverage going off the notes that are in the chart. HOSPITAL COURSE: He was seen by Dr. Mohamud. The patient has moderately severe aortic stenosis, mean gradient of 19 mm not consistent or severe enough to warrant a TAVR procedure. He was treated with Florinef, Midodrine and torsemide was discontinued. He improved to the point where he could be discharged. Nephrology followed him on a daily basis for his issue of anemia and his peritoneal dialysis. His atrial fibrillation was treated with Eliquis for thromboembolic prophylaxis. On the day of discharge it looks like his blood pressure is 72/48. It was 102/48 yesterday. Most recent labs were done on 02/17. White count 9.8, hemoglobin 10.3, platelets 222. Sodium 134, potassium 3.7. COVID test was negative. Ultrasound of his right lower leg showed nonocclusive thrombus in the femoral vein and popliteal vein. DISPOSITION: He was discharged, apparently going home. MEDICINES: 1. Eliquis 2.5 mg twice a day. 2. Florinef 0.1 mg daily. 3. Atorvastatin 10 mg once daily at bedtime. 4. Calcitriol 0.25 mcg daily. 5. Vitamin D 1000 units daily. 6. Ferrous sulfate 325 mg daily. 7. Ibeth-Lynda one tablet daily. 8. Midodrine 5 mg three times a day. 9. Protonix 40 mg daily. 10. Advair 100/50 one inhalation twice a day. 11. Torsemide 20 mg daily was discontinued. 12. He is no longer on Levaquin that was given earlier in the hospitalization. NEW MEDICATIONS: 1. Eliquis 2.5 mg twice a day. 2. Florinef 0.1 mg daily.
== END 2021-02-20 14:16 | disposition home health service (06) | DRG 314 ==
LOC: M ED 14:26 → EDBD 14:26 → M ED INP 14:27 → M PCU 18:16 → OBSVTOIN 02-02 10:28 → M MSPAV 02-03 15:34
PROVIDERS: ADMIT Internal Medicine; ATTEND Internal Medicine
PROC: 3E1M39Z Irrigation of Peritoneal Cavity using Dialysate, Percutaneous Approach (ICD-10-PCS; principal; 2021-02-02)
PROC: B246ZZ4 Ultrasonography of Right and Left Heart, Transesophageal (ICD-10-PCS; 2021-02-14)
DX: I95.89 Other hypotension (principal); N18.6 End stage renal disease; Q61.3 Polycystic kidney, unspecified; N25.81 Secondary hyperparathyroidism of renal origin; I12.0 Hypertensive chronic kidney disease with stage 5 chronic kidney disease or end stage renal disease; E87.1 Hypo-osmolality and hyponatremia; I82.411 Acute embolism and thrombosis of right femoral vein; I82.431 Acute embolism and thrombosis of right popliteal vein; N39.0 Urinary tract infection, site not specified; E46 Unspecified protein-calorie malnutrition; T83.518A Infection and inflammatory reaction due to other urinary catheter, initial encounter; I48.91 Unspecified atrial fibrillation; E78.5 Hyperlipidemia, unspecified; J45.909 Unspecified asthma, uncomplicated; M10.9 Gout, unspecified; N40.1 Benign prostatic hyperplasia with lower urinary tract symptoms; K44.9 Diaphragmatic hernia without obstruction or gangrene; D63.1 Anemia in chronic kidney disease; N31.2 Flaccid neuropathic bladder, not elsewhere classified; E87.6 Hypokalemia; K22.70 Barrett's esophagus without dysplasia; E83.42 Hypomagnesemia; R33.9 Retention of urine, unspecified; I95.1 Orthostatic hypotension; I35.0 Nonrheumatic aortic (valve) stenosis; Z99.2 Dependence on renal dialysis; Y84.6 Urinary catheterization as the cause of abnormal reaction of the patient, or of later complication, without mention of misadventure at the time of the procedure; Z87.891 Personal history of nicotine dependence; Z20.822 Contact with and (suspected) exposure to COVID-19; Z79.899 Other long term (current) drug therapy

== ENCOUNTER → 2021-03-23 | Outpatient (REF) | payer MEDICARE ==
[~2021-03-23] MED LIST changes: +TORS20TA2 PO
== END ==
LOC: M LAB REF 17:10
PROVIDERS: ATTEND Internal Medicine Nephrology
DX: N18.6 End stage renal disease (principal); N39.0 Urinary tract infection, site not specified; N31.2 Flaccid neuropathic bladder, not elsewhere classified

== ENCOUNTER 2021-04-12 13:38 | Inpatient (IN) | payer MEDICARE, OTHER ==
[~2021-04-12] VITALS: Ht 185.4 cm; Wt 96.1 kg
--- NOTE | 2021-04-12 14:35 | REP ---
INDICATION: Syncope/near-syncope. COMPARISON: 02/01/2021 also portable TECHNIQUE: Portable FINDINGS: The technique utilized in obtaining the radiograph has magnified the cardiac silhouette and accentuated the interstitial markings. The superior mediastinal structures are midline. The cardiac silhouette is unremarkable in size, shape, and position. The diaphragmatic surfaces of the lungs are regular, and the costophrenic angles are clear. The pulmonary bean are unchanged. No acute patchy parenchymal opacities or pleural effusions have developed. The imaged osseous structures are intact. IMPRESSION: There is no acute cardiopulmonary disease. No significant change from the prior exam. <Electronically signed by Benjamin Medina > 04/12/21 [id number]
[2021-04-12 14:36] LABS: BASO # 0.1 10^3/uL (0.0-0.2); BASO % 0.7 % (0.0-1.0); EOS # 0.3 10^3/uL (0.0-0.5); EOS % 2.6 % (0.0-3.0); HEMOGLOBIN 11.9 g/dl (13.5-17.5); LYMPH # 0.6 10^3/uL (1.5-5.0); LYMPH % 5.7 % (24.0-44.0); MEAN CORPUSCULAR HEMOGLOBIN 32.2 pg (27.0-33.0); MEAN CORPUSCULAR HGB CONC 32.2 g/dl (32.0-36.5); NEUTROPHILS # 8.5 10^3/uL (1.5-8.5); NEUTROPHILS % 79.7 % (36.0-66.0); PLATELET COUNT, AUTOMATED 299 10^3/uL (150-450); WHITE BLOOD COUNT 10.6 10^3/uL (4.0-10.0)
[2021-04-12] MEDS ORDERED: NS 500 ML IV ONE (14:40)
[2021-04-12] MEDS ORDERED: ONDANSETRON 4MG/2ML VIAL IV ONE (14:40)
[2021-04-12 14:49] LABS: INR 1.14; PROTHROMBIN TIME 14.9 SECONDS (12.5-14.3)
[2021-04-12 14:50] LABS: PARTIAL THROMBOPLASTIN TIME 33.9 SECONDS (24.2-38.5)
[2021-04-12] MEDS ORDERED: RENATAB6 PO (14:50)
[2021-04-12] MEDS ORDERED: ALBU8.5H INH (14:50)
[2021-04-12] MEDS ORDERED: KLOR20TA42 PO (14:50)
--- NOTE | 2021-04-12 15:01 | REPVR ---
PROCEDURE INFORMATION: Exam: CT Head Without Contrast Exam date and time: 04/12/2021 2:37 PM Age: 85 years old Clinical indication: Syncope and collapse TECHNIQUE: Imaging protocol: Computed tomography of the head without contrast. Radiation optimization: All CT scans at this facility use at least one of these dose optimization techniques: automated exposure control; mA and/or kV adjustment per patient size (includes targeted exams where dose is matched to clinical indication); or iterative reconstruction. COMPARISON: CT Head without contrast 11/09/2017 5:53 PM FINDINGS: Brain: There is no acute intracranial hemorrhage. There is lucency in the cerebral white matter, likely microvascular disease although non-specific. Walden white differentiation is intact. There are no extra-axial fluid collections. No evidence of mass. There is no mass effect or midline shift. Cerebral ventricles: The ventricles and sulci are enlarged, consistent with volume loss / atrophy. No hydrocephalus. Bones/joints: No acute fracture. Paranasal sinuses: Visualized sinuses are unremarkable. No fluid levels. Mastoid air cells: No significant mastoid effusion. Vasculature: There is vascular calcification. Soft tissues: Unremarkable as visualized. IMPRESSION: 1. No evidence of acute intracranial abnormality. No evidence of acute infarction, hemorrhage, or mass. 2. Atrophy and microvascular disease. Electronically signed by: Mayda Wahl On 04/12/2021 15:00:58 PM
[2021-04-12 15:22] LABS: ALBUMIN 2.4 GM/DL (3.2-5.2); BILIRUBIN,DIRECT 0.2 MG/DL (0.0-0.2); BILIRUBIN,TOTAL 0.4 MG/DL (0.2-1.0); CALCIUM LEVEL 8.3 MG/DL (8.8-10.2); CK-MB VALUE MASS 1.4 NG/ML (<3.6); CREATININE FOR GFR 8.38 MG/DL (0.70-1.30); FREE T4 1.13 NG/DL (0.76-1.46); GLOMERULAR FILTRATION RATE 6.5 (>35); MAGNESIUM LEVEL 1.8 MG/DL (1.8-2.4); MB/CK RELATIVE INDEX 6.67 (< OR =4); POTASSIUM SERUM 3.6 MEQ/L (3.5-5.1); THYROID STIMULATING HORMONE 2.78 uIU/ML (0.358-3.740); TOTAL PROTEIN 5.7 GM/DL (6.4-8.2); TROPONIN I 0.04 NG/ML (< 0.10)
[2021-04-12] MEDS ORDERED: FLUD0.1T PO (15:35)
[2021-04-12] MEDS ORDERED: ELIQ2.5T PO (15:35)
--- NOTE | 2021-04-12 15:48 | HPEPDOC ---
[facility] Medical History & Physical Date of Admission April 12, 2021 Date of Service: April 12, 2021 History and Physical CHIEF COMPLAINT: syncope HISTORY OF PRESENT ILLNESS: 85 yo male with PMHx of chronic symptomatic hypotension, was recently discharged with recommendations for continued bedrest about four weeks ago. Today during lunch, his first day out of bed, he had a syncopal episode. He had another syncopal episode while EMS was transporting him. He denies chest pain, shortness of breath, abdominal pain, N/V/D. Past Medical History: #chronic Hypotension #ESRD on PD #Polycystic kidney disease #A fib/ Eliquis #DLP #Asthma #Gout #AV fistula placement #BPH s/p TURP #Gastric ulcer / Hiatal hernia Past Surgical History: #TURP #EGD 01/2020 #Peritoneal dialysis catheter (2018) #AV fistula placement Allergies: See below Medications: See below Family History: - No history of malignancies Social History: - Denies the use of alcohol or illicit drugs; patient quit smoking 50 years ago - Denies recent travel or sick contacts - Lives with significant other; Mayda - Occupation; patient used to work at a [employer] ALLERGIES: Please see below. REVIEW OF SYSTEMS: Negative except as per HPI. HOME MEDICATIONS: Please see below. PHYSICAL EXAMINATION: VITAL SIGNS: See below General: NAD, lying comfortably in bed, chronically ill appearing, elderly HEENT: NC/AT, EOMI Lungs: CTA B/L Heart: +S1S2, RRR Abd: soft, NT, +BS Ext: no edema, chronic venous stasis changes LABORATORY DATA: See below. MICROBIOLOGY: Please see below. A/P: 85 year old male with extensive medical history including ESRD/PD and chronic hypotension presents for multiple syncopal episodes. #syncope - likely secondary to hypotension - telemetry monitoring - recent echo two months ago - fall precautions #hypotension - continue midodrine, fluorinef #aortic stenosis - recent LUIS ENRIQUE #ESRD on PD #Polycystic kidney disease #A fib/ Eliquis #DLP #Asthma #Gout #BPH s/p TURP #Gastric ulcer / Hiatal hernia #DVT prophylaxis - as above on Eliquis Vital Signs Vital Signs Date Time Temp Pulse Resp B/P (MAP) Pulse Ox O2 Delivery O2 Flow Rate FiO2 04/12/21 15:30 94/50 (65) 04/12/21 15:23 77 99 04/12/21 13:48 96.0 18 Room Air Laboratory Data Labs 24H Laboratory Tests 2 04/12/21 14:19: Immature Granulocyte % (Auto) 2.3, Neutrophils (%) (Auto) 79.7H, Lymphocytes (%) (Auto) 5.7L, Monocytes (%) (Auto) 9.0H, Eosinophils (%) (Auto) 2.6, Basophils (%) (Auto) 0.7, Neutrophils # (Auto) 8.5, Lymphocytes # (Auto) 0.6L, Monocytes # (Auto) 1.0H, Eosinophils # (Auto) 0.3, Basophils # (Auto) 0.1, Nucleated Red Blood Cells % (auto) 0.0, Prothrombin Time 14.9H, Prothromb Time International Ratio 1.14, Activated Partial Thromboplast Time 33.9, Anion Gap 11, Glomerular Filtration Rate 6.5L, Lactic Acid Level 2.4*H, Calcium Level 8.3L, Magnesium Level 1.8, Total Bilirubin 0.4, Direct Bilirubin 0.2, Aspartate Amino Transf (AST/SGOT) 8, Alanine Aminotransferase (ALT/SGPT) 10L, Alkaline Phosphatase 101, Total Creatine Kinase 21L, Creatine Kinase MB 1.4, Creatine Kinase MB Relative Index 6.67H, Troponin I 0.04, Total Protein 5.7L, Albumin 2.4L, Albumin/Globulin Ratio 0.7, Thyroid Stimulating Hormone (TSH) 2.780, Free Thyroxine 1.13 CBC/BMP Laboratory Tests 04/12/21 14:19 Microbiology Microbiology 04/12/21 Blood Culture, Received Pending 04/12/21 Blood Culture, Received Pending Home Medications Scheduled Apixaban (Eliquis) 2.5 Mg Tablet, 2.5 MG PO BID Atorvastatin Calcium (Lipitor) 10 Mg Tab, 10 MG PO QHS Calcitriol (Calcitriol) 0.25 Mcg Cap, 0.25 MCG PO 3XW MON, WED, SAT Cholecalciferol (Vitamin D3) (Vitamin D3) 1,000 Unit Tablet, 1,000 UNIT PO QHS Ferrous Sulfate (Ferrous Sulfate) 325 Mg Tablet, 325 MG PO DAILY Fludrocortisone Acetate (Fludrocortisone Acetate) 0.1 Mg Tablet, 0.1 MG PO DAILY Midodrine HCl (Midodrine HCl) 5 Mg Tablet, 15 MG PO TID 0800, 1100, 1600 Pantoprazole Sodium (Pantoprazole Sodium) 40 Mg Tablet.dr, 40 MG PO DAILY Potassium Chloride (Klor-Con M20) 20 Meq Tab.er.prt, 20 MEQ PO DAILY Salmeterol/Fluticasone (Advair 100-50 Diskus) 28 Puff/Inhaler Aerp, 1 PUFF INH BID Vit B Comp No.3/Folic/C/Biotin (Ibeth-Lynda Rx Tablet) 1 Each Tablet, 1 TAB PO DAILY Scheduled PRN Albuterol Sulfate (Albuterol Sulfate Hfa) 8.5 Gm Hfa.aer.ad, 2 PUFFS INH Q6H PRN for WHEEZING Allergies Coded Allergies: No Known Allergies (Verified , 01/05/21) DAVDI COHEN MD April 12, 2021 15:48
[2021-04-12] MEDS ORDERED: ALBUTEROL 90 MCG/ACT 8GM HFA INHALER INH PRN (15:55)
[2021-04-12 18:49] VITALS: BP 94/55
[2021-04-12] MEDS: FERROUS SULFATE 325MG TAB PO SCH (18:51)
[2021-04-12] MEDS: MIDODRINE 5 MG TAB PO SCH (18:51)
[2021-04-12] MEDS: CALCITRIOL 0.25 MCG CAP (S0169) PO SCH (18:51)
[2021-04-12 19:47] LABS: CK-MB VALUE MASS 1.5 NG/ML (<3.6); MB/CK RELATIVE INDEX 5.77 (< OR =4); TROPONIN I 0.03 NG/ML (< 0.10)
[2021-04-12 20:00] VITALS: BP 90/51
[2021-04-12] MEDS ORDERED: SLF 3 ML SYR IV PRN (20:15)
[2021-04-12] MEDS: ATORVASTATIN 10 MG TAB PO SCH (20:46)
[2021-04-12] MEDS: SLF 3 ML SYR IV SCH (20:47)
[2021-04-12] MEDS: FLUDROCORTISONE ACETATE 0.1 MG TAB PO SCH (20:47)
[2021-04-12] MEDS: APIXABAN 2.5 MG TAB (ELIQUIS) PO SCH (20:47)
[2021-04-12] MEDS: VITAMIN D 1,000 INTERNATIONAL UNITS TABLET PO SCH (20:47)
[2021-04-13] VITALS: BP 86/56
[2021-04-13 01:56] LABS: CK-MB VALUE MASS 1.4 NG/ML (<3.6); MB/CK RELATIVE INDEX 2.75 (< OR =4); TROPONIN I 0.04 NG/ML (< 0.10)
--- NOTE | 2021-04-13 02:43 | ECGEPIP ---
[facility] - ED Test Date: 2021-04-12 Pat Name: ANTONINA YEBOAH Department: Room: - Gender: Male Door Operator: ALBERTA : 1935 Requested By: MINNIE Coates Order Number: [id number] Reading MD: Royal Jovel Measurements Intervals [place] Rate: 79 P: FL: QRS: -57 QRSD: 114 T: 89 QT: 432 QTc: 495 Interpretive Statements Atrial fibrillation MODERATE INTRAVENTRICULAR CONDUCTION DELAY Left anterior fascicular block Prolonged QT SIMILAR TO 02/10/21 Electronically Signed on 04-13-2021 2:43:07 EDT by Royal Jovel
[2021-04-13 04:00] VITALS: BP 86/40
[2021-04-13 06:17] LABS: HEMATOCRIT 34.3 % (42.0-52.0); HEMOGLOBIN 11.2 g/dl (13.5-17.5); MEAN CORPUSCULAR HEMOGLOBIN 32.5 pg (27.0-33.0); MEAN CORPUSCULAR HGB CONC 32.7 g/dl (32.0-36.5); MEAN CORPUSCULAR VOLUME 99.4 fl (80.0-96.0); PLATELET COUNT, AUTOMATED 280 10^3/uL (150-450); RED BLOOD COUNT 3.45 10^6/uL (4.30-6.10); WHITE BLOOD COUNT 12.3 10^3/uL (4.0-10.0)
[2021-04-13 06:45] LABS: ALBUMIN 2.2 GM/DL (3.2-5.2); BILIRUBIN,TOTAL 0.6 MG/DL (0.2-1.0); CALCIUM LEVEL 8.5 MG/DL (8.8-10.2); CREATININE FOR GFR 8.55 MG/DL (0.70-1.30); GLOMERULAR FILTRATION RATE 6.3 (>35); POTASSIUM SERUM 3.3 MEQ/L (3.5-5.1); TOTAL PROTEIN 5.7 GM/DL (6.4-8.2)
[2021-04-13] MEDS: SLF 3 ML SYR IV SCH ×3 (07:00→22:00)
[2021-04-13] MEDS: ADVAIR HFA 45/21MCG INHALER INH SCH ×2 (07:44→20:13)
[2021-04-13 08:00] VITALS: BP 82/48
[2021-04-13] MEDS: MIDODRINE 5 MG TAB PO SCH ×4 (08:00→16:15)
[2021-04-13] MEDS: APIXABAN 2.5 MG TAB (ELIQUIS) PO SCH ×2 (10:11→21:44)
[2021-04-13] MEDS: FLUDROCORTISONE ACETATE 0.1 MG TAB PO SCH (10:11)
[2021-04-13] MEDS: FERROUS SULFATE 325MG TAB PO SCH (10:11)
[2021-04-13] MEDS: PANTOPRAZOLE 40MG TAB (PROTONIX) PO SCH (10:11)
--- NOTE | 2021-04-13 10:57 | IPNPDOC ---
Text Note Date of Service The patient was seen on 04/13/21. NOTE Subjective: Patient seen and examined at bedside. No acute overnight events reported. Patient has no new medical complaints this morning. PHYSICAL EXAMINATION: VITAL SIGNS: See below General: NAD, lying comfortably in bed, chronically ill appearing, elderly HEENT: NC/AT, EOMI Lungs: CTA B/L Heart: +S1S2, RRR Abd: soft, NT, +BS Ext: no edema, chronic venous stasis changes LABORATORY DATA: See below. MICROBIOLOGY: Please see below. A/P: 85 year old male with extensive medical history including ESRD/PD and chronic symptomatic hypotension presents for syncopal episodes. #syncope - likely secondary to hypotension - telemetry monitoring - recent echo two months ago - fall precautions #hypotension - continue midodrine, fluorinef #aortic stenosis - recent LUIS ENRIQUE #ESRD on PD #Polycystic kidney disease #A fib/ Eliquis #DLP #Asthma #Gout #BPH s/p TURP #Gastric ulcer / Hiatal hernia #DVT prophylaxis - as above on Eliquis VS,Fishbone, I+O VS, Fishbone, I+O Laboratory Tests 04/12/21 14:19 04/13/21 05:27 Vital Signs Date Time Temp Pulse Resp B/P (MAP) Pulse Ox O2 Delivery O2 Flow Rate FiO2 04/13/21 08:00 96.8 77 18 82/48 (59) 93 Room Air I&O- Last 24 Hours up to 6 AM 04/13/21 06:00 Intake Total 2600 ml Output Total 2200 ml Balance 400 ml DAVID COHEN MD April 13, 2021 10:57
[2021-04-13 12:00] VITALS: BP 98/55
[2021-04-13 16:00] VITALS: BP 82/51
[2021-04-13 20:00] VITALS: BP 83/47
--- NOTE | 2021-04-13 20:15 | CR ---
NEPHROLOGY CONSULTATION DATE: 04/13/2021 REQUESTING PHYSICIAN: Antonio Bonilla M.D. REASON FOR CONSULTATION: To assist in the management of hypotension and end-stage renal disease. HISTORY OF PRESENT ILLNESS: Mr. Leigh is an 85-year-old gentleman with known history of chronic symptomatic hypotension who has been on midodrine and fludrocortisone. He has had multiple episodes of syncope in the past and was admitted yesterday due to another episode of syncope at home, which happened while he was participating in physical therapy. His blood pressure was in the 60s at that time. In the emergency room, he was given about 2 liters of normal saline and his blood pressure improved. I discussed the care plan with the emergency room physician yesterday and have seen the patient this morning. PAST MEDICAL HISTORY: Significant for: 1. End-stage renal disease due to polycystic kidneys. 2. Atrial fibrillation on chronic anticoagulation. 3. Dyslipidemia. 4. History of gout. 5. Asthma. 6. End-stage renal disease on peritoneal dialysis. 7. Chronic hypotension. 8. History of benign prostatic hypertrophy (BPH) status post transurethral resection of the prostate (TURP). 9. History of gastric ulcer and hiatal hernia. PAST SURGICAL HISTORY: Significant for: 1. Transurethral resection of the prostate (TURP). 2. Esophagogastroduodenoscopy (EGD). 3. Peritoneal dialysis catheter placement. 4. Arteriovenous (AV) fistula placement. 5. History of endoscopies when he had gastrointestinal (GI) bleed. MEDICATIONS: - Eliquis 2.5 mg twice a day - atorvastatin 10 mg at bedtime - calcitriol 0.25 mcg three times a week - vitamin D 1000 units daily - ferrous sulfate 325 mg daily - fludrocortisone 0.1 mg daily - midodrine 15 mg three times a day - pantoprazole 40 mg daily - calcium chloride 20 mEq daily - Advair Diskus one inhalation twice a day - multivitamin one tablet daily ALLERGIES: Patient has no known drug allergies. PERSONAL AND SOCIAL HISTORY: Patient lives with his significant other. He does not smoke or drink. FAMILY HISTORY: Noncontributory for this admission. REVIEW OF SYSTEMS: CONSTITUTIONAL: Patient denies any fever or chills. He feels that he was doing well at home and was even able to walk with the help of a walker in the house. He denies any vomiting or diarrhea. EARS, NOSE AND THROAT: Unremarkable. CARDIOVASCULAR SYSTEM: Significant for chronic hypotension requiring midodrine. He denies any chest pain. RESPIRATORY SYSTEM: Negative for cough or hemoptysis. GASTROINTESTINAL (GI) SYSTEM: Negative for vomiting or diarrhea. Patient continues with peritoneal dialysis. GENITOURINARY () SYSTEM: Significant for chronic urinary retention and urinary tract infections (UTIs). He has been on intermittent self-catheterization. MUSCULOSKELETAL SYSTEM: Significant for history of gout. Denies any acute flare. NEUROLOGICAL SYSTEM: Significant for recurrent episodes of syncope. SKIN: Negative for rash or ulcers. HEMATOLOGICAL SYSTEM: Significant for anemia of chronic kidney disease. PHYSICAL EXAMINATION: Patient is laying in the bed without any acute distress at the time of my visit this morning. Temperature 96.8 degrees Fahrenheit, heart rate 78 per minute, respiratory rate 18 per minute, blood pressure 82/48 mmHg, oxygen saturation 93% on room air. HEAD: Atraumatic. NECK: Supple and without jugular venous distention (JVD) or thyroid enlargement. HEART SOUNDS: Irregular in rhythm. LUNGS: Clear to auscultation. ABDOMEN: Soft, distended with peritoneal dialysis fluid. Peritoneal dialysis catheter is intact. EXTREMITIES: Without any cyanosis or clubbing. NEUROLOGIC: He is at his baseline mentation at present. LABORATORY STUDIES: Today's labs show sodium 133, potassium 3.3, CO2 25, BUN 65, creatinine 8.55, glucose 80, calcium 8.5. Total protein 5.7, albumin 2.2. WBC 12.3, hemoglobin 11.2, hematocrit 34.3, platelets 280. PROBLEMS: 1. Recurrent syncope. Patient has chronic hypotension and recurrent syncope. Probably he was somewhat dehydrated. He has received 2 liters of normal saline and still does not have any peripheral edema. His blood pressure is at about baseline now. 2. End-stage renal disease. Patient has been on peritoneal dialysis and will continue with five exchanges of peritoneal dialysis per day for now. We will use only 1.5% solution due to low blood pressure. 3. Hypokalemia. This is a chronic issue and he should continue with 20 mEq of potassium chloride twice a day for now. 4. Hypotension. Patient has chronic hypotension, probably made worse by some dehydration. He also has chronic urinary tract infections (UTIs), which could contribute to it. We will get a urinalysis and culture. 5. Urinary retention with atonic bladder. Patient has been doing chronic intermittent catheterization and I will order twice a day catheterization and will get a urine sample for gram stain and culture. Thank you for involving me in the care of Mr. Leigh. I will follow him along with you.
[2021-04-13] MEDS: VITAMIN D 1,000 INTERNATIONAL UNITS TABLET PO SCH (21:44)
[2021-04-13] MEDS: ATORVASTATIN 10 MG TAB PO SCH (21:44)
[2021-04-14] VITALS: BP 86/48
[2021-04-14 04:00] VITALS: BP 82/50
[2021-04-14] MEDS: SLF 3 ML SYR IV SCH ×3 (06:30→20:42)
[2021-04-14 07:20] LABS: HEMOGLOBIN 10.7 g/dl (13.5-17.5); MEAN CORPUSCULAR HEMOGLOBIN 32.3 pg (27.0-33.0); MEAN CORPUSCULAR HGB CONC 32.4 g/dl (32.0-36.5); MEAN CORPUSCULAR VOLUME 99.7 fl (80.0-96.0); PLATELET COUNT, AUTOMATED 268 10^3/uL (150-450); RED BLOOD COUNT 3.31 10^6/uL (4.30-6.10); WHITE BLOOD COUNT 9.6 10^3/uL (4.0-10.0)
[2021-04-14] MEDS: ADVAIR HFA 45/21MCG INHALER INH SCH ×2 (07:23→19:33)
[2021-04-14 08:00] VITALS: BP 74/44
[2021-04-14] MEDS: APIXABAN 2.5 MG TAB (ELIQUIS) PO SCH ×2 (09:11→20:42)
[2021-04-14] MEDS: MIDODRINE 5 MG TAB PO SCH ×3 (09:12→16:42)
[2021-04-14] MEDS: FERROUS SULFATE 325MG TAB PO SCH (09:12)
[2021-04-14] MEDS: FLUDROCORTISONE ACETATE 0.1 MG TAB PO SCH (09:12)
[2021-04-14] MEDS: PANTOPRAZOLE 40MG TAB (PROTONIX) PO SCH (09:12)
[2021-04-14] MEDS ORDERED: CIPR-249 PO (09:33)
[2021-04-14] MEDS: CALCITRIOL 0.25 MCG CAP (S0169) PO SCH (09:53)
[2021-04-14 09:58] LABS: CREATININE FOR GFR 8.47 MG/DL (0.70-1.30); GLOMERULAR FILTRATION RATE 6.4 (>35); MAGNESIUM LEVEL 1.7 MG/DL (1.8-2.4); POTASSIUM SERUM 3.4 MEQ/L (3.5-5.1)
--- NOTE | 2021-04-14 10:45 | DS.PDOC ---
Discharge Summary General Date of Admission April 12, 2021 at 15:53 Date of Discharge 04/14/21 Discharge Summary PROCEDURES PERFORMED DURING STAY: [None]. DISCHARGE DIAGNOSES: #chronic symptomatic hypotension #ESRD on PD #Polycystic kidney disease #A fib/ Eliquis #DLP #Asthma #Gout #AV fistula placement #BPH s/p TURP #Gastric ulcer / Hiatal hernia COMPLICATIONS/CHIEF COMPLAINT: Syncope. HISTORY OF PRESENT ILLNESS: 85 yo male with PMHx of chronic symptomatic hypotension, was recently discharged with recommendations for continued bedrest about four weeks ago. Today during lunch, his first day out of bed, he had a syncopal episode. He had another syncopal episode while EMS was transporting him. He denies chest pain, shortness of breath, abdominal pain, N/V/D. HOSPITAL COURSE: Patient admitted for further evaluation and treatment. Patient seen in consultation by nephrology. Patient is essentially at his baseline. He does have well-known chronic symptomatic hypotension with maximal medical management. Urine sample was obtained for urine culture, urinalysis not able to be sent. Started empirically on antibiotics. His CODE STATUS status was discussed again at length at bedside and stated he would consider his options on discussion with family members. DISCHARGE MEDICATIONS: Please see below. ALLERGIES: Please see below. PHYSICAL EXAMINATION ON DISCHARGE: VITAL SIGNS: Please see below. General: NAD, lying comfortably in bed, chronically ill appearing, elderly HEENT: NC/AT, EOMI Lungs: CTA B/L Heart: +S1S2, RRR Abd: soft, NT, +BS Ext: no edema, chronic venous stasis changes LABORATORY DATA: Please see below. ACTIVITY: [As tolerated]. DIET: Regular DISCHARGE PLAN: Home with services DISCHARGE INSTRUCTIONS: 1. PCP in 3-5 days. 2. Nephrology as scheduled. DISCHARGE CONDITION: [Stable]. TIME SPENT ON DISCHARGE: 35 minutes. Vital Signs/I&Os Vital Signs Date Time Temp Pulse Resp B/P (MAP) Pulse Ox O2 Delivery O2 Flow Rate FiO2 04/14/21 04:00 96.9 87 18 82/50 (61) 97 Room Air I&O- Last 24 Hours up to 6 AM 04/14/21 06:00 Intake Total 66103 ml Output Total 42210 ml Balance 740 ml Laboratory Data Labs 24H Laboratory Tests 2 04/14/21 06:58: Nucleated Red Blood Cells % (auto) 0.0 04/14/21 08:24: Anion Gap 13, Glomerular Filtration Rate 6.4L, Calcium Level 8.0L, Magnesium Level 1.7L CBC/BMP Laboratory Tests 04/14/21 06:58 04/14/21 08:24 Microbiology Microbiology 04/12/21 Respiratory Virus Panel (PCR) (JONAS) - Final, Complete 04/12/21 Blood Culture - Preliminary, Resulted No growth after 24 hours . All specim... 04/12/21 Blood Culture - Preliminary, Resulted No growth after 24 hours . All specim... Discharge Medications Scheduled Apixaban (Eliquis) 2.5 Mg Tablet, 2.5 MG PO BID, (Reported) Atorvastatin Calcium (Lipitor) 10 Mg Tab, 10 MG PO QHS, (Reported) Calcitriol (Calcitriol) 0.25 Mcg Cap, 0.25 MCG PO 3XW, (Reported) SAT, SAT, SAT Cholecalciferol (Vitamin D3) (Vitamin D3) 1,000 Unit Tablet, 1,000 UNIT PO QHS, (Reported) Ciprofloxacin HCl (Cipro) 500 Mg Tablet, 1 TAB PO DAILY Ferrous Sulfate (Ferrous Sulfate) 325 Mg Tablet, 325 MG PO DAILY, (Reported) Fludrocortisone Acetate (Fludrocortisone Acetate) 0.1 Mg Tablet, 0.1 MG PO DAILY, (Reported) Midodrine HCl (Midodrine HCl) 5 Mg Tablet, 15 MG PO TID, (Reported) 0800, 1100, 1600 Pantoprazole Sodium (Pantoprazole Sodium) 40 Mg Tablet.dr, 40 MG PO DAILY, (Reported) Potassium Chloride (Klor-Con M20) 20 Meq Tab.er.prt, 20 MEQ PO DAILY, (Reported) Salmeterol/Fluticasone (Advair 100-50 Diskus) 28 Puff/Inhaler Aerp, 1 PUFF INH BID, (Reported) Vit B Comp No.3/Folic/C/Biotin (Ibeth-Lynda Rx Tablet) 1 Each Tablet, 1 TAB PO DAILY, (Reported) Scheduled PRN Albuterol Sulfate (Albuterol Sulfate Hfa) 8.5 Gm Hfa.aer.ad, 2 PUFFS INH Q6H PRN for WHEEZING, (Reported) Allergies Coded Allergies: No Known Allergies (Verified , 01/05/21) DAVID COHEN MD April 14, 2021 10:45
[2021-04-14 12:00] VITALS: BP 82/52
[2021-04-14] MEDS ORDERED: CIPROFLOXACIN 500MG TABLET PO ONE (12:00)
[2021-04-14] MEDS ORDERED: MAG SULF 1GM/100ML (MAG RUN) 1 GM in IV 1 EA IV ONE (12:00)
--- NOTE | 2021-04-14 12:33 | IPN ---
PROGRESS NOTE DATE: 04/14/2021 SUBJECTIVE: Mr. Leigh is seen this morning on his bedside. He is sitting in the bed with the head elevated at about 45 degrees. His blood pressure remains low which is about the baseline for him. He denies any nausea, vomiting, dyspnea or chest pain. OBJECTIVE: VITAL SIGNS: Temperature is 96.7 degrees Fahrenheit, heart rate is 57 per minute and respiratory rate is 17 per minute. Blood pressure 82/50 mmHg and oxygen saturation 97% on room air. HEAD AND NECK: Head is atraumatic. Neck is supple without any JVD or thyroid enlargement. HEART: Heart sounds are irregular in rhythm. LUNGS: Clear to auscultation. ABDOMEN: Soft and nontender. Peritoneal dialysis catheter is intact. EXTREMITIES: Without any cyanosis or clubbing. NEUROLOGIC: He is awake and at his baseline mentation. LABORATORY DATA: Today's labs showed a WBC count down to 9.6, hemoglobin 10.7 and hematocrit 33. Platelets are 268,000. Sodium is 135, potassium 3.4, CO2 26, BUN 60 and creatinine 8.47. Calcium 8.0 and magnesium 1.7. PROBLEMS: 1. Hypotension, this is a chronic issue and his baseline blood pressure is in the 80s. His volume status seems to be reasonably well-compensated. He is not on any antihypertensive meds and he remains on Midodrine 15 mg t.i.d. which should be continued. 2. Hypokalemia, this is a chronic issue. He is receiving 20 mEq of potassium chloride daily. His electrolytes can be monitored as an outpatient. 3. Endstage renal disease, patient remains on peritoneal dialysis which is working well. He should use only 1.5% peritoneal dialysis solution due to chronic hypotension. 4. UTI. Patient has a chronic UTI with urinary retention. I have ordered a urinalysis and culture. I am going to give him one dose of Levothyroxine 500 mg today and then I will continue with 250 mg dose every day or every 48 hours. I feel that chronic hypotension could be due to chronic cystitis and long-term antibiotic therapy might be indicated. 5. Anemia. His anemia is stable and does not need any intervention. 6. Disposition: From a renal standpoint, the patient can be discharged to home once he is considered stable enough for discharge. He will be followed up in the outpatient dialysis clinic.
[2021-04-14] MEDS ORDERED: LevoFLOXacin 500 MG TABLET PO ONE (13:00)
[2021-04-14 16:00] VITALS: BP 80/48
[2021-04-14 20:39] VITALS: BP 80/45
[2021-04-14] MEDS: ATORVASTATIN 10 MG TAB PO SCH (20:42)
[2021-04-14] MEDS: VITAMIN D 1,000 INTERNATIONAL UNITS TABLET PO SCH (20:42)
[2021-04-15] VITALS: BP 80/40
[2021-04-15 03:27] VITALS: BP 76/40
[2021-04-15] MEDS: SLF 3 ML SYR IV SCH (06:17)
[2021-04-15] MEDS: ADVAIR HFA 45/21MCG INHALER INH SCH (07:05)
[2021-04-15 07:53] VITALS: BP 80/60
[2021-04-15] MEDS: MIDODRINE 5 MG TAB PO SCH ×2 (08:17→11:17)
[2021-04-15] MEDS: PANTOPRAZOLE 40MG TAB (PROTONIX) PO SCH (08:18)
[2021-04-15] MEDS: APIXABAN 2.5 MG TAB (ELIQUIS) PO SCH (08:18)
[2021-04-15] MEDS: FERROUS SULFATE 325MG TAB PO SCH (08:18)
[2021-04-15] MEDS: FLUDROCORTISONE ACETATE 0.1 MG TAB PO SCH (08:18)
--- NOTE | 2021-04-15 09:10 | IPNPDOC ---
Text Note Date of Service The patient was seen on 04/15/21. NOTE Discharge Addendum: Discharge held over from yesterday until today for transportation issues, as patient requiring stretcher for transportation. Patient seen at bedside. No acute overnight events reported. Patient has no new medical complaints this morning, anxious to return home. Please see discharge summary for full details. VS,Fishbone, I+O VS, Fishbone, I+O Vital Signs Date Time Temp Pulse Resp B/P (MAP) Pulse Ox O2 Delivery O2 Flow Rate FiO2 04/15/21 07:53 95.9 70 18 80/60 (67) 91 Room Air I&O- Last 24 Hours up to 6 AM 04/15/21 06:00 Intake Total 82569 ml Output Total 9800 ml Balance 1280 ml DAVID COHEN MD April 15, 2021 09:10
[2021-04-15] MEDS ORDERED: LEVO250T12 PO (09:12)
[2021-04-16] MEDS ORDERED: LevoFLOXacin 250 MG TABLET PO SCH (06:00)
--- NOTE | 2021-04-16 14:00 | IPN ---
PROGRESS NOTE DATE: 04/15/2021 SUBJECTIVE: The patient was seen and examined at the bedside today morning. He still has soft blood pressures. He was empirically started on Levaquin. His cultures are still pending; however, his leukocytosis is getting better. The patient reports that he is getting ready to be discharged back home today. OBJECTIVE: Vital signs: Temperature is 96.1 degrees Fahrenheit. Blood pressure is 80/60. Pulses is 70, respiratory rate of 18, saturating 91% on room air. Intake and output: There is no urine output recorded. Peritoneal dialysis output is 3.5 liters and input was 4 liters. Weight in the bed scale is 96.1 kg. PHYSICAL EXAMINATION: The patient is awake, alert, oriented x3, lying in bed, in no apparent distress. Head and neck examination: Extraocular muscles are intact. Pupils equally round and reactive to light. Mucous membranes are moist. Neck is supple. There is no jugular venous distention (JVD). Cardiovascular: S1, S2 regular rate. No edema of the bilateral lower extremities. Respiratory: Chest is clear to auscultation bilaterally. Bilateral equal air entry. No rales or rhonchi. Abdomen is soft, positive bowel sounds. A PD catheter was noted. No infection of the exit site. Musculoskeletal: No clubbing or cyanosis. Pulses are 2+. 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 Power is 5/5 in all extremities. LABORATORY REVIEW: Complete blood count (CBC) showed a WBC of 9.6 yesterday, hemoglobin of 10.7. Basic metabolic panel (BMP) done yesterday showed sodium 135, potassium 3.4, chloride 96, bicarbonate 26, BUN 60, creatinine is 8.4. MICROBIOLOGY: Urine culture is pending. CURRENT INPATIENT MEDICATIONS: The patient's medications were all reviewed by myself. He has been started on Levaquin 250 mg by mouth q 48 hours. ASSESSMENT AND PLAN: 1. End-stage renal disease. The patient is able to tolerate peritoneal dialysis at this time. However, his blood pressures are very soft. Continue current regimen with 1.5% PD fluid 2. Chronic hypotension. The patient continues to be on midodrine and Florinef. He has been empirically started on Levaquin for possible chronic urinary tract infection. 3. Chronic urinary tract infection with retention. Urine culture is pending. He has been started on Levaquin 250 mg by mouth q 48 hours. 4. Anemia and end-stage renal disease. Hemoglobin level is stable at 10.7. The rest of the anemia management will be done as at outpatient. 5. Hypokalemia. The patient should start taking his potassium tablet on discharge. Hypokalemia is secondary to peritoneal dialysis and use of daily Florinef.
== END 2021-04-15 13:19 | disposition home health service (06) | DRG 314 ==
LOC: EDBD 13:38 → M ED 13:38 → M ED INP 15:53 → ENRESERV 18:02 → M PCU 18:29
PROVIDERS: ADMIT Internal Medicine; ATTEND Internal Medicine
DX: I95.9 Hypotension, unspecified (principal); N18.6 End stage renal disease; Q61.3 Polycystic kidney, unspecified; N40.0 Benign prostatic hyperplasia without lower urinary tract symptoms; I48.91 Unspecified atrial fibrillation; Z79.01 Long term (current) use of anticoagulants; J45.909 Unspecified asthma, uncomplicated; M10.9 Gout, unspecified; K44.9 Diaphragmatic hernia without obstruction or gangrene; Z79.899 Other long term (current) drug therapy; I35.0 Nonrheumatic aortic (valve) stenosis; E78.5 Hyperlipidemia, unspecified; E87.6 Hypokalemia; D63.1 Anemia in chronic kidney disease

== ENCOUNTER 2021-05-08 14:02 | Inpatient (IN) | payer OTHER, MEDICARE ==
[~2021-05-08] VITALS: Ht 182.9 cm; Wt 73.3 kg
[~2021-05-08 14:02] MED LIST changes: +ALBU8.5H INH; +CIPR-249 PO; +KLOR20TA42 PO; +RENATAB6 PO
--- NOTE | 2021-05-08 16:22 | REP ---
INDICATION: pd catheter placement COMPARISON: 01/07/2021. TECHNIQUE: CT Scan of the abdomen and pelvis was performed without intravenous contrast. Sagittal and coronal reconstruction images performed. FINDINGS: Lung bases: There are [id number] bilateral pleural effusions with mild dependent atelectatic changes in the lung bases. There is a small hiatal hernia. Liver: There is a small stable cyst in the posterior right lobe of the liver superiorly. Gallbladder: Unremarkable. Spleen: Grossly unremarkable. Adrenals: Normal. Pancreas: Grossly unremarkable.. Kidneys: No hydronephrosis. Ureters demonstrate no dilatation or calculus. Multiple innumerable cysts are seen in both kidneys. Small and large bowel: There is colonic diverticulosis. There is no free intraperitoneal air. Free fluid: There is moderate abdominal and pelvic ascites. Abdominal aorta: No aneurysm. Adenopathy: None. Appendix: Not inflamed. Osseous structures: There are degenerative changes of the spine without compression deformity. Pelvis: No mass. No bladder calculus seen. A peritoneal dialysis catheter enters the left upper quadrant anterior abdominal wall, crosses to the right of midline with the distal end coiled in the right mid abdomen just anterior to the transverse colon. IMPRESSION: [id number] bilateral pleural effusions. Moderate diffuse abdominal and pelvic ascites. A peritoneal dialysis catheter enters the left upper quadrant anterior abdominal wall, crosses to the right of midline with the distal end coiled in the right mid abdomen just anterior to the transverse colon. Polycystic kidney disease. <Electronically signed by Rob Walden > 05/08/21 [id number]
[2021-05-08 16:51] LABS: HEMATOCRIT 31.8 % (42.0-52.0); HEMOGLOBIN 10.4 g/dl (13.5-17.5); MEAN CORPUSCULAR HEMOGLOBIN 31.6 pg (27.0-33.0); MEAN CORPUSCULAR HGB CONC 32.7 g/dl (32.0-36.5); MEAN CORPUSCULAR VOLUME 96.7 fl (80.0-96.0); PLATELET COUNT, AUTOMATED 322 10^3/uL (150-450); RED BLOOD COUNT 3.29 10^6/uL (4.30-6.10); WHITE BLOOD COUNT 8.2 10^3/uL (4.0-10.0)
[2021-05-08 17:25] LABS: ALBUMIN 2.1 GM/DL (3.2-5.2); BILIRUBIN,TOTAL 0.5 MG/DL (0.2-1.0); CALCIUM LEVEL 8.7 MG/DL (8.8-10.2); CREATININE FOR GFR 9.03 MG/DL (0.70-1.30); GLOMERULAR FILTRATION RATE 5.9 (>35); POTASSIUM SERUM 5.5 MEQ/L (3.5-5.1); TOTAL PROTEIN 5.6 GM/DL (6.4-8.2)
[2021-05-08] MEDS ORDERED: LevoFLOXacin 250 MG TABLET PO SCH (18:00)
[2021-05-08] MEDS ORDERED: ALBUTEROL SULFATE 2.5 MG/0.5 ML INH NEB SOLN NEB PRN (18:35)
--- NOTE | 2021-05-08 18:56 | HPEPDOC ---
General Date of Admission 05/08/21 Date of Service: May 08, 2021 Chief Complaint The patient is a 85-year-old male admitted with a reason for visit of Catheter Issue. Source: Patient, RN/MD History of Present Illness 85-year-old male with past history of polycystic kidney disease, ESRD on peritoneal dialysis, chronic hypertension. Moderate aortic stenosis, A. fib on the leg. Please, asthma, gout, BPH, chronic urinary retention requiring self catheterization. Gastric ulcer, hiatal hernia, history of GI bleed, chronic suppressive prophylaxis for chronic UTIs, has been having trouble with his peritoneal dialysis catheter for at least 3-4 days. It has not been draining out properly nor going in properly. In certain positions it would drain but then others wont [place]. Today the PD nurse did a home visit for the patient and found the dialysate was going in mostly but nothing came out. So was sent to the ED. CT abd and pelvis in the ED showed [id number] bilateral pleural effusions. Moderate diffuse abdominal and pelvic ascites. A peritoneal dialysis catheter enters the left upper quadrant anterior abdominal wall, crosses to the right of midline with the distal end coiled in the right mid abdomen just anterior to the transverse colon. Polycystic kidney disease. he was admitted for malpositioned of PD catheter with its non function. Home Medications Scheduled Amiodarone HCl (Amiodarone HCl) 200 Mg Tablet, 200 MG PO DAILY Apixaban (Eliquis) 2.5 Mg Tablet, 2.5 MG PO BID, (Reported) Atorvastatin Calcium (Lipitor) 10 Mg Tab, 10 MG PO QHS, (Reported) Calcitriol (Calcitriol) 0.25 Mcg Cap, 0.25 MCG PO 3XW, (Reported) SAT, SAT, SAT Cholecalciferol (Vitamin D3) (Vitamin D3) 1,000 Unit Tablet, 1,000 UNIT PO QHS, (Reported) Docusate Sodium (Colace) 100 Mg Capsule, 100 MG PO BID, (Reported) Ferrous Sulfate (Ferrous Sulfate) 325 Mg Tablet, 325 MG PO DAILY, (Reported) Fludrocortisone Acetate (Fludrocortisone Acetate) 0.1 Mg Tablet, 0.1 MG PO DAILY, (Reported) Heparin Sod (Porcine) (Heparin Sodium) 1,000 Unit/1 Ml Vial, 1,000 MG IV DAILY, (Reported) DIALYSIS PORT Midodrine HCl (Midodrine HCl) 5 Mg Tablet, 15 MG PO TID, (Reported) 0800, 1100, 1600 Mupirocin (Mupirocin) 2 % Oint...g., 1 DOSE TOP DAILY, (Reported) APPLY AROUND DIALYSIS PORT Pantoprazole Sodium (Pantoprazole Sodium) 40 Mg Tablet.dr, 40 MG PO DAILY, (Reported) Salmeterol/Fluticasone (Advair 100-50 Diskus) 28 Puff/Inhaler Aerp, 1 PUFF INH BID, (Reported) Vit B Comp No.3/Folic/C/Biotin (Ibeth-Lynda Rx Tablet) 1 Each Tablet, 1 TAB PO DAILY, (Reported) Scheduled PRN Albuterol Sulfate (Albuterol Sulfate Hfa) 8.5 Gm Hfa.aer.ad, 2 PUFFS INH Q6H PRN for WHEEZING, (Reported) Polyethylene Glycol 3350 (Miralax) 119 Gm Powder, 17 GM PO DAILY PRN for CO NSTIPATION, (Reported) Allergies Coded Allergies: No Known Allergies (Verified , 01/05/21) Past Medical History Medical History Chronic Hypotension on florinef and midodrine Moderate Aortic stenosis ESRD on PD Polycystic kidney disease A fib/ Eliquis DLP Asthma Gout AV fistula placement BPH s/p TURP Gastric ulcer / Hiatal hernia Hyperlipidemia. Chronic urinary retention requiring self-catheterization. gout. Secondary hyperparathyroidism. Surgical History TURP EGD 01/2020 Peritoneal dialysis catheter (2018) AV fistula placement Family History Father of stroke Polycystic kidney disease. Social History * Smoker: former Smoker Alcohol: Denies Drugs: denies A-FIB/CHADSVASC A-FIB History Current/History of A-Fib/PAF?: Yes Current PO Anticoag Therapy: Yes Review of Systems Constitutional: Denies: Chills, Fever, Night Sweats Eyes: Denies: Pain, Vision change ENT: Denies: Head Aches, Ear Pain, Dysphagia Skin: Denies: Rash, Lesions, Breakdown Pulmonary: Denies: Dyspnea, Cough Cardiovascular: Denies: Chest Pain, Palpitations, Orthopnea, Paroxysmal Noc. Dyspnea, Lt Headedness Gastrointestinal: Reports: Other Symptoms (abdominal distention as couldn't drain the PD fluid); Denies: Nausea, Vomiting, Abdominal Pain, Diarrhea Genitourinary: Reports: Retention, Other Symptoms (, frequent UTIs) Hematologic: Denies: Bruising, Bleeding Excessively Physical Examination General Exam: Positive: Alert, Cooperative, No Acute Distress Eye Exam: Positive: PERRLA, Conjunctiva & lids normal, EOMI; Negative: Sclera icteric ENT Exam: Positive: Atraumatic, Mucous membr. moist/pink, Pharynx Normal Neck Exam: Positive: Supple, JVD Chest Exam: Positive: Diminished (, diminished at the bases); Negative: Rhonchi, Wheezing, Other Heart Exam: Positive: Rate Normal, Irregular Rhythm, Normal S1, Normal S2, Murmurs (. Systolic murmur present); Negative: Rubs Telemetry: Positive: Atrial fibrillation Abdomen Exam: Positive: Normal bowel sounds, Soft, Other (PD catheter in place in the middle of the abdomen to the left of midline); Negative: Tenderness Extremity Exam: Positive: Edema Skin Exam: Positive: Other skin issue (chronic bilateral venous stasis changes in both the legs) Neuro Exam: Positive: Normal Speech Psych Exam: Positive: Memory Intact, Oriented x 3 Vital Signs Vital Signs Date Time Temp Pulse Resp B/P (MAP) Pulse Ox O2 Delivery O2 Flow Rate FiO2 05/08/21 14:52 18 05/08/21 14:33 97.9 98 85/55 (65) 98 Room Air Laboratory Data Labs 24H Laboratory Tests 2 05/08/21 15:41: Nucleated Red Blood Cells % (auto) 0.0 CBC/BMP Laboratory Tests 05/08/21 15:41 Assessment/Plan 85-year-old male with past history of polycystic kidney disease, ESRD on peritoneal dialysis, chronic hypertension. Moderate aortic stenosis, A. fib on the leg. Please, asthma, gout, BPH, chronic urinary retention requiring self catheterization. Gastric ulcer, hiatal hernia, history of GI bleed, chronic suppressive prophylaxis for chronic UTIs, has been having trouble with his peritoneal dialysis catheter for at least 3-4 days. It has not been draining out properly nor going in properly. In certain positions it would drain but then others wont [place]. Today the PD nurse did a home visit for the patient and found the dialysate was going in mostly but nothing came out. So was sent to the ED. CT abd and pelvis in the ED showed [id number] bilateral pleural effusions. Moderate diffuse abdominal and pelvic ascites. A peritoneal dialysis catheter enters the left upper quadrant anterior abdominal wall, crosses to the right of midline with the distal end coiled in the right mid abdomen just anterior to the transverse colon. Polycystic kidney disease. he was admitted for malpositioned of PD catheter with its non function. PD catheter malfunction PD cath is coiled inteh middle of abdomen just anterior to the transverse colon. this needs to be repositioned to the pelvis. Discussed with Dr Crews and he discussed with anaesthesia and we would try to get this repositioned tonight laparoscopically In view of his chronic hypotension this may be challenging from anaesthesia stand point. Our IR does not do PD cath procedures. Will Keep NPO. ESRD on PD /Secondary hyperparathyroidism. From polycystic kidney disease PD catheter malfunctioning, so has not been getting proper exchanges for the past 3-4 days Has bilateral pleural effusions and his fluid overloaded Chronic Hypotension on florinef and midodrine Continue has Moderate Aortic stenosis A fib/ Eliquis Will restart eliquis when okay with surgeon DLP Continue statin Asthma Continue Advair and albuterol when necessary BPH s/p TURP With chronic urinary retention requiring self-catheterization Recurrent UTIs Patient is on lifelong antibiotic prophylaxis with levofloxacin Gastric ulcer / Hiatal hernia Continue PPI Plan / VTE VTE Prophylaxis Ordered?: Yes JESUS PHELPS MD May 08, 2021 17:03
[2021-05-08 19:01] LABS: RSV AMPLIFICATION NEGATIVE (NEGATIVE)
[2021-05-08] MEDS ORDERED: HEPA1010VL IV (19:07)
[2021-05-08] MEDS ORDERED: MIRA3350 PO (19:07)
[2021-05-08] MEDS ORDERED: LEVO250T12 PO (19:07)
[2021-05-08] MEDS ORDERED: MUPI2OI TOP (19:07)
[2021-05-08] MEDS ORDERED: COLA100C5 PO (19:07)
[2021-05-08] MEDS ORDERED: BUPIVACAINE/EPIN 0.25% 30 ML VIAL As Ordered ONE (19:09)
[2021-05-08] MEDS ORDERED: PHENYLEPHRINE 10MG/ML 1ML VIAL (J2370 PER 1) As Ordered ONE (19:27)
[2021-05-08] MEDS ORDERED: ROCURONIUM BROMIDE 50 MG/5 ML VIAL As Ordered ONE (19:29)
[2021-05-08] MEDS ORDERED: ONDANSETRON 4MG/2ML VIAL As Ordered ONE (19:29)
[2021-05-08] MEDS ORDERED: ETOMIDATE INJ 20MG/10ML VIAL As Ordered ONE (19:29)
[2021-05-08] MEDS ORDERED: dexameTHASONE 4 MG/ML 1ML VIAL (J1100 PER 1MG) As Ordered ONE (19:29)
[2021-05-08] MEDS ORDERED: LIDOCAINE 2% 100MG/5ML SDV (FOR ANES.) As Ordered ONE (19:29)
[2021-05-08] MEDS ORDERED: VASOPRESSIN INJ 20 UNITS/ML VIAL As Ordered ONE (19:29)
[2021-05-08] MEDS ORDERED: fentaNYL 100 MCG/2 ML INJECTION (J3010) As Ordered ONE (19:33)
[2021-05-08] MEDS ORDERED: ADVAIR HFA 230/21MCG INHALER INH SCH (20:00)
[2021-05-08] MEDS ORDERED: ceFAZolin 2 GM/D5W 50 ML IV BAG (J0690 PER 500MG) As Ordered ONE (20:16)
--- NOTE | 2021-05-08 20:45 | IPNPDOC ---
Text Note Date of Service The patient was seen on 05/08/21. NOTE Full consult dictated. I saw the patient in pre-op with the plan to go to the OR for diagnostic laparoscopy with manipulation of the PD cath. However, once he arrived in the OR, his BP was soft in the 80's systolic, and he was tachycardic in the 130's. Anesthesia was uncomfortable with placing him under general anesthesia. I spoke with Dr. Godwinsef and gave him the option of medical management with another attempt in the OR in a couple of days, vs. attempting to get him some place that has IR that can attempt manipulation under fluoroscopy. He is going to take a look at him this evening, and I will reassess in the AM. Donny Crews DO VS,Karel, I+O VSKarel, I+O Laboratory Tests 05/08/21 15:41 Vital Signs Date Time Temp Pulse Resp B/P (MAP) Pulse Ox O2 Delivery O2 Flow Rate FiO2 05/08/21 19:41 97.3 112 16 104/69 (81) 98 Room Air AME CREWS DO May 08, 2021 20:45
[2021-05-08] MEDS: ATORVASTATIN 10 MG TAB PO SCH (21:00)
[2021-05-08 21:40] VITALS: BP 141/67
[2021-05-08 22:00] VITALS: BP 86/64
[2021-05-08] MEDS ORDERED: oxyCODONE 5MG TAB PO PRN (22:10)
[2021-05-08] MEDS ORDERED: LR 1,000 ML IV SCH (22:10)
[2021-05-08] MEDS: ADVAIR HFA 115/21MCG INHALER INH SCH (22:10)
[2021-05-08] MEDS ORDERED: fentaNYL 100 MCG/2 ML INJECTION (J3010) IV PRN (22:10)
[2021-05-08] MEDS ORDERED: ONDANSETRON 4MG/2ML VIAL IV PRN (22:10)
[2021-05-08 23:00] VITALS: BP 102/63
[2021-05-08] MEDS ORDERED: LevoFLOXacin IV 250 MG in IV 1 EA IV ONE (23:00)
[2021-05-09] VITALS (10 sets, daily range): BP systolic 87–115; BP diastolic 50–62
[2021-05-09 05:04] LABS: HEMATOCRIT 31.4 % (42.0-52.0); HEMOGLOBIN 10.3 g/dl (13.5-17.5); MEAN CORPUSCULAR HEMOGLOBIN 31.7 pg (27.0-33.0); MEAN CORPUSCULAR HGB CONC 32.8 g/dl (32.0-36.5); MEAN CORPUSCULAR VOLUME 96.6 fl (80.0-96.0); PLATELET COUNT, AUTOMATED 304 10^3/uL (150-450); RED BLOOD COUNT 3.25 10^6/uL (4.30-6.10); WHITE BLOOD COUNT 7.7 10^3/uL (4.0-10.0)
[2021-05-09 05:41] LABS: BILIRUBIN,TOTAL 0.6 MG/DL (0.2-1.0); CALCIUM LEVEL 8.7 MG/DL (8.8-10.2); CREATININE FOR GFR 9.56 MG/DL (0.70-1.30); GLOMERULAR FILTRATION RATE 5.6 (>35); MAGNESIUM LEVEL 1.8 MG/DL (1.8-2.4); POTASSIUM SERUM 5.5 MEQ/L (3.5-5.1); TOTAL PROTEIN 5.3 GM/DL (6.4-8.2)
[2021-05-09] MEDS ORDERED: AMIODARONE HCL 360 MG in IV 1 EA IV SCH (07:25)
[2021-05-09] MEDS ORDERED: AMIODARONE HCL 150 MG in IV 1 EA IV ONE (07:25)
[2021-05-09] MEDS ORDERED: MIRALAX *UNIT DOSE* 17GM PACKET PO PRN (07:30)
[2021-05-09] MEDS: ADVAIR HFA 115/21MCG INHALER INH SCH ×2 (07:47→19:52)
[2021-05-09 08:04] LABS: FREE THYROXINE INDEX 2.3 % (1.4-3.8); THYROID STIMULATING HORMONE 2.07 uIU/ML (0.358-3.740); THYROXINE (T4) 6.6 UG/DL (4.5-12.0)
[2021-05-09] MEDS: CALAMINE LOTION 177 ML BTL TOP SCH ×3 (08:34→21:00)
[2021-05-09] MEDS: FERROUS SULFATE 325MG TAB PO SCH (08:34)
[2021-05-09] MEDS: DOCUSATE SODIUM 100MG CAPSULE PO SCH ×2 (08:35→21:00)
[2021-05-09] MEDS: PANTOPRAZOLE 40MG TAB (PROTONIX) PO SCH (08:35)
[2021-05-09] MEDS: MIDODRINE 5 MG TAB PO SCH ×3 (08:35→17:27)
[2021-05-09] MEDS ORDERED: APIXABAN 2.5 MG TAB (ELIQUIS) PO SCH (09:00)
--- NOTE | 2021-05-09 09:09 | REP ---
INDICATION: SOB PERITONEAL DIALYSIS R/O FLUID OVERLOAD. COMPARISON: 04/12/2021. TECHNIQUE: Single portable AP view of the chest was performed. FINDINGS: The heart appears to be upper limits of normal in size. There is calcification of the thoracic aorta. The mediastinal silhouette is unchanged. There is mild vascular congestion. There appear to be mildly increased interstitial markings, suggesting mild interstitial edema. I cannot exclude small effusions as well, with slight blunting of the costophrenic angles. IMPRESSION: Mild vascular congestion and findings suggesting mild interstitial edema. Possible small effusions. <Electronically signed by Rob Walden > 05/09/21 0949
--- NOTE | 2021-05-09 11:02 | IPN ---
PROGRESS NOTE DATE: 05/09/2021 SUBJECTIVE: Patient is seen and examined at the bedside. Chart has been reviewed. Patient complains of pruritus on his back, bilaterally upper and lower extremities that he has had for many years, says that he just "bears with it." Patient also complains of orthostasis when he first sits up and has physical therapy working with him at home. He says he usually needs 1 person to get him up in the morning. He denies any chest pain, pressure or tightness, fever or chills overnight. Admitted yesterday due to non-functioning peritoneal dialysis which was malpositioned. OBJECTIVE: Vital signs: Temperature 97.2, pulse 126 and regular, respiratory rate 18, blood pressure 89/53, mean arterial pressure is 65, 96% on room air. General: Awake, alert, oriented to person, place and time, answering questions appropriately. Patient is in no distress. No use of respiratory accessory muscles. HEENT: Dry mucous membranes. Neck: No JVD, thyromegaly or cervical lymphadenopathy. Heart: S1 and S2 irregularly irregular, systolic ejection murmur at the apex radiating to the carotids, tachycardic. Lungs: Diminished at the bases, no wheezes, rhonchi or rales. Abdomen: Soft, nontender, nondistended, positive bowel sounds. Extremities: No cyanosis or clubbing, positive pitting edema. Skin: Multiple excoriated areas, scars from bilateral upper and lower extremities, chest, abdomen and back. LABORATORY DATA: CBC and metabolic panel have been reviewed and notable for a potassium of 5.5, creatinine 9.56. ASSESSMENT: This is an 85-year-old male with a history of polycystic kidney disease, end-stage renal disease on peritoneal dialysis, hypertension, moderate aortic stenosis, atrial fibrillation, dyslipidemia, asthma, gout, AV fistula, BPH, gastric ulcer, hiatal hernia, hyperlipidemia, chronic urinary retention requiring self catheterization and secondary hyperparathyroidism admitted on May 08, 2012 due to a malfunctioning peritoneal dialysis catheter with complaints of the drain not draining out properly or going in properly. IMPRESSIONS/PLANS: 1. Peritoneal dialysis malfunction: General surgeon Dr. Crews was consulted yesterday and repositioned the peritoneal dialysis. Interventional radiology does not do peritoneal dialysis catheter procedures. Nephrology has been consulted for dialysis needs. 2. Polycystic kidney disease, end-stage renal disease: On peritoneal dialysis, nephrology consulted for peritoneal dialysis needs. 3. Atrial fibrillation, rate is uncontrolled, currently 123 at the bedside, blood pressure of 89 systolic: Patient will be given I.V. amiodarone due to low blood pressure. Currently requiring Florinef and midodrine. Once the blood pressure has improved patient may be restarted back on his beta-blockade if mean arterial pressure is maintained at 65-70. 4. Moderate aortic stenosis: Avoid dehydration and decrease the preload. Patient is preload dependent. We will need to monitor for congestive heart failure. 5. Chronic orthostasis: Currently on Florinef and midodrine, managed by nephrology. Keep mean arterial pressure at least at 60, blood test optimally at 65-70. 6. DVT prophylaxis: Patient has completed repositioning of his peritoneal dialysis and may be resumed back on his home dose of Eliquis. 7. Dyslipidemia: Resume on home meds. 8. History of gastric ulcer, hiatal hernia: Resume on PPI. 9. History of chronic urinary retention: Requiring self catheterization, no acute issues. 10. Secondary hyperparathyroidism secondary to end-stage renal disease: Chronic. MTDD
[2021-05-09] MEDS: FLUDROCORTISONE ACETATE 0.1 MG TAB PO SCH (13:46)
--- NOTE | 2021-05-09 14:09 | IPNPDOC ---
Text Note Date of Service The patient was seen on 05/09/21. NOTE No acute events overnight. He denies any problems with pains this am. His HR is back to normal with the amiodarone, and he is planning to try peritoneal dialysis this afternoon. I was unable to reposition his tube yesterday because anesthesia was unable to intubate him due to the a.fib with tachycardia. VSSAF NAD abd - soft, nt, nd labs - below A) 85y/o male presents with a malpositioned PD cath that was in the left pelvis a few months ago, but is now in the RUQ. a fib CKD P) renal diet plan for peritoneal dialysis this afternoon. If successful, then he can likely be d/c home soon. If unsuccessful, then I will plan to take to the OR once he is cleared by medicine. Donny Crews DO VS,Karel, I+O VS, Karel, I+O Laboratory Tests 05/08/21 15:41 05/09/21 04:25 Vital Signs Date Time Temp Pulse Resp B/P (MAP) Pulse Ox O2 Delivery O2 Flow Rate FiO2 05/09/21 12:00 97.9 102 18 115/59 (77) 97 Room Air I&O- Last 24 Hours up to 6 AM 05/09/21 05:59 Intake Total 50 ml Output Total 0 ml Balance 50 ml AME CREWS DO May 09, 2021 14:09
--- NOTE | 2021-05-09 14:17 | IPNPDOC ---
Date Seen The patient was seen on 05/09/21. Progress Note addendum to progress note: correction to progress note: AFib w RVR ESRD ON PD: -Per General Surgeon, Dr. Crews, peritoneal dialysis catheter could not be repositioned yesterday due to the patient having uncontrolled Afib. -Per Nephrology, Dr. López, if patient continues to decompensate, pt is appropriate for hospice and hadoop admin. Dr. Soto has discussed this with the patient as outpt. Plan: -discontinue eliquis -amiodarone iv gtt for afib w rvr. -once rate controlled, schedule for OR. VS, I&O, 24H, Fishbone Vital Signs/I&O Vital Signs Date Time Temp Pulse Resp B/P (MAP) Pulse Ox O2 Delivery O2 Flow Rate FiO2 05/09/21 12:00 97.9 102 18 115/59 (77) 97 Room Air I&O- Last 24 Hours up to 6 AM 05/09/21 05:59 Intake Total 50 ml Output Total 0 ml Balance 50 ml Laboratory Data 24H LABS Laboratory Tests 2 05/08/21 15:41: Nucleated Red Blood Cells % (auto) 0.0, Anion Gap 8, Glomerular Filtration Rate 5.9L, Calcium Level 8.7L, Total Bilirubin 0.5, Aspartate Amino Transf (AST/SGOT) 14, Alanine Aminotransferase (ALT/SGPT) 10L, Alkaline Phosphatase 98, Total Protein 5.6L, Albumin 2.1L, Albumin/Globulin Ratio 0.6 05/08/21 17:37: Coronavirus (COVID-19)(PCR) NEGATIVE, Influenza Type A (RT-PCR) NEGATIVE, Influe nza Type B (RT-PCR) NEGATIVE, Respiratory Syncytial Virus (PCR) NEGATIVE 05/09/21 04:25: Nucleated Red Blood Cells % (auto) 0.0, Anion Gap 9, Glomerular Filtration Rate 5.6L, Calcium Level 8.7L, Total Bilirubin 0.6, Aspartate Amino Transf (AST/SGOT) 9, Alanine Aminotransferase (ALT/SGPT) 7L, Alkaline Phosphatase 86, Total Protein 5.3L, Albumin 2.0L, Albumin/Globulin Ratio 0.6, Magnesium Level 1.8, Thyroid Stimulating Hormone (TSH) 2.070, Free Thyroxine Index 2.3, Thyroxine (T 4) 6.6, Triiodothyronine (T3) Uptake 35 CBC/BMP Laboratory Tests 05/08/21 15:41 05/09/21 04:25 ALEKSANDR DIMAS MD May 09, 2021 14:15
[2021-05-09] MEDS: AMIODARONE HCL 360 MG in IV 1 EA IV SCH (14:21)
[2021-05-09] MEDS: MUPIROCIN 2% OINT 22 GM TUBE TOP SCH (17:27)
[2021-05-09] MEDS: VITAMIN D 1,000 INTERNATIONAL UNITS TABLET PO SCH (20:58)
[2021-05-09] MEDS: ATORVASTATIN 10 MG TAB PO SCH (20:58)
--- NOTE | 2021-05-09 22:15 | IPNPDOC ---
Text Note Date of Service The patient was seen on 05/09/21. NOTE Per d/w the Nursing Tube Builder sometime during the material handler 2nd shift (between May 08 and May 09) gave verbal orders to transfer the patient to PCU to manage rapid Afib. VS,Fishbone, I+O VS, Fishbone, I+O Laboratory Tests 05/09/21 04:25 Vital Signs Date Time Temp Pulse Resp B/P (MAP) Pulse Ox O2 Delivery O2 Flow Rate FiO2 05/09/21 16:00 98.0 84 16 102/62 (75) 97 Room Air I&O- Last 24 Hours up to 6 AM 05/09/21 06:00 Intake Total 50 ml Output Total 0 ml Balance 50 ml CORY YOUSSEF MD May 09, 2021 22:15
[2021-05-10] VITALS: BP 105/63
[2021-05-10] MEDS: AMIODARONE HCL 360 MG in IV 1 EA IV SCH (02:38)
[2021-05-10 04:00] VITALS: BP 92/52
[2021-05-10 05:00] VITALS: BP 97/61
[2021-05-10] MEDS ORDERED: AMIODARONE 200 MG TAB (PACERONE) PO SCH ×2 (06:00→21:00)
[2021-05-10] MEDS: ADVAIR HFA 115/21MCG INHALER INH SCH ×2 (07:39→19:36)
[2021-05-10 08:00] VITALS: BP 103/55
[2021-05-10] MEDS: FLUDROCORTISONE ACETATE 0.1 MG TAB PO SCH (08:17)
[2021-05-10] MEDS: FERROUS SULFATE 325MG TAB PO SCH (08:17)
[2021-05-10] MEDS: PANTOPRAZOLE 40MG TAB (PROTONIX) PO SCH (08:17)
[2021-05-10] MEDS: MIDODRINE 5 MG TAB PO SCH ×3 (08:17→15:45)
[2021-05-10] MEDS: MUPIROCIN 2% OINT 22 GM TUBE TOP SCH (08:18)
[2021-05-10] MEDS: DOCUSATE SODIUM 100MG CAPSULE PO SCH ×2 (08:18→21:00)
[2021-05-10] MEDS: CALAMINE LOTION 177 ML BTL TOP SCH ×3 (08:18→22:00)
--- NOTE | 2021-05-10 08:59 | CR ---
CONSULTATION DATE: 05/09/2021 REQUESTING PHYSICIAN: Dr. Terese Bauer CONSULTING PHYSICIAN: Dr. López REASON FOR CONSULTATION: Management of end-stage renal disease and peritoneal dialysis. CHIEF COMPLAINT: Patient presented to the hospital because of malfunctioning of the PD catheter. HISTORY OF PRESENT ILLNESS: This is an 85-year-old male with a past medical history of polycystic kidney disease, end-stage renal disease on peritoneal dialysis, chronic hypotension, chronically bedridden, aortic stenosis, atrial fibrillation, chronic urinary retention requiring self catheterization, multiple other comorbidities as mentioned below. He has been having trouble with his peritoneal dialysis catheter for the last 3-4 days. Fluid is going in the peritoneal cavity easily, however, the catheter is not draining well. Peritoneal dialysis nurse visited him at home and tried different trouble shooting techniques, but the catheter did not work. Patient was sent to the Emergency Room for further evaluation. CAT scan showed that the distal part of the catheter is coiled in the right mid abdomen. Surgical service tried to take him to the OR, however, his blood pressure was so low, anesthesia was not comfortable doing any procedure on him. Patient was admitted to the ICU last night. Nephrology service was called for further help in the management of this patient. I saw and evaluated the patient today morning at the bedside in the ICU. No peritoneal dialysis has been done overnight. Patient's blood pressures are stable at his baseline with systolic in 80's and 90's. PAST MEDICAL HISTORY: End-stage renal disease, chronic hypotension requiring Midodrine and Florinef, aortic stenosis, polycystic kidney disease, atrial fibrillation, anticoagulated with Eliquis, hyperlipidemia, asthma, gout, chronic urinary retention requiring self catheterization, hiatal hernia, hyperlipidemia, secondary hyperparathyroidism. PAST SURGICAL HISTORY: Status post transurethral resection of the prostate, EGD in January 2020, peritoneal dialysis catheter placement 2018, AV fistula placement in the past. FAMILY HISTORY: Positive family history of polycystic kidney disease. SOCIAL HISTORY: He is a former smoker. denies any illicit drug abuse or alcohol abuse. ALLERGIES: No known drug allergies. REVIEW OF SYSTEMS: CONSTITUTIONAL: He reports feeling weak and tired. EYES: He denies any blurry vision, double vision. ENT: He denies any dysphagia, odynophagia, CVS: He reported chronic hypotension. RESPIRATORY: He denies any shortness of breath. GI: He reports malfunctioning of the abdominal catheter. GENITOURINARY: He reports chronic retention and frequent UTIs. MUSCULOSKELETAL: He denies any muscle aches and pains. SKIN: Denies any rashes or ulcers. HEMATOLOGICAL/ONCOLOGICAL: Denies any easy bleeding or bruising. PSYCHIATRY TEACHER: Reports dizziness on trying to sit up. All other review of systems is negative. PHYSICAL EXAMINATION: GENERAL: Patient is awake, alert, oriented x3, lying in bed. VITAL SIGNS: Temperature 98 degrees Fahrenheit, blood pressure 102/62, pulse 84, respiratory rate 16, saturating 97% on room air. HEAD/NECK: Extraocular muscles intact. Pupils equally round and reactive to light. Mucous membranes are moist. Neck is supple. Mildly elevated JVD. CARDIOVASCULAR: S1, S2, regular rate. 2+ edema of the bilateral lower extremities. RESPIRATORY: Decreased breath sounds bilaterally at the bases. ABDOMEN: Soft, left upper quadrant peritoneal dialysis catheter was noted. No organomegaly is noted. GENITOURINARY: Bladder is non-palpable. MUSCULOSKELETAL: No clubbing or cyanosis. Chronic venous stasis changes of the bilateral lower extremities. PSYCHIATRY TEACHER: No focal deficit. Power is 5/5 in bilateral upper extremities. Patient is unable to get up and walk around because of hypertension. LABORATORY REVIEW: CBC showed WBC 7.7, hemoglobin 10.3, platelets 304,000. BMP showed sodium 136, potassium 5.5, chloride 99, bicarb 28, BUN 87, creatinine 9.5; it was 9 yesterday. Calcium 8.7. Albumin 2. IMAGING: CAT scan of the abdomen and pelvis was done, which showed mild to moderate bilateral pleural effusions, moderate diffuse abdominal and pelvic ascites. Peritoneal dialysis catheter enters the left upper quadrant and crosses right of the midline and distal end is coiled in the right to mid abdomen just anterior to the transverse colon, and he has polycystic kidney disease. CURRENT INPATIENT MEDICATIONS: Patient's medications were all reviewed by myself. He is on Amiodarone 150 mg I.V. times one dose and he has been started on Amiodarone infusion. Levaquin 250 mg I.V. times one dose. Eliquis has been on hold. Lipitor 10 mg p.o. q.h.s., Calcitriol 0.25 mcg p.o. Saturday, Saturday, Saturday, Colace 100 mg p.o. twice a day, iron tablet 325 mg p.o. daily, Florinef 0.1 mg p.o. daily, Levaquin 250 mg p.o. every 48 hours, Midodrine 15 mg p.o. three times a day, Protonix 40 mg p.o. daily, MiraLax one packet daily p.r.n. constipation, Advair two puffs twice a day, Vitamin D 1,000 units p.o. daily. ASSESSMENT AND PLAN: 1. Malfunctioning of the PD catheter: PD catheter is not draining well. Dr. Crews saw the patient. No procedure was done because of uncontrolled atrial fibrillation and hypotension. At this point, I would continue to do peritoneal dialysis and try to position the patient on right side to drain him better. If his blood pressures get better, I am hopeful that we should be able to reposition his peritoneal catheter into the pelvis for better drainage. Patient's blood pressures are very low. He is not a candidate for hemodialysis. 2. End-stage renal disease: Continue the peritoneal dialysis regimen at this time; five exchanges all 2 liters and combination of 1.5% and 2.5%. 3. Hyperkalemia: It is secondary to inadequate peritoneal dialysis. Potassium level should get better with the PD regimen. 4. Anemia and end-stage renal disease: Hemoglobin level is 10.3 which is optimal at this time. 5. Chronic recurrent urinary tract infection and urine retention: I have asked the nursing staff to do straight cath twice a day. Continue current dose of Levaquin. 6. Chronic hypotension: Continue current dose of Florinef and Midodrine. 7. Atrial fibrillation with rapid ventricular rate: Patient was given I.V. Amiodarone and started on the drip. Heart rate is better controlled. Patient's anticoagulation is on hold for anticipation of possible procedure. Thank you for involving me in the care of this patient. I shall be happy to follow the patient along with you tomorrow morning.
[2021-05-10] MEDS ORDERED: FOSFOMYCIN TROMETHAMINE 3 GM POWDER PACKET (MONUROL) PO SCH (09:00)
[2021-05-10] MEDS ORDERED: CALCITRIOL 0.25 MCG CAP (S0169) PO SCH (09:00)
[2021-05-10 10:48] LABS: CALCIUM LEVEL 8.5 MG/DL (8.8-10.2); CREATININE FOR GFR 9.28 MG/DL (0.70-1.30); GLOMERULAR FILTRATION RATE 5.8 (>35); PHOSPHORUS LEVEL 4.1 MG/DL (2.5-4.9); POTASSIUM SERUM 4.7 MEQ/L (3.5-5.1)
[2021-05-10 11:45] LABS: APPEARANCE, BODY FLUID CLEAR (CLEAR); PERITONEAL DIALYSATE FL COLOR COLORLESS (COLORLESS); SOURCE, BODY FLUID PERITONEAL DIALYSATE
[2021-05-10] MEDS ORDERED: AMIODARONE 200 MG TAB (PACERONE) PO ONE (12:00)
--- NOTE | 2021-05-10 12:32 | IPN ---
PROGRESS NOTE DATE: 05/10/2021 SUBJECTIVE: Patient was seen and examined at the bedside today morning in the intensive care unit (ICU). I was told by the nursing staff that he is tolerating the peritoneal dialysis (PD) now, and he is getting good drainage. PD catheter is working fine at this moment. His heart rate is also better controlled with amiodarone. I got a call from the pharmacy that amiodarone had interaction with the Levaquin because of QT prolongation. Levaquin was stopped today by myself. OBJECTIVE: Vital signs: Temperature is 96.2 degrees Fahrenheit, blood pressure is 103/55, pulse is 75, respiratory rate of 16, saturating 97% on room air. Intake and output: Urine output recorded was 250 mL yesterday. Ultrafiltration with peritoneal dialysate is 1180 mL since overnight. Weight in the bed scale is 87.9 kg. PHYSICAL EXAMINATION: GENERAL: Patient is awake, alert, oriented times three, lying in bed in no apparent distress. HEAD AND NECK: Extraocular muscles are intact. Pupils equally round and reactive to light. Mucous membranes are moist. Neck is supple. Mildly elevated jugular venous distention (JVD). CARDIOVASCULAR: S1, S2, irregular rate. Edema 3+ of the bilateral lower extremities up to mid shins. RESPIRATORY: Chest has decreased breath sounds bilaterally at the bases, otherwise no active rales or rhonchi. ABDOMEN: Soft. Positive bowel sounds. Left upper quadrant PD catheter is noted. GENITOURINARY: Bladder is not palpable. MUSCULOSKELETAL: Chronic venous stasis changes of the bilateral lower extremities. CENTRAL NERVOUS SYSTEM: No focal deficit. Power is 5/5 in bilateral upper extremities. LABORATORY REVIEW: CBC showed WBC 7.7, hemoglobin 10.3; that is from yesterday. Peritoneal fluid cell count is 3. BMP today showed sodium 133, potassium 4.7, chloride 95, bicarbonate 29, BUN 81, creatinine is 9.2. Calcium 8.5, phosphorus is 4.1. Albumin is 2. CURRENT INPATIENT MEDICATIONS: Patient's medications were all reviewed by myself. He was given intravenous (IV) amiodarone, and it has been changed to oral now, 400 mg by mouth twice a day. Eliquis is on hold. Levaquin has been stopped. He has been started on Fosfomycin 3 grams by mouth once a week. No other change in the medications today. ASSESSMENT AND PLAN: 1. End-stage renal disease. Patient is getting peritoneal dialysis at this time. He is tolerating the current regimen. I would keep him on alternating 1.5% and 2.5 % fluids. 2. Peritoneal dialysis (PD) catheter malfunctioning. Patient's PD catheter started functioning last night; however, intermittently it stops functioning at home. Patient is hemodynamically stable now. Dr. Crews will take him to the operating room (OR) to reposition his PD catheter in the pelvis. 3. Chronic hypotension. Continue midodrine, Florinef. Patient is bed bound. 4. Chronic recurrent urinary tract infections. Patient gets straight catheterization done, and I was told by the staff that his urine was very cloudy. Levaquin has been stopped because of atrial fibrillation and interaction with amiodarone. He has been started on Fosfomycin 3 grams by mouth once a week. 5. Hyperkalemia. It has resolved with PD now. 6. Atrial fibrillation with rapid ventricular rate. Heart rate is controlled now. He is currently on oral amiodarone. Anticoagulation is on hold for possible anticipation of abdominal surgery for PD catheter. DISPOSITION: Pending repositioning of PD catheter. Otherwise, patient is optimized from nephrology standpoint.
[2021-05-10 14:00] VITALS: BP 98/50
--- NOTE | 2021-05-10 15:57 | IPN ---
PROGRESS NOTE DATE: 05/10/2021 SUBJECTIVE: The patient's peritoneal dialysis was not changed or repositioned. The patient had peritoneal dialysis yesterday, which was successful. The patient's AFib with RVR was rate controlled with amiodarone drip currently ventricular rate of 68 to 84. Blood pressure maintained at mean arterial pressure of 65 to 77 on chronic midodrine and Florinef. The patient denies any chest pain, pressure, tightness, lightheadedness, or dizziness. At baseline, the patient does not ambulate much and usually stands and pivots with one to two person assistance. He denies any abdominal pain, fever, or chills overnight. No other issues per nursing. OBJECTIVE: VITAL SIGNS: Temperature 96.2, pulse 75 irregularly irregular, respiratory rate 16, blood pressure 103/55, 97% on room air. GENERAL: The patient is awake, alert, and oriented to himself. Able to speak in full sentences without use of respiratory accessory muscles. HEENT: Moist mucous membranes. Mild JVD. No thyromegaly or cervical lymphadenopathy. HEART: S1, S2 irregularly irregular. LUNGS: Diminished bilaterally. No wheezing, rales, or rhonchi. ABDOMEN: Soft, nontender. Left upper quadrant peritoneal dialysis is noted. EXTREMITIES: 3+ pitting edema. DIAGNOSTIC STUDIES: Laboratory data, microbiology, and imaging studies have been reviewed. ASSESSMENT AND PLAN: This is an 85-year-old male with history of polycystic kidney disease and end-stage renal disease on peritoneal dialysis, hypertension, moderate aortic stenosis, atrial fibrillation, dyslipidemia, asthma, gout, AV fistula, BPH, gastric ulcer, hiatal hernia, hyperlipidemia, chronic urinary retention with self-catheterization, secondary hyperparathyroidism admitted on 05/08/2021, due to malfunctioning peritoneal dialysis catheter with complaints of the drain not draining properly or going in properly. Current issues are as follows: 1. Atrial fibrillation with rapid ventricular response (RVR). Peritoneal dialysis catheter could not be repositioned due to uncontrolled AFib. The patient's rate was ranging from 120 to 140 with systolic pressure maintained in the 80s, mean arterial pressure of about 70 to 75. We were unable to use any beta-blockers or calcium channel blockers due to low blood pressure despite use of midodrine 15 mg t.i.d., as well as Florinef daily; therefore, we had to use intravenous amiodarone per protocol for the past 18 hours with good rate control currently at 67 to 84. Blood pressure is well maintained with mean arterial pressure of 75 to 77 at the bedside. Per his mathematics technician, Dr. Mohamud, he may be transitioned to amiodarone 400 mg b.i.d. for 14 days and amiodarone 200 mg daily after 14 days. Since the rate is now controlled, I have spoken with Dr. Crews of general surgery to schedule the patient for the operating room to adjust his peritoneal dialysis and reposition. 2. Peritoneal dialysis catheter malfunction. The patient will be brought to the OR tomorrow, n.p.o. after midnight. Last dose of Eliquis was yesterday morning at 8:30. The patient should be medically stable to have the peritoneal dialysis repositioned without significant risk of bleeding. 3. End-stage renal disease on peritoneal dialysis. The patient was able to undergo the peritoneal dialysis yesterday. Nephrology is consulted for dialysis needs. 4. Moderate aortic stenosis. The patient is preload dependent. We are trying to avoid a significant decrease in preload to avoid congestive heart failure (CHF), angina, and syncopal episodes. 5. Chronic orthostasis on Florinef and midodrine currently maximized at 15 mg of midodrine t.i.d. 6. History of polycystic kidney disease with end-stage renal disease on peritoneal dialysis. 7. Hypertension currently with low blood pressure on Florinef and midodrine. 8. Dyslipidemia, chronic. 9. Asthma, compensated. 10. Gout, chronic. 11. BPH, resumed on home medications. 12. Gastric ulcer on proton pump inhibitor (PPI). 13. Hiatal hernia, chronic. 14. Secondary hyperparathyroidism secondary to renal disease. 15. Disposition: The patient's discharge is postponed until the peritoneal dialysis catheter can be repositioned. He has been off the Eliquis since last dose on 05/09/2021, at 0830 a.m., and may resume after dialysis catheter has been repositioned. Discharge plans are for 05/11/2021. [facility]
[2021-05-10] MEDS ORDERED: LevoFLOXacin 250 MG TABLET PO SCH (18:00)
[2021-05-10] MEDS ORDERED: AMIO200T3 PO (18:14)
[2021-05-10] MEDS ORDERED: AMIO400T7 PO (18:27)
[2021-05-10] MEDS: ATORVASTATIN 10 MG TAB PO SCH (21:59)
[2021-05-10] MEDS: VITAMIN D 1,000 INTERNATIONAL UNITS TABLET PO SCH (21:59)
[2021-05-10 22:00] VITALS: BP 96/54
[2021-05-11] VITALS (19 sets, daily range): BP systolic 80–117; BP diastolic 47–67; O2SAT 98
[2021-05-11] MEDS: ADVAIR HFA 115/21MCG INHALER INH SCH ×2 (07:47→19:53)
[2021-05-11] MEDS ORDERED: AMIODARONE 200 MG TAB (PACERONE) PO ONE (09:10)
[2021-05-11 09:16] LABS: HEMATOCRIT 32.2 % (42.0-52.0); HEMOGLOBIN 10.6 g/dl (13.5-17.5); MEAN CORPUSCULAR HEMOGLOBIN 31.4 pg (27.0-33.0); MEAN CORPUSCULAR HGB CONC 32.9 g/dl (32.0-36.5); MEAN CORPUSCULAR VOLUME 95.3 fl (80.0-96.0); PLATELET COUNT, AUTOMATED 300 10^3/uL (150-450); RED BLOOD COUNT 3.38 10^6/uL (4.30-6.10); WHITE BLOOD COUNT 10.5 10^3/uL (4.0-10.0)
[2021-05-11 09:24] LABS: ABG BASE EXCESS -1.1 (-2.0-2.0); ABG HCO3 22.9 MEQ/L (22.0-26.0); ABG O2 SATURATION 98.2 % (95.0-99.0); ABG PARTIAL PRESSURE CO2 35.9 mmHg (35.0-45.0); ABG PARTIAL PRESSURE O2 120.2 mmHg (75.0-100.0); ABG STANDARD HCO3 23.6 MEQ/L (22.0-26.0); ABG pH (ARTERIAL) 7.423 UNITS (7.350-7.450)
--- NOTE | 2021-05-11 09:28 | IPNPDOC ---
Date Seen The patient was seen on 05/11/21. Progress Note [facility] CALLED at 0855 when patient was found by RN unresponsive without a pulse. TELE: Afib 45 Prior to being found unresponsive, pt was being checked for orthostasis and was awake and alert. blood pressure sitting was 95/60, standing 80/60. Patient complained to Occupational Therapy that he felt nauseous, wanted a bag, and started laying back down on the bed. OT left the room to get a bag. RN walked in with patient on the bed unresponsive with no pulse. Chest compressions were done for 2minutes. Tele: Afib bradycardic. sbp 122 mmhg . glucose was 102. Patient awakened after 3minutes. no meds were given. no postictal confusion. no focal deficits. no ivfluids given. Assessment: Vasovagal syncope/Orthostasis -unlikely to be Cardiac Arrest -Telemetry showed Afib rate of 40's, but had no palpable pulse at the bedside s/p chest compressions, -discussed with airplane dispatch clerk Dr. Mohamud who is consulted to review the case and help manage. Decrease amiodarone to 200mg daily. -transfer to ICU, HD stable and not needing ivfluids or vasopressor. Telemetry. -family informed Lidia Nuñez [phone] -cancelled OR for peritoneal dialysis catheter re-positioning. Dr. Crews aware. VS, I&O, 24H, Karel Vital Signs/I&O Vital Signs Date Time Temp Pulse Resp B/P (MAP) Pulse Ox O2 Delivery O2 Flow Rate FiO2 05/11/21 08:00 96.5 104 18 101/55 (70) 96 Room Air I&O- Last 24 Hours up to 6 AM 05/11/21 06:00 Intake Total 41983 ml Output Total 71287 ml Balance -805 ml Laboratory Data 24H LABS Laboratory Tests 2 05/10/21 10:12: Anion Gap 9, Glomerular Filtration Rate 5.8L, Calcium Level 8.5L, Phosphorus Level 4.1, Albumin 2.0L 05/10/21 11:21: Body Fluid Source PERITONEAL DIALYSATE, Body Fluid WBC (Auto) 3, Body Fluid RBC (Auto) < 2, Peritoneal Fluid Color COLORLESS, Peritoneal Fluid Appearance CLEAR 05/11/21 09:04: Bedside Glucose (Misc Panel) 102 05/11/21 09:06: CBC/BMP Laboratory Tests 05/10/21 10:12 ALEKSANDR DIMAS MD May 11, 2021 09:28
[2021-05-11 09:36] LABS: ATYPICAL LYMPH 9 % (0-5); BASOPHILS 1 % (0-1); EOSINOPHILS 9 % (0-3); LYMPHOCYTES 5 % (16-44); MONOCYTES 12 % (0-5); NEUTROPHILS 64 % (28-66)
[2021-05-11 09:37] LABS: PLATELET ESTIMATE NORMAL (NORMAL)
--- NOTE | 2021-05-11 09:41 | REP ---
INDICATION: post-cpr. COMPARISON: 05/09/2021. TECHNIQUE: Single portable AP view of the chest was performed. FINDINGS: Lungs are unchanged in appearance compared to the prior study. Vasculature is mildly prominent, as are the interstitial markings diffusely. Heart and mediastinum are unchanged.The visualized osseous structures are intact. IMPRESSION: No acute changes, no change since prior study. <Electronically signed by Rob Walden > 05/11/21 0937
[2021-05-11] MEDS: MIDODRINE 5 MG TAB PO SCH ×3 (09:43→16:09)
[2021-05-11 09:51] LABS: CALCIUM LEVEL 8.5 MG/DL (8.8-10.2); CREATININE FOR GFR 8.68 MG/DL (0.70-1.30); GLOMERULAR FILTRATION RATE 6.2 (>35); POTASSIUM SERUM 4.2 MEQ/L (3.5-5.1); TROPONIN I 0.08 NG/ML (< 0.10)
--- NOTE | 2021-05-11 11:02 | IPNPDOC ---
Text Note Date of Service The patient was seen on 05/11/21. NOTE No acute events overnight. He denies any problems with pains this am. His HR is back to normal. I was planning to take him to the OR this am for PD cath repositioning, but while I was getting him on the schedule I was called because he was unresponsive. He likely had vasovagal syncope after standing up, but he was unresponsive for about 3 minutes and did require some CPR. He is heading back to the ICU for now, and they will continue to monitor him. VSSAF NAD abd - soft, nt, nd labs - below A) 85y/o male presents with a malpositioned PD cath that was in the left pelvis a few months ago, but is now in the RUQ. a fib CKD P) plan for PD cath repositioning was scheduled for 11am today, but that will be on hold again until cleared by medicine. I will continue to monitor and follow as needed. Donny Crews DO VS,Karel, I+O VS, Karel, I+O Laboratory Tests 05/11/21 09:04 Vital Signs Date Time Temp Pulse Resp B/P (MAP) Pulse Ox O2 Delivery O2 Flow Rate FiO2 05/11/21 09:28 98 Nasal Cannula 4.0 05/11/21 08:00 96.5 104 18 101/55 (70) I&O- Last 24 Hours up to 6 AM 05/11/21 05:59 Intake Total 8600 ml Output Total 8405 ml Balance 195 ml AME CREWS DO May 11, 2021 11:02
--- NOTE | 2021-05-11 11:31 | CR ---
CONSULTATION DATE: 05/08/2021 CHIEF COMPLAINT: Malfunctioning PD cath. HISTORY OF PRESENT ILLNESS: Patient is an 85-year-old male with a history of polycystic kidney disease. He is currently endstage renal disease on peritoneal dialysis. He is unable to do hemodialysis due to chronic hypotension and atrial fibrillation. He has had difficulty with his PDx cath working for the last four days. He is able to instill the fluid but it is not coming out all the way and then for the last 24 hours he has been unable to pass the fluid in as well. Because of that, he was advised to come to the hospital to have this fixed. He is currently being admitted in the Emergency Room by the Medicine Service. They called me to ask me to fix his catheter. The plan was to bring him up to the Operating Room this evening for laparoscopic procedure to replace it. I evaluated the patient in preop, they brought him into the Operating Room, however as soon as he got into the Operating Room he started having tachycardia. Because of his tachycardia along with his hypotension, it was felt that it was unsafe to put him under general anesthetic for the procedure, so the procedure was canceled. The patient says this is the second PDx cath that he has had, the first one had to be removed as well. This one was placed just over a year ago by Dr. Vail and he has not had any problems with it up until this point. PAST MEDICAL HISTORY: Hypotension, aortic stenosis, endstage renal disease, polycystic kidney disease, atrial fibrillation, dyslipidemia, asthma, gout, BPH, hiatal hernia, hyperlipidemia, chronic urinary retention, secondary hyperparathyroidism. PAST SURGICAL HISTORY: TURP, peritoneal dialysis catheter placement x2, left arm AV fistula placement. FAMILY HISTORY: Noncontributory. SOCIAL HISTORY: Denies drug, alcohol or tobacco abuse. ALLERGIES: None. HOME MEDICATIONS: Please see med rec. REVIEW OF SYSTEMS: Pertinent positives and negatives as stated in the HPI. PHYSICAL EXAMINATION: GENERAL: Alert and oriented x3, in no acute distress. VITAL SIGNS: Temperature 97.9, pulse 98, respirations 18, blood pressure 85/55, pulse oximetry 98% on room air. HEENT: Pupils equally round and reactive to light and accommodation. HEART: S1 and S2, regular rate and rhythm. LUNGS: Clear to auscultation bilaterally. ABDOMEN: Soft, nontender and nondistended. EXTREMITIES: No cyanosis, clubbing or edema. There is a peritoneal dialysis catheter in the left side of the abdomen with a dressing intact. LABORATORY DATA: White count 8.2, hemoglobin 10.4, platelets 322,000. Potassium 5.5, creatinine 9.03. IMAGING: CT of the abdomen and pelvis was completed and shows peritoneal dialysis catheter in the left upper quadrant, anterior abdominal wall across to the right of the midline with distal end coiled in the right mid abdomen just anterior to the transverse colon, also polycystic kidney disease. ASSESSMENT AND PLAN: Patient is an 85-year-old male currently with peritoneal dialysis catheter that is not working well for him at home. He is also a little bit hyperkalemic since he has been unable to have good dialysis in the last three to four days. The recommendation was to take him to the Operating Room this evening for urgent repositioning of the tube. I did evaluate his CT scan from back in December that did show the catheter down the left side of the pelvis at that time, now it is in the right upper side. This is no signs of any kinking of the catheter on the CT scan, however it is felt that repositioning back down into the pelvis should make it easier for him to use. However, as already mentioned, when we brought him back to the Operating Room, he was felt to be too unstable to put under general anesthetic for the procedure and Interventional Radiology is not willing to attempt repositioning as well, therefore we will keep him admitted to the Medicine Service, they can attempt peritoneal dialysis for him here on the floor, see if we can get him stabilized medically so he can be brought back to the Operating Room for repositioning later on this week. I discussed this in detail with Dr. Aguirre, the on-call night physician, he understands and will take care of him at this point. I will be available for repositioning once he is medically stable.
--- NOTE | 2021-05-11 11:52 | IPN ---
PROGRESS NOTE DATE: 05/11/2021 SUBJECTIVE: [facility] was called at around 8:55 this morning. Patient was working with occupational therapy and physical therapy at the bedside, and they were taking orthostatic vital signs. Patient was found to be hypotensive and has not received his morning dose of Florinef and Midodrine. His blood pressure dropped from 95 systolic to 80 systolic from sitting to standing position. Patient complained of not feeling well and felt nauseous and wanted an emesis bag. Occupational therapy then left the room to get an emesis bag. When the RN walked in, the patient was found unresponsive on the bed, passed out with no palpable pulse. Chest compressions were performed by the RN at the bedside for about 2 minutes. Patient came around after 2 minutes of chest compressions. Telemetry during the episode showed atrial fibrillation, ventricular rate dropping down to 45. Once the patient came to, he had no postictal confusion, no convulsions or tonic-clonic activity. Patient's blood pressure was 122 mmHg systolic. Glucose was 102. Patient had lactic acid of 3.3. Troponin 0.08. Chest x-ray had no rib fractures. Patient complained of chest discomfort after the CPR. No shortness of breath. He was able to say his name. He was transferred to the ICU subsequently. Telemetry; irregularly irregular, atrial fibrillation, currently 104. PHYSICAL EXAMINATION: VITALS: Temperature 96.5, pulse 104, respiratory rate 18, blood pressure 101/55, 96% on room air; increased to 4 liters nasal cannula at 98%. GENERAL: Face is symmetric. Tongue is midline. Following commands. Awake, alert and oriented to himself. No respiratory distress. No cyanosis. No JVD. No thyromegaly. HEART: S1, S2, irregularly irregular, tachycardic. LUNGS: Diminished, bibasilar crackles. RESPIRATORY: Air entry is equal. ABDOMEN: Soft, nontender, non-distended. Positive bowel sounds. Peritoneal dialysis catheter noted. EXTREMITIES: Chronic edema and chronic venous stasis changes. LABORATORY DATA: White count 10, hemoglobin 10, hematocrit 32, platelet count 300,000. Sodium 132, potassium 4.2, chloride 95, bicarb 27, BUN 65, creatinine 8.66, glucose 106. Lactic acid 3.3. Troponin 0.08. IMAGING STUDIES: Chest x-ray 05/11/21; no acute changes, no change from prior study. Vasculature is mildly prominent as are the interstitial markings diffusely. Heart and mediastinum are unchanged. ASSESSMENT AND PLAN: This is an 85-year-old male, full code, admitted on 05/08/2021 with peritoneal dialysis catheter malfunction, who went into atrial fibrillation with RVR with chronic hypotension; status post I.V. Amiodarone drip transitioned to Amiodarone 400 b.i.d. Plans for peritoneal dialysis catheter repositioning today in the OR. He was kept n.p.o. Glucose was 102 this morning. Later in the morning at around 8:55, patient complained of feeling nauseous after becoming hypotensive from supine to sitting position. ACTIVE ISSUES: 1. Vasovagal syncope/chronic orthostasis: Patient is transferred to the ICU after chest compressions were done for 2 minutes when the patient was unresponsive. He had been off of the Eliquis, but now has no focal neurological deficit and vital signs are stable. Dr. Mohamud is being consulted to help decipher recent events since telemetry showed no sinus pause. Unlikely to have been a cardiac arrest. Continue on telemetry monitoring, supplemental oxygen, given Amiodarone 200 mg this morning. Postpone patient's discharge home and postpone the Operating Room plans today. Surgeon has been made aware. 2. Peritoneal dialysis malfunction: Surgery has been deferred until patient's coat tailor sees the patient; status post vasovagal syncope and orthostasis. 3. Atrial fibrillation: Status post I.V. Amiodarone drip, currently on oral Amiodarone at 200 daily. At this time, patient had been off Eliquis due to plans for going to the Operating Room; last dose was yesterday morning. 4. End-stage renal disease on peritoneal dialysis: Nephrology has been consulted. 5. Lactic acidosis: Secondary to recent CPR and chest compressions. 6. Chronic orthostasis: Resumed back on home dose of Florinef and Midodrine. 7. Moderate aortic stenosis: Patient is preload dependent, and could have contributed to his syncopal episode with orthostasis. Deferred to nephrology and cardiology for changes in medications. He is not on any diuretics. 8. History of polycystic kidney disease: Follows with a patient coordinator front desk, currently consulted. 9. Asthma: Compensated. 10.Dyslipidemia: Chronic. 11.BPH: On home medications. 12.Reflux: On PPI. DISPOSITION: Discharge postponed due to recent vasovagal episode and unresponsiveness. Patient currently has been off Eliquis due to plans for peritoneal dialysis repositioning. Since he has been off of anticoagulation, we will do neuro-checks every 4 hours. If focal deficits occur, we will send for a stat CT head to rule out CVA. PEDRO LUIS
[2021-05-11] MEDS: PANTOPRAZOLE 40MG TAB (PROTONIX) PO SCH (12:32)
[2021-05-11] MEDS: DOCUSATE SODIUM 100MG CAPSULE PO SCH ×2 (12:32→20:44)
[2021-05-11] MEDS: FLUDROCORTISONE ACETATE 0.1 MG TAB PO SCH (12:33)
[2021-05-11] MEDS: CALAMINE LOTION 177 ML BTL TOP SCH ×3 (12:33→20:45)
[2021-05-11] MEDS: FERROUS SULFATE 325MG TAB PO SCH (12:33)
[2021-05-11] MEDS: MUPIROCIN 2% OINT 22 GM TUBE TOP SCH (12:34)
[2021-05-11] MEDS ORDERED: PROMETHAZINE INJ 25 MG/ML VIAL (J2550) IV PRN (14:50)
[2021-05-11] MEDS ORDERED: oxyCODONE 5MG TAB PO ONE (15:25)
[2021-05-11] MEDS: ATORVASTATIN 10 MG TAB PO SCH (20:44)
[2021-05-11] MEDS: VITAMIN D 1,000 INTERNATIONAL UNITS TABLET PO SCH (20:45)
[2021-05-12] VITALS (14 sets, daily range): BP systolic 80–105; BP diastolic 47–57
[2021-05-12] MEDS ORDERED: NS 500 ML IV ONE (00:30)
--- NOTE | 2021-05-12 01:31 | IPN ---
NEPHROLOGY PROGRESS NOTE DATE: 05/11/2021 SUBJECTIVE: Patient was seen and examined at the bedside today morning in the ICU. cashier and waiter/waitress events were noted. Patient became hypotensive by working with PT. He lost his pulse. He got about 3 minutes of CPR. No medications were given. After CPR, he was transferred to the ICU. Patient is awake and alert at this time, however, he is complaining of pain in the chest. His PD catheter repositioning surgery was cancelled today. OBJECTIVE: VITAL SIGNS: Temperature 97.5 degrees Fahrenheit, blood pressure 105/51, pulse 79, respiratory rate 18, saturating 97% on high flow nasal cannula at 2 liters. INTAKE/OUTPUT: PD catheter output has been about 1 liter since overnight. Weight in the bed scale is 88.5 kg. PHYSICAL EXAMINATION: GENERAL: Patient is awake, alert, oriented x3, lying in bed, in no apparent distress. HEAD/NECK: Extraocular muscles intact. Pupils equally round and reactive to light. Mucous membranes are moist. Neck is supple. There is no JVD. CVS: S1, S2, regular rate. 2+ edema of the bilateral lower extremities. RESPIRATORY: Mildly decreased breath sounds at the bases, otherwise no active rales or rhonchi. ABDOMEN: Soft, positive bowel sounds, left upper quadrant PD catheter. MUSCULOSKELETAL: Chronic venous stasis of bilateral lower extremities. WEB RETAILER: No focal deficit. Power is 5/5 in bilateral upper extremities. LABORATORY REVIEW: CBC showed WBC 10.5, hemoglobin 10.6, platelets 300,000. BMP showed sodium 132, potassium 4.2, chloride 95, bicarb 27, BUN 65, creatinine 8.6. Lactic acid 3.3 today. Calcium 8.5. CURRENT INPATIENT MEDICATIONS: Patient's medications were all reviewed by myself. His Amiodarone has been changed to 200 mg p.o. daily. I have changed his PD regimen to all exchanges of 1.5%. ASSESSMENT AND PLAN: 1. Syncope and hypotension: Patient is prone to syncope then hypotension, he is already on Midodrine and Florinef. He has chronic recurrent UTI as well and for that, he is chronically on prophylactic antibiotics. 2. PD catheter malfunctioning: PD catheter was malpositioned in right side of abdomen anterior to the colon. Surgery for repositioning was scheduled, however because of syncope and hypotension, it has been postponed. At this time, catheter is working well. 3. End-stage renal disease: Patient is peritoneal dialysis dependent because of recent syncope. PD regimen has been changed to all 1.5% exchanges. 4. Anemia and end-stage renal disease: Hemoglobin level is 10.6, which is optimal at this time. 5. Lactic acidosis: It is secondary to recent hypotension and CPR. Repeat lactic acid is within the acceptable range. 6. Chronic recurrent UTI: Continue Fosfomycin once a week 3 grams. 7. Atrial fibrillation: Patient was bradycardic in the morning. Cardiology recommended to decrease his Amiodarone to 200 mg p.o. daily.
--- NOTE | 2021-05-12 05:57 | CR ---
CONSULTATION DATE: 05/11/2021 REFERRING PHYSICIAN: ALEKSANDR DIMAS MD REASON FOR CONSULTATION: Loss of consciousness, syncope. HISTORY OF PRESENT ILLNESS: Mr. Leigh is known to me. He is a very pleasant 85-year-old gentleman who was admitted to [facility] on May 08 due to nonfunctioning peritoneal dialysis catheter. Apparently, he had difficulty both introducing the fluid as well as draining it eventually out. Consequently, he was admitted to our facility, he was started on amiodarone because he had an episode of atrial fibrillation with rapid ventricular response (atrial fibrillation is chronic). This morning he was working with Physical Therapy, as he stood up, he apparently lost conscious, and Jossue Wilder was called. He was lowered back to the bed, was unresponsive and had agonal breathing. CPR was started but within a brief period, possibly a minute and a half or two minutes he regained consciousness without any medications being administered just after a short run of CPR. The review of telemetry tracing from that time indicates he was in atrial fibrillation with relatively bradycardic rate, around 50 beats per minute. When I saw him in the ICU he is kind of back to his baseline. He reports that he has soreness of the sternum but otherwise has been feeling as he usually does. He has had severe problems with orthostatic hypotension in the last several months. He has been on high doses of Midodrine and Fludrocortisone without much symptomatic benefit though. PAST MEDICAL HISTORY: 1. Endstage renal disease on dialysis since 2014. Probably due to obstructive uropathy. 2. BPH. 3. Chronic atrial fibrillation. 4. History of GI bleeding. 5. Hyperparathyroidism. 6. Dyslipidemia. 7. Gout. 8. History of esophageal and gastric ulcerations. 9. Polycystic kidney disease. PAST SURGICAL HISTORY: 1. TURP. 2. EGD. 3. Peritoneal and AV fistula placements. SOCIAL HISTORY: Patient is , he lives with his . He quit smoking about 50 years ago. He typically drinks two beers a day. FAMILY HISTORY: Father of a stroke. OUTPATIENT MEDICATIONS: According to the admission note list: 1. Apixaban 2.5 mg twice a day (our office records indicates that he stopped Apixaban many months ago and did not want to restart due to a history of GI bleeding). 2. Atorvastatin 10 mg a day. 3. Calcitriol 0.25 mg three times a week. 4. Vitamin D3 1000 units every night. 5. Iron sulfate 325 daily. 6. Fludrocortisone 0.1 mg. 7. Levofloxacin 250 mg every two days. 8. Midodrine 15 mg three times a day. 9. Pantoprazole 40 mg a day. 10.Potassium 20 mEq a day. 11.Advair inhaler. 12.Vitamin B. ALLERGIES: No known medication allergies. REVIEW OF SYSTEMS: Prior to the event today, he denies feeling unwell in any typical way. At his baseline, he has very limited ambulation because the orthostatic hypotension has been very limited. Denies any chest pain until the CPR was performed. He felt that his dyspnea was at baseline. Otherwise, no new unusual events. Physical exam: BP 103/56, HR 80 bpm, irregular, 97% O2 sat on 2l O2/NC, 88.5kg Elderly man at no distress, lying flat in ICU bed. Alert and oriented. JVP is not elevated. Lungs clear to auscultation. Irregular heart rhythm, 3/6 RAYRAY best heard over aortic valve radiating to both carotids, no gallop Abdomen soft, no apparent ascites/fluid by exam 1+ peripheral edema to upper shins Dark skin pigmentation on extremities, stasis dermatitis changes, excoriation R upper chest, multiple bruises AV fistula with easily palpable thrill L forearm Generalized weakness but intact speech and moves all 4 extremities, no obvious neuro deficit LABORATORY DATA: CBC as of today: WBC count 10.5, hemoglobin 10.6, hematocrit 32 and platelet count 300,000. Basic metabolic panel was done this morning; sodium 132, potassium 4.2, BUN 65, creatinine 8.7, glucose 106, lactic acid 3.3 with follow-up of 1.4. An electrocardiogram indicates atrial fibrillation with nonspecific IVCD and prolonged QT interval. He had an echocardiogram in January that revealed hyperdynamic LV systolic function, approximately mild to moderate aortic stenosis, moderate pulmonary hypertension. 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 ASSESSMENT AND PLAN: I reviewed the tracings from the code. He certainly never was bradycardic to the degree that would cause loss of consciousness. There were also no ventricular arrhythmias. Overall, presentation is typical for orthostatic hypotension. He is already on very high doses of Midodrine plus Fludrocortisone. He also has preserved LV systolic function. The valvular disease is not severe. At this point, it is very difficult to come up with any intervention that is likely to help. The only thing I can think of is the presence of AV fistula. He has not been using it and it certainly creates a peripheral shunt and decreases peripheral vascular resistance which secondarily will decrease orthostatic tolerance. I believe that it would be worthwhile to ligate the fistula because it has not been used and in all honesty there is not much to lose in his current situation. Otherwise, I would continue chronic measures, unfortunately I do not have much to add in his care. He certainly is not a candidate for any major invasive procedures or interventions. PEDRO LUIS
[2021-05-12] MEDS: ADVAIR HFA 115/21MCG INHALER INH SCH ×2 (07:49→19:31)
[2021-05-12] MEDS: AMIODARONE 200 MG TAB (PACERONE) PO SCH (08:13)
[2021-05-12] MEDS: MIDODRINE 5 MG TAB PO SCH ×3 (08:13→16:08)
[2021-05-12] MEDS: MUPIROCIN 2% OINT 22 GM TUBE TOP SCH (08:14)
[2021-05-12] MEDS: CALAMINE LOTION 177 ML BTL TOP SCH ×3 (08:14→21:00)
[2021-05-12] MEDS: FLUDROCORTISONE ACETATE 0.1 MG TAB PO SCH (08:14)
[2021-05-12 08:22] LABS: BASO % 0.3 % (0.0-1.0); EOS # 0.1 10^3/uL (0.0-0.5); EOS % 0.5 % (0.0-3.0); HEMATOCRIT 30.4 % (42.0-52.0); HEMOGLOBIN 10.1 g/dl (13.5-17.5); LYMPH # 0.3 10^3/uL (1.5-5.0); LYMPH % 2.5 % (24.0-44.0); MEAN CORPUSCULAR HEMOGLOBIN 31.7 pg (27.0-33.0); MEAN CORPUSCULAR HGB CONC 33.2 g/dl (32.0-36.5); MEAN CORPUSCULAR VOLUME 95.3 fl (80.0-96.0); MONO # 1.1 10^3/uL (0.0-0.8); MONO % 9.1 % (2.0-8.0); NEUTROPHILS # 10.3 10^3/uL (1.5-8.5); NEUTROPHILS % 85.8 % (36.0-66.0); PLATELET COUNT, AUTOMATED 271 10^3/uL (150-450); RED BLOOD COUNT 3.19 10^6/uL (4.30-6.10)
[2021-05-12 08:34] LABS: INR 1.08; PROTHROMBIN TIME 14.2 SECONDS (12.5-14.3)
[2021-05-12 08:35] LABS: PARTIAL THROMBOPLASTIN TIME 44.7 SECONDS (24.2-38.5)
[2021-05-12 08:57] LABS: ALBUMIN 2.1 GM/DL (3.2-5.2); BILIRUBIN,TOTAL 0.4 MG/DL (0.2-1.0); CALCIUM LEVEL 8.3 MG/DL (8.8-10.2); CK-MB VALUE MASS 1.9 NG/ML (<3.6); CREATININE FOR GFR 8.07 MG/DL (0.70-1.30); GLOMERULAR FILTRATION RATE 6.8 (>35); MB/CK RELATIVE INDEX 3.17 (< OR =4); POTASSIUM SERUM 4.3 MEQ/L (3.5-5.1); TOTAL PROTEIN 5.4 GM/DL (6.4-8.2); TROPONIN I 0.09 NG/ML (< 0.10)
--- NOTE | 2021-05-12 10:16 | ECGEPIP ---
[facility] Test Date: 2021-05-11 Pat Name: ANTONINA YEBOAH Department: Room: [place] [address] Gender: Male Communications Lead: JORGE : 1935 Requested By: AKHIL HALE D.O. Order Number: [id number] Reading MD: Francisco J Mohamud Measurements Intervals [place] Rate: 82 P: MN: QRS: -56 QRSD: 104 T: 56 QT: 424 QTc: 495 Interpretive Statements Atrial fibrillation Left anterior fascicular block Possible Anterior infarct , age undetermined No change since 04/12/21 Electronically Signed on 05-12-2021 10:15:44 EDT by Francisco J Mohamud
--- NOTE | 2021-05-12 13:37 | IPNPDOC ---
Date Seen The patient was seen on 05/12/21. Progress Note SUBJECTIVE: no c/o palpitations, lightheadedness, chest pain/pressure. given ns iv bolus due to hypotension, but pt has chronic orthostatic hypotension and maintains a MAP of 70-75 on midodrine and florinef. Despite extensive discussion about DNR/DNI, pt insists on being a full code. He is NOT a candidate for any invasive surgical procedures per his tissue rewinder. OBJECTIVE: PE: VITALS: see below TELE: Afib rate controlled. GENERAL: appears his stated age. no pallor. no icterus or jaundice Face is symmetric. Tongue is midline. Following commands. Awake, alert and oriented to himself. No respiratory distress. No cyanosis. No JVD. No thyromegaly. HEART: S1, S2, irregularly irregular, bradycardic LUNGS: Diminished, bibasilar crackles. RESPIRATORY: Air entry is equal. ABDOMEN: Soft, nontender, non-distended. Positive bowel sounds. Peritoneal dialysis catheter noted. EXTREMITIES: Chronic edema and chronic venous stasis changes. LABORATORY DATA: see below IMAGING STUDIES: Chest x-ray 05/11/21; no acute changes, no change from prior study. Vasculature is mildly prominent as are the interstitial markings diffusely. Heart and mediastinum are unchanged. ASSESSMENT AND PLAN: This is an 85-year-old male, full code, admitted on 05/08/2021 with peritoneal dialysis catheter malfunction, who went into atrial fibrillation with RVR with chronic hypotension; status post I.V. Amiodarone drip transitioned to Amiodarone 400 b.i.d. Plans for peritoneal dialysis catheter repositioning was postponed and now contraindicated due to orthostasis leading to syncope yesterday s/p 2min CPR , and transferred to ICU. ACTIVE ISSUES: 1. Vasovagal syncope/chronic orthostasis: Patient was transferred to the ICU after chest compressions were done for 2 minutes when the patient was unresponsive on 05/11/21.Continue on telemetry monitoring, supplemental oxygen, given Amiodarone 200 mg this morning. 2. Peritoneal dialysis malfunction: still working. not a candidate for any invasive procedure per his tissue rewinder. 3. Atrial fibrillation: Status post I.V. Amiodarone drip, currently on oral Amiodarone at 200 daily. may resume eliquis. not stable to go to OR. 4. End-stage renal disease on peritoneal dialysis: Nephrology has been consulted.PD managed by manager application. discussed w pt that is not a hemodialysis candidate and appropriate for pool attendant/hospice if peritoneal dialysis fails. pt insists on full code.NOT a candidate for any invasive procedure per cardiology. 5. Lactic acidosis,resolved Secondary to recent CPR and chest compressions. 6. Chronic orthostasis: Resumed back on home dose of Florinef and Midodrine. 7. Moderate aortic stenosis: Patient is preload dependent, and could have contributed to his syncopal episode with orthostasis. 8. History of polycystic kidney disease: Follows with a manager application, currently consulted. 9. Asthma: Compensated. 10.Dyslipidemia: Chronic. 11.BPH: On home medications. 12.Reflux: On PPI. DISPOSITION:NOT a surgical candidate. refuses DNR/DNI. not HD candidate incase peritoneal dialysis fails.Per manager application Dr. Soto and Dr. López,hospice has been recommended in the past, but pt refuses. VS, I&O, 24H, Fishbone Vital Signs/I&O Vital Signs Date Time Temp Pulse Resp B/P (MAP) Pulse Ox O2 Delivery O2 Flow Rate FiO2 05/12/21 12:00 98.6 87 20 88/55 (66) 93 Room Air 05/12/21 10:00 2.0 I&O- Last 24 Hours up to 6 AM 05/12/21 06:00 Intake Total 9230 ml Output Total 7980 ml Balance 1250 ml Laboratory Data 24H LABS Laboratory Tests 2 05/12/21 08:03: Immature Granulocyte % (Auto) 1.8, Neutrophils (%) (Auto) 85.8H, Lymphocytes (%) (Auto) 2.5L, Monocytes (%) (Auto) 9.1H, Eosinophils (%) (Auto) 0.5, Basophils (%) (Auto) 0.3, Neutrophils # (Auto) 10.3H, Lymphocytes # (Auto) 0.3L, Monocytes # (Auto) 1.1H, Eosinophils # (Auto) 0.1, Basophils # (Auto) 0.0, Nucleated Red Blood Cells % (auto) 0.0, Prothrombin Time 14.2H, Prothromb Time International Ratio 1.08, Activated Partial Thromboplast Time 44.7H, Anion Gap 11, Glomerular Filtration Rate 6.8L, Calcium Level 8.3L, Total Bilirubin 0.4, Aspartate Amino Transf (AST/SGOT) 22, Alanine Aminotransferase (ALT/SGPT) 16, Alkaline Phosphatase 98, Total Creatine Kinase 60, Creatine Kinase MB 1.9, Creatine Kinase MB Relative Index 3.17, Troponin I 0.09, Total Protein 5.4L, Albumin 2.1L, Albumin/Globulin Ratio 0.6 CBC/BMP Laboratory Tests 05/12/21 08:03 ALEKSANDR DIMAS MD May 12, 2021 13:37
[2021-05-12] MEDS ORDERED: ACETAMINOPHEN 500 MG TAB PO ONE (16:30)
[2021-05-12] MEDS ORDERED: oxyCODONE 5MG TAB PO ONE (16:30)
--- NOTE | 2021-05-12 23:07 | IPN ---
NEPHROLOGY PROGRESS NOTE DATE: 05/12/2021 SUBJECTIVE: The patient was seen and examined at the bedside today morning in the ICU. His blood pressures are soft but stable. He is getting more lower extremity edema because he is using all 1.5% exchanges. The patient is otherwise able to eat and denies any active complaints. OBJECTIVE: VITAL SIGNS: Temperature is 97.6 degrees Fahrenheit, blood pressure 95/50, pulse rate 59, respiratory rate of 16, saturating 99% on room air. INTAKE AND OUTPUT: Urine output recorded as only 10 mL with the straight catheterization. Weight in the bed scale is 89.6 kg which is one kg above his weight yesterday. PHYSICAL EXAMINATION: GENERAL APPEARANCE: The patient is awake, alert, oriented x3, laying in bed in no apparent distress. HEAD AND NECK: Extraocular muscles intact. Pupils are equally round and reactive to light. Mucous membranes are moist. Neck is supple. Moderately elevated jugular venous distention. CARDIOVASCULAR: S1, S2, irregular rate. EXTREMITIES: 3+ edema of the bilateral lower extremities. RESPIRATORY: Mildly decreased breath sounds at the bases. ABDOMEN: Soft, positive bowel sounds. Left upper quadrant peritoneal dialysis catheter is noted. MUSCULOSKELETAL: No chronic venous stasis changes of the bilateral lower extremities. DUDE WRANGLER: Power is 5/5 in bilateral upper extremities. The patient is awake. LAB REVIEW: CBC showed a WBC count of 12, hemoglobin is 10.1, platelet count 271. BMP showed a sodium of 131, potassium 4.3, chloride 94, bicarbonate is 26, BUN 59, creatinine is 8.7. Calcium 8.3. CURRENT INPATIENT MEDICATIONS: The patient's medications were all reviewed by myself. There is no significant change in the medications today as compared with yesterday. ASSESSMENT AND PLAN: 1. End-stage renal disease - The patient is peritoneal dialysis dependent. He is gaining weight and the lower extremity edema is worsening. Peritoneal dialysis regimen has been changed to a combination of alternating 1.5% and 2.5% dialysate fluids. 2. Atrial fibrillation heart rate is controlled with Amiodarone 200 mg p.o. daily. 3. Chronic hypotension - continue current dose of Florinef and Midodrine. 4. Chronic recurrent urinary tract infections - continue Fosfomycin 3 grams p.o. once a week. 5. Anemia in end-stage renal disease - hemoglobin level is stable at above 10. If it drops below 10, then he will be given a dose of Aranesp.
[2021-05-13] VITALS: BP 89/51
[2021-05-13 04:00] VITALS: BP 82/52
[2021-05-13 06:10] LABS: WHITE BLOOD COUNT 10.2 10^3/uL (4.0-10.0)
[2021-05-13 06:11] LABS: HEMATOCRIT 28.9 % (42.0-52.0); HEMOGLOBIN 9.7 g/dl (13.5-17.5); MEAN CORPUSCULAR HEMOGLOBIN 31.3 pg (27.0-33.0); MEAN CORPUSCULAR HGB CONC 33.6 g/dl (32.0-36.5); MEAN CORPUSCULAR VOLUME 93.2 fl (80.0-96.0); PLATELET COUNT, AUTOMATED 261 10^3/uL (150-450)
[2021-05-13 06:34] LABS: CALCIUM LEVEL 8.4 MG/DL (8.8-10.2); CREATININE FOR GFR 7.96 MG/DL (0.70-1.30); GLOMERULAR FILTRATION RATE 6.9 (>35); POTASSIUM SERUM 4.3 MEQ/L (3.5-5.1)
[2021-05-13] MEDS: ADVAIR HFA 115/21MCG INHALER INH SCH ×2 (07:20→20:13)
[2021-05-13 07:32] VITALS: BP 86/50
[2021-05-13] MEDS: CALAMINE LOTION 177 ML BTL TOP SCH ×3 (08:02→23:00)
[2021-05-13] MEDS: FLUDROCORTISONE ACETATE 0.1 MG TAB PO SCH (08:02)
[2021-05-13] MEDS: MIDODRINE 5 MG TAB PO SCH ×3 (08:02→15:49)
[2021-05-13] MEDS: MUPIROCIN 2% OINT 22 GM TUBE TOP SCH (08:02)
[2021-05-13] MEDS: AMIODARONE 200 MG TAB (PACERONE) PO SCH (08:02)
--- NOTE | 2021-05-13 09:41 | IPN ---
PROGRESS NOTE DATE: 05/13/2021 SUBJECTIVE: The patient denies chest pain, pressure, tightness, shortness of breath, nausea, vomiting, lightheadedness, or dizziness this morning. Telemetry was atrial fibrillation with ventricular rate of 59 to 84. Blood pressure maintained with mean arterial pressure of 62 to 72. OBJECTIVE: VITAL SIGNS: Temperature 98.5, pulse 77, respiratory rate 18, blood pressure 86/50, 95% on room air. GENERAL: The patient is awake, alert, and oriented to himself. Answering questions appropriately. In no distress. HEENT: No cyanosis or pallor. Moist mucous membranes. NECK: No JVD or thyromegaly. LUNGS: Diminished. Fine crepitations bilateral bases. HEART: S1, S2. Irregularly irregular. Episodes of bradycardia. ABDOMEN: Soft, nontender, and nondistended. EXTREMITIES: Chronic edema with chronic venous stasis changes. DIAGNOSTIC STUDIES: Laboratory data, microbiology, and imaging studies have been reviewed. ASSESSMENT: This is an 85-year-old DO NOT RESUSCITATE (DNR) / DO NOT INTUBATE (DNI) with MOLST form signed admitted on 05/08 with peritoneal dialysis catheter malfunction who developed atrial fibrillation (AFib) with rapid ventricular response (RVR) with chronic hypotension status post IV amiodarone drip transitioned to amiodarone 400 b.i.d. with plans for peritoneal dialysis repositioning, which was cancelled due to episode of significant orthostasis resulting in decreased pulse. Telemetry at that time was AFib rate of 45, status post two minutes of cardiopulmonary resuscitation (CPR), and transferred to intensive care unit (ICU). After review of the case by his exchange architect, the patient is deemed to not be a surgical candidate. He was in the ICU with no acute events and transferred back to medical surgical telemetry. IMPRESSION: 1. Chronic orthostasis with syncopal episode. Received two minutes of CPR. Per exchange architect, heart rate not sufficient to have caused syncope and most likely the event was caused by orthostasis. 2. Syncope, chronic orthostasis, peritoneal dialysis catheter malfunction, chronic AFib, end-stage renal disease on peritoneal dialysis, moderate , polycystic kidney disease. 3. Asthma. 4. Dyslipidemia. 5. BPH. 6. Reflux. PLAN: The patient is continued on peritoneal dialysis. He is on fosfomycin due to history of recurrent urinary tract infections (UTIs). Amiodarone has been decreased to 200 daily and he is kept on midodrine and Florinef. The patient otherwise is not a surgical candidate and has signed a do not resuscitate and do not intubate form. He is medically stable for discharge on Saturday. [facility]
[2021-05-13] MEDS ORDERED: DARBEPOETIN 200MCG/0.4ML *NON-DIALYSIS* SYRINGE (J0881 PER 1MCG) SC SCH (12:00)
[2021-05-13 12:12] VITALS: BP 98/54
[2021-05-13 16:01] VITALS: BP 98/54
[2021-05-13] MEDS ORDERED: oxyCODONE 5MG TAB PO ONE (17:00)
[2021-05-13 20:00] VITALS: BP 113/64
--- NOTE | 2021-05-13 22:09 | IPN ---
NEPHROLOGY PROGRESS NOTE DATE: 05/13/2021 SUBJECTIVE: The patient was seen and examined at the bedside today morning. He is afebrile, hemodynamically stable. He is tolerating the peritoneal dialysis. He denies any active complaints at this time. OBJECTIVE: VITAL SIGNS: Temperature is 98 degrees Fahrenheit, blood pressure 98/54, pulse is 73, respiratory rate of 18, saturating 97% on room air. INTAKE AND OUTPUT: Urine output is not recorded. Weight in the bed scale is 89 kg. PHYSICAL EXAMINATION: GENERAL APPEARANCE: The patient is laying in bed in no apparent distress. HEAD AND NECK: Extraocular muscles intact. Pupils are equally round and reactive to light. Mucous membranes are moist. Neck is supple. There is mildly elevated jugular venous distention. CARDIOVASCULAR: S1, S2, regular rate. EXTREMITIES: 2+ edema of the bilateral lower extremities. RESPIRATORY: Mildly decreased breath sounds at the bases bilaterally. ABDOMEN: Soft, positive bowel sounds. Left upper quadrant peritoneal dialysis catheter. MUSCULOSKELETAL: 2+ edema of the lower extremities. GIZZARD PULLER: No focal deficits. Power is 5/5 in all extremities. LAB REVIEW: CBC showed a WBC count of 10.2, hemoglobin 9.7, platelet count 261. BMP showed sodium of 131, potassium 4.3, chloride 93, bicarbonate 28, BUN 55, creatinine is 7.9. CURRENT INPATIENT MEDICATIONS: The patient's medications were all reviewed by myself. There is no significant change in the medications today as compared with yesterday. ASSESSMENT AND PLAN: 1. End-stage renal disease - The patient is tolerating current combination of peritoneal dialysis with 1.5% and 2.5% exchanges. 2. Atrial fibrillation - heart rate is controlled with Amiodarone. 3. Chronic hypotension - continue Florinef and Midodrine. 4. Anemia in end-stage renal disease - The patient has been started on Aranesp once a week. 5. Disposition - The patient is optimized from a nephrology standpoint, to be discharged back home. He is chronically bedridden.
[2021-05-14] VITALS: BP 87/51
[2021-05-14 03:40] LABS: HEMATOCRIT 30.4 % (42.0-52.0); HEMOGLOBIN 10.2 g/dl (13.5-17.5); MEAN CORPUSCULAR HEMOGLOBIN 31.6 pg (27.0-33.0); MEAN CORPUSCULAR HGB CONC 33.6 g/dl (32.0-36.5); MEAN CORPUSCULAR VOLUME 94.1 fl (80.0-96.0); PLATELET COUNT, AUTOMATED 241 10^3/uL (150-450); RED BLOOD COUNT 3.23 10^6/uL (4.30-6.10); WHITE BLOOD COUNT 10.8 10^3/uL (4.0-10.0)
[2021-05-14 03:57] LABS: CALCIUM LEVEL 7.9 MG/DL (8.8-10.2); CREATININE FOR GFR 7.6 MG/DL (0.70-1.30); GLOMERULAR FILTRATION RATE 7.2 (>35); POTASSIUM SERUM 3.7 MEQ/L (3.5-5.1)
[2021-05-14] MEDS: ADVAIR HFA 115/21MCG INHALER INH SCH ×2 (07:17→21:10)
[2021-05-14 07:46] VITALS: BP 82/50
[2021-05-14] MEDS: MUPIROCIN 2% OINT 22 GM TUBE TOP SCH (08:04)
[2021-05-14] MEDS: MIDODRINE 5 MG TAB PO SCH ×3 (08:04→15:49)
[2021-05-14] MEDS: AMIODARONE 200 MG TAB (PACERONE) PO SCH (08:04)
[2021-05-14] MEDS: FLUDROCORTISONE ACETATE 0.1 MG TAB PO SCH (08:04)
[2021-05-14] MEDS: CALAMINE LOTION 177 ML BTL TOP SCH ×3 (08:04→22:53)
--- NOTE | 2021-05-14 08:21 | IPN ---
PROGRESS NOTE DATE: 05/14/2021 SUBJECTIVE: The patient is currently undergoing peritoneal dialysis. Complains of slight abdominal discomfort, has a heating pad on. No chest pain, pressure, tightness or shortness of breath. Telemetry shows irregular rhythm. OBJECTIVE: VITAL SIGNS: Temperature 97.6, pulse 92, respiratory rate 16, blood pressure 87/51, 94% on room air. GENERAL: Awake, alert and oriented to person, place and time, answering questions appropriately. NECK: No JVD, no thyromegaly, no cervical lymphadenopathy. LUNGS: Diminished. HEART: S1 and S2, irregularly irregular. Not tachycardiac. ABDOMEN: Soft, nontender, currently undergoing peritoneal dialysis with a K-pad on. Positive bowel sounds x4 quadrants. No rebound or guarding. EXTREMITIES: 2+ pitting edema. Chronic venous stasis changes. LABORATORY DATA/IMAGING/MICROBIOLOGY: Have been reviewed. ASSESSMENT AND PLAN: This is an 85-year-old male, do not resuscitate, do not intubate, MOLST form signed, admitted on 05/08/2021 due to malfunctioning peritoneal dialysis catheter complicated by A-fib with RVR, syncope secondary to orthostasis, status post 2 minutes of chest compression, transferred to ICU with recommendations to decrease amiodarone from 400 b.i.d. to 200 daily. Current issues are as follows: 1. Chronic orthostasis with syncopal episode, received 2 minutes of chest compressions. 2. Chronic atrial fibrillation with episodes of bradycardia. 3. Syncope secondary to orthostasis. 4. Endstage renal disease on peritoneal dialysis. 5. Moderate aortic stenosis. 6. Polycystic kidney disease/endstage renal disease on peritoneal dialysis. 7. Chronic debility. 8. Asthma. 9. Dyslipidemia. 10.BPH. 11.Reflux. PLAN: Per Nephrology and Cardiology, patient is appropriate for Hospice. Patient wants to continue with active treatment, does not want to be comfort measures only. He is currently not a surgical candidate for repositioning of the peritoneal catheter. He understands that once the peritoneal dialysis catheter does not work he is not a candidate for hemodialysis. I have spoken with both the significant other and daughter as well as the patient yesterday, all of whom are cognizant of the fact that the patient had endstage disease and should the peritoneal dialysis fail in the future he is not a candidate to go to the Operating Room for surgery and he is best served with Hospice and comfort measures only. The family is agreeable to seeing Hospice to discuss what would be needed in future. The patient does not want to move forward with comfort measures at this time, wants to continue everything until the dialysis catheter malfunctions. He is currently on Florinef and Midodrine to keep his mean arterial pressure at least at 60 to 75 if possible. Nephrology is consulted for dialysis needs and Cardiology has recommended no invasive procedures or surgeries. He is not medically cleared to undergo any surgical procedures or invasive procedures. PEDRO LUIS
[2021-05-14 12:02] VITALS: BP 91/52
[2021-05-14] MEDS ORDERED: AMIO200T3 PO (14:22)
[2021-05-14 15:33] VITALS: BP 79/42
[2021-05-14] MEDS ORDERED: oxyCODONE 5MG TAB PO ONE ×2 (16:00→22:30)
[2021-05-14 22:00] VITALS: BP 98/48
[2021-05-15 06:00] VITALS: BP 83/49
[2021-05-15] MEDS: ADVAIR HFA 115/21MCG INHALER INH SCH (08:03)
[2021-05-15 08:16] LABS: HEMATOCRIT 32.5 % (42.0-52.0); HEMOGLOBIN 10.8 g/dl (13.5-17.5); MEAN CORPUSCULAR HEMOGLOBIN 31.7 pg (27.0-33.0); MEAN CORPUSCULAR HGB CONC 33.2 g/dl (32.0-36.5); MEAN CORPUSCULAR VOLUME 95.3 fl (80.0-96.0); PLATELET COUNT, AUTOMATED 267 10^3/uL (150-450); RED BLOOD COUNT 3.41 10^6/uL (4.30-6.10); WHITE BLOOD COUNT 10.2 10^3/uL (4.0-10.0)
[2021-05-15 08:34] LABS: CALCIUM LEVEL 8.3 MG/DL (8.8-10.2); CREATININE FOR GFR 7.64 MG/DL (0.70-1.30); GLOMERULAR FILTRATION RATE 7.2 (>35); POTASSIUM SERUM 3.6 MEQ/L (3.5-5.1)
[2021-05-15] MEDS: MIDODRINE 5 MG TAB PO SCH ×3 (09:17→16:15)
[2021-05-15] MEDS: CALAMINE LOTION 177 ML BTL TOP SCH ×2 (09:18→16:00)
[2021-05-15] MEDS: FLUDROCORTISONE ACETATE 0.1 MG TAB PO SCH (09:18)
[2021-05-15] MEDS: MUPIROCIN 2% OINT 22 GM TUBE TOP SCH (09:19)
--- NOTE | 2021-05-15 12:20 | IPN ---
PROGRESS NOTE DATE: 05/14/2021 SUBJECTIVE: Patient was seen and examined at the bedside today morning. He is afebrile. He is tolerating the hemodialysis regimen. Blood pressures are soft but stable. He denies any active complaints. OBJECTIVE: VITAL SIGNS: Temperature is 99.1 degrees Fahrenheit, blood pressure is 91/52, pulse is 76, respiratory rate is 18, saturating 93% on room air. INTAKE AND OUTPUT: Urine output is not recorded. Weight on the bed scale was 89 kg. GENERAL: Patient is awake, alert and oriented x3, laying in bed in no apparent distress. HEAD AND NECK: Extraocular muscles intact. Pupils equally round and reactive to light. Mucous membranes are moist. Neck is supple. Mildly elevated JVD. CARDIOVASCULAR: S1 and S2, regular rate. There is 3+ edema on the bilateral lower extremities. RESPIRATORY: Chest is clear to auscultation bilaterally. ABDOMEN: Soft, positive bowel sounds. Left upper quadrant PD catheter is noted. MUSCULOSKELETAL: Chronic venous stasis changes and 3+ edema of the lower extremities noted. CORSAGE MAKER: No focal deficit. Power is 5/5 in all extremities. LABORATORY DATA: CBC showed a WBC of 10.8, hemoglobin 10.2, platelets are 241,000. BMP showed a sodium of 131, potassium 3.7, chloride is 93, bicarbonate 28, BUN 53, creatinine is 7.6. Calcium is 7.9. CURRENT INPATIENT MEDICATIONS: Patient's medications were all reviewed by myself. There is no significant change in the medications today as compared with yesterday. ASSESSMENT AND PLAN: 1. Endstage renal disease. Continue current regimen of peritoneal dialysis, three exchanges of 1.5% and two exchanges of 2.5%. 2. Chronic hypotension. Continue Florinef and Midodrine. 3. Anemia and endstage renal disease. He is currently on once a week Aranesp. Hemoglobin is optimal. 4. Atrial fibrillation, heart rate is controlled with Amiodarone. 5. Chronic recurrent UTIs, continue Fosfomycin once a week. 6. Disposition: Patient is optimized to be discharged back home from a Nephrology standpoint by tomorrow morning.
[2021-05-15 14:00] VITALS: BP 75/46
[2021-05-15] MEDS ORDERED: OXYC1TAB23 PO (14:10)
--- NOTE | 2021-05-15 17:45 | IPN ---
NEPHROLOGY PROGRESS NOTE DATE: 05/15/2021 SUBJECTIVE: The patient was seen and examined this morning lying in bed. His peritoneal dialysis exchanges have been uneventful. He denies any shortness of breath at rest. His blood pressures remain low with systolic generally in the 80's. He is discharged pending this afternoon. OBJECTIVE: VITAL SIGNS: Temperature 96.5, pulse 85, respiratory rate 17, blood pressure 83/49, saturating 93-97% on room air. INTAKE AND OUTPUT: I.'s and O.'s are reviewed and he is in equivalent fluid balance. Weight in the bed scale today is 73.3 kg which is significantly different from earlier days of likely inaccurate. PHYSICAL EXAMINATION: GENERAL APPEARANCE: The patient is seen lying in bed, awake, alert, oriented, comfortable, in no distress, elderly male. HEENT: The extraocular muscles are intact. Pupils are round and reactive to light. Mucous membranes are moist. NECK: Supple. Jugular veins are mildly elevated. HEART: Regular, S1, S2. EXTREMITIES: Chronic 2+ leg edema which is below the knee and is unchanged as compared to my prior examinations of him. RESPIRATORY: Mildly diminished breath sounds at the bases. Otherwise he is comfortable on room air. No wheezing or rhonchi. ABDOMEN: Soft and nontender. There is a peritoneal dialysis catheter in the left upper quadrant with a clean dressing. NEUROLOGICAL: No focal deficits. He moves all four extremities on command. He is pretty much bed bound. LABORATORY STUDIES: White count 10.2, hemoglobin 10.8, platelet count 267. Sodium 130, potassium 3.6, BUN 50, creatinine 7.6, bicarbonate 28. CURRENT INPATIENT MEDICATIONS: The patient's medications were all reviewed by myself and I made no changes to his medications today. He continues on Midodrine 15 mg p.o. three times daily. I note his Amiodarone was stopped. PROBLEMS: 1. End-stage renal disease, on peritoneal dialysis - The patient is tolerating current prescription of five manual exchanges with 1.5 and 2.5% dianeal. He is going to be discharged home on his usual peritoneal dialysis prescription. His peritoneal dialysis catheter has been malpositioned, but he is not suitable for surgical interventions, given his severe hypotension and overall frail state. 2. Chronic hypotension he continues on Florinef and high dose Midodrine 15 mg p.o. three times daily. 3. Anemia in end-stage renal disease his hemoglobin is optimized and he continues on Erythropoietin stimulating agent. He will be managed in the outpatient peritoneal dialysis clinic. 4. Disposition - The patient is all right for discharge from a nephrology point of view. He has very poor prognosis overall.
--- NOTE | 2021-05-15 17:51 | DSES ---
DISCHARGE SUMMARY DATE OF ADMISSION: 05/08/2021 DATE OF DISCHARGE: 05/15/2021 DIRECTOR OF BANDS(S) DURING THIS ADMISSION: 1. General surgeon, Rob Crews DO. 2. Batch Analyst, Francisco J Mohamud M.D. 3. Collar Shaper Operator, Emerald López MD PRIMARY DISCHARGE DIAGNOSES: 1. Peritoneal dialysis catheter malfunction. 2. Syncope secondary to chronic orthostatic hypotension. 3. Atrial fibrillation with rapid ventricular response. 4. End-stage renal disease on peritoneal dialysis secondary to polycystic kidney disease. 5. Moderate aortic stenosis. 6. Chronic debility. 7. Asthma. 8. Dyslipidemia. 9. Benign prostatic hypertrophy. 10. Gastroesophageal reflux disease. DISCHARGE MEDICATIONS: 1. Amiodarone 200 mg daily. 2. Albuterol two puffs q. 6 hourly as needed for wheezing. 3. Eliquis 2.5 b.i.d. 4. Atorvastatin 10 mg q. h.s. 5. Calcitriol 0.25 mcg three times a week. 6. Vitamin D 1000 units q. h.s. 7. Colace 100 b.i.d. 8. Ferrous sulfate 325 daily. 9. Florinef 0.1 daily. 10. Heparin 1000 mg IV daily. 11. Midodrine 15 mg t.i.d. 12. Protonix 40 daily. 13. MiraLAX 17 grams daily. 14. Advair Diskus one puff inhaled b.i.d. 15. Ibeth-Lynda one tablet daily. The patient is to have fosfomycin to be managed by ironworker apprentice as an outpatient for history of recurrent UTIs. The patient is not a surgical candidate for any invasive or surgical procedures per Dr. Mohamud the lead sprinkler. DISCHARGE INSTRUCTIONS: The patient is not a candidate for dialysis catheter replacement in the operating room and is not medically cleared for any invasive or surgical procedure per his lead sprinkler. Once the peritoneal dialysis catheter fails, the patient is appropriate for comfort measures only; since the patient is not a candidate for hemodialysis. He, his significant other, and daughter are all aware of his current condition. He will manage with current dialysis with existing peritoneal dialysis catheter; but once this fails, there is no medical intervention or surgical intervention that can be given and the patient is appropriate for comfort measures only Hospice. Outpatient follow-up with Dr. Mohamud and Dr. López, primary care physician appointment within five days. The patient is currently DO NOT RESUSCITATE (DNR) / DO NOT INTUBATE (DNI). MOLST form has been signed. The difference between this admission and previous admission is the patient is now not a surgical candidate for any invasive procedure requiring anesthesia per his lead sprinkler and since he is not a dialysis candidate once the peritoneal dialysis catheter fails, he should be comfort measures only with Hospice as consult. HOSPITAL COURSE: This is an 85-year-old do not resuscitate/do not intubate male who was admitted on 05/08/2021 with malfunctioning peritoneal dialysis catheter. He was evaluated by general surgeon, Dr. Crews, who could not reposition the dialysis catheter. Collar Shaper Operator was consulted and continued with peritoneal dialysis during this admission with removal of excess fluid volume. The patient developed AFib with RVR with chronic hypotension and mean arterial pressure of 65 to 70. The patient was given IV amiodarone drip for 18 hours with resultant improvement and per Dr. Mohamud's recommendation, transitioned to 400 mg of amiodarone b.i.d. for 14 days and then change to amiodarone 200 mg daily. The patient was transferred from ICU to PCU under telemetry with the dialysis catheter working. During this time, his anticoagulation was discontinued in anticipation of medical clearance for the OR. Since the patient had AFib with RVR, the patient did not go back to the OR for repositioning of the catheter. While off Eliquis, the patient developed a syncopal episode. While working with physical therapy after he stood up, he was found to be orthostatic. He had not received his Florinef or his midodrine at that time. He then collapsed on the bed and received two minutes of chest compressions. Review of the telemetry strip shows slow atrial fibrillation, lowest ventricular rate was 45. He was transferred back to the intensive care unit for observation for 24 hours and reevaluated by his lead sprinkler. At that time, Dr. Mohamud recommended no invasive or surgical procedures as the patient will not tolerate this. Per ironworker apprentice, he is not a candidate for hemodialysis due to chronic hypotension. This was discussed with the patient and his family. The patient's blood pressure improved once he was given Florinef and midodrine and he was transferred out of the ICU to the medical surgical floor. The patient remained with rate controlled atrial fibrillation on amiodarone 200 mg daily, which was decreased by his lead sprinkler. He is maintained on his home dose of Florinef and midodrine at 15 mg t.i.d. and continues to have dialysis through his peritoneal dialysis catheter without needing to reposition. His surgery was cancelled for repositioning of the peritoneal dialysis since it was working, and the patient is not medically cleared to proceed for any invasive or surgical procedure. This was discussed at length with the patient who decided that it was appropriate for him to be a do not resuscitate / do not intubate instead of a full code. The MOLST form was signed. A family discussion with his significant other, daughter at the bedside, and the patient. We had reiterated the fact that the patient is not a hemodialysis candidate and once the peritoneal dialysis catheter fails, he is not a candidate for surgical or invasive procedure for the operating room to correct this. Dr. Mohamud had also suggested possibly ligated his AV fistula to maybe improve his blood pressure, but nephrology did not feel that this was a viable option. At this time, he is being discharged home with home care. They will continue with peritoneal dialysis as is. Once this fails, they are appropriate to be referred to Hospice and for the patient to be made comfort measures only. DISCHARGE PHYSICAL EXAMINATION: VITAL SIGNS: Temperature 96.5, pulse 85, respiratory rate 17, blood pressure 83/49, 93% on room air. GENERAL: The patient is awake, alert, and oriented to himself. Slightly hard of hearing. NECK: No JVD. No thyromegaly. LUNGS: Diminished, but clear without rales or rhonchi. HEART: S1, S2. Irregularly irregular, but not tachycardic. Systolic ejection murmur at the apex radiating to the carotids. ABDOMEN: Soft, nontender, and nondistended. Positive bowel sounds x4 quadrants. Peritoneal dialysis noted. EXTREMITIES: Chronic edema. LABORATORY DATA: White count 10, hemoglobin 10.8, hematocrit 32, platelet count 267,000. Sodium 130, potassium 3.6, chloride 92, bicarb 28, BUN 50, creatinine 7.64, glucose 100. IMAGING DATA: See chart. Time spent on discharge 30 minutes. [facility]
--- NOTE | 2021-05-15 18:29 | IPN ---
PROGRESS NOTE DATE: 05/15/2021 SUBJECTIVE: Mr. Leigh seems rather comfortable. When I entered the room he was eating breakfast. He was complaining of the food but otherwise tells me that he is feeling relatively well. He has not had any major events over the weekend and the peritoneal dialysis catheter seems to be working acceptably. OBJECTIVE: PHYSICAL EXAMINATION: VITAL SIGNS: This morning blood pressure 83/49, heart rate has been in the 80's, atrial fibrillation, he is afebrile, saturation 93% on room air. Weight was not recorded in the last 2 days. GENERAL APPEARANCE: He is alert and oriented and appropriate. NECK: JVP does not look high. LUNGS: Somewhat diminished over bases but I do not appreciate any crackles, wheezing or rhonchi. HEART: Regular rate and regular rhythm with a systolic ejection murmur over the aortic valve consistent with aortic stenosis. There is about 2+ edema. EXTREMITIES: He has diffuse bruising and ecchymosis on his extremities. LABORATORY STUDIES: Labs from this morning are pending. Yesterday his potassium was 3.7, BUN 53 and creatinine is 7.6. CBC revealed a WBC count of 10.8, hemoglobin 10.2, hematocrit 30 and platelet count 240,000. ASSESSMENT AND PLAN: Mr. Leigh is an 85-year-old man who has chronic atrial fibrillation, who has trouble with orthostatic hypotension. He is already on Midodrine and Florinef in high doses without much benefit. Reviewing his hospital records, I still believe that he might benefit from ligating his AV fistula. It has not been used because he has been on peritoneal dialysis and there is no immediate plan to use it and it can potentially increase his peripheral vascular resistance and reduce some of the shunting which might help his blood pressure. I think this should not be overly complicated intervention and I believe there is some potential for benefit. I also am going to discontinue Amiodarone. There is no need to use this medication in this setting. If he should become tachycardic, Digoxin would be my drug of choice. He has not been anticoagulated. He previously had a history of GI bleeding and subsequently refused any evaluation and refused restarting anticoagulation. Finally, I was reading some of the notes and I want to rephrase when I said that the patient is not a candidate for surgical intervention. What I meant is that he is not a candidate for open heart surgery or coronary intervention rather than smaller surgeries like ligating his AV fistula.
== END 2021-05-15 16:20 | disposition home health service (06) | DRG 919 ==
LOC: M ED 14:02 → M ED INP 18:23 → ENRESERV 19:05 → M ICU 21:30 → M PCU 05-11 06:33 → M ICU 05-11 09:22 → M PCU 05-12 18:40 → M MSPAV 05-14 15:30
PROVIDERS: ADMIT Internal Medicine Nephrology; ATTEND General Practice
DX: T85.621A Displacement of intraperitoneal dialysis catheter, initial encounter (principal); N18.6 End stage renal disease; Q61.2 Polycystic kidney, adult type; N39.0 Urinary tract infection, site not specified; J90 Pleural effusion, not elsewhere classified; R18.8 Other ascites; N25.81 Secondary hyperparathyroidism of renal origin; I12.0 Hypertensive chronic kidney disease with stage 5 chronic kidney disease or end stage renal disease; E87.2 Acidosis; I48.20 Chronic atrial fibrillation, unspecified; I35.0 Nonrheumatic aortic (valve) stenosis; J45.909 Unspecified asthma, uncomplicated; M10.9 Gout, unspecified; N40.0 Benign prostatic hyperplasia without lower urinary tract symptoms; R33.9 Retention of urine, unspecified; Z96.0 Presence of urogenital implants; Z99.2 Dependence on renal dialysis; Z66 Do not resuscitate; Z79.899 Other long term (current) drug therapy; Z79.01 Long term (current) use of anticoagulants; E78.5 Hyperlipidemia, unspecified; Z87.891 Personal history of nicotine dependence; Z20.822 Contact with and (suspected) exposure to COVID-19; K25.9 Gastric ulcer, unspecified as acute or chronic, without hemorrhage or perforation; K44.9 Diaphragmatic hernia without obstruction or gangrene; I95.89 Other hypotension; L29.9 Pruritus, unspecified; R00.0 Tachycardia, unspecified; E87.5 Hyperkalemia; D63.1 Anemia in chronic kidney disease; R55 Syncope and collapse; K21.9 Gastro-esophageal reflux disease without esophagitis